=== PATIENT | male | born 1950 | race Caucasian/White ===

== ENCOUNTER → 2016-09-16 | Outpatient (CLI) | payer MEDICARE ==
--- NOTE | 2016-09-16 11:38 | XR ---
EXAMINATION TYPE: XR chest 2V DATE OF EXAM: 09/16/2016 HISTORY: J42 Chronic bronchitis M50.90 cervical disc disord. REFERENCE: Previous study dated 08/08/2014. FINDINGS: The lungs are clear. Pleural spaces are clear. Heart size is normal. IMPRESSION: NORMAL CHEST.
--- NOTE | 2016-09-16 11:40 | XR ---
EXAMINATION TYPE: XR cervical spine comp DATE OF EXAM ORDERED: 09/16/2016 HISTORY: J42 Chronic bronchitis M50.90 cervical disc disord. COMPARISON: None. FINDINGS: Height and alignment are maintained. Atlantoaxial relationships are normal. There is degenerative dis c disease and hypertrophic spondylosis at C5-6 and C6-7. There is uncovertebral joint disease at C6-7 and C5-6. There is left-sided intervertebral foraminal narrowing at C5-6 and C6-7 on the left and to a lesser extent at C5-6 and C6-7 on the right. Prevertebral soft tissues are unremarkable. IMPRESSION: 1. NO ACUTE OSSEOUS LESION. 2. DEGENERATIVE CHANGE.
== END | disposition home or self-care (01) ==
LOC: RADXRMAIN 11:09
PROVIDERS: ATTEND Family Medicine
DX: J42 Unspecified chronic bronchitis (principal); M50.90 Cervical disc disorder, unspecified, unspecified cervical region
CPT/HCPCS: 71020; 72050

== ENCOUNTER → 2016-11-05 | Outpatient (CLI) | payer MEDICARE ==
[2016-11-05 11:41] LABS: Blood Urea Nitrogen 19 mg/dL (9-20); Non-African American GFR(MDRD) >60 (>60 ml/min/1.73 sqM)
--- NOTE | 2016-11-05 12:34 | CT ---
EXAMINATION TYPE: CT abdomen pelvis w con DATE OF EXAM: 11/05/2016 COMPARISON: 10/23/2015 HISTORY: Hematospermia CT DLP: 1141.6 mGycm CONTRAST: CT scan of the abdomen and pelvis is performed with Oral Contrast and with IV Contrast, patient injec kitty with 100 mL of Omnipaque 300. FINDINGS: LUNG BASES-: No visible nodule. No infiltrate. LIVER/GB: No calcified gallstones. There is evidence of hepatic steatosis. No space occupying hepa tic lesion. Biliary tree is of normal caliber. PANCREAS: No inflammation. No distinct mass. SPLEEN: No splenic enlargement. No lesion seen. ADRENALS: No nodule. No thickening. KIDNEYS/BLADDER: No hydronephrosis. No nephrolithiasis. Tiny renal cortical cysts identified left kidney. Urinary bladder grossly unremarkable. BOWEL: Normal appendix. Normal bowel caliber. No inflammation. Uncomplicated diverticulosis. GENITAL ORGANS: The prostate gland is of normal size. There is stable central calcification of the p rostate gland. Seminal vesicles are unremarkable. LYMPH NODES: No greater than 1cm abdominal or pelvic lymph nodes are appreciated. AORTA: No significant abnormality. OSSEOUS STRUCTURES: No significant abnormality is seen. OTHER: No significant additional abnormality is seen. IMPRESSION: 1. No significant abnormality to account for the patient's symptoms.
== END | disposition home or self-care (01) ==
LOC: RADCTMAIN 10:53
PROVIDERS: ATTEND Family Medicine
DX: R36.1 Hematospermia (principal)
CPT/HCPCS: 82565; 84520; 74177; 36415; Q9967

== ENCOUNTER → 2017-01-24 | Outpatient (CLI) | payer MEDICARE ==
[2017-01-24 11:28] LABS: Blood Urea Nitrogen 20 mg/dL (9-20); Non-African American GFR(MDRD) >60 (>60 ml/min/1.73 sqM)
--- NOTE | 2017-01-24 14:18 | CT ---
EXAMINATION TYPE: CT abdomen pelvis w con DATE OF EXAM: 01/24/2017 COMPARISON: Prior exam 11/05/2016 HISTORY: Patient complains of microscopic hematuria, dysuria, and frequency of urination. CT DLP: 1494.2 mGycm Automated exposure control for dose reduction was used. TECHNIQUE: Helical acquisition of images from the lung bases through the pelvis have been completed. CONTRAST: Performed with Oral Contrast and with IV Contrast, patient injected with 100 mL of Omnipaque 300. FINDINGS: LUNG BASES: No significant abnormality is appreciated. AORTA: No significant abnormality is appreciated. LIVER/GB: No interval change is appreciated. PANCREAS: No significant abnormality is seen. SPLEEN: No significant abnormality is seen. ADRENALS: No significant abnormality is seen. KIDNEYS: No significant abnormality is seen. REPRODUCTIVE ORGANS: Prostate calcifications noted. BOWEL: Diverticular changes associated with sigmoid colon FREE AIR: No Free Air visible. ASCITES: None visible. PELVIC ADENOPATHY: None visualized. RETROPERITONEAL ADENOPATHY: No Retroperitoneal Adenopathy visible. URINARY BLADDER: Right lateral bladder wall shows a soft tissue density as on prior exam measuring a pproximately 1 cm in size. No evident calcification. OSSEOUS STRUCTURES: No significant abnormality is seen. IMPRESSION: CORRELATE WITH CYSTOSCOPY FOR POSSIBLE BLADDER WALL TUMOR. DIVERTICULOSIS.
== END | disposition home or self-care (01) ==
LOC: RADCTMAIN 10:48
PROVIDERS: ATTEND Urology
DX: K57.90 Diverticulosis of intestine, part unspecified, without perforation or abscess without bleeding (principal); R31.9 Hematuria, unspecified
CPT/HCPCS: 82565; 84520; 74177; 36415; Q9967

== ENCOUNTER → 2017-04-12 | Outpatient (CLI) | payer MEDICARE ==
[2017-04-12 15:50] LABS: Basophils % (A) 1 %; CH 29.8; Eosinophils # (A) 0.2 k/uL (0-0.7); Eosinophils % (A) 3 %; HDW 2.59; HGB 13.3 gm/dL (13.0-17.5); Luc # (Auto) 0.16; Luc % (Auto) 2; Lymphocytes # (A) 1.5 k/uL (1.0-4.8); Lymphocytes % (A) 19 %; MCV 93.7 fL (80.0-100.0); Mean Platelet Volume 7.9; Monocytes # (A) 0.5 k/uL (0-1.0); Monocytes % (A) 6 %; Neutrophils # (A) 5.5 k/uL (1.3-7.7); Neutrophils % (A) 70 %; RBC 4.59 m/uL (4.30-5.90); RDW 14.3 % (11.5-15.5); WBC 7.9 k/uL (3.8-10.6); WBC (Perox) 8.89
[2017-04-12 16:00] LABS: Anion Gap 9 mmol/L; Blood Urea Nitrogen 17 mg/dL (9-20); Calcium 9.8 mg/dL (8.4-10.2); Carbon Dioxide 30 mmol/L (22-30); Chloride 106 mmol/L (98-107); Glucose 86 mg/dL (74-99); Non-African American GFR(MDRD) >60 (>60 ml/min/1.73 sqM); Sodium 145 mmol/L (137-145)
[2017-04-12 16:03] LABS: Potassium 4.5 mmol/L (3.5-5.1)
--- NOTE | 2017-04-12 16:10 | XR ---
EXAMINATION TYPE: XR chest 2V DATE OF EXAM: 04/12/2017 COMPARISON: Prior chest x-ray 09/16/2016 HISTORY: COPD, preop, bladder cancer TECHNIQUE: Frontal and lateral views of the chest are obtained. FINDINGS: There is no focal air space opacity, pleural effusion, or pneumothorax seen. The cardiac silhouette size is within normal limits. Prominent lung volumes suggest COPD. Patient is rotated. Ap ical pleural thickening is likely stable accounting for differences in technique. The osseous structu res are stable, possible old trauma to the left shoulder. IMPRESSION: No acute cardiopulmonary process.
== END | disposition home or self-care (01) ==
LOC: LABWHC1 15:18
PROVIDERS: ATTEND Urology
DX: Z01.818 Encounter for other preprocedural examination (principal); Z01.812 Encounter for preprocedural laboratory examination; J44.9 Chronic obstructive pulmonary disease, unspecified; C67.2 Malignant neoplasm of lateral wall of bladder; E78.5 Hyperlipidemia, unspecified; R31.29 Other microscopic hematuria
CPT/HCPCS: 36415; 71020; 80048; 85025; 87086

== ENCOUNTER → 2017-04-14 | Outpatient (CLI) | payer MEDICARE ==
[~2017-04-14] MED LIST: SODIUM CHLORIDE 0.9% 500 ML in EMPTY BAG 1 BAG IV PRN
[2017-04-14 12:32] VITALS: BP 113/69; PULSE 62; RESP 16; TEMP 97
== END | disposition home or self-care (01) ==
LOC: PROCWHC3 12:21
PROVIDERS: ATTEND Urology
DX: C67.2 Malignant neoplasm of lateral wall of bladder (principal)
CPT/HCPCS: 99213

== ENCOUNTER 2017-04-15 09:53 | Inpatient (IN) | payer MEDICARE ==
[~2017-04-15 09:53] MED LIST changes: +HEPARIN SODIUM,PORCINE 5,000 UNIT/ML 1 ML VIAL SQ ONE; +ONDANSETRON 4 MG/2 ML VIAL IVP PRN; -SODIUM CHLORIDE 0.9% 500 ML in EMPTY BAG 1 BAG IV PRN; +ceFAZolin IN SWFI 2 GM/20 ML SYRINGE IVP ONE
[2017-04-15] MEDS: LACTATED RINGERS 1,000 ML IV SCH ×3 (10:27→19:49)
[2017-04-15] MEDS ORDERED: LIDOCAINE 1% 20 ML VIAL (10MG/ML) FOR IV START INTRADERMA ONE ×2 (10:28→10:29)
[2017-04-15] MEDS ORDERED: HYDROmorphone (PF) 1 MG/ML ONE (11:32)
[2017-04-15] MEDS ORDERED: ROCURONIUM BROMIDE 10 MG/ML 10 ML VIAL IV ONE (11:32)
[2017-04-15] MEDS ORDERED: SUCCINYLCHOLINE CHLORIDE 100 MG/5 ML SYR IV ONE (11:32)
[2017-04-15] MEDS ORDERED: PROPOFOL 10 MG/ML 20 ML VIAL IV ONE (11:32)
[2017-04-15] MEDS ORDERED: PHENYLEPHRINE-0.9% NACL SYG 1 MG/10 ML SYRINGE ONE (11:32)
[2017-04-15] MEDS ORDERED: fentaNYL (PF) 50 MCG/ML 2 ML AMP ONE (11:32)
[2017-04-15] MEDS ORDERED: MIDAZOLAM 2 MG/2 ML VIAL ONE (11:32)
[2017-04-15] MEDS ORDERED: LIDOCAINE 1% INJ 10MG/ML (20 ML MDV) ONE (11:32)
[2017-04-15] MEDS ORDERED: NEOSTIGMINE 1 MG/ML 10 ML VIAL ONE (11:32)
[2017-04-15] MEDS ORDERED: GLYCOPYRROLATE 0.2 MG/ML 2 ML VIAL ONE (11:32)
[2017-04-15] MEDS ORDERED: BUPIVACAINE (PF) 0.25% 30 ML VIAL SQ ONE (12:33)
[2017-04-15] MEDS ORDERED: LACTATED RINGERS 1,000 ML IV ONE ×3 (12:38→17:22)
[2017-04-15] MEDS ORDERED: metroNIDAZOLE-NS PMX 500 MG in SALINE 1 100ML.BAG IVPB STA (15:36)
[2017-04-15] MEDS ORDERED: cefOXitin IN SWFI 2 GM/10 ML SYRINGE IVP ONE (15:45)
[2017-04-15] MEDS ORDERED: KETOROLAC 30 MG/ML 1 ML VIAL IVP PRN (16:37)
[2017-04-15] MEDS: HYDROmorphone 0.5 MG/0.5 ML SYRINGE IVP PRN ×2 (17:15→17:36)
[2017-04-15] MEDS ORDERED: NITROGLYCERIN SL TABS 0.4 MG TAB SUBLINGUAL PRN (17:52)
[2017-04-15 19:37] LABS: Basophils % (A) 0 %; Eosinophils % (A) 0 %; HGB 13.1 gm/dL (13.0-17.5); Lymphocytes # (A) 0.4 k/uL (1.0-4.8); Lymphocytes % (A) 3 %; MCH 29.7 pg (25.0-35.0); MCHC 32.8 g/dL (31.0-37.0); MCV 90.6 fL (80.0-100.0); Mean Platelet Volume 7.8; Monocytes # (A) 0.6 k/uL (0-1.0); Monocytes % (A) 4 %; Neutrophils # (A) 12.8 k/uL (1.3-7.7); Neutrophils % (A) 92 %; Platelet Count 200 k/uL (150-450); RBC 4.42 m/uL (4.30-5.90); RDW 13.7 % (11.5-15.5); WBC 13.9 k/uL (3.8-10.6)
[2017-04-15] MEDS: HYDROmorphone 1 MG/ML 1 ML SYRINGE IVP PRN ×2 (19:41→21:51)
[2017-04-15] MEDS: DEXTROSE 5%-0.45% NACL 1,000 ML IV SCH (19:43)
[2017-04-15] MEDS: ATORVASTATIN 20 MG TAB PO SCH (20:36)
[2017-04-15] MEDS: LISINOPRIL 20 MG TAB PO SCH (20:36)
[2017-04-15] MEDS: HEPARIN SODIUM,PORCINE 5,000 UNIT/ML 1 ML VIAL SQ SCH (21:53)
[2017-04-15] MEDS ORDERED: ceFAZolin 1 GM in SODIUM CHLORIDE 0.9% 100 ML IVPB SCH (23:00)
[2017-04-15] MEDS: ceFAZolin 1,000 MG in DEXTROSE/WATER 1 50ML.BAG IVPB SCH (23:50)
[2017-04-16] MEDS: HYDROmorphone 1 MG/ML 1 ML SYRINGE IVP PRN ×8 (02:06→20:29)
[2017-04-16] MEDS: DEXTROSE 5%-0.45% NACL 1,000 ML IV SCH ×3 (04:17→20:31)
[2017-04-16] MEDS: PANTOPRAZOLE 40 MG TABLET PO SCH (09:12)
[2017-04-16] MEDS: ISOSORBIDE MONONITRATE ER 60 MG TAB.ER.24H PO SCH (09:21)
[2017-04-16] MEDS: METOPROLOL SUCCINATE (ER) 100 MG TAB.ER.24H PO SCH (09:21)
[2017-04-16] MEDS: HEPARIN SODIUM,PORCINE 5,000 UNIT/ML 1 ML VIAL SQ SCH ×2 (09:23→21:34)
[2017-04-16] MEDS: ceFAZolin 1,000 MG in DEXTROSE/WATER 1 50ML.BAG IVPB SCH (09:23)
--- NOTE | 2017-04-16 09:25 | P.PN ---
Subjective The patient is in his first postoperative day from a robotic-assisted cystoprostatectomy, lymphadenectomy, ileal conduit. His vital signs are stable. His urine output is good. His pain is controlled. His stoma is pink. Abdomen is relatively soft. His extremities are without edema. The drainage is not great. The ureteral catheters are intact. He will continue with IV fluids and ice chips. He will sit in a chair today. He'll continue with incentive spirometry. Objective - Vital Signs Vital signs: Vital Signs Temp 98.0 F 04/16/17 07:00 Pulse 104 H 04/16/17 07:00 Resp 18 04/16/17 07:00 BP 131/71 04/16/17 07:00 Pulse Ox 97 04/16/17 07:00 Intake & Output 04/15/17 04/16/17 04/16/17 18:59 06:59 18:59 Intake Total 2800 1550 Output Total 750 530 Balance 2050 1020 Intake: IV 2800 1550 Dextrose 5%-0.45% NaCl 1, 1500 000 ml @ 125 mls/hr IV . Q8H [facility] Rx#:[id number] ceFAZolin 1,000 mg In 50 Dextrose/Water 1 50ml.bag @ 100 mls/hr IVPB Q8HR [facility] Rx#:[id number] Output: Drainage 350 280 Hong 300 Left Abdomen 50 280 Urine 150 250 Estimated Blood Loss 250 Other: Voiding Method Ileal Conduit (Right) - Labs CBC & Chem 7: 04/15/17 18:50 Labs: Abnormal Lab Results - Last 24 Hours (Table) 04/15/17 Range/Units 18:50 WBC 13.9 H (3.8-10.6) k/uL Neutrophils # 12.8 H (1.3-7.7) k/uL Lymphocytes # 0.4 L (1.0-4.8) k/uL
[2017-04-16] MEDS: ONDANSETRON 4 MG/2 ML VIAL IVP PRN ×2 (13:00→20:04)
--- NOTE | 2017-04-16 16:26 | P.OP ---
Date of Procedure: 04/15/17 Preoperative Diagnosis: Urothelial Carcinoma of the Bladder, Clinical Stage T1G3 Postoperative Diagnosis: Same Procedure(s) Performed: Robotic-Assisted Laparoscopic Radical Cystoprostatectomy, Bilateral Pelvic Lymphadenectomy Anesthesia: CATHI Surgeon: Kizzy Liz Alemite Operator #1: Alvaro Andino Estimated Blood Loss (ml): 240 IV fluids (ml): 2,500 Pathology: other (Bladder/prostate, pelvic lymph nodes) Condition: stable Disposition: PACU Indications for Procedure: The patient is a 66-year-old male who presented with hematospermia. He reports voiding symptoms, including nocturia. KELLY reveals the prostate to be palpably normal. Bladder emptying is complete, and urinalysis is negative. He is bothered by frequency and urgency despite taking alfuzosin and oxybutynin chloride er 5 mg daily. UA showed microhematuria, so he underwent a CT scan followed by office cystoscopy which revealed several papillary bladder tumors. He underwent TUR-BT, revealing T1G3 TCC involving the left posterolateral bladder wall and prostatic urethra. Additionally, he has a left lateral bladder wall diverticulum containing tumor. He underwent re-resection and TURP, again revealing T1G3 TCC. He has elected to undergo a robotic-assisted laparoscopic cystoprostatectomy with ileal conduit urinary diversion. The pros and cons of this vs. a diverticulectomy have been discussed at length. Potential risks associated with cystectomy include anesthesia, bleeding, infection, bowel leak, urinary leakage, stomal stenosis, ureteroileal anastomatic stricture, erectile dysfunction, prolonged post-op ileus, and bowel obstruction. He understands the possible need for adjuvant therapy. Operative Findings: Dense intra-abdominal adhesions, particularly involving the sigmoid colon. No evidence of extravesical disease. Description of Procedure: The patient was taken to the operating room and placed in the dorsal lithotomy position. The patient was prepped and draped in the usual sterile fashion. General anesthesia was initiated. The patient was placed in maximum Trendelenburg with the bed all the way down. Robotic ports were placed after Veress needle and pneumoperitoneum was established up to 20 mm of pressure. A camera port was placed at the umbilicus and a series of two 8 mm robotic ports were placed 5 cm laterally and two boilermaker's assistant ports, one placed of the 5 cm trocar on the left and one placed on the right above the iliac crest with a 12 mm trocar on the right. A suction port was also placed in the midline as well. Upon placement of the dela cruz port, adhesions were noted to the anterior abdominal wall on the right side. The left-sided ports were placed, and these adhesions were taken down prior to placemnt of the right-sided ports. The robot was then docked and access into the peritoneum was established. Dense adhesions were noted to involve the sigmoid colon, requiring extensive and careful dissection to allow the sigmoid colon to be mobilized. Once this had been performed, we began with dissection of the left ureter, which was identified in its normal anatomical position. This was dissected from above the iliac vessels down distally to the bladder. Small perforating vessels to the ureter were cauterized as needed with the robotic instruments. The ureter was then clipped, ligated, and cut at the level of the UVJ. We then proceeded with the ureteral dissection on the right side. It was not hydronephrotic and was seen in the normal anatomic position. This was dissected out just like the left side, again with care taken to preserve blood supply. A suture was placed through the distal end of each ureter. The peritoneum was then incised transversly across the bladder just above the cul-de-sac safely away from the rectum. We then continued the posterior dissection under the prostate to the level of the urethra. We then opened the space lateral to median umbilical ligament into the area between the pelvic sidewall and the bladder and dissected this down past the iliac vessels beyond the prostate down to the bony landmarks. This was carefully dissected down so that the lateral pedicle of the bladder was identified. This was isolated, and the obliterated umbilical artery was clipped with Hemolock clips and cut. The remainder of the lateral pedicle was stapled bilaterally. We then accessed the posterior pedicle and prostate, and these vessels were clipped with Hemolock clips and cut all the way down to the apex of the prostate. We then next proceeded with en-bloc extended bilateral pelvic lymph node dissection. We started at the bifurcation of the iliac vessels, medial to the genito-femoral nerve. The lymph node packet was split and rolled over the external iliac artery and vein. The dissection was carried down to the obturator fossa and all the way to the level of the circumflex iliac artery. The triangle of Sandra lymphatic packet was then dissected and the dissection was continued to the internal iliac artery and vein include the hypogastric and subobturator to complete the dissection. As a part of the dissection, the arterial branches of the internal iliac artery were clipped and cut. Next, we began anteriorly and took down the median umbilical ligaments against the anterior abdominal wall all the way down beyond the bladder and prostate to the bony landmarks of the pelvis. We then completed the apical dissection, identifying and dissecting out the urethra and apex of the prostate. We incised and dissected through the dorsal vein and with sharp scissors, cut through the apex of urethra. This completed the dissection and excision of the specimen, which included prostate and bladder. We next ensured that there was adequate hemostasis in the abdomen and put a suture through the dorsal vein complex. We then tunneled underneath the sigmioid colon to pass the left ureter under the colon to prepare for the urinary diversion. A segment of ileum was selected for the ileal conduit, sparing the terminal ileum, and this was marked with a silk suture. We then undocked the robot and placed a RADHA drain through the 8 mm left- sided robotic port. Next, the ileal conduit was performed. Once this was completed,we proceeded to close the midline abdominal wound. This was done with interrupted Ethibond sutures. The skin was closed with Monocryl sutures placed in a subcuticular fashion. The robotic ports were likewise closed with Monocryl sutures. Marcaine was injected subcutaneously at each incision site. A Hong catheter was left through the penis as a pelvic drain. All counts were correct at the end of the procedure. The patient was extubated and taken to the PACU in stable condition.
--- NOTE | 2017-04-16 16:30 | P.OP ---
Date of Procedure: 04/15/17 Preoperative Diagnosis: Urothelial Carcinoma of the Bladder, Clinical Stage T1G3 Postoperative Diagnosis: Same Procedure(s) Performed: Ileal Conduit Urinary Diversion Anesthesia: LAYAA Surgeon: Alvaro Andino Key Account Representative #1: Kizzy Liz Estimated Blood Loss (ml): 10 Pathology: none sent Condition: stable Disposition: PACU Indications for Procedure: The patient is a 66-year-old male with recently diagnosed T1G3 TCC involving the left posterolateral bladder wall and prostatic urethra. Additionally, he has a left lateral bladder wall diverticulum containing tumor. He underwent re- resection and TURP, again revealing T1G3 TCC. He has elected to undergo a robotic-assisted laparoscopic cystoprostatectomy with ileal conduit urinary diversion. Operative Findings: Nicely budded stoma located RLQ. Description of Procedure: After removing the surgical specimen, the previously selected segment of ileum was identified, as were the ends of the two ureters which were pulled up and out of the body extracorporeally after being freed up with adequate length. The loop was then identified, delineated, and the mesentry was excised down with a NICANOR stapler, which was then placed on either end of our proximal and distal limits of our ileal loop. The remainder of the bowel was placed back together at the antimesenteric border. The NICANOR stapler was used to reanastomose the bowel and the TA stapler was used to complete the anastomosis. Using a 3-0 silk suture, the staple line of the bowel anastomosis was excluded and reinforced. We also excised the staple line at each end of the ileal conduit to exclude all cuco for any risk of later stone formation. The bowel was then placed superiorly. The ileal loop was ensured inferiorly and the mesenteric defects were closed with interrupted silk stitches. We then next proceeded with the ureteroileal anastomosis in a [place] fashion. The ureters were spatulated bilaterally, and the medial edges of the spatulated ureters were sutured together using 4-0 PDS in a running fashion. The ureters were then anastomosed to the afferent end of the ileal conduit using 4-0 PDS suture in a running fashion. The anastomoses were stented using 7 Nigerian ureteral catheters. The ileal conduit was placed intra-abdominally, and skin was excised in the previously selected RLQ stomal site. A cruciate incision was made in the anterior rectus fashion, and the muscle was longitudinally. The peritoneum was opened to allow two fingerbreadths, and a Diana clamp was used to grasp the distal (efferent) end of the ileal conduit and guide it through the abdominal wall. We then next fashioned the stoma, securing the wall of the ileum to the rectus fascia using Vicryl sutures placed several cm proximal to the distal end of the stoma. A series of interrrupted Vicryl sutures were then used to araceli the stoma in a tejon fashion. The bowel appeared pink and healthy. The stents were sutured to the skin adjacent to the stoma. A stomal appliaced was placed over the stoma after closing the incisions.
[2017-04-16] MEDS: LACTATED RINGERS 1,000 ML IV SCH (20:34)
[2017-04-16] MEDS: ATORVASTATIN 20 MG TAB PO SCH (20:35)
[2017-04-16] MEDS: LISINOPRIL 20 MG TAB PO SCH (20:35)
[2017-04-17] MEDS: HYDROmorphone 1 MG/ML 1 ML SYRINGE IVP PRN ×10 (00:04→22:52)
[2017-04-17] MEDS: DEXTROSE 5%-0.45% NACL 1,000 ML IV SCH ×3 (05:55→20:46)
[2017-04-17] MEDS: PANTOPRAZOLE 40 MG TABLET PO SCH (07:37)
[2017-04-17] MEDS: HEPARIN SODIUM,PORCINE 5,000 UNIT/ML 1 ML VIAL SQ SCH ×2 (08:08→22:54)
[2017-04-17] MEDS: METOPROLOL SUCCINATE (ER) 100 MG TAB.ER.24H PO SCH (08:08)
[2017-04-17] MEDS: ISOSORBIDE MONONITRATE ER 60 MG TAB.ER.24H PO SCH (08:08)
[2017-04-17] MEDS: ONDANSETRON 4 MG/2 ML VIAL IVP PRN ×3 (08:21→22:52)
--- NOTE | 2017-04-17 10:51 | P.PN ---
Subjective Progress Note Date: 04/17/17 The patient is in his second postoperative day from his robotic-assisted radical cystectomy with ileal loop. His vital signs are stable. His urine output is good. The drainage is not significant. The stoma remained pink. His abdomen is relatively soft. He has not passed any gas yet. His wound looks good. His pain is under control. He will have clear liquid diet. He'll ambulate. We'll continue with supportive care. Objective - Vital Signs Vital signs: Vital Signs Temp 97.6 F 04/17/17 07:00 Pulse 56 L 04/17/17 07:00 Resp 16 04/17/17 08:00 BP 134/70 04/17/17 07:00 Pulse Ox 94 L 04/17/17 07:00 Intake & Output 04/16/17 04/17/17 04/17/17 18:59 06:59 18:59 Intake Total 925 1550 Output Total 415 540 70 Balance 510 1010 -70 Intake: IV 925 1550 Dextrose 5%-0.45% NaCl 1, 875 1500 000 ml @ 125 mls/hr IV . Q8H [facility] Rx#:[id number] ceFAZolin 1,000 mg In 50 50 Dextrose/Water 1 50ml.bag @ 100 mls/hr IVPB Q8HR [facility] Rx#:[id number] Output: Drainage 140 240 70 Hong 40 10 Left Abdomen 100 240 60 Urine 275 300 Other: Voiding Method Ileal Conduit (Right) Ileal Conduit (Right) Ileal Conduit ( Right) - Labs CBC & Chem 7: 04/15/17 18:50
[2017-04-17 11:50] LABS: HCT 34.4 % (39.0-53.0); HGB 11.3 gm/dL (13.0-17.5); MCH 30.3 pg (25.0-35.0); MCHC 32.7 g/dL (31.0-37.0); MCV 92.6 fL (80.0-100.0); Mean Platelet Volume 7.6; Platelet Count 197 k/uL (150-450); RBC 3.72 m/uL (4.30-5.90); RDW 13.8 % (11.5-15.5); WBC 10.4 k/uL (3.8-10.6)
[2017-04-17 12:02] LABS: Anion Gap 3 mmol/L; Blood Urea Nitrogen 14 mg/dL (9-20); Calcium 8.4 mg/dL (8.4-10.2); Carbon Dioxide 28 mmol/L (22-30); Chloride 104 mmol/L (98-107); Glucose 117 mg/dL (74-99); Potassium 4.1 mmol/L (3.5-5.1); Sodium 135 mmol/L (137-145)
[2017-04-17] MEDS: LACTATED RINGERS 1,000 ML IV SCH (20:01)
[2017-04-17] MEDS: LISINOPRIL 20 MG TAB PO SCH (22:54)
[2017-04-17] MEDS: ATORVASTATIN 20 MG TAB PO SCH (22:54)
[2017-04-18] MEDS: HYDROmorphone 1 MG/ML 1 ML SYRINGE IVP PRN ×10 (01:58→23:16)
[2017-04-18] MEDS: DEXTROSE 5%-0.45% NACL 1,000 ML IV SCH ×3 (04:02→11:06)
[2017-04-18] MEDS: PANTOPRAZOLE 40 MG TABLET PO SCH (06:14)
[2017-04-18] MEDS: ISOSORBIDE MONONITRATE ER 60 MG TAB.ER.24H PO SCH (08:13)
[2017-04-18] MEDS: HEPARIN SODIUM,PORCINE 5,000 UNIT/ML 1 ML VIAL SQ SCH ×2 (08:13→20:50)
[2017-04-18] MEDS: METOPROLOL SUCCINATE (ER) 100 MG TAB.ER.24H PO SCH (08:13)
--- NOTE | 2017-04-18 10:39 | P.PN ---
Subjective Progress Note Date: 04/18/17 The patient's vital signs are stable. He's had an increased amount of drainage out of the Ehsan-Irvin drain. Whether this is due to his ambulation or not I am uncertain. The urine output is good. The drainage from the urethral catheter is minimal. I will obtain creatinines on each of the fluid levels to clarify whether this is peritoneal or urine leakage. He is stented and drained. A were good. He'll be made nothing by mouth as he does have an ileus this morning. Objective - Vital Signs Vital signs: Vital Signs Temp 98.6 F 04/18/17 07:00 Pulse 79 04/18/17 07:00 Resp 18 04/18/17 07:00 BP 152/83 04/18/17 07:00 Pulse Ox 95 04/18/17 07:00 Intake & Output 04/17/17 04/18/17 04/18/17 18:59 06:59 18:59 Intake Total 875 1000 Output Total 570 830 180 Balance 305 170 -180 Intake: IV 1000 Dextrose 5%-0.45% NaCl 1, 1000 000 ml @ 125 mls/hr IV . Q8H [facility] Rx#:[id number] Intake, IV Titration 875 Amount Dextrose 5%-0.45% NaCl 1, 875 000 ml @ 125 mls/hr IV . Q8H [facility] Rx#:[id number] Output: Drainage 120 830 180 Hong 10 Left Abdomen 110 830 180 Urine 450 Other: Voiding Method Ileal Conduit (Right) Ileal Conduit (Right) Ileal Conduit ( Right) - Labs CBC & Chem 7: 04/17/17 11:33 04/17/17 11:33 Labs: Abnormal Lab Results - Last 24 Hours (Table) 04/17/17 04/17/17 Range/Units 11:33 11:33 RBC 3.72 L (4.30-5.90) m/uL Hgb 11.3 L (13.0-17.5) gm/dL Hct 34.4 L (39.0-53.0) % Sodium 135 L (137-145) mmol/L Glucose 117 H (74-99) mg/dL
[2017-04-18 11:12] LABS: HCT 41.9 % (39.0-53.0); HGB 13.5 gm/dL (13.0-17.5); MCH 29.5 pg (25.0-35.0); MCHC 32.2 g/dL (31.0-37.0); MCV 91.7 fL (80.0-100.0); Mean Platelet Volume 7.8; Platelet Count 302 k/uL (150-450); RBC 4.57 m/uL (4.30-5.90); WBC 16.4 k/uL (3.8-10.6)
[2017-04-18 11:32] LABS: ALT 29 U/L (21-72); AST 17 U/L (17-59); Albumin 2.9 g/dL (3.5-5.0); Alkaline Phosphatase 48 U/L (38-126); Anion Gap 6 mmol/L; Blood Urea Nitrogen 16 mg/dL (9-20); Calcium 8.7 mg/dL (8.4-10.2); Carbon Dioxide 23 mmol/L (22-30); Chloride 103 mmol/L (98-107); Glucose 173 mg/dL (74-99); Potassium 4.6 mmol/L (3.5-5.1); Sodium 132 mmol/L (137-145); Total Bilirubin 0.7 mg/dL (0.2-1.3); Total Protein 5.4 g/dL (6.3-8.2)
[2017-04-18] MEDS: SODIUM CHLORIDE 0.9% 1,000 ML IV SCH ×2 (12:32→20:48)
[2017-04-18] MEDS: ONDANSETRON 4 MG/2 ML VIAL IVP PRN ×2 (17:03→23:16)
[2017-04-18] MEDS: BENZOCAINE/MENTHOL LOZENG 1 EACH LOZENGE MUCOUS MEM PRN (17:48)
[2017-04-18] MEDS: ATORVASTATIN 20 MG TAB PO SCH (20:19)
[2017-04-18] MEDS: LISINOPRIL 20 MG TAB PO SCH (20:19)
[2017-04-19] MEDS: HYDROmorphone 1 MG/ML 1 ML SYRINGE IVP PRN ×8 (01:49→22:52)
[2017-04-19] MEDS: ONDANSETRON 4 MG/2 ML VIAL IVP PRN ×2 (04:26→14:39)
[2017-04-19] MEDS: SODIUM CHLORIDE 0.9% 1,000 ML IV SCH ×2 (04:28→14:30)
[2017-04-19 07:37] LABS: Basophils % (A) 1 %; Eosinophils # (A) 0.1 k/uL (0-0.7); Eosinophils % (A) 1 %; HCT 39.4 % (39.0-53.0); HGB 12.5 gm/dL (13.0-17.5); Lymphocytes # (A) 0.7 k/uL (1.0-4.8); Lymphocytes % (A) 10 %; MCH 29.6 pg (25.0-35.0); MCHC 31.7 g/dL (31.0-37.0); MCV 93.6 fL (80.0-100.0); Monocytes # (A) 0.6 k/uL (0-1.0); Monocytes % (A) 9 %; Neutrophils # (A) 5.8 k/uL (1.3-7.7); Neutrophils % (A) 79 %; Platelet Count 247 k/uL (150-450); RBC 4.22 m/uL (4.30-5.90); RDW 14.3 % (11.5-15.5); WBC 7.3 k/uL (3.8-10.6)
[2017-04-19 07:48] LABS: ALT 33 U/L (21-72); AST 25 U/L (17-59); Albumin 2.5 g/dL (3.5-5.0); Alkaline Phosphatase 43 U/L (38-126); Anion Gap 5 mmol/L; Blood Urea Nitrogen 27 mg/dL (9-20); Calcium 8.2 mg/dL (8.4-10.2); Carbon Dioxide 25 mmol/L (22-30); Chloride 106 mmol/L (98-107); Glucose 127 mg/dL (74-99); Potassium 4.4 mmol/L (3.5-5.1); Sodium 136 mmol/L (137-145); Total Bilirubin 0.6 mg/dL (0.2-1.3); Total Protein 4.8 g/dL (6.3-8.2)
[2017-04-19] MEDS: ISOSORBIDE MONONITRATE ER 60 MG TAB.ER.24H PO SCH (09:21)
[2017-04-19] MEDS: PANTOPRAZOLE 40 MG TABLET PO SCH (09:22)
[2017-04-19] MEDS: METOPROLOL SUCCINATE (ER) 100 MG TAB.ER.24H PO SCH (09:22)
[2017-04-19] MEDS: HEPARIN SODIUM,PORCINE 5,000 UNIT/ML 1 ML VIAL SQ SCH ×2 (09:22→19:58)
--- NOTE | 2017-04-19 12:43 | CDI ---
Last Revision, March 2017 Documentation Clarification Form Date: 04/19/2017 12:34:00 PM From: Sadie TomlinsonNICKOLAS, CCDS Admit Date: 04/15/2017 9:53:00 AM Patient Name: Jf Roe Visit Number: [id number] Discharge Date: ATTENTION: The Clinical Documentation Specialists (CDI) and [facility] Coding Staff appreciate your assistance in clarifying documentation. Please respond to the clarification below the line at the bottom and electronically sign. The CDI & [facility] Coding staff will review the response and follow-up if needed. Please note: Queries are made part of the Legal Health Record. If you have any questions, please contact the author of this message via ITS. Dr. Jf Gerard or Dr. Alvaro Andino: Per the progress note on 04/18: "He'll be made nothing by mouth as he does have an ileus this morning." Patients Admitting Diagnosis: Urothelial Carcinoma of the Bladder Post-Operative Diagnosis: same Procedure performed: Robotic-Assisted Laparoscopic radical cystoprostatectomy, Ileal Conduit Urinary Diversion, Bilateral Pelvic Lymphadenectomy. History/Risk Factors: No other history documented. Clinical Indicators: Ileus documented as above. Treatment: NPO, IV Dilaudid, IV Zofran, IV Lactated ringers, Heparin sq, IV Kefzol, IV Flagyl. In order to accurately reflect this patients severity of illness, please clarify if the post-operative diagnosis: ileus, is: An expected post-procedural or post-surgical condition; Integral to the procedure; Inherent to the procedure; An unexpected post-procedural or post-surgical condition related to surgical care Other, please specify Unable to determine Please continue to document in your progress notes and discharge summary in order to capture severity of illness and risk of mortality. Include clinical findings that support your diagnosis. MTDD
--- NOTE | 2017-04-19 19:29 | P.PN ---
Subjective Progress Note Date: 04/19/17 Principal diagnosis: POD #4, s/p Radical Cystoprostatectomy with Ileal Conduit Urinary Diversion Patient is feeling better today. c/o belching. Denies N/V. Had a BM. Ambulating. Objective - Vital Signs Vital signs: Vital Signs Temp 98.2 F 04/18/17 20:22 Pulse 75 04/18/17 20:22 Resp 16 04/18/17 20:22 BP 141/81 04/18/17 20:22 Pulse Ox 93 L 04/18/17 20:22 Intake & Output 04/18/17 04/18/17 04/19/17 06:59 18:59 06:59 Intake Total 1000 1425 Output Total 830 1265 600 Balance 170 160 -600 Weight 90.718 kg Intake: IV 1000 1250 Dextrose 5%-0.45% NaCl 1, 1000 1250 000 ml @ 125 mls/hr IV . Q8H [facility] Rx#:[id number] Intake, IV Titration 125 Amount Sodium Chloride 0.9% 1, 125 000 ml @ 125 mls/hr IV . Q8H FAM Rx#:[id number] Oral 50 Output: Drainage 830 440 300 Hong 30 300 Left Abdomen 830 410 Urine 825 300 Uretheral (Hong) 275 Other: Voiding Method Ileal Conduit (Right) Ileal Conduit (Right) Ileal Conduit ( Right) # Voids 1 600 - Constitutional General appearance: Present: cooperative, no acute distress - Gastrointestinal Gastrointestinal Comment(s): Soft, mildly distended, incisions clean and dry, stoma pink and nicely budded - Psychiatric Psychiatric: Present: A&O x's 3, appropriate affect - Labs CBC & Chem 7: 04/19/17 07:09 04/19/17 07:09 Labs: Abnormal Lab Results - Last 24 Hours (Table) 04/18/17 04/18/17 Range/Units 11:04 11:04 WBC 16.4 H (3.8-10.6) k/uL Sodium 132 L (137-145) mmol/L Glucose 173 H (74-99) mg/dL Total Protein 5.4 L (6.3-8.2) g/dL Albumin 2.9 L (3.5-5.0) g/dL Assessment and Plan (1) Malignant neoplasm of bladder wall Current Visit: Yes Status: Acute Code(s): C67.9 - MALIGNANT NEOPLASM OF BLADDER, UNSPECIFIED SNOMED Code(s): 68221871 Plan: Patient is clinically improved. Peritoneal fluid not urine based on creatinine. Will slowly advance diet. Remove Hong drain.
[2017-04-19] MEDS: ATORVASTATIN 20 MG TAB PO SCH (19:58)
[2017-04-19] MEDS: LISINOPRIL 20 MG TAB PO SCH (19:59)
[2017-04-20] MEDS: SODIUM CHLORIDE 0.9% 1,000 ML IV SCH ×4 (00:20→22:50)
[2017-04-20] MEDS: HYDROmorphone 1 MG/ML 1 ML SYRINGE IVP PRN ×6 (03:28→16:16)
[2017-04-20] MEDS: ISOSORBIDE MONONITRATE ER 60 MG TAB.ER.24H PO SCH (08:06)
[2017-04-20] MEDS: METOPROLOL SUCCINATE (ER) 100 MG TAB.ER.24H PO SCH (08:06)
[2017-04-20] MEDS: HEPARIN SODIUM,PORCINE 5,000 UNIT/ML 1 ML VIAL SQ SCH ×2 (08:07→21:28)
[2017-04-20] MEDS: PANTOPRAZOLE 40 MG TABLET PO SCH (08:07)
--- NOTE | 2017-04-20 17:20 | P.PN ---
Subjective Progress Note Date: 04/20/17 Principal diagnosis: POD #5, s/p Radical Cystoprostatectomy with Ileal Conduit Urinary Diversion Patient is feeling better today. Denies N/V. Had a BM. passing flatus. He states that he is easily fatigued. He is ambulating. Objective - Vital Signs Vital signs: Vital Signs Temp 98.0 F 04/20/17 15:00 Pulse 59 L 04/20/17 15:00 Resp 16 04/20/17 15:00 BP 123/62 04/20/17 15:00 Pulse Ox 96 04/20/17 15:00 Intake & Output 04/19/17 04/20/17 04/20/17 18:59 06:59 18:59 Intake Total 1000 1300 1250 Output Total 750 1535 1090 Balance 250 -235 160 Weight 90.718 kg Intake: Intake, IV Titration 1000 1200 1200 Amount Sodium Chloride 0.9% 1, 1000 1200 1200 000 ml @ 125 mls/hr IV . Q8H [facility] Rx#:[id number] Oral 100 50 Output: Drainage 450 755 390 Hong 150 515 100 Left Abdomen 300 240 290 Urine 300 400 700 Other 380 Other: Voiding Method Ileal Conduit (Right) Ileal Conduit (Right) Ileal Conduit ( Right) - Constitutional General appearance: Present: cooperative, no acute distress - Gastrointestinal Gastrointestinal Comment(s): Soft, mildly distended. Incisions clean and dry. Stoma pink and nicely budded. - Labs CBC & Chem 7: 04/19/17 07:09 04/19/17 07:09 Assessment and Plan (1) Malignant neoplasm of bladder wall Current Visit: Yes Status: Acute Code(s): C67.9 - MALIGNANT NEOPLASM OF BLADDER, UNSPECIFIED SNOMED Code(s): 16039956 Plan: the patient's postoperative ileus is resolving. Toradol was re-ordered, and he was encouraged to use narcotics sparingly. He will be started on a full liquid diet, which will be advanced as tolerated.
[2017-04-20] MEDS: HYDROcodone/APAP 5-325MG 1 EACH TAB PO PRN ×2 (18:47→22:48)
[2017-04-20] MEDS: ATORVASTATIN 20 MG TAB PO SCH (21:28)
[2017-04-20] MEDS: LISINOPRIL 20 MG TAB PO SCH (21:28)
[2017-04-21] MEDS: HYDROmorphone 1 MG/ML 1 ML SYRINGE IVP PRN (01:59)
[2017-04-21] MEDS: HYDROcodone/APAP 5-325MG 1 EACH TAB PO PRN ×3 (04:57→17:48)
[2017-04-21] MEDS: SODIUM CHLORIDE 0.9% 1,000 ML IV SCH ×3 (04:57→23:37)
[2017-04-21] MEDS: PANTOPRAZOLE 40 MG TABLET PO SCH (09:00)
[2017-04-21] MEDS: ISOSORBIDE MONONITRATE ER 60 MG TAB.ER.24H PO SCH (09:00)
[2017-04-21] MEDS: METOPROLOL SUCCINATE (ER) 100 MG TAB.ER.24H PO SCH (09:00)
[2017-04-21] MEDS: HEPARIN SODIUM,PORCINE 5,000 UNIT/ML 1 ML VIAL SQ SCH ×2 (09:01→20:56)
[2017-04-21] MEDS: KETOROLAC 30 MG/ML 1 ML VIAL IVP PRN ×3 (09:08→20:55)
[2017-04-21 09:14] LABS: Basophils % (A) 1 %; Eosinophils # (A) 0.3 k/uL (0-0.7); Eosinophils % (A) 5 %; HCT 39.4 % (39.0-53.0); HGB 12.6 gm/dL (13.0-17.5); Lymphocytes # (A) 0.6 k/uL (1.0-4.8); Lymphocytes % (A) 10 %; MCH 29.3 pg (25.0-35.0); MCHC 31.9 g/dL (31.0-37.0); Mean Platelet Volume 8.1; Monocytes # (A) 0.5 k/uL (0-1.0); Monocytes % (A) 8 %; Neutrophils # (A) 4.8 k/uL (1.3-7.7); Neutrophils % (A) 75 %; Platelet Count 263 k/uL (150-450); RBC 4.29 m/uL (4.30-5.90); RDW 14.5 % (11.5-15.5); WBC 6.4 k/uL (3.8-10.6)
[2017-04-21 09:40] LABS: Anion Gap 9 mmol/L; Blood Urea Nitrogen 25 mg/dL (9-20); Calcium 8.1 mg/dL (8.4-10.2); Carbon Dioxide 20 mmol/L (22-30); Chloride 112 mmol/L (98-107); Glucose 113 mg/dL (74-99); Potassium 3.7 mmol/L (3.5-5.1); Sodium 141 mmol/L (137-145)
--- NOTE | 2017-04-21 09:45 | P.PN ---
Subjective Progress Note Date: 04/21/17 Principal diagnosis: POD #6, s/p Radical Cystoprostatectomy with Ileal Conduit Urinary Diversion Patient is feeling worse today. He experienced abdominal cramping and nausea when attempting to eat yesterday evening. He had no episodes of emesis. He is passing flatus. He states that he is easily fatigued. Objective - Vital Signs Vital signs: Vital Signs Temp 97.9 F 04/21/17 07:00 Pulse 71 04/21/17 07:00 Resp 16 04/21/17 08:00 BP 156/88 04/21/17 07:00 Pulse Ox 95 04/21/17 07:00 Intake & Output 04/20/17 04/21/17 04/21/17 18:59 06:59 18:59 Intake Total 1250 1550 Output Total 1300 1570 470 Balance -50 -20 -470 Intake: Intake, IV Titration 1200 1300 Amount Sodium Chloride 0.9% 1, 1200 1300 000 ml @ 125 mls/hr IV . Q8H [facility] Rx#:[id number] Oral 50 250 Output: Drainage 600 1270 270 Hong 100 280 Left Abdomen 500 990 270 Urine 700 200 Other 300 Other: Voiding Method Ileal Conduit (Right) Ileal Conduit (Right) Ileal Conduit ( Right) - Constitutional General appearance: Present: cooperative, mild distress - Gastrointestinal Gastrointestinal Comment(s): Soft, minimally distended. Incisions clean and dry. Stoma pink and nicely budded. - Psychiatric Psychiatric: Present: A&O x's 3, appropriate affect - Labs CBC & Chem 7: 04/21/17 09:01 04/19/17 07:09 Labs: Abnormal Lab Results - Last 24 Hours (Table) 04/21/17 Range/Units 09:01 RBC 4.29 L (4.30-5.90) m/uL Hgb 12.6 L (13.0-17.5) gm/dL Lymphocytes # 0.6 L (1.0-4.8) k/uL Assessment and Plan (1) Malignant neoplasm of bladder wall Current Visit: Yes Status: Acute Code(s): C67.9 - MALIGNANT NEOPLASM OF BLADDER, UNSPECIFIED SNOMED Code(s): 40979763 Plan: The patient is having a difficult time tolerating diet. He had been taking a significant amount of Dilaudid for pain control. I have strongly discouraged the use of narcotics, and stressed the need for him to ambulate. His RADHA output remains significant. It is clear yellow in color. The creatinine level within the RADHA fluid will be rechecked.
[2017-04-21] MEDS: ONDANSETRON 4 MG/2 ML VIAL IVP PRN ×2 (12:26→17:47)
[2017-04-21] MEDS: ATORVASTATIN 20 MG TAB PO SCH (20:56)
[2017-04-21] MEDS: LISINOPRIL 20 MG TAB PO SCH (20:56)
[2017-04-22] MEDS: KETOROLAC 30 MG/ML 1 ML VIAL IVP PRN ×4 (02:57→21:29)
--- NOTE | 2017-04-22 07:59 | P.PN ---
Subjective Progress Note Date: 04/22/17 Principal diagnosis: POD #7, s/p Radical Cystoprostatectomy with Ileal Conduit Urinary Diversion Patient understood nausea with vomiting yesterday evening. He is feeling better this morning. He has had 3 bowel movements this morning. He reports minimal nausea. He increased his ambulation yesterday. Objective - Vital Signs Vital signs: Vital Signs Temp 99.8 F H 04/21/17 23:00 Pulse 85 04/21/17 23:00 Resp 16 04/22/17 00:00 BP 151/79 04/21/17 23:00 Pulse Ox 97 04/21/17 23:00 Intake & Output 04/21/17 04/22/17 04/22/17 18:59 06:59 18:59 Intake Total 430 1770 Output Total 1720 1025 180 Balance -1290 745 -180 Intake: Intake, IV Titration 1000 Amount Sodium Chloride 0.9% 1, 1000 000 ml @ 125 mls/hr IV . Q8H [facility] Rx#:[id number] Oral 430 770 Output: Drainage 910 575 180 Left Abdomen 910 575 180 Urine 400 360 Emesis 410 Other 90 Other: Voiding Method Ileal Conduit (Right) Ileal Conduit (Right) # Bowel Movements 2 - Constitutional General appearance: Present: cooperative, no acute distress - Gastrointestinal Gastrointestinal Comment(s): Soft, mildly distended. Incisions clean and dry. Stoma pink and nicely budded. - Psychiatric Psychiatric: Present: A&O x's 3 - Labs CBC & Chem 7: 04/21/17 09:01 04/21/17 09:01 Labs: Abnormal Lab Results - Last 24 Hours (Table) 04/21/17 04/21/17 Range/Units 09:01 09:01 RBC 4.29 L (4.30-5.90) m/uL Hgb 12.6 L (13.0-17.5) gm/dL Lymphocytes # 0.6 L (1.0-4.8) k/uL Chloride 112 H (98-107) mmol/L Carbon Dioxide 20 L (22-30) mmol/L BUN 25 H (9-20) mg/dL Glucose 113 H (74-99) mg/dL Calcium 8.1 L (8.4-10.2) mg/dL Assessment and Plan (1) Malignant neoplasm of bladder wall Current Visit: Yes Status: Acute Code(s): C67.9 - MALIGNANT NEOPLASM OF BLADDER, UNSPECIFIED SNOMED Code(s): 01085053 Plan: The patient is having a difficult time tolerating diet. He will continue to minimize his narcotic usage, and ambulation was again stressed. The RADHA output remains significant, but has been verified not to be urine. IV fluids will be changed to lactated Ringer's.
[2017-04-22 09:13] LABS: Magnesium 2.2 mg/dL (1.6-2.3); Phosphorus 3.2 mg/dL (2.5-4.5)
[2017-04-22] MEDS: DEXTROSE 5%-LACTATED RINGERS 1,000 ML IV SCH ×2 (09:23→17:32)
[2017-04-22] MEDS: HEPARIN SODIUM,PORCINE 5,000 UNIT/ML 1 ML VIAL SQ SCH ×2 (09:24→21:29)
[2017-04-22] MEDS: SODIUM CHLORIDE 0.9% 1,000 ML IV SCH (09:24)
[2017-04-22] MEDS: ISOSORBIDE MONONITRATE ER 60 MG TAB.ER.24H PO SCH (09:24)
[2017-04-22] MEDS: METOPROLOL SUCCINATE (ER) 100 MG TAB.ER.24H PO SCH (09:24)
[2017-04-22] MEDS: PANTOPRAZOLE 40 MG TABLET PO SCH (09:24)
[2017-04-22] MEDS: ONDANSETRON 4 MG/2 ML VIAL IVP PRN ×3 (09:29→21:30)
[2017-04-22] MEDS: LISINOPRIL 20 MG TAB PO SCH (21:29)
[2017-04-22] MEDS: ATORVASTATIN 20 MG TAB PO SCH (21:29)
[2017-04-23] MEDS: HYDROcodone/APAP 5-325MG 1 EACH TAB PO PRN (02:27)
[2017-04-23] MEDS: DEXTROSE 5%-LACTATED RINGERS 1,000 ML IV SCH ×3 (02:29→19:14)
[2017-04-23] MEDS: KETOROLAC 30 MG/ML 1 ML VIAL IVP PRN ×4 (03:38→21:35)
[2017-04-23] MEDS: ONDANSETRON 4 MG/2 ML VIAL IVP PRN ×3 (03:39→16:55)
--- NOTE | 2017-04-23 08:44 | P.PN ---
Progress Note - Text Progress Note Date: 04/23/17 The patient is now 1 week post radical cystectomy and ileal conduit urinary diversion. He is afebrile and normotensive. Unfortunately he continues to have episodes of nausea and vomiting which persisted through yesterday although he says that he has felt better through the night and this morning. He had several loose bowel movements. He is tolerating sips of water but overall is not very hungry. He denies any shortness of breath or chest pain. He has been ambulatory but says that his pain at times is rated as a 9 out of 10. His pain is currently being controlled with ketorolac. Urine output is clear and adequate in volume. The patient continues to have relatively large amounts of serous fluid draining from his Ehsan-Irvin drain. Physical exam Chest: Clear bilaterally Cardiac: Regular rhythm-no murmur Abdomen: Somewhat distended. Bowel sounds are hypoactive. The urostomy stoma is pink. Genitalia: No edema Extremities: No pedal edema Impression: Prolonged ileus post radical cystectomy Plan: The patient will continue to restrict his diet until his abdominal distention subsides further.
[2017-04-23] MEDS: HEPARIN SODIUM,PORCINE 5,000 UNIT/ML 1 ML VIAL SQ SCH ×2 (08:59→21:36)
[2017-04-23] MEDS: ISOSORBIDE MONONITRATE ER 60 MG TAB.ER.24H PO SCH (08:59)
[2017-04-23] MEDS: PANTOPRAZOLE 40 MG TABLET PO SCH (08:59)
[2017-04-23] MEDS: METOPROLOL SUCCINATE (ER) 100 MG TAB.ER.24H PO SCH (08:59)
[2017-04-23 09:35] LABS: ALT 64 U/L (21-72); AST 27 U/L (17-59); Albumin 2.6 g/dL (3.5-5.0); Alkaline Phosphatase 66 U/L (38-126); Anion Gap 11 mmol/L; Blood Urea Nitrogen 37 mg/dL (9-20); Calcium 8.9 mg/dL (8.4-10.2); Carbon Dioxide 19 mmol/L (22-30); Chloride 116 mmol/L (98-107); Glucose 141 mg/dL (74-99); Potassium 3.5 mmol/L (3.5-5.1); Sodium 146 mmol/L (137-145); Total Bilirubin 0.6 mg/dL (0.2-1.3)
[2017-04-23] MEDS: ATORVASTATIN 20 MG TAB PO SCH (21:36)
[2017-04-23] MEDS: LISINOPRIL 20 MG TAB PO SCH (21:36)
[2017-04-24] MEDS: ONDANSETRON 4 MG/2 ML VIAL IVP PRN ×3 (02:52→19:27)
[2017-04-24] MEDS: DEXTROSE 5%-LACTATED RINGERS 1,000 ML IV SCH ×2 (03:19→10:38)
[2017-04-24] MEDS: KETOROLAC 30 MG/ML 1 ML VIAL IVP PRN ×3 (05:39→19:27)
[2017-04-24 07:44] LABS: Anion Gap 7 mmol/L; Blood Urea Nitrogen 31 mg/dL (9-20); Calcium 8.6 mg/dL (8.4-10.2); Carbon Dioxide 23 mmol/L (22-30); Chloride 115 mmol/L (98-107); Glucose 123 mg/dL (74-99); Potassium 3.4 mmol/L (3.5-5.1); Sodium 145 mmol/L (137-145)
[2017-04-24] MEDS: HEPARIN SODIUM,PORCINE 5,000 UNIT/ML 1 ML VIAL SQ SCH ×2 (08:19→21:39)
[2017-04-24] MEDS: ISOSORBIDE MONONITRATE ER 60 MG TAB.ER.24H PO SCH (08:19)
[2017-04-24] MEDS: METOPROLOL SUCCINATE (ER) 100 MG TAB.ER.24H PO SCH (08:19)
[2017-04-24] MEDS: PANTOPRAZOLE 40 MG TABLET PO SCH (08:19)
[2017-04-24] MEDS: HYDROcodone/APAP 5-325MG 1 EACH TAB PO PRN ×3 (08:20→19:06)
--- NOTE | 2017-04-24 10:17 | P.PN ---
Progress Note - Text Progress Note Date: 04/24/17 The patient is 9 days post radical cystectomy. His temp is ~99. BP is OK. He continues to have loose BM's but has had only one episode of vomiting in the last 24 hours. His pain is controlled with ketorlac. No SOB or cough. Urine output is adequate. Potassium is 3.4. Creatine is improved at 1.01. Will continue to try and slowly advance diet and will replace low potasium.
[2017-04-24] MEDS ORDERED: NACL IV SCH ×2 (10:30)
[2017-04-24] MEDS ORDERED: DEXTROSE IV SCH ×2 (10:30)
[2017-04-24] MEDS ORDERED: POTASSIUM CHLORIDE IV SCH ×2 (10:30)
[2017-04-24] MEDS: D5-0.45% NACL WITH KCL 30MEQ/L 1,000 ML IV SCH (19:10)
[2017-04-24] MEDS: ATORVASTATIN 20 MG TAB PO SCH (21:38)
[2017-04-24] MEDS: LISINOPRIL 20 MG TAB PO SCH (21:39)
[2017-04-24] MEDS: HYDROmorphone 2 MG/ML 1 ML SYRINGE IVP PRN (21:45)
[2017-04-25] MEDS: ONDANSETRON 4 MG/2 ML VIAL IVP PRN (01:53)
[2017-04-25] MEDS: D5-0.45% NACL WITH KCL 30MEQ/L 1,000 ML IV SCH ×3 (05:59→16:21)
[2017-04-25] MEDS: KETOROLAC 30 MG/ML 1 ML VIAL IVP PRN (06:11)
[2017-04-25] MEDS: ISOSORBIDE MONONITRATE ER 60 MG TAB.ER.24H PO SCH (08:06)
[2017-04-25] MEDS: HEPARIN SODIUM,PORCINE 5,000 UNIT/ML 1 ML VIAL SQ SCH ×2 (08:06→19:54)
[2017-04-25] MEDS: METOPROLOL SUCCINATE (ER) 100 MG TAB.ER.24H PO SCH (08:06)
[2017-04-25] MEDS: PANTOPRAZOLE 40 MG TABLET PO SCH (08:06)
[2017-04-25 08:08] LABS: Anion Gap 8 mmol/L; Blood Urea Nitrogen 31 mg/dL (9-20); Calcium 8.8 mg/dL (8.4-10.2); Carbon Dioxide 23 mmol/L (22-30); Chloride 110 mmol/L (98-107); Glucose 137 mg/dL (74-99); Potassium 3.9 mmol/L (3.5-5.1); Sodium 141 mmol/L (137-145)
[2017-04-25] MEDS: HYDROmorphone 2 MG/ML 1 ML SYRINGE IVP PRN (08:11)
[2017-04-25] MEDS: METOCLOPRAMIDE 5 MG/ML 2 ML VIAL IVP SCH ×3 (12:03→23:31)
[2017-04-25] MEDS: ATORVASTATIN 20 MG TAB PO SCH (19:54)
[2017-04-25] MEDS: LISINOPRIL 20 MG TAB PO SCH (19:54)
[2017-04-26] MEDS: D5-0.45% NACL WITH KCL 30MEQ/L 1,000 ML IV SCH ×3 (02:54→23:03)
[2017-04-26] MEDS: BENZOCAINE/MENTHOL LOZENG 1 EACH LOZENGE MUCOUS MEM PRN (04:07)
[2017-04-26] MEDS: METOCLOPRAMIDE 5 MG/ML 2 ML VIAL IVP SCH ×3 (05:43→17:16)
[2017-04-26] MEDS: HYDROmorphone 2 MG/ML 1 ML SYRINGE IVP PRN (05:47)
[2017-04-26] MEDS: METOPROLOL SUCCINATE (ER) 100 MG TAB.ER.24H PO SCH (08:25)
[2017-04-26] MEDS: ISOSORBIDE MONONITRATE ER 60 MG TAB.ER.24H PO SCH (08:25)
[2017-04-26] MEDS: HEPARIN SODIUM,PORCINE 5,000 UNIT/ML 1 ML VIAL SQ SCH ×2 (08:25→20:56)
[2017-04-26] MEDS: PANTOPRAZOLE 40 MG TABLET PO SCH (08:25)
--- NOTE | 2017-04-26 08:52 | P.PN ---
Subjective Progress Note Date: 04/25/17 Principal diagnosis: POD #10, s/p Radical Cystoprostatectomy with Ileal Conduit Urinary Diversion Patient experienced increased nausea and vomiting overnight. He continues to experience nausea and is feeling poorly this morning. He had one bowel movement yesterday. He is ambulating. Objective - Vital Signs Vital signs: Vital Signs Temp 97.9 F 04/25/17 15:00 Pulse 46 L 04/25/17 15:00 Resp 16 04/25/17 15:00 BP 111/65 04/25/17 15:00 Pulse Ox 94 L 04/25/17 15:00 Intake & Output 04/25/17 04/25/17 04/26/17 06:59 18:59 06:59 Intake Total 350 800 Output Total 1030 3980 Balance -680 -3180 Weight 95.5 kg 95.5 kg Intake: Intake, IV Titration 350 800 Amount D5-0.45% NaCl with KCl 350 800 30Meq/l 1,000 ml @ 100 mls/hr IV .Q10H [facility] Rx#: [id number] Output: Gastric Drainage 3150 Drainage 480 330 RADHA Drain 160 330 Medial Abdomen 320 Urine 550 500 Right Lower Abdomen 100 Other: Voiding Method Ileal Conduit (Right) Ileal Conduit (Right) - Constitutional General appearance: Present: cooperative, mild distress - Gastrointestinal Gastrointestinal Comment(s): Moderately distended. Incisions clean and dry. Stoma pink and nicely budded. - Labs CBC & Chem 7: 04/21/17 09:01 04/25/17 07:09 Labs: Abnormal Lab Results - Last 24 Hours (Table) 04/25/17 Range/Units 07:09 Chloride 110 H (98-107) mmol/L BUN 31 H (9-20) mg/dL Glucose 137 H (74-99) mg/dL Assessment and Plan (1) Malignant neoplasm of bladder wall Current Visit: Yes Status: Acute Code(s): C67.9 - MALIGNANT NEOPLASM OF BLADDER, UNSPECIFIED SNOMED Code(s): 52576794 Plan: The patient appears to have an ileus, which is inherent to this procedure. However, the prolonged nature of the ileus is in excess of what would be expected. A nasogastric tube will be placed. I have asked that I's and O's be more clearly documented by the nursing staff.
--- NOTE | 2017-04-26 08:56 | P.PN ---
Subjective Progress Note Date: 04/26/17 Principal diagnosis: POD #11, s/p Radical Cystoprostatectomy with Ileal Conduit Urinary Diversion Patient underwent placement of a nasogastric tube yesterday for his prolonged ileus. He felt better immediately, and continues to feel quite well. He is passing a small amount of flatus, and had 1 loose stool yesterday. He currently denies nausea. He is ambulating. His pain is improved. He denies chest pain and shortness of breath. Objective - Vital Signs Vital signs: Vital Signs Temp 98.1 F 04/26/17 07:00 Pulse 49 L 04/26/17 07:00 Resp 16 04/26/17 07:00 BP 142/67 04/26/17 07:00 Pulse Ox 96 04/26/17 07:00 Intake & Output 04/25/17 04/26/17 04/26/17 18:59 06:59 18:59 Intake Total 800 Output Total 3980 1380 328 Balance -3180 -1380 -328 Weight 95.5 kg 92.5 kg Intake: Intake, IV Titration 800 Amount D5-0.45% NaCl with KCl 800 30Meq/l 1,000 ml @ 100 mls/hr IV .Q10H [facility] Rx#: [id number] Output: Gastric Drainage 3150 Drainage 330 430 28 RADHA Drain 330 430 28 Urine 500 950 300 Other: Voiding Method Ileal Conduit (Right) Ileal Conduit (Right) Ileal Conduit ( Right) - Constitutional General appearance: Present: cooperative, no acute distress - Gastrointestinal Gastrointestinal Comment(s): Soft, minimally distended. Non-tender. Incisions clean and dry. Stoma pink and nicely budded. - Musculoskeletal Musculoskeletal Comment(s): No peripheral edema. - Psychiatric Psychiatric: Present: A&O x's 3, appropriate affect - Labs CBC & Chem 7: 04/21/17 09:01 04/25/17 07:09 Assessment and Plan (1) Malignant neoplasm of bladder wall Current Visit: Yes Status: Acute Code(s): C67.9 - MALIGNANT NEOPLASM OF BLADDER, UNSPECIFIED SNOMED Code(s): 03841716 Plan: The patient appears to have an ileus, which is inherent to this procedure. However, the prolonged nature of the ileus is in excess of what would be expected. A nasogastric tube was placed yesterday, and he is feeling much better. The tube will remain in place for an additional 24 hours, and his condition will be reassessed tomorrow. Ehsan-Irvin drainage is diminishing. His pulse suggests that he is in normal sinus rhythm with occasional PVCs. An EKG will be obtained.
[2017-04-26] MEDS ORDERED: MVI, ADULT NO.4 WITH VIT K 10 ML, TRACE (CONC-1ML/DOSE) 1 ML in AMINO ACID 4.25%-D10W+L... IV SCH ×3 (12:00)
[2017-04-26 12:11] LABS: Anion Gap 5 mmol/L; Blood Urea Nitrogen 21 mg/dL (9-20); Calcium 8.6 mg/dL (8.4-10.2); Carbon Dioxide 28 mmol/L (22-30); Chloride 114 mmol/L (98-107); Glucose 126 mg/dL (74-99); Magnesium 2.3 mg/dL (1.6-2.3); Phosphorus 3.6 mg/dL (2.5-4.5); Potassium 4.4 mmol/L (3.5-5.1); Sodium 147 mmol/L (137-145); Triglycerides 91 mg/dL (<150)
[2017-04-26] MEDS: FAT EMULSION 20% 250 ML in EMPTY BAG 1 BAG IV SCH (17:16)
[2017-04-26 17:33] LABS: Glucose,Whole Blood 111 mg/dL (75-99)
[2017-04-26] MEDS: INSULIN ASPART 100 UNIT/ML 1 ML 10 ML VIAL SQ SCH (17:45)
[2017-04-26] MEDS: ONDANSETRON 4 MG/2 ML VIAL IVP PRN (19:32)
[2017-04-26] MEDS: LISINOPRIL 20 MG TAB PO SCH (20:42)
[2017-04-26] MEDS: ATORVASTATIN 20 MG TAB PO SCH (20:42)
[2017-04-27 00:04] LABS: Glucose,Whole Blood 114 mg/dL (75-99)
[2017-04-27] MEDS: INSULIN ASPART 100 UNIT/ML 1 ML 10 ML VIAL SQ SCH ×3 (00:04→12:00)
[2017-04-27] MEDS: METOCLOPRAMIDE 5 MG/ML 2 ML VIAL IVP SCH ×6 (00:05→23:51)
[2017-04-27] MEDS: HYDROmorphone 2 MG/ML 1 ML SYRINGE IVP PRN ×2 (00:10→03:38)
[2017-04-27] MEDS: ONDANSETRON 4 MG/2 ML VIAL IVP PRN (01:51)
[2017-04-27 06:05] LABS: Glucose,Whole Blood 118 mg/dL (75-99)
[2017-04-27] MEDS: 1: MVI, ADULT NO.4 WITH VIT K 10 ML, TRACE (CONC-1ML/DOSE) 1 ML in AMINO ACID 4.25%-D10W IV SCH ×12 (06:53→23:54)
[2017-04-27 08:08] LABS: Ionized Calcium 5.2 mg/dL (4.5-5.3)
[2017-04-27 08:12] LABS: Anion Gap 11 mmol/L; Blood Urea Nitrogen 23 mg/dL (9-20); Calcium 8.8 mg/dL (8.4-10.2); Carbon Dioxide 22 mmol/L (22-30); Chloride 115 mmol/L (98-107); Glucose 133 mg/dL (74-99); Magnesium 2.5 mg/dL (1.6-2.3); Potassium 3.9 mmol/L (3.5-5.1); Sodium 148 mmol/L (137-145)
[2017-04-27] MEDS: ISOSORBIDE MONONITRATE ER 60 MG TAB.ER.24H PO SCH (08:14)
[2017-04-27] MEDS: PANTOPRAZOLE 40 MG TABLET PO SCH (08:14)
[2017-04-27] MEDS: METOPROLOL SUCCINATE (ER) 100 MG TAB.ER.24H PO SCH (08:14)
[2017-04-27] MEDS: HEPARIN SODIUM,PORCINE 5,000 UNIT/ML 1 ML VIAL SQ SCH ×2 (08:15→21:23)
[2017-04-27] MEDS ORDERED: LISINOPRIL 10 MG TAB PO SCH (09:00)
--- NOTE | 2017-04-27 11:11 | P.CRDCN ---
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 Patient had prolonged postop recovery and currently has a postop ileus. He has an NG tube in place. Cardiology has been consulted because of elevated heart rate and an irregular pulse. Patient does not have any cardiac symptoms. He denies chest pain difficulty in breathing or palpitations. An EKG shows sinus tachycardia with frequent PVCs. His baseline EKG shows sinus bradycardia with left bundle branch block is chronic and stable patient had preop cardiac evaluation and I reviewed his outpatient cardiac records. I reviewed his labs. Patient does not have intravascular volume depletion. I will obtain a CBC to rule out anemia. 2-D echo to evaluate his LV function. Patient is afebrile. He is currently on beta blockers which I am going to continue. Review of Systems Constitutional: Denies chills. Denies fever. Eyes: Denies blurred vision. Denies pain. Ears, nose, mouth and throat: Denies headache. Denies sore throat. Cardiovascular: Denies chest pain. Denies shortness of breath. Respiratory: Denies cough. Gastrointestinal: Ileus Musculoskeletal: Denies myalgias. Integumentary: Denies pruritus. Denies rash. Neurological: Denies numbness. Denies weakness. Psychiatric: Denies anxiety. Denies depression. Endocrine: Denies fatigue. Denies weight change. Genitourinary: Patient is status post cystoprostatectomy Hematological: No anemia or excess bleeding. Past Medical History Past Medical History: Coronary Artery Disease (CAD), Cancer, GERD/Reflux, Hyperlipidemia, Hypertension, Osteoarthritis (OA), Prostate Disorder Additional Past Medical History / Comment(s): bladder cancer, Last Myocardial Infarction Date:: 1999 History of Any Multi-Drug Resistant Organisms: None Reported Past Surgical History: Ear Surgery, Heart Catheterization With Stent, Orthopedic Surgery, Prostate Surgery Additional Past Surgical History / Comment(s): PLASTIC SURGERY OSCAR. EARS(STUCK OUT), LT SHOULDER SURGERY, left knee arthroscopy, left knee open surgery, two cardiac stents, TURP bladder and prostate, Cauterization in bladder 1 1/2 weeks ago in [place] Past Anesthesia/Blood Transfusion Reactions: Motion Sickness Date of Last Stent Placement:: 2011 Smoking Status: Former smoker - Past Family History Mother Family Medical History: Cancer, Deep Vein Thrombosis (DVT) Additional Family Medical History / Comment(s): SKIN CA Father Additional Family Medical History / Comment(s): HX MULTIPLE SCLEROSIS Medications and Allergies Home Medications Medication Instructions Recorded Confirmed Type Aspirin 81 mg PO DAILY 08/12/14 04/15/17 History Metoprolol Succinate (ER) [Toprol 100 mg PO DAILY 08/12/14 04/15/17 History Xl] Nitroglycerin Sl Tabs [Nitrostat] 0.4 mg SUBLINGUAL Q5M PRN 08/12/14 04/15/17 History Omeprazole [PriLOSEC] 20 mg PO AC-BRKFST 08/12/14 04/15/17 History Simvastatin [Zocor] 40 mg PO HS 08/12/14 04/15/17 History Alfuzosin HCl [Alfuzosin HCl ER] 10 mg PO DAILY 04/13/17 04/15/17 History Enalapril [Vasotec] 10 mg PO HS 04/13/17 04/15/17 History Isosorbide Mononitrate ER [Imdur] 60 mg PO DAILY 04/13/17 04/15/17 History Oxybutynin Chloride 5 mg PO HS 04/13/17 04/15/17 History Allergies Allergy/AdvReac Type Severity Reaction Status Date / Time No Known Allergies Allergy Verified 04/15/17 10:06 Physical Exam Vitals: Vital Signs Temp Pulse Resp BP Pulse Ox 04/27/17 07:00 98.5 F 120 H 16 139/83 94 L 04/27/17 00:00 18 04/26/17 21:58 98.1 F 83 18 157/75 95 04/26/17 15:00 98.7 F 55 L 16 144/71 94 L Intake and Output 04/26/17 04/27/17 04/27/17 22:59 06:59 14:59 Intake Total 599.167 Output Total 235 1040 520 Balance -235 -440.833 -520 Intake: Intake, IV Titration 599.167 Amount Mvi, Adult No.4 with Vit 599.167 K 10 ml Trace (Conc-1Ml/ Dose) 1 ml In Amino Acid 4.25%-D10w+Lytes*E* 1,000 ml @ 50 mls/hr IV . [id number] [facility] Rx#:[id number] Output: Drainage 235 240 120 RADHA Drain 235 240 120 Urine 800 Other 400 Other: Voiding Method Ileal Conduit (Right) Ileal Conduit (Right) Ileal Conduit ( Right) Weight 89 kg General: The patient is awake and alert, in no distress, and does not appear acutely ill. Skin: Skin is warm and dry and no rashes or lesions are noted. Eye: Pupils are equal, round and reactive to light, extra-ocular movements are intact; there is normal conjunctiva bilaterally. Ears, nose, mouth and throat: There are moist mucous membranes and no oral lesions. Neck: The neck is supple, there is no tenderness or JVD. Cardiovascular: Irregular No murmur, rub or gallop is appreciated. Respiratory: Lungs are clear to auscultation, respirations are non-labored, breath sounds are equal. Gastrointestinal: Soft and nontender patient has an NG tube in place Back: There is no tenderness to palpation in the midline. There is no obvious deformity. Musculoskeletal: Normal ROM, no tenderness, There is no pedal edema. There is no calf tenderness or swelling. Extremities: No edema. Vascular: Femoral pulse is normal. Posterior tibial pulses are normal .Dorsalis pedis is palpable. Neurological: CN II-XII intact. There are no obvious motor or sensory deficits. Speech is normal. Psychiatric: Cooperative, appropriate mood & affect, normal judgment. Results 04/21/17 09:01 04/27/17 07:28 Lipids 04/26/17 Range/Units 11:37 Triglycerides 91 (<150) mg/dL Comprehensive Metabolic Panel 04/26/17 04/27/17 Range/Units 11:37 07:28 Sodium 147 H 148 H (137-145) mmol/L Potassium 4.4 3.9 (3.5-5.1) mmol/L Chloride 114 H 115 H (98-107) mmol/L Carbon Dioxide 28 22 (22-30) mmol/L BUN 21 H 23 H (9-20) mg/dL Creatinine 1.10 1.05 (0.66-1.25) mg/dL Glucose 126 H 133 H (74-99) mg/dL Calcium 8.6 8.8 (8.4-10.2) mg/dL Current Medications Generic Name Dose Route Start Last Admin Trade Name Freq PRN Reason Stop Dose Admin Hydrocodone Bitart/Acetaminophen 2 each 04/20/17 17:16 04/24/17 19:06 [place] 5-325 PO 2 each Q4HR PRN Administration Moderate to Severe Pain Hydrocodone Bitart/Acetaminophen 1 each 04/20/17 17:16 [place] 5-325 PO Q4HR PRN Mild to Moderate Pain Atorvastatin Calcium 20 mg 04/15/17 21:00 04/26/17 20:42 Lipitor PO Not Given HS [facility] Benzocaine/Menthol 1 each 04/18/17 17:10 04/26/17 04:07 Cepacol Lozenge MUCOUS MEM 1 each Q4HR PRN Administration Sore Throat Heparin Sodium (Porcine) 5,000 unit 04/15/17 21:00 04/27/17 08:15 Heparin SQ 5,000 unit Q12HR [facility] Administration Hydromorphone HCl 1 mg 04/22/17 09:00 04/27/17 03:38 Dilaudid IVP 1 mg Q2HR PRN Administration Severe Pain Fat Emulsion Intravenous 250 250 mls @ 21 mls/hr 04/26/17 18:00 04/26/17 17: 16 ml/ IV Solution IV 21 mls/hr DAILY@1800 [facility] Administration Parenteral Vitamin Supplement 1,011 mls @ 83 mls/hr 04/27/17 00:01 10 ml/ Chromium/Copper/ IV Manganese/Seleni/Zn 1 ml/ .BY DURATION [facility] Amino Ac/Electrol/Dextrose/ Calcium Amino Ac/Electrol/Dextrose/Calcium 1,000 mls @ 83 mls/hr 04/27/17 00:01 04/27 06:53 Clinimix E 4.25%-D10% Solution IV 83 mls/hr .BY DURATION [facility] Administration Insulin Aspart 0 unit 04/26/17 18:00 04/27/17 06:05 Novolog SQ Not Given Q6HR [facility] Protocol Isosorbide Mononitrate 60 mg 04/16/17 09:00 04/27/17 08:14 Imdur PO 60 mg DAILY [facility] Administration Lisinopril 20 mg 04/15/17 21:00 04/26/17 20:42 Zestril PO Not Given HS [facility] Metoclopramide HCl 10 mg 04/25/17 12:00 04/27/17 06:07 Reglan IVP 10 mg Q6HR [facility] Administration Metoprolol Succinate 100 mg 04/16/17 09:00 04/27/17 08:14 Toprol Xl PO 100 mg DAILY [facility] Administration Nitroglycerin 0.4 mg 04/15/17 17:52 Nitrostat SUBLINGUAL Q5M PRN Chest Pain Ondansetron HCl 4 mg 04/17/17 21:41 04/27/17 01:51 Zofran IVP 4 mg Q6H PRN Administration Nausea Pantoprazole Sodium 40 mg 04/16/17 07:30 04/27/17 08:14 Protonix PO 40 mg AC-BRKFST [facility] Administration Intake and Output 04/26/17 04/27/17 04/27/17 22:59 06:59 14:59 Intake Total 599.167 Output Total 235 1040 520 Balance -235 -440.833 -520 Intake: Intake, IV Titration 599.167 Amount Mvi, Adult No.4 with Vit 599.167 K 10 ml Trace (Conc-1Ml/ Dose) 1 ml In Amino Acid 4.25%-D10w+Lytes*E* 1,000 ml @ 50 mls/hr IV . [id number] [facility] Rx#:[id number] Output: Drainage 235 240 120 RADHA Drain 235 240 120 Urine 800 Other 400 Other: Voiding Method Ileal Conduit (Right) Ileal Conduit (Right) Ileal Conduit ( Right) Weight 89 kg 04/21/17 09:01 04/27/17 07:28 EKG Interpretations (text) Sinus tachycardia with frequent PVCs Assessment and Plan Plan: Sinus tachycardia with PVCs Coronary artery disease status post angioplasty HTN CA bladder status post surgery Patient is free of symptoms. I will continue the beta blockers. I will obtain a 2-D echo to assess LV function. I will check a CBC to rule out anemia. If tachycardia persists we might consider checking a UA
[2017-04-27 11:57] LABS: Glucose,Whole Blood 113 mg/dL (75-99)
[2017-04-27] MEDS: HYDROcodone/APAP 5-325MG 1 EACH TAB PO PRN ×2 (11:59→21:24)
--- NOTE | 2017-04-27 12:18 | ECHOF ---
Referral Reason:tachycardia MEASUREMENTS -------- HEIGHT: 172.7 cm WEIGHT: 88.9 kg BP: RVIDd: 2.9 cm (< 3.3) IVSd: 1.4 cm (0.6 - 1.1) LVIDd: 4.2 cm (3.9 - 5.3) LVPWd: 1.4 cm (0.6 - 1.1) IVSs: 1.6 cm LVIDs: 2.1 cm LVPWs: 1.7 cm LAESV Index (A-L): 19.41 ml/m Ao Diam: 3.0 cm (2.0 - 3.7) AV Cusp: 1.9 cm (1.5 - 2.6) LA Diam: 2.0 cm (2.7 - 3.8) MV E Khang: 0.45 m/s MV DecT: 146 ms MV A Khang: 1.04 m/s MV E/A Ratio: 0.44 RAP: 5.00 mmHg RVSP: 34.99 mmHg FINDINGS -------- Undetermined rhythm. Resting tachycardia (HR>100bpm). This was a technically adequate study. The left ventricular size is normal. There is moderate concentric left ventricular hypertrophy. O verall left ventricular systolic function is normal with, an EF between 55 - 60 %. The right ventricle is normal in size. Normal LA size by volume 22+/-6 ml/m2. The right atrium is normal in size. Aortic valve is trileaflet and is mildly thickened. There is no evidence of aortic regurgitation. There is no evidence of aortic stenosis. The mitral valve leaflets are mildly thickened. There is trace to mild mitral regurgitation. Trace tricuspid regurgitation present. There is borderline pulmonary artery hypertension. The rig ht ventricular systolic pressure, as measured by Doppler, is 34.99mmHg. The pulmonic valve was not well visualized. The aortic root size is normal. Normal inferior vena cava with normal inspiratory collapse consistent with estimated right atrial pre ssure of 5 mmHg. The pericardium is normal. Echo free space represents a pericardial fat pad. There is no pericard ial effusion. CONCLUSIONS -------- 1. Undetermined rhythm. 2. Resting tachycardia (HR>100bpm). 3. This was a technically adequate study. 4. The left ventricular size is normal. 5. There is moderate concentric left ventricular hypertrophy. 6. Overall left ventricular systolic function is normal with, an EF between 55 - 60 %. 7. Normal LA size by volume 22+/-6 ml/m2. 8. Aortic valve is trileaflet and is mildly thickened. 9. The mitral valve leaflets are mildly thickened. 10. There is trace to mild mitral regurgitation. 11. Trace tricuspid regurgitation present. 12. There is borderline pulmonary artery hypertension. 13. The right ventricular systolic pressure, as measured by Doppler, is 34.99mmHg. 14. The pulmonic valve was not well visualized. 15. The aortic root size is normal. 16. There is no pericardial effusion. PROPERTY CONTROLLER: John Stover RDCS
[2017-04-27 12:38] LABS: Basophils % (A) 0 %; Eosinophils # (A) 0.1 k/uL (0-0.7); Eosinophils % (A) 1 %; HCT 43.1 % (39.0-53.0); HGB 13.2 gm/dL (13.0-17.5); Hypochromasia Moderate; Lymphocytes # (A) 0.7 k/uL (1.0-4.8); Lymphocytes % (A) 4 %; MCH 29.1 pg (25.0-35.0); MCHC 30.7 g/dL (31.0-37.0); Mean Platelet Volume 8.4; Monocytes # (A) 0.6 k/uL (0-1.0); Monocytes % (A) 4 %; Neutrophils # (A) 14.5 k/uL (1.3-7.7); Neutrophils % (A) 90 %; Platelet Count 270 k/uL (150-450); RBC 4.54 m/uL (4.30-5.90); RDW 14.8 % (11.5-15.5); WBC 16.1 k/uL (3.8-10.6)
[2017-04-27 14:49] LABS: Hemoglobin A1C 5.3 % (4.0-6.0)
[2017-04-27] MEDS: FAT EMULSION 20% 250 ML in EMPTY BAG 1 BAG IV SCH (17:34)
[2017-04-27] MEDS: ATORVASTATIN 20 MG TAB PO SCH (21:23)
[2017-04-27] MEDS: LISINOPRIL 20 MG TAB PO SCH (21:23)
[2017-04-28] MEDS: HYDROcodone/APAP 5-325MG 1 EACH TAB PO PRN ×3 (04:41→16:04)
[2017-04-28] MEDS: METOCLOPRAMIDE 5 MG/ML 2 ML VIAL IVP SCH ×3 (05:57→18:38)
[2017-04-28 08:52] LABS: Anion Gap 10 mmol/L; Blood Urea Nitrogen 25 mg/dL (9-20); Calcium 7.9 mg/dL (8.4-10.2); Carbon Dioxide 22 mmol/L (22-30); Chloride 108 mmol/L (98-107); Glucose 124 mg/dL (74-99); Magnesium 2.3 mg/dL (1.6-2.3); Phosphorus 4.1 mg/dL (2.5-4.5); Potassium 3.6 mmol/L (3.5-5.1); Sodium 140 mmol/L (137-145)
[2017-04-28] MEDS: PANTOPRAZOLE 40 MG TABLET PO SCH (09:19)
[2017-04-28] MEDS: ISOSORBIDE MONONITRATE ER 60 MG TAB.ER.24H PO SCH (09:20)
[2017-04-28] MEDS: HEPARIN SODIUM,PORCINE 5,000 UNIT/ML 1 ML VIAL SQ SCH ×2 (09:20→20:43)
[2017-04-28] MEDS: METOPROLOL SUCCINATE (ER) 100 MG TAB.ER.24H PO SCH (09:20)
[2017-04-28] MEDS: 1: MVI, ADULT NO.4 WITH VIT K 10 ML, TRACE (CONC-1ML/DOSE) 1 ML in AMINO ACID 5%-D25W+LY IV SCH (12:07)
[2017-04-28 13:44] LABS: Appearance,Urine Cloudy (Clear); Bacteria,Urine Many /hpf; Bilirubin,Urine Negative (Negative); Blood,Urine Moderate (Negative); Color,Urine Yellow; Glucose,Urine (UA) Negative (Negative); Ketones,Urine Negative (Negative); Leukocyte Esterase,Urine Large (Negative); Nitrite,Urine Positive (Negative); PH, Urine 6.5 (5.0-8.0); Protein,Urine 1+ (Negative); RBC,Urine 8 /hpf (0-5); Specific Gravity,Urine 1.008 (1.001-1.035); Urobilinogen,Urine <2.0 mg/dL (<2.0); WBC,Urine >182 /hpf (0-5)
--- NOTE | 2017-04-28 13:58 | P.PN ---
Subjective Progress Note Date: 04/28/17 Mr. 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 We are seeing him today in follow-up for tachycardia. He is also battling a possible post-operative ileus. EKG performed yesterday revealed this was a sinus tachycardia with frequent PVC's. This appears to have resolved and his heart rate is much better controlled. He denies chest pain, shortness of breath, dizziness or palpitations. He does however c/o abdominal pain, distension and constipation. He apparently had an NG tube in place yesterday which was removed. He states he was feeling somewhat better once it was placed and now feels as though he is "full" again. CBC ordered yesterday reveals stable hemoglobin with white count increase from 6.4 to 16.1. Echocardiogram was performed yesterday reveals preserved LV systolic function with EF 55-60%, aortic valve is trileaflet and mildly thickened, mitral valve is mildly thickened, trace to mild MR, trace TR, borderline pulmonary hypertension with RVSP 34.99 mmHg. Objective - Vital Signs Vital signs: Vital Signs Temp 98.3 F 04/28/17 07:00 Pulse 94 04/28/17 07:00 Resp 18 04/28/17 07:00 BP 143/71 04/28/17 07:00 Pulse Ox 96 04/28/17 07:00 Intake & Output 04/27/17 04/28/17 04/28/17 18:59 06:59 18:59 Intake Total 664 830 Output Total 885 1980 640 Balance -962 -1667 -640 Weight 85.7 kg Intake: Intake, IV Titration 664 830 Amount Amino Acid 4.25%-D10w+ 664 Lytes*E* 1,000 ml @ 83 mls/hr IV .BY DURATION [facility] Rx#:[id number] Mvi, Adult No.4 with Vit 830 K 10 ml Trace (Conc-1Ml/ Dose) 1 ml In Amino Acid 5%-D25w+Lytes*E* 740 ml In Water For Injection, Sterile 450 ml @ 83 mls/ hr IV .BY DURATION [facility] Rx #:[id number] Output: Drainage 210 405 90 RADHA Drain 210 405 90 Urine 275 1575 550 Right Lower Abdomen 150 150 Other 400 Other: Voiding Method Ileal Conduit (Right) Ileal Conduit (Right) Ileal Conduit ( Right) - Exam Blood pressure 143/71 heart rate of 94 afebrile GENERAL: Well-appearing, well-nourished and in no acute distress. NECK: Supple without JVD or thyromegaly. LUNGS: Breath sounds clear to auscultation bilaterally. Respiration equal and unlabored. No wheezes, rales or rhonchi. HEART: Irregular rate and rhythm without murmurs, rubs or gallops. S1 and S2 heard. EXTREMITIES: Normal range of motion, no edema. No clubbing or cyanosis. Peripheral pulses intact and strong. - Labs CBC & Chem 7: 04/27/17 12:20 04/28/17 07:13 Labs: Abnormal Lab Results - Last 24 Hours (Table) 04/28/17 Range/Units 07:13 Chloride 108 H (98-107) mmol/L BUN 25 H (9-20) mg/dL Glucose 124 H (74-99) mg/dL Calcium 7.9 L (8.4-10.2) mg/dL Assessment and Plan Assessment: ASSESSMENT 1. Sinus tachycardia with PVCs 2. Coronary artery disease status post angioplasty 3. Hypertension 4. Dyslipidemia 5. Bladder cancer status post surgery. 6. Leukocytosis 7. Abdominal distention PLAN Secondary to leukocytosis I would recommend checking a urinalysis and urine culture. Continue with Imdur, lisinopril, Toprol and atorvastatin as previously ordered. Recommend medical consultation to manage multiple comorbid conditions related to this postoperative patient. We will continue to see the patient patient on an as-needed basis. Thank you kindly for this consultation, feel free to call with any further questions or concerns. Follow-up with primary gas distribution plant operator upon discharge. The above impression and plan of care have been discussed and directed by the signing physician. Lizz Garcia, nurse practitioner, acting as scribe for signing physician.
--- NOTE | 2017-04-28 15:18 | XR ---
EXAMINATION TYPE: XR abdomen 2V DATE OF EXAM: 04/28/2017 COMPARISON: 01/24/2017 HISTORY: Abdominal distention TECHNIQUE: One view abdominal series FINDINGS: The osseous structures are intact. There are numerous dilated bowel loops with air-fluid levels. Bila teral ureteral stents are noted. Arthropathy of the hips and hypertrophic change of the spine. No ashley picious calcifications. IMPRESSION: 1. Nonspecific abdomen correlate for small bowel obstruction. Severe ileus or enteritis also in the d ifferential diagnosis. Report called to patient's nurse.
--- NOTE | 2017-04-28 16:26 | P.PN ---
Subjective Progress Note Date: 04/27/17 Principal diagnosis: POD #12, s/p Radical Cystoprostatectomy with Ileal Conduit Urinary Diversion Nasogastric tube remains in place. He continues to feel better, and is hungry (for liquids). He felt better immediately, and continues to feel quite well. He is passing a small amount of flatus, but has not had a bowel movement. He currently denies nausea. He is ambulating. His pain is improved. He denies chest pain and shortness of breath. Objective - Vital Signs Vital signs: Vital Signs Temp 98.5 F 04/27/17 07:00 Pulse 120 H 04/27/17 07:00 Resp 16 04/27/17 07:00 BP 139/83 04/27/17 07:00 Pulse Ox 94 L 04/27/17 07:00 Intake & Output 04/26/17 04/27/17 04/27/17 18:59 06:59 18:59 Intake Total 599.167 Output Total 1588 1155 Balance -1588 -555.833 Weight 92.5 kg 89 kg Intake: Intake, IV Titration 599.167 Amount Mvi, Adult No.4 with Vit 599.167 K 10 ml Trace (Conc-1Ml/ Dose) 1 ml In Amino Acid 4.25%-D10w+Lytes*E* 1,000 ml @ 50 mls/hr IV . [id number] [facility] Rx#:[id number] Output: Gastric Drainage 900 Drainage 263 355 RADHA Drain 263 355 Urine 425 800 Other: Voiding Method Ileal Conduit (Right) Ileal Conduit (Right) - Constitutional General appearance: Present: cooperative, no acute distress - Gastrointestinal Gastrointestinal Comment(s): Soft, non-distended. Incisions clean and dry. Stoma pink and nicely budded. - Psychiatric Psychiatric: Present: A&O x's 3, appropriate affect - Labs CBC & Chem 7: 04/27/17 12:20 04/28/17 07:13 Labs: Abnormal Lab Results - Last 24 Hours (Table) 04/26/17 04/26/17 04/27/17 Range/Units 11:37 17:30 00:02 Sodium 147 H (137-145) mmol/L Chloride 114 H (98-107) mmol/L BUN 21 H (9-20) mg/dL Glucose 126 H (74-99) mg/dL POC Glucose (mg/dL) 111 H 114 H (75-99) mg/dL 04/27/17 Range/Units 06:04 Sodium (137-145) mmol/L Chloride (98-107) mmol/L BUN (9-20) mg/dL Glucose (74-99) mg/dL POC Glucose (mg/dL) 118 H (75-99) mg/dL Assessment and Plan (1) Malignant neoplasm of bladder wall Current Visit: Yes Status: Acute Code(s): C67.9 - MALIGNANT NEOPLASM OF BLADDER, UNSPECIFIED SNOMED Code(s): 65262849 Plan: The patient appears to have an ileus, which is inherent to this procedure. However, the prolonged nature of the ileus is in excess of what would be expected. The nasogastric tube will be clamped, and removed later today if he tolerates liquids. He is noted to be tachycardic, and cardiology will be consulted.
--- NOTE | 2017-04-28 17:02 | P.PN ---
Subjective Progress Note Date: 04/28/17 Principal diagnosis: POD #13, s/p Radical Cystoprostatectomy with Ileal Conduit Urinary Diversion The nasogastric tube was removed yesterday, and he was tolerating clear liquids. Because he has not had a bowel movement for approximately 3 days, an abdominal x-ray was ordered today. This suggested a possible small bowel obstruction. He subsequently had a large bowel movement. He denies nausea, and has no specific complaints though he doesn't feel great overall. He is ambulating. His pain is improved. He denies chest pain and shortness of breath. Objective - Vital Signs Vital signs: Vital Signs Temp 98.2 F 04/28/17 15:00 Pulse 53 L 04/28/17 15:00 Resp 18 04/28/17 15:00 BP 121/75 04/28/17 15:00 Pulse Ox 95 04/28/17 15:00 Intake & Output 04/27/17 04/28/17 04/28/17 18:59 06:59 18:59 Intake Total 664 830 664 Output Total 885 1980 900 Balance -221 -1150 -236 Weight 85.7 kg Intake: Intake, IV Titration 664 830 664 Amount Amino Acid 4.25%-D10w+ 664 664 Lytes*E* 1,000 ml @ 83 mls/hr IV .BY DURATION [facility] Rx#:[id number] Mvi, Adult No.4 with Vit 830 K 10 ml Trace (Conc-1Ml/ Dose) 1 ml In Amino Acid 5%-D25w+Lytes*E* 740 ml In Water For Injection, Sterile 450 ml @ 83 mls/ hr IV .BY DURATION [facility] Rx #:[id number] Output: Drainage 210 405 150 RADHA Drain 210 405 150 Urine 275 1575 750 Right Lower Abdomen 150 150 Other 400 Other: Voiding Method Ileal Conduit (Right) Ileal Conduit (Right) Ileal Conduit ( Right) - Constitutional General appearance: Present: cooperative, no acute distress - Gastrointestinal Gastrointestinal Comment(s): Soft, mildly distended, non-tender, tympanic to percussion. Incisions clean and dry. Stoma pink and nicely budded. - Psychiatric Psychiatric: Present: A&O x's 3, appropriate affect - Labs CBC & Chem 7: 04/27/17 12:20 04/28/17 07:13 Labs: Abnormal Lab Results - Last 24 Hours (Table) 04/28/17 04/28/17 Range/Units 07:13 12:50 Chloride 108 H (98-107) mmol/L BUN 25 H (9-20) mg/dL Glucose 124 H (74-99) mg/dL Calcium 7.9 L (8.4-10.2) mg/dL Urine Protein 1+ H (Negative) Urine Blood Moderate H (Negative) Ur Leukocyte Esterase Large H (Negative) Urine RBC 8 H (0-5) /hpf Urine WBC >182 H (0-5) /hpf Urine WBC Clumps Many H (None) /hpf Urine Bacteria Many H (None) /hpf Assessment and Plan (1) Malignant neoplasm of bladder wall Current Visit: Yes Status: Acute Code(s): C67.9 - MALIGNANT NEOPLASM OF BLADDER, UNSPECIFIED SNOMED Code(s): 84581801 Plan: The patient appears to have an ileus, possible small bowel obstruction. A computed tomography scan with oral contrast will be obtained for further evaluation. Dr. Morocho has been consulted. In the meantime, his diet will be restricted to ice chips.
[2017-04-28 17:22] LABS: Basophils # (A) 0.1 k/uL (0-0.2); Basophils % (A) 0 %; Eosinophils # (A) 0.2 k/uL (0-0.7); Eosinophils % (A) 1 %; HGB 12.5 gm/dL (13.0-17.5); Lymphocytes # (A) 0.8 k/uL (1.0-4.8); Lymphocytes % (A) 4 %; MCH 29.5 pg (25.0-35.0); MCHC 32.8 g/dL (31.0-37.0); MCV 90.1 fL (80.0-100.0); Mean Platelet Volume 8.4; Monocytes # (A) 0.8 k/uL (0-1.0); Monocytes % (A) 4 %; Neutrophils # (A) 16.9 k/uL (1.3-7.7); Neutrophils % (A) 89 %; Platelet Count 224 k/uL (150-450); RBC 4.22 m/uL (4.30-5.90); RDW 13.5 % (11.5-15.5)
[2017-04-28] MEDS: IOHEXOL 350 MG/ML 25 ML BOTTLE (ORAL USE) PO PRN ×2 (17:33→18:31)
[2017-04-28] MEDS: FAT EMULSION 20% 250 ML in EMPTY BAG 1 BAG IV SCH (18:32)
--- NOTE | 2017-04-28 19:20 | CT ---
EXAMINATION TYPE: CT abdomen pelvis wo con DATE OF EXAM: 04/28/2017 COMPARISON: Previous study dated 01/24/2017. HISTORY: Abdominal distention. CT DLP: 966 mGycm Automated exposure control for dose reduction was used. FINDINGS: There is minimal atelectasis at the lung bases. Lungs are otherwise clear. There is no pleu ral or pericardial fluid. The heart is not enlarged. There is coronary artery calcification as well a s other vascular calcifications. There is a small hiatal hernia. There is a scant amount of free air adjacent to the dome of the liver. This is most likely due to the patient's previous surgery. The liver, spleen and gallbladder are otherwise unremarkable. Both adrenal glands are normal. There are double-J stents in place bilaterally. These extend from the renal pelvis into an ileal cond uit in the right lower quadrant. There is mild, bilateral hydronephrosis. Limited views of the pancreas appear unremarkable. There is no significant retroperitoneal, iliac or inguinal adenopathy. The bladder has been removed. There are several surgical drains in the cystectomy space. There is mild, uncomplicated diverticulosis of the sigmoid colon. There is no radiographic evidence o f diverticulitis. The appendix is not visualized. There is minimal prominence of the small bowel. There is no definite transition point. No definite free fluid is seen. There is mild hypertrophic spondylosis within the spine. There is no evidence of blastic metastases. IMPRESSION: 1. STATUS POST CYSTECTOMY. 2. SMALL AMOUNT OF RESIDUAL AIR ADJACENT TO THE DOME OF THE LIVER. 3. BILATERAL DOUBLE-J STENTS AND MILD HYDRONEPHROSIS OF BOTH KIDNEYS. 4. UNCOMPLICATED DIVERTICULOSIS OF THE SIGMOID COLON. 5. SMALL HIATAL HERNIA. 6. MILD PROMINENCE OF THE SMALL BOWEL WITHOUT A DEFINITE TRANSITION POINT.
[2017-04-28] MEDS ORDERED: cefTRIAXone IN SWFI 1,000 MG/10 ML SYRINGE IVP STA (20:04)
[2017-04-28] MEDS: ATORVASTATIN 20 MG TAB PO SCH (20:43)
[2017-04-28] MEDS: ACETAMINOPHEN TAB 325 MG TAB PO PRN (20:44)
--- NOTE | 2017-04-28 21:03 | P.CONS ---
History of Present Illness - Reason for Consult Consult date: 04/28/17 Medical management Requesting physician: Alvaro Andino - Chief Complaint Fever status post bladder cancer surgery with ileal diversion - History of Present Illness This is a 66-year-old gentleman known to my practice, with underlying history of CAD, hypertension, COPD, impaired fasting hyperglycemia admitted under service of Dr. 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 Andino and Dr. Liz on 04/15/2017. He was seen in our clinic for Medicare physical in October 2016 and complained of hematospermia, referral was made to Dr. Andino, for repeat cystoscopy and initial CAT scan of the abdomen and pelvis failed to reveal any significant abnormal pathology in the bladder except for calcification in the prostate, PSA in the past was 0.5, in January 2016. He has this problem since 2014 bladder ultrasound shows nonobstructing renal calculi for which she originally saw Dr. Gerard, and was followed by urology since then, cystoscopy was done with the biopsy in February 2017,.The initial biopsy showed the urothelial bladder carcinoma,his involves the left posterior lateral bladder wall and post direct urethra, he also has a left bladder diverticulum containing tumor, date for initial biopsy is February 2017 however they have requested a [place] surgeon to due the primary procedure this was scheduled to be done in April 2017, the surgery was delayed to accommodate this schedule of 4 urological specialist to perform the surgery, hence, patient had left to [place] in January 2017 travel back and forth to [place] for the biopsy thereafter he went back to [place] however with his another attack of hematuria, and hematospermia, they have requested that he come in emergently to have the bladder surgery done, procedure was done on 04/15/2018 for the ileal diversion and robotic-assisted radical cystoprostatectomy and bilateral pelvic lymphadenectomy During the perioperative recovery course, patient had intractable nausea and vomiting for which an NG tube was placed, CAT scan of the abdomen and pelvis was performed showing double-J stents bilaterally, mild bilateral hydronephrosis , spleen liver and gallbladder is unremarkable, scant amount of free air adjacent to the dome of the liver most likely secondary to previous surgery, uncomplicated mild diverticulosis of the sigmoid colon without any evidence off diverticulitis, appendix is not visualized no evidence of blastic metastasis stasis mild prominence of small bowel without a definite transition point, consult was made to Dr. Morocho general surgery Patient was noted to be febrile on April 24 however it is not sustained T-max at that time was 99.8, however fever is now 102.2, patient has diarrhea, abdominal pain, no sinus congestion no cough. Patient was given Rocephin, and would start patient on Zosyn with consults Dr. Gomez, blood cultures, influenza testing, urine cultures have been sent, and stools for C. diff toxin Review of Systems Constitutional: Reports as per HPI, Reports fatigue, Reports fever, Reports lethargy Cardiovascular: Reports as per HPI, Denies chest pain, Denies claudication, Denies decreased exercise tolerance, Denies dyspnea on exertion, Denies edema, Denies high blood pressure, Denies irregular heart beat, Denies leg edema, Denies lightheadedness, Denies orthopnea, Denies palpitations, Denies paroxysmal nocturnal dyspnea, Denies phlebitis, Denies rapid heart beat, Denies shortness of breath, Denies syncope Respiratory: Reports as per HPI, Denies congestion, Denies cough, Denies cough with sputum, Denies dyspnea, Denies excessive sputum, Denies hemoptysis, Denies home oxygen, Denies pain, Denies pain on inspiration, Denies pleurisy, Denies respiratory infections, Denies sleep apnea, Denies snoring, Denies wheezing Gastrointestinal: Reports as per HPI, Reports abdominal pain, Reports diarrhea, Denies belching, Denies bloating, Denies BRBPR, Denies change in bowel habits, Denies coffee ground emesis, Denies constipation, Denies dyspepsia, Denies early satiety, Denies excessive gas, Denies heartburn, Denies hematemesis, Denies hematochezia, Denies indigestion, Denies jaundice, Denies lactose intolerance, Denies loss of appetite, Denies melena, Denies nausea, Denies vomiting Genitourinary: Reports as per HPI, Denies decreased libido, Denies difficulties fathering child, Denies discharge, Denies dysuria, Denies erectile dysfunction, Denies flank pain, Denies genital pain, Denies genital sores, Denies hematuria, Denies impotence, Denies incontinence, Denies kidney stones, Denies nocturia, Denies polyuria, Denies testicular lump, Denies testicular pain, Denies urinary frequency, Denies urinary hesitancy, Denies urinary retention Musculoskeletal: Reports as per HPI, Denies arm numbness/tingling, Denies atrophy, Denies fractures, Denies frequent falls, Denies gait dysfunction, Denies hot joints, Denies leg numbness/tingling, Denies limitation of motion, Denies loss of height, Denies low back pain, Denies morning stiffness, Denies muscle cramps, Denies muscle weakness, Denies myalgias, Denies neck pain, Denies neck stiffness, Denies prior amputations, Denies redness of joints, Denies shooting arm pain, Denies shooting leg pain Integumentary: Reports as per HPI, Denies acne, Denies boils, Denies brittle nails, Denies change in hair/nails, Denies color changes, Denies darkening of skin, Denies depigmentation, Denies dryness, Denies foot/leg ulcers, Denies growths, Denies hirsutism, Denies lesions, Denies onychomycosis, Denies pruritus , Denies rash, Denies sores, Denies striae, Denies unusual bruising, Denies wounds Neurological: Reports as per HPI, Denies aphasia, Denies ataxia, Denies balance difficulties, Denies burning pain, Denies change in mentation, Denies change in smell/taste, Denies change in speech, Denies confusion, Denies convulsions, Denies double vision, Denies gait dysfunction, Denies head injury, Denies headaches, Denies hearing difficulties, Denies lack of coordination, Denies loss of vision, Denies memory loss, Denies migraines, Denies motor disturbance, Denies numbness, Denies paralysis, Denies paresthesias, Denies seizures, Denies sensory deficit, Denies spasticity, Denies syncope, Denies tic, Denies tingling , Denies transient paralysis, Denies tremors, Denies vertigo, Denies weakness, Denies visual changes Psychiatric: Reports as per HPI, Denies anhedonia, Denies anxiety, Denies anxiety attacks, Denies change in appetite, Denies change in libido, Denies change in sleep habits, Denies confusion, Denies depression, Denies difficulty concentrating, Denies disorientation, Denies hallucinations, Denies hopelessness , Denies hypersomnia, Denies insomnia, Denies irritability, Denies memory loss, Denies mood swings, Denies paranoia, Denies sadness/tearfulness, Denies sleep disturbances, Denies suicidal ideation Endocrine: Reports as per HPI, Denies cold intolerance, Denies deepening of the voice, Denies excessive sweating, Denies excessive thirst, Denies fatigue, Denies flushing, Denies heat intolerance, Denies high blood sugars, Denies increase in ring/shoe/hat size, Denies low blood sugars, Denies nocturia, Denies palpitations, Denies polydipsia, Denies polyphagia, Denies polyuria, Denies proptosis, Denies recent glucocorticoid use, Denies thyroid mass, Denies weight change Hematologic/Lymphatic: Reports as per HPI Allergic/Immunologic: Reports as per HPI Past Medical History Past Medical History: Coronary Artery Disease (CAD), Cancer, GERD/Reflux, Hyperlipidemia, Hypertension, Osteoarthritis (OA), Prostate Disorder Additional Past Medical History / Comment(s): bladder cancer, Last Myocardial Infarction Date:: 1999 History of Any Multi-Drug Resistant Organisms: None Reported Past Surgical History: Ear Surgery, Heart Catheterization With Stent, Orthopedic Surgery, Prostate Surgery Additional Past Surgical History / Comment(s): PLASTIC SURGERY OSCAR. EARS(STUCK OUT), LT SHOULDER SURGERY, left knee arthroscopy, left knee open surgery, two cardiac stents, TURP bladder and prostate, Cauterization in bladder 1 1/2 weeks ago in [place] Past Anesthesia/Blood Transfusion Reactions: Motion Sickness Date of Last Stent Placement:: 2011 Smoking Status: Former smoker - Past Family History Mother Family Medical History: Cancer, Deep Vein Thrombosis (DVT) Additional Family Medical History / Comment(s): SKIN CAdied at age 87 from old age Father Additional Family Medical History / Comment(s): HX MULTIPLE SCLEROSISdied at age 57 Brother(s) Family Medical History: No Reported History, Unable to Obtain (no brothers) Sister(s) History Unknown: Yes Family Medical History: Unable to Obtain (no sisters) Daughter(s) Family Medical History: No Reported History (2 daughters healthy) Son(s) Family Medical History: No Reported History (one son healthy) Medications and Allergies Home Medications Medication Instructions Recorded Confirmed Type Aspirin 81 mg PO DAILY 08/12/14 04/15/17 History Metoprolol Succinate (ER) [Toprol 100 mg PO DAILY 08/12/14 04/15/17 History Xl] Nitroglycerin Sl Tabs [Nitrostat] 0.4 mg SUBLINGUAL Q5M PRN 08/12/14 04/15/17 History Omeprazole [PriLOSEC] 20 mg PO AC-BRKFST 08/12/14 04/15/17 History Simvastatin [Zocor] 40 mg PO HS 08/12/14 04/15/17 History Alfuzosin HCl [Alfuzosin HCl ER] 10 mg PO DAILY 04/13/17 04/15/17 History Enalapril [Vasotec] 10 mg PO HS 04/13/17 04/15/17 History Isosorbide Mononitrate ER [Imdur] 60 mg PO DAILY 04/13/17 04/15/17 History Oxybutynin Chloride 5 mg PO HS 04/13/17 04/15/17 History Allergies Allergy/AdvReac Type Severity Reaction Status Date / Time No Known Allergies Allergy Verified 04/15/17 10:06 Physical Exam Vitals: Vital Signs Temp Pulse Resp BP Pulse Ox 04/28/17 15:00 98.2 F 53 L 18 121/75 95 04/28/17 07:00 98.3 F 94 18 143/71 96 04/28/17 00:33 98.0 F 116 H 22 163/88 94 L 04/27/17 23:00 98.3 F 117 H 16 139/82 94 L Intake and Output 04/28/17 04/28/17 04/28/17 06:59 14:59 22:59 Intake Total 830 664 Output Total 1190 900 440 Balance -360 -210 -801 Intake: Intake, IV Titration 830 664 Amount Amino Acid 4.25%-D10w+ 664 Lytes*E* 1,000 ml @ 83 mls/hr IV .BY DURATION FAM Rx#:[id number] Mvi, Adult No.4 with Vit 830 K 10 ml Trace (Conc-1Ml/ Dose) 1 ml In Amino Acid 5%-D25w+Lytes*E* 740 ml In Water For Injection, Sterile 450 ml @ 83 mls/ hr IV .BY DURATION FAM Rx #:[id number] Output: Drainage 240 150 140 RADHA Drain 240 150 140 Urine 950 750 300 Other: Voiding Method Ileal Conduit (Right) Ileal Conduit (Right) # Bowel Movements 1 Weight 85.7 kg - Constitutional General appearance: cooperative, no acute distress - EENT Eyes: anicteric sclerae, PERRLA, normal appearance ENT: NA/AT, normal oropharynx - Respiratory Respiratory: bilateral: CTA, negative: diminished, dullness, rales - Cardiovascular Rhythm: regular Heart sounds: normal: S1, S2 Abnormal Heart Sounds: no systolic murmur, no diastolic murmur, no rub, no S3 Gallop, no S4 Gallop, no click, no other - Gastrointestinal General gastrointestinal: hyperactive bowel sounds, soft - Integumentary Integumentary: decreased turgor, normal - Neurologic Neurologic: CNII-XII intact - Musculoskeletal Musculoskeletal: gait normal, strength equal bilaterally - Psychiatric Psychiatric: A&O x's 3, appropriate affect, intact judgment & insight Results CBC & Chem 7: 04/28/17 17:05 04/29/17 07:08 Labs: Abnormal Lab Results - Last 24 Hours (Table) 04/28/17 04/28/17 04/28/17 Range/Units 07:13 12:50 17:05 WBC 19.0 H (3.8-10.6) k/uL RBC 4.22 L (4.30-5.90) m/uL Hgb 12.5 L (13.0-17.5) gm/dL Hct 38.0 L (39.0-53.0) % Neutrophils # 16.9 H (1.3-7.7) k/uL Lymphocytes # 0.8 L (1.0-4.8) k/uL Chloride 108 H (98-107) mmol/L BUN 25 H (9-20) mg/dL Glucose 124 H (74-99) mg/dL Calcium 7.9 L (8.4-10.2) mg/dL Urine Protein 1+ H (Negative) Urine Blood Moderate H (Negative) Ur Leukocyte Esterase Large H (Negative) Urine RBC 8 H (0-5) /hpf Urine WBC >182 H (0-5) /hpf Urine WBC Clumps Many H (None) /hpf Urine Bacteria Many H (None) /hpf Laboratory Results WBC 19.0 k/uL (3.8-10.6) H 04/28/17 17:05 RBC 4.22 m/uL (4.30-5.90) L 04/28/17 17:05 Hgb 12.5 gm/dL (13.0-17.5) L 04/28/17 17:05 Hct 38.0 % (39.0-53.0) L 04/28/17 17:05 MCV 90.1 fL (80.0-100.0) 04/28/17 17:05 MCH 29.5 pg (25.0-35.0) 04/28/17 17:05 MCHC 32.8 g/dL (31.0-37.0) 04/28/17 17:05 RDW 13.5 % (11.5-15.5) 04/28/17 17:05 Plt Count 224 k/uL (150-450) 04/28/17 17:05 Neutrophils % 89 % 04/28/17 17:05 Lymphocytes % 4 % 04/28/17 17:05 Monocytes % 4 % 04/28/17 17:05 Eosinophils % 1 % 04/28/17 17:05 Basophils % 0 % 04/28/17 17:05 Neutrophils # 16.9 k/uL (1.3-7.7) H 04/28/17 17:05 Lymphocytes # 0.8 k/uL (1.0-4.8) L 04/28/17 17:05 Monocytes # 0.8 k/uL (0-1.0) 04/28/17 17:05 Eosinophils # 0.2 k/uL (0-0.7) 04/28/17 17:05 Basophils # 0.1 k/uL (0-0.2) 04/28/17 17:05 Hypochromasia Moderate 04/27/17 12:20 Sodium 140 mmol/L (137-145) 04/28/17 07:13 Potassium 3.6 mmol/L (3.5-5.1) 04/28/17 07:13 Chloride 108 mmol/L (98-107) H 04/28/17 07:13 Carbon Dioxide 22 mmol/L (22-30) 04/28/17 07:13 Anion Gap 10 mmol/L 04/28/17 07:13 BUN 25 mg/dL (9-20) H 04/28/17 07:13 Creatinine 1.07 mg/dL (0.66-1.25) 04/28/17 07:13 Est GFR (MDRD) Af Amer >60 (>60 ml/min/1.73 sqM) 04/28/17 07:13 Est GFR (MDRD) Non-Af >60 (>60 ml/min/1.73 sqM) 04/28/17 07:13 Glucose 124 mg/dL (74-99) H 04/28/17 07:13 POC Glucose (mg/dL) 113 mg/dL (75-99) H 04/27/17 11:48 POC Glu Global Clinical Leader ID Oscar Mccauley 04/27/17 11:[address] Glu mg/dL 105 04/27/17 07:28 Hemoglobin A1c 5.3 % (4.0-6.0) 04/27/17 07:28 Calcium 7.9 mg/dL (8.4-10.2) L 04/28/17 07:13 Ionized Calcium [place] 5.2 mg/dL (4.5-5.3) 04/27/17 07:28 Phosphorus 4.1 mg/dL (2.5-4.5) 04/28/17 07:13 Magnesium 2.3 mg/dL (1.6-2.3) 04/28/17 07:13 Total Bilirubin 0.6 mg/dL (0.2-1.3) 04/23/17 08:43 AST 27 U/L (17-59) 04/23/17 08:43 ALT 64 U/L (21-72) 04/23/17 08:43 Alkaline Phosphatase 66 U/L (38-126) 04/23/17 08:43 Total Protein 5.0 g/dL (6.3-8.2) L 04/23/17 08:43 Albumin 2.6 g/dL (3.5-5.0) L 04/23/17 08:43 Triglycerides 91 mg/dL (<150) 04/26/17 11:37 TSH 1.950 mIU/L (0.465-4.680) 04/27/17 07:28 Urine Color Yellow 04/28/17 12:50 Urine Appearance Cloudy (Clear) 04/28/17 12:50 Urine pH 6.5 (5.0-8.0) 04/28/17 12:50 Ur Specific [place] 1.008 (1.001-1.035) 04/28/17 12:50 Urine Protein 1+ (Negative) H 04/28/17 12:50 Urine Glucose (UA) Negative (Negative) 04/28/17 12:50 Urine Ketones Negative (Negative) 04/28/17 12:50 Urine Blood Moderate (Negative) H 04/28/17 12:50 Urine Nitrite Positive (Negative) 04/28/17 12:50 Urine Bilirubin Negative (Negative) 04/28/17 12:50 Urine Urobilinogen <2.0 mg/dL (<2.0) 04/28/17 12:50 Ur Leukocyte Esterase Large (Negative) H 04/28/17 12:50 Urine RBC 8 /hpf (0-5) H 04/28/17 12:50 Urine WBC >182 /hpf (0-5) H 04/28/17 12:50 Urine WBC Clumps Many /hpf (None) H 04/28/17 12:50 Urine Bacteria Many /hpf (None) H 04/28/17 12:50 Ur Random Creatinine 1.9 mg/dL 04/21/17 08:29 Miscellaneous Test Creatinine, Body Fld 04/21/17 08:29 Misc Test Result See Comment 04/21/17 08:29 Blood Type A Positive 04/14/17 09:45 Blood Type Confirm A Positive 04/15/17 10:24 Blood Type Recheck CABO Indicated 04/14/17 09:45 Antibody Screen NEGATIVE 04/14/17 09:45 Spec Expiration Date 04/17/2017 - 2021 04/14/17 09:45 Assessment and Plan Plan: 1. sepsis/SIRS presenting withFebrile illness after bladder resection surgery with ileal conduit surgery postop day #12, patient would be worked up for sepsis which can be from urinary tract infection with the new ileal conduit against peritonitis, any other sources, influenza test will be done although less likely, blood cultures would be done, urine cultures, and stools for C. diff toxin, patient will be started on Zosyn 3.375 mg every 6 hours with consult to Dr. Gomez infectious disease pulmonary complaints at this time however monitor to observe for any signs of developing any pulmonary emboli 2. 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 Munoz, consults were made to our local cardiologists secondary to irregular pulse and elevated heart rate, EKG shows sinus tachycardia with frequent PVCs, in the left bundle branch block which is chronic. Patient is on beta blockers metoprolol aspirin currently is on hold, when necessary nitro, and maintenance Imdur 60 mg daily no changes were made 4. Hyperlipidemia on Lipitor 20 daily 5Hypertension patient was maintained on enalapril 10 mg daily at bedtime, switch over to Zestril 20 mg daily while in the hospital 6 CK D stage II avoid hypotension monitor labs 7 GERD on maintenance PPI 8 prophylaxis on Protonix 9. DVT prophylaxis on subcutaneous heparin 5000 units every 24 hours
[2017-04-29] MEDS: METOCLOPRAMIDE 5 MG/ML 2 ML VIAL IVP SCH ×6 (00:28→23:27)
[2017-04-29] MEDS: LISINOPRIL 20 MG TAB PO SCH ×2 (00:29→20:49)
[2017-04-29] MEDS: 1: MVI, ADULT NO.4 WITH VIT K 10 ML, TRACE (CONC-1ML/DOSE) 1 ML in AMINO ACID 5%-D25W+LY IV SCH ×2 (01:18→15:54)
[2017-04-29] MEDS: HYDROcodone/APAP 5-325MG 1 EACH TAB PO PRN ×2 (04:52→14:30)
[2017-04-29] MEDS: PIPERACILLIN-TAZOBACTAM 3.375 GM in DEXTROSE/WATER 1 50ML.BAG IVPB SCH ×3 (07:57→23:22)
[2017-04-29] MEDS: ISOSORBIDE MONONITRATE ER 60 MG TAB.ER.24H PO SCH (08:03)
[2017-04-29] MEDS: METOPROLOL SUCCINATE (ER) 100 MG TAB.ER.24H PO SCH (08:03)
[2017-04-29] MEDS: PANTOPRAZOLE 40 MG TABLET PO SCH (08:03)
[2017-04-29] MEDS: HEPARIN SODIUM,PORCINE 5,000 UNIT/ML 1 ML VIAL SQ SCH ×2 (08:03→20:50)
[2017-04-29 08:08] LABS: Anion Gap 9 mmol/L; Blood Urea Nitrogen 25 mg/dL (9-20); Calcium 7.5 mg/dL (8.4-10.2); Carbon Dioxide 22 mmol/L (22-30); Chloride 106 mmol/L (98-107); Glucose 124 mg/dL (74-99); Magnesium 2.3 mg/dL (1.6-2.3); Phosphorus 3.5 mg/dL (2.5-4.5); Potassium 3.4 mmol/L (3.5-5.1); Sodium 137 mmol/L (137-145)
[2017-04-29] MEDS ORDERED: Potassium Replacement Protocol 1 EACH MISC MISCELLANE PRN (09:32)
--- NOTE | 2017-04-29 11:24 | P.CONS ---
History of Present Illness - Reason for Consult Consult date: 04/29/17 Sepsis - History of Present Illness Patient gives history that he knows with bladder cancer under the care of urology and was to scheduled for surgery at the end of April. Patient normally spends forbes in [place] and returned there after procedures January were done. Unfortunately he started having urinary and rectal bleeding that was profuse and went into the emergency center. A Hong catheter was placed and patient followed up with a urologist. Patient did have the Hong catheter changed but due to significant bleeding patient return to the emergency center. Bladder was flushed 24 hours and then he had cauterization done to stop the bleeding but surgeon in [place] instructed him to have bladder removed as soon as possible. Patient return to [place] and underwent surgery on April 15 of robotic-assisted laparoscopic radical cystoprostatectomy, bilateral pelvic lymphadenectomy with ileal conduit urinary diversion and RADHA drain placement with Dr. Liz and Dr. Andino. 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 Patient 's recovery has been complicated by postop ileus and he had an NG tube in place for 3 days which was subsequently removed, cardiology was consulted on April 27 for tachycardia. He has been started on TPN for severe protein calorie malnutrition. He has developed loose bowel movements for which C. difficile toxin was negative. April 28 abdominal film showed nonspecific abdomen correlate for small bowel obstruction. Severe ileus or enteritis also in the differential. CAT scan of the abdomen and pelvis without contrast was also done yesterday that revealed status post cystectomy, small amount of residual air adjacent to the dome of the liver, bilateral double-J stents and mild hydronephrosis of both kidneys, uncomplicated diverticulosis of the sigmoid colon, small hiatal hernia, mild prominence of small bowel without definite transition point consult was added for medicine at that time and due to fever 102.2 and continued tachycardia, ID consult was requested. A shunt is currently on a clear liquid diet and tolerating but refusing protein supplements. He is having frequent loose bowel movements. Ileal conduit is draining as well as RADHA drain. Review of Systems All systems: negative Constitutional: Reports chills, Reports fatigue, Reports fever, Reports weakness Eyes: denies blurred vision, denies pain Ears, nose, mouth and throat: Denies headache, Denies sore throat Cardiovascular: Denies chest pain, Denies edema, Denies leg edema, Denies lightheadedness, Denies shortness of breath, Denies syncope Respiratory: Denies cough, Denies cough with sputum, Denies dyspnea, Denies excessive sputum, Denies hemoptysis, Denies home oxygen Gastrointestinal: Reports abdominal pain, Reports diarrhea, Reports loss of appetite, Denies nausea, Denies vomiting Musculoskeletal: Denies myalgias Integumentary: Denies pruritus, Denies rash Neurological: Denies numbness, Denies weakness Psychiatric: Denies anxiety, Denies depression Endocrine: Denies fatigue, Denies weight change Past Medical History Past Medical History: Coronary Artery Disease (CAD), Cancer, GERD/Reflux, Hyperlipidemia, Hypertension, Osteoarthritis (OA), Prostate Disorder Additional Past Medical History / Comment(s): bladder cancer, Last Myocardial Infarction Date:: 1999 History of Any Multi-Drug Resistant Organisms: None Reported Past Surgical History: Ear Surgery, Heart Catheterization With Stent, Orthopedic Surgery, Prostate Surgery Additional Past Surgical History / Comment(s): PLASTIC SURGERY OSCAR. EARS(STUCK OUT), LT SHOULDER SURGERY, left knee arthroscopy, left knee open surgery, two cardiac stents, TURP bladder and prostate, Cauterization in bladder 1 1/2 weeks ago in [place], robotic-assisted laparoscopic radical cystoprostatectomy, bilateral pelvic lymphadenectomy with ileal conduit urinary diversion and RADHA drain placement Past Anesthesia/Blood Transfusion Reactions: Motion Sickness Date of Last Stent Placement:: 2011 Smoking Status: Former smoker Additional Past Alcohol Use History / Comment(s): He denies any illicit drug use. He does drink alcohol socially. He lives at home with his . He spends half the year in [place]. 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 - Past Family History Mother Family Medical History: Cancer, Deep Vein Thrombosis (DVT) Additional Family Medical History / Comment(s): SKIN CA Father Additional Family Medical History / Comment(s): HX MULTIPLE SCLEROSIS Brother(s) Family Medical History: No Reported History, Unable to Obtain (no brothers) Sister(s) History Unknown: Yes Family Medical History: Unable to Obtain (no sisters) Daughter(s) Family Medical History: No Reported History (2 daughters healthy) Son(s) Family Medical History: No Reported History (one son healthy) Medications and Allergies Home Medications Medication Instructions Recorded Confirmed Type Aspirin 81 mg PO DAILY 04/27/15 12/29/17 History Metoprolol Succinate (ER) [Toprol 100 mg PO DAILY 08/12/14 04/15/17 History Xl] Nitroglycerin Sl Tabs [Nitrostat] 0.4 mg SUBLINGUAL Q5M PRN 08/12/14 04/15/17 History Omeprazole [PriLOSEC] 20 mg PO AC-BRKFST 08/12/14 04/15/17 History Simvastatin [Zocor] 40 mg PO HS 08/12/14 04/15/17 History Alfuzosin HCl [Alfuzosin HCl ER] 10 mg PO DAILY 04/13/17 04/15/17 History Enalapril [Vasotec] 10 mg PO HS 04/13/17 04/15/17 History Isosorbide Mononitrate ER [Imdur] 60 mg PO DAILY 04/13/17 04/15/17 History Oxybutynin Chloride 5 mg PO HS 04/13/17 04/15/17 History Allergies Allergy/AdvReac Type Severity Reaction Status Date / Time No Known Allergies Allergy Verified 04/15/17 10:06 Physical Exam Vitals: Vital Signs Temp Pulse Resp BP Pulse Ox 04/29/17 07:00 99.7 F H 93 16 130/67 95 04/28/17 23:00 99.1 F 115 H 16 109/69 95 04/28/17 19:41 102.2 F H 125 H 18 121/67 94 L 04/28/17 15:00 98.2 F 53 L 18 121/75 95 Intake and Output 04/28/17 04/29/17 04/29/17 22:59 06:59 14:59 Intake Total 590 Output Total 1010 920 410 Balance -420 -920 -410 Intake: Oral 590 Output: Drainage 310 220 10 RADHA Drain 310 220 10 Urine 700 700 400 Other: Voiding Method Ileal Conduit (Right) Ileal Conduit (Right) # Bowel Movements 2 Weight 96.5 kg Gen: This is a 66-year-old male. He is getting up in bed and appears to be somewhat uncomfortable. HEENT: Head is atraumatic, normocephalic. Pupils equal, round. Sclerae is anicteric. NECK: Supple. No JVD. No lymphadenopathy. No thyromegaly. LUNGS: Clear to auscultation. No wheezes or rhonchi. No intercostal retractions. HEART: Regular rate and rhythm. No murmur. ABDOMEN: Soft. Bowel sounds are present. No masses. No tenderness. Ileal conduit to the right lower carotid and current with yellow fluid drainage. Stoma red and moist. RADHA drain to the left abdominal wall with serous drainage. EXTREMITIES: No pedal edema. No calf tenderness. NEUROLOGICAL: Patient is awake, alert and oriented x3. Cranial nerves 2 through 12 are grossly intact. Results Results: Laboratory Results WBC 19.0 k/uL (3.8-10.6) H 04/28/17 17:05 RBC 4.22 m/uL (4.30-5.90) L 04/28/17 17:05 Hgb 12.5 gm/dL (13.0-17.5) L 04/28/17 17:05 Hct 38.0 % (39.0-53.0) L 04/28/17 17:05 MCV 90.1 fL (80.0-100.0) 04/28/17 17:05 MCH 29.5 pg (25.0-35.0) 04/28/17 17:05 MCHC 32.8 g/dL (31.0-37.0) 04/28/17 17:05 RDW 13.5 % (11.5-15.5) 04/28/17 17:05 Plt Count 224 k/uL (150-450) 04/28/17 17:05 Neutrophils % 89 % 04/28/17 17:05 Lymphocytes % 4 % 04/28/17 17:05 Monocytes % 4 % 04/28/17 17:05 Eosinophils % 1 % 04/28/17 17:05 Basophils % 0 % 04/28/17 17:05 Neutrophils # 16.9 k/uL (1.3-7.7) H 04/28/17 17:05 Lymphocytes # 0.8 k/uL (1.0-4.8) L 04/28/17 17:05 Monocytes # 0.8 k/uL (0-1.0) 04/28/17 17:05 Eosinophils # 0.2 k/uL (0-0.7) 04/28/17 17:05 Basophils # 0.1 k/uL (0-0.2) 04/28/17 17:05 Hypochromasia Moderate 04/27/17 12:20 Sodium 137 mmol/L (137-145) 04/29/17 07:08 Potassium 3.4 mmol/L (3.5-5.1) L 04/29/17 07:08 Chloride 106 mmol/L (98-107) 04/29/17 07:08 Carbon Dioxide 22 mmol/L (22-30) 04/29/17 07:08 Anion Gap 9 mmol/L 04/29/17 07:08 BUN 25 mg/dL (9-20) H 04/29/17 07:08 Creatinine 1.15 mg/dL (0.66-1.25) 04/29/17 07:08 Est GFR (MDRD) Af Amer >60 (>60 ml/min/1.73 sqM) 04/29/17 07:08 Est GFR (MDRD) Non-Af >60 (>60 ml/min/1.73 sqM) 04/29/17 07:08 Glucose 124 mg/dL (74-99) H 04/29/17 07:08 POC Glucose (mg/dL) 113 mg/dL (75-99) H 04/27/17 11:48 POC Glu Emergency Department Aide ID Oscar Mccauley 04/27/17 11:[address] Glu mg/dL 105 04/27/17 07:28 Hemoglobin A1c 5.3 % (4.0-6.0) 04/27/17 07:28 Plasma Lactic Acid Sadiq 1.2 mmol/L (0.7-2.0) 04/28/17 20:37 Calcium 7.5 mg/dL (8.4-10.2) L 04/29/17 07:08 Ionized Calcium Gary 5.2 mg/dL (4.5-5.3) 04/27/17 07:28 Phosphorus 3.5 mg/dL (2.5-4.5) 04/29/17 07:08 Magnesium 2.3 mg/dL (1.6-2.3) 04/29/17 07:08 Total Bilirubin 0.6 mg/dL (0.2-1.3) 04/23/17 08:43 AST 27 U/L (17-59) 04/23/17 08:43 ALT 64 U/L (21-72) 04/23/17 08:43 Alkaline Phosphatase 66 U/L (38-126) 04/23/17 08:43 Total Protein 5.0 g/dL (6.3-8.2) L 04/23/17 08:43 Albumin 2.6 g/dL (3.5-5.0) L 04/23/17 08:43 Triglycerides 91 mg/dL (<150) 04/26/17 11:37 TSH 1.950 mIU/L (0.465-4.680) 04/27/17 07:28 Urine Color Yellow 04/28/17 12:50 Urine Appearance Cloudy (Clear) 04/28/17 12:50 Urine pH 6.5 (5.0-8.0) 04/28/17 12:50 Ur Specific [place] 1.008 (1.001-1.035) 04/28/17 12:50 Urine Protein 1+ (Negative) H 04/28/17 12:50 Urine Glucose (UA) Negative (Negative) 04/28/17 12:50 Urine Ketones Negative (Negative) 04/28/17 12:50 Urine Blood Moderate (Negative) H 04/28/17 12:50 Urine Nitrite Positive (Negative) 04/28/17 12:50 Urine Bilirubin Negative (Negative) 04/28/17 12:50 Urine Urobilinogen <2.0 mg/dL (<2.0) 04/28/17 12:50 Ur Leukocyte Esterase Large (Negative) H 04/28/17 12:50 Urine RBC 8 /hpf (0-5) H 04/28/17 12:50 Urine WBC >182 /hpf (0-5) H 04/28/17 12:50 Urine WBC Clumps Many /hpf (None) H 04/28/17 12:50 Urine Bacteria Many /hpf (None) H 04/28/17 12:50 Ur Random Creatinine 1.9 mg/dL 04/21/17 08:29 C. difficile (EIA) Intrp Negative (Negative) 04/28/17 20:50 Miscellaneous Test Creatinine, Body Fld 04/21/17 08:29 Misc Test Result See Comment 04/21/17 08:29 Blood Type A Positive 04/14/17 09:45 Blood Type Confirm A Positive 04/15/17 10:24 Blood Type Recheck CABO Indicated 04/14/17 09:45 Antibody Screen NEGATIVE 04/14/17 09:45 Spec Expiration Date 04/17/2017 - 2525 04/14/17 09:45 CBC & Chem 7: 04/28/17 17:05 04/29/17 07:08 Labs: Abnormal Lab Results - Last 24 Hours (Table) 04/28/17 04/28/17 04/29/17 Range/Units 12:50 17:05 07:08 WBC 19.0 H (3.8-10.6) k/uL RBC 4.22 L (4.30-5.90) m/uL Hgb 12.5 L (13.0-17.5) gm/dL Hct 38.0 L (39.0-53.0) % Neutrophils # 16.9 H (1.3-7.7) k/uL Lymphocytes # 0.8 L (1.0-4.8) k/uL Potassium 3.4 L (3.5-5.1) mmol/L BUN 25 H (9-20) mg/dL Glucose 124 H (74-99) mg/dL Calcium 7.5 L (8.4-10.2) mg/dL Urine Protein 1+ H (Negative) Urine Blood Moderate H (Negative) Ur Leukocyte Esterase Large H (Negative) Urine RBC 8 H (0-5) /hpf Urine WBC >182 H (0-5) /hpf Urine WBC Clumps Many H (None) /hpf Urine Bacteria Many H (None) /hpf Microbiology - Last 24 Hours (Table) 04/28/17 12:50 Urine Culture - Preliminary Urine,Suprapubic Assessment and Plan Plan: This is a 66-year-old male patient who presented to the hospital on April 15 and underwentrobotic-assisted laparoscopic radical cystoprostatectomy, bilateral pelvic lymphadenectomy with ileal conduit urinary diversion and RADHA drain placement for bladder cancer. Patient has had difficult course with symptoms of nausea vomiting, ileus, severe protein calorie malnutrition and yesterday developed fever. C. difficile toxin has been negative. Urine and blood cultures were obtained. He received a dose of ceftriaxone and then changed to Zosyn. Cultures will be monitored. Continue supportive care. Further recommendations as patient progresses. The above dictated assessment and findings were discussed with Dr. Gomez. The impression and plan of care have been directed as dictated. Gracy Vuong nurse practitioner acting as scribe for Dr. Gomez.
--- NOTE | 2017-04-29 11:33 | P.PN ---
Subjective Progress Note Date: 04/29/17 Principal diagnosis: This is a 66-year-old gentleman known to my practice, with underlying history of CAD, hypertension, COPD, impaired fasting hyperglycemia admitted under service of Dr. 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 Andino and Dr. Liz on 04/15/2017. He was seen in our clinic for Medicare physical in October 2016 and complained of hematospermia, referral was made to Dr. Andino, for repeat cystoscopy and initial CAT scan of the abdomen and pelvis failed to reveal any significant abnormal pathology in the bladder except for calcification in the prostate, PSA in the past was 0.5, in January 2016. He has this problem since 2014 bladder ultrasound shows nonobstructing renal calculi for which she originally saw Dr. Gerard, and was followed by urology since then, cystoscopy was done with the biopsy in February 2017,.The initial biopsy showed the urothelial bladder carcinoma,his involves the left posterior lateral bladder wall and post direct urethra, he also has a left bladder diverticulum containing tumor, date for initial biopsy is February 2017 however they have requested a [place] surgeon to due the primary procedure this was scheduled to be done in April 2017, the surgery was delayed to accommodate this schedule of 4 urological specialist to perform the surgery, hence, patient had left to [place] in January 2017 travel back and forth to [place] for the biopsy thereafter he went back to [place] however with his another attack of hematuria, and hematospermia, they have requested that he come in emergently to have the bladder surgery done, procedure was done on 04/15/2018 for the ileal diversion and robotic-assisted radical cystoprostatectomy and bilateral pelvic lymphadenectomy During the perioperative recovery course, patient had intractable nausea and vomiting for which an NG tube was placed, CAT scan of the abdomen and pelvis was performed showing double-J stents bilaterally, mild bilateral hydronephrosis , spleen liver and gallbladder is unremarkable, scant amount of free air adjacent to the dome of the liver most likely secondary to previous surgery, uncomplicated mild diverticulosis of the sigmoid colon without any evidence off diverticulitis, appendix is not visualized no evidence of blastic metastasis stasis mild prominence of small bowel without a definite transition point, consult was made to Dr. Morocho general surgery Patient was noted to be febrile on April 24 however it is not sustained T-max at that time was 99.8, however fever is now 102.2, patient has diarrhea, abdominal pain, no sinus congestion no cough. Patient was given Rocephin, and would start patient on Zosyn with consults Dr. Gomez, blood cultures, influenza testing, urine cultures have been sent, and stools for C. diff toxin 04/29: Patient is being followed by Dr. Gomez as well. Influenza A testing has not been done. Urine and blood cultures are in progress. C. difficile toxin has been negative. Patient has been afebrile since yesterday evening. He is using his incentive spirometry. Objective - Vital Signs Vital signs: Vital Signs Temp 99.7 F H 04/29/17 07:00 Pulse 93 04/29/17 07:00 Resp 16 04/29/17 07:00 BP 130/67 04/29/17 07:00 Pulse Ox 95 04/29/17 07:00 Intake & Output 04/28/17 04/29/17 04/29/17 18:59 06:59 18:59 Intake Total 664 590 Output Total 1340 1490 410 Balance -676 -900 -410 Weight 96.5 kg Intake: Intake, IV Titration 664 Amount Amino Acid 4.25%-D10w+ 664 Lytes*E* 1,000 ml @ 83 mls/hr IV .BY DURATION FAM Rx#:[id number] Oral 590 Output: Drainage 290 390 10 RADHA Drain 290 390 10 Urine 1050 1100 400 Other: Voiding Method Ileal Conduit (Right) Ileal Conduit (Right) Ileal Conduit ( Right) # Bowel Movements 1 2 - Exam - Constitutional General appearance: cooperative, no acute distress - EENT Eyes: anicteric sclerae, PERRLA, normal appearance ENT: NA/AT, normal oropharynx - Respiratory Respiratory: bilateral: CTA, negative: diminished, dullness, rales - Cardiovascular Rhythm: regular Heart sounds: normal: S1, S2 Abnormal Heart Sounds: no systolic murmur, no diastolic murmur, no rub, no S3 Gallop, no S4 Gallop, no click, no other - Gastrointestinal General gastrointestinal: hyperactive bowel sounds, soft - Integumentary Integumentary: decreased turgor, normal - Neurologic Neurologic: CNII-XII intact - Musculoskeletal Musculoskeletal: gait normal, strength equal bilaterally - Psychiatric Psychiatric: A&O x's 3, appropriate affect, intact judgment & insight - Labs CBC & Chem 7: 04/28/17 17:05 04/29/17 07:08 Labs: Abnormal Lab Results - Last 24 Hours (Table) 04/28/17 04/28/17 04/29/17 Range/Units 12:50 17:05 07:08 WBC 19.0 H (3.8-10.6) k/uL RBC 4.22 L (4.30-5.90) m/uL Hgb 12.5 L (13.0-17.5) gm/dL Hct 38.0 L (39.0-53.0) % Neutrophils # 16.9 H (1.3-7.7) k/uL Lymphocytes # 0.8 L (1.0-4.8) k/uL Potassium 3.4 L (3.5-5.1) mmol/L BUN 25 H (9-20) mg/dL Glucose 124 H (74-99) mg/dL Calcium 7.5 L (8.4-10.2) mg/dL Urine Protein 1+ H (Negative) Urine Blood Moderate H (Negative) Ur Leukocyte Esterase Large H (Negative) Urine RBC 8 H (0-5) /hpf Urine WBC >182 H (0-5) /hpf Urine WBC Clumps Many H (None) /hpf Urine Bacteria Many H (None) /hpf Microbiology - Last 24 Hours (Table) 04/28/17 12:50 Urine Culture - Preliminary Urine,Suprapubic Assessment and Plan Plan: 1. Sepsis/SIRS with febrile illness after bladder resection surgery with ileal conduit surgery, patient would be worked up for sepsis which can be from urinary tract infection with the new ileal conduit against peritonitis, any other sources, influenza test will be done although less likely, blood cultures would be done, urine cultures, C. diff toxin negative. Patient will be started on Zosyn 3.375 mg every 6 hours with consult to Dr. Gomez infectious disease pulmonary complaints at this time however monitor to observe for any signs of developing any pulmonary emboli 2. Urothelial cell carcinoma of the bladder with extension to the prostate, post radical cystoprostatectomy robotic-assisted with bilateral pelvic lymphadenectomy on 04/15/2017 stage TI G3, Qu[place] ilial conduit urinary diverision 3 CAD follows with [place] beader Dr. Munoz, consults were made to our local cardiologists secondary to irregular pulse and elevated heart rate, EKG shows sinus tachycardia with frequent PVCs, in the left bundle branch block which is chronic. Patient is on beta blockers metoprolol aspirin currently is on hold, when necessary nitro, and maintenance Imdur 60 mg daily no changes were made 4. Hyperlipidemia on Lipitor 20 daily 5. Hypertension patient was maintained on enalapril 10 mg daily at bedtime, switch over to Zestril 20 mg daily while in the hospital 6. CK D stage II avoid hypotension monitor labs 7. GERD on maintenance PPI 8. GI prophylaxis on Protonix 9. DVT prophylaxis on subcutaneous heparin 5000 units every 24 hours Impression and plan of care have been directed as dictated by the signing physician. Gracy Vuong nurse practitioner acting as scribe for signing physician.
[2017-04-29] MEDS: POTASSIUM CHLORIDE 10 MEQ in WATER FOR INJECTION 1 100ML.BAG IVPB SCH ×2 (13:20→14:32)
--- NOTE | 2017-04-29 13:31 | P.PN ---
Subjective Progress Note Date: 04/29/17 Principal diagnosis: POD #14, s/p Radical Cystoprostatectomy with Ileal Conduit Urinary Diversion The patient had 2 large bowel movements yesterday prior to his computed tomography scan, and an additional bowel movements following the computed tomography scan. He states that he is feeling much better. He denies nausea and vomiting. He is tolerating clear liquid diet. He reports mild abdominal discomfort, which continues to improve. He is ambulating. Objective - Vital Signs Vital signs: Vital Signs Temp 99.7 F H 04/29/17 07:00 Pulse 93 04/29/17 07:00 Resp 16 04/29/17 07:00 BP 130/67 04/29/17 07:00 Pulse Ox 95 04/29/17 07:00 Intake & Output 04/28/17 04/29/17 04/29/17 18:59 06:59 18:59 Intake Total 664 590 Output Total 1340 1490 410 Balance -676 -900 -410 Weight 96.5 kg 96.5 kg Intake: Intake, IV Titration 664 Amount Amino Acid 4.25%-D10w+ 664 Lytes*E* 1,000 ml @ 83 mls/hr IV .BY DURATION FAM Rx#:[id number] Oral 590 Output: Drainage 290 390 10 RADHA Drain 290 390 10 Urine 1050 1100 400 Other: Voiding Method Ileal Conduit (Right) Ileal Conduit (Right) Ileal Conduit ( Right) # Bowel Movements 1 2 - Constitutional General appearance: Present: cooperative, no acute distress - Gastrointestinal Gastrointestinal Comment(s): Soft, minimally distended, non-tender. Incisions clean and dry. Stoma pink and nicely budded. - Psychiatric Psychiatric: Present: A&O x's 3, appropriate affect, intact judgment & insight - Labs CBC & Chem 7: 04/28/17 17:05 04/29/17 07:08 Labs: Abnormal Lab Results - Last 24 Hours (Table) 04/28/17 04/28/17 04/29/17 Range/Units 12:50 17:05 07:08 WBC 19.0 H (3.8-10.6) k/uL RBC 4.22 L (4.30-5.90) m/uL Hgb 12.5 L (13.0-17.5) gm/dL Hct 38.0 L (39.0-53.0) % Neutrophils # 16.9 H (1.3-7.7) k/uL Lymphocytes # 0.8 L (1.0-4.8) k/uL Potassium 3.4 L (3.5-5.1) mmol/L BUN 25 H (9-20) mg/dL Glucose 124 H (74-99) mg/dL Calcium 7.5 L (8.4-10.2) mg/dL Urine Protein 1+ H (Negative) Urine Blood Moderate H (Negative) Ur Leukocyte Esterase Large H (Negative) Urine RBC 8 H (0-5) /hpf Urine WBC >182 H (0-5) /hpf Urine WBC Clumps Many H (None) /hpf Urine Bacteria Many H (None) /hpf Microbiology - Last 24 Hours (Table) 04/28/17 12:50 Urine Culture - Preliminary Urine,Suprapubic Assessment and Plan (1) Malignant neoplasm of bladder wall Current Visit: Yes Status: Acute Code(s): C67.9 - MALIGNANT NEOPLASM OF BLADDER, UNSPECIFIED SNOMED Code(s): 19485143 Plan: The computed tomography scan showed no evidence of a bowel obstruction, and as stated he has had several bowel movements. He is tolerating clear liquid diet. He had a fever overnight, the source of which is unclear. A urine culture is pending. The computed tomography scan showed no evidence of a pelvic abscess. Chest x-ray has been ordered, though pneumonia is not suspected as he denies any pulmonary symptoms. He is currently receiving Zosyn. Diet will be advanced to full liquid diet.
--- NOTE | 2017-04-29 13:52 | XR ---
EXAMINATION TYPE: XR chest 2V DATE OF EXAM: 04/29/2017 COMPARISON: 04/12/2017 TECHNIQUE: PA and lateral views submitted. HISTORY: Fever FINDINGS: The lungs are clear and there is no pneumothorax, pleural effusion, or focal pneumonia. Arthropathy of the shoulders. IMPRESSION: 1. No acute process.
[2017-04-29] MEDS: FAT EMULSION 20% 250 ML in EMPTY BAG 1 BAG IV SCH (17:39)
--- NOTE | 2017-04-29 18:06 | P.GSCN ---
History of Present Illness Consult date: 04/29/17 Reason for Consult: Bowel obstruction History of present illness: Patient seen in consultation for possible bowel obstruction. Patient underwent robotic-assisted cystectomy and prostatectomy with ileal loop conduit. This was performed close to 2 weeks ago. Yesterday the patient was feeling nauseated and bloated. He had increased abdominal pain. X-ray showed possible ileus pattern. We were consulted at that time. Shortly thereafter the patient started to have several bowel movements. He felt much better after that. A CAT scan was performed which showed some slight bowel dilation without definite obstruction. He had a high fever yesterday. Today he says is feeling much better. Denies nausea or vomiting. Would like to try more to eat. Etiology of the patient's elevated temperature yesterday still being worked up. Chest x- ray today negative. White blood cell count yesterday 19. Review of Systems The patient denies any acute changes in vision or hearing, no dysphagia or odynophagia, no chest pain or shortness of breath, no headache, no runny nose, no rectal bleeding or melena, no unexplained weight loss Past Medical History Past Medical History: Coronary Artery Disease (CAD), Cancer, GERD/Reflux, Hyperlipidemia, Hypertension, Osteoarthritis (OA), Prostate Disorder Additional Past Medical History / Comment(s): bladder cancer, Last Myocardial Infarction Date:: 1999 History of Any Multi-Drug Resistant Organisms: None Reported Past Surgical History: Ear Surgery, Heart Catheterization With Stent, Orthopedic Surgery, Prostate Surgery Additional Past Surgical History / Comment(s): PLASTIC SURGERY OSCAR. EARS(STUCK OUT), LT SHOULDER SURGERY, left knee arthroscopy, left knee open surgery, two cardiac stents, TURP bladder and prostate, Cauterization in bladder 1 1/2 weeks ago in [place], robotic-assisted laparoscopic radical cystoprostatectomy, bilateral pelvic lymphadenectomy with ileal conduit urinary diversion and RADHA drain placement Past Anesthesia/Blood Transfusion Reactions: Motion Sickness Date of Last Stent Placement:: 2011 Smoking Status: Former smoker Additional Past Alcohol Use History / Comment(s): He denies any illicit drug use. He does drink alcohol socially. He lives at home with his . He spends half the year in [place]. 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 - Past Family History Brother(s) Family Medical History: No Reported History, Unable to Obtain (no brothers) Sister(s) History Unknown: Yes Family Medical History: Unable to Obtain (no sisters) Daughter(s) Family Medical History: No Reported History (2 daughters healthy) Son(s) Family Medical History: No Reported History (one son healthy) Mother Family Medical History: Cancer, Deep Vein Thrombosis (DVT) Additional Family Medical History / Comment(s): SKIN CA Father Additional Family Medical History / Comment(s): HX MULTIPLE SCLEROSIS Medications and Allergies Home Medications Medication Instructions Recorded Confirmed Type Aspirin 81 mg PO DAILY 08/12/14 04/15/17 History Metoprolol Succinate (ER) [Toprol 100 mg PO DAILY 08/12/14 04/15/17 History Xl] Nitroglycerin Sl Tabs [Nitrostat] 0.4 mg SUBLINGUAL Q5M PRN 08/12/14 04/15/17 History Omeprazole [PriLOSEC] 20 mg PO AC-BRKFST 08/12/14 04/15/17 History Simvastatin [Zocor] 40 mg PO HS 08/12/14 04/15/17 History Alfuzosin HCl [Alfuzosin HCl ER] 10 mg PO DAILY 04/13/17 04/15/17 History Enalapril [Vasotec] 10 mg PO HS 04/13/17 04/15/17 History Isosorbide Mononitrate ER [Imdur] 60 mg PO DAILY 04/13/17 04/15/17 History Oxybutynin Chloride 5 mg PO HS 04/13/17 04/15/17 History Allergies Allergy/AdvReac Type Severity Reaction Status Date / Time No Known Allergies Allergy Verified 04/15/17 10:06 Surgical - Exam Vital Signs Temp Pulse Resp BP Pulse Ox 97.8 F 76 18 140/78 98 04/15/17 10:21 04/15/17 10:21 04/15/17 10:21 04/15/17 10:21 04/15/17 10:21 Physical exam: General: Well-developed, well-nourished HEENT: Normocephalic, sclerae nonicteric Abdomen: Nontender, nondistended, incisions clean and dry, ostomy functioning Extremities: No edema Neuro: Alert and oriented Results - Labs 04/28/17 17:05 04/29/17 07:08 Abnormal Lab Results - Last 24 Hours (Table) 04/29/17 Range/Units 07:08 Potassium 3.4 L (3.5-5.1) mmol/L BUN 25 H (9-20) mg/dL Glucose 124 H (74-99) mg/dL Calcium 7.5 L (8.4-10.2) mg/dL Microbiology - Last 24 Hours (Table) 04/28/17 12:50 Urine Culture - Preliminary Urine,Suprapubic Diabetes panel 04/29/17 Range/Units 07:08 Sodium 137 (137-145) mmol/L Potassium 3.4 L (3.5-5.1) mmol/L Chloride 106 (98-107) mmol/L Carbon Dioxide 22 (22-30) mmol/L BUN 25 H (9-20) mg/dL Creatinine 1.15 (0.66-1.25) mg/dL Glucose 124 H (74-99) mg/dL Calcium 7.5 L (8.4-10.2) mg/dL Calcium panel 04/29/17 Range/Units 07:08 Calcium 7.5 L (8.4-10.2) mg/dL Phosphorus 3.5 (2.5-4.5) mg/dL Pituitary panel 04/29/17 Range/Units 07:08 Sodium 137 (137-145) mmol/L Potassium 3.4 L (3.5-5.1) mmol/L Chloride 106 (98-107) mmol/L Carbon Dioxide 22 (22-30) mmol/L BUN 25 H (9-20) mg/dL Creatinine 1.15 (0.66-1.25) mg/dL Glucose 124 H (74-99) mg/dL Calcium 7.5 L (8.4-10.2) mg/dL Adrenal panel 04/29/17 Range/Units 07:08 Sodium 137 (137-145) mmol/L Potassium 3.4 L (3.5-5.1) mmol/L Chloride 106 (98-107) mmol/L Carbon Dioxide 22 (22-30) mmol/L BUN 25 H (9-20) mg/dL Creatinine 1.15 (0.66-1.25) mg/dL Glucose 124 H (74-99) mg/dL Calcium 7.5 L (8.4-10.2) mg/dL Assessment and Plan (1) Ileus following gastrointestinal surgery Narrative/Plan: Agree with plans to advance diet to full liquids. Continue workup of the patient's fever. Repeat labs tomorrow including CBC. Will follow with you. Current Visit: Yes Status: Acute Code(s): K91.30 - POSTPROC INTESTINAL OBST , UNSP TO PARTIAL VERSUS COMPLETE SNOMED Code(s): 880146010
[2017-04-29] MEDS: ONDANSETRON 4 MG/2 ML VIAL IVP PRN (20:49)
[2017-04-29] MEDS: ATORVASTATIN 20 MG TAB PO SCH (20:49)
--- NOTE | 2017-04-29 21:19 | P.CON ---
Consult Note - . Consult date: 04/29/17 Assessment/Plan:: Patient gives history that he knows with bladder cancer under the care of urology and was to scheduled for surgery at the end of April. Patient normally spends forbes in [place] and returned there after procedures January were done. Unfortunately he started having urinary and rectal bleeding that was profuse and went into the emergency center. A Hong catheter was placed and patient followed up with a urologist. Patient did have the Hong catheter changed but due to significant bleeding patient return to the emergency center. Bladder was flushed 24 hours and then he had cauterization done to stop the bleeding but surgeon in [place] instructed him to have bladder removed as soon as possible. Patient return to [place] and underwent surgery on April 15 of robotic-assisted laparoscopic radical cystoprostatectomy, bilateral pelvic lymphadenectomy with ileal conduit urinary diversion and RADHA drain placement with Dr. Liz and Dr. Andino. 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 Patient 's recovery has been complicated by postop ileus and he had an NG tube in place for 3 days which was subsequently removed, cardiology was consulted on April 27 for tachycardia. He has been started on TPN for severe protein calorie malnutrition. He has developed loose bowel movements for which C. difficile toxin was negative. April 28 abdominal film showed nonspecific abdomen correlate for small bowel obstruction. Severe ileus or enteritis also in the differential. CAT scan of the abdomen and pelvis without contrast was also done yesterday that revealed status post cystectomy, small amount of residual air adjacent to the dome of the liver, bilateral double-J stents and mild hydronephrosis of both kidneys, uncomplicated diverticulosis of the sigmoid colon, small hiatal hernia, mild prominence of small bowel without definite transition point consult was added for medicine at that time and due to fever 102.2 and continued tachycardia, ID consult was requested. A shunt is currently on a clear liquid diet and tolerating but refusing protein supplements. He is having frequent loose bowel movements. Ileal conduit is draining as well as RADHA drain. Please see the consult note is dictated by nurse practitioner Gracy Rudolphciaran. Site patient is feeling slowly better. He however yesterday did have fever and with a recent surgical interventions antimicrobial therapy with piperacillin tazobactam is being utilized to cover for gram-negative bacilli as well as intra-abdominal anaerobic pathogens staph and strep are also covered. No history of MRSA. Continue ongoing supportive care at this point in time. Pain control is adequate. At this time cultures are in process and will further help direct antibiotic therapy. Patient is more comfortable this evening. He is voicing no new complaints. He has excellent urinary output through the ileal conduit. I agree with evaluation, assessment and plan is dictated by nurse practitioner Mrs. Gracy Vuong.
[2017-04-30 02:05] LABS: Glucose,Whole Blood 104 mg/dL (75-99)
[2017-04-30] MEDS: HYDROmorphone 2 MG/ML 1 ML SYRINGE IVP PRN (02:07)
[2017-04-30] MEDS ORDERED: ALPRAZolam 0.25 MG TAB PO PRN (02:20)
[2017-04-30] MEDS: ACETAMINOPHEN TAB 325 MG TAB PO PRN (02:39)
[2017-04-30] MEDS ORDERED: RX INFO: IV CONTRAST WAS GIVEN 1 EACH MISC MISCELLANE PRN (03:01)
[2017-04-30] MEDS: SODIUM CHLORIDE 0.9% 1,000 ML IV SCH ×4 (03:10→14:57)
[2017-04-30 03:41] LABS: HCT 41.3 % (39.0-53.0); HGB 12.8 gm/dL (13.0-17.5); MCH 28.5 pg (25.0-35.0); MCV 92.1 fL (80.0-100.0); Mean Platelet Volume 8.4; Platelet Count 180 k/uL (150-450); RBC 4.48 m/uL (4.30-5.90); RDW 13.7 % (11.5-15.5); WBC 3.5 k/uL (3.8-10.6)
[2017-04-30 03:42] LABS: Glucose,Whole Blood 96 mg/dL (75-99)
[2017-04-30 03:51] LABS: Anion Gap 11 mmol/L; Blood Urea Nitrogen 25 mg/dL (9-20); Calcium 7.8 mg/dL (8.4-10.2); Carbon Dioxide 18 mmol/L (22-30); Chloride 108 mmol/L (98-107); Glucose 90 mg/dL (74-99); Magnesium 2.2 mg/dL (1.6-2.3); Phosphorus 2.7 mg/dL (2.5-4.5); Potassium 3.6 mmol/L (3.5-5.1); Sodium 137 mmol/L (137-145)
[2017-04-30 04:22] LABS: Band Neutrophils % 27 %; Eosinophils # (M) 0.07 k/uL (0-0.7); Lymphocytes # (M) 0.35 k/uL (1.0-4.8); Metamyelocytes # (M) 0.14 k/uL (0); Metamyelocytes % 4 %; Neutrophils % (M) 57 %; Nucleated Red Blood Cells 0 /100 WBC (0-0); Total Cells Counted 200
[2017-04-30 04:24] LABS: Toxic Granulation Present
--- NOTE | 2017-04-30 04:50 | P.PN ---
Subjective Progress Note Date: 04/30/17 The patient was moved to the icu for a temp of 104, low bp and tachycardia Some abdominal distention Iv sites clean Uo good wbc at 3.5 No repsiratory difficulties recently had a negative ct scan, cxray Being seen by Dr Gomez. To get an ngt, kub, cxray, blood cultures, A second iv placed, fluid given. Objective - Vital Signs Vital signs: Vital Signs Temp 103.8 F H 04/30/17 03:14 Pulse 143 H 04/30/17 03:14 Resp 22 04/30/17 03:14 BP 87/45 04/30/17 03:14 Pulse Ox 96 04/30/17 03:14 Intake & Output 04/29/17 04/29/17 04/30/17 06:59 18:59 06:59 Intake Total 1780 814 400 Output Total 1490 990 795 Balance 290 -176 -395 Weight 96.5 kg 96.5 kg Intake: Intake, IV Titration 1190 814 Amount Amino Acid 5%-D25w+Lytes* 1190 664 E* 740 ml Water For Injection, Sterile 450 ml @ 83 mls/hr IV .BY DURATION FAM Rx#: [id number] Piperacillin-Tazobactam 3 50 .375 gm In Dextrose/Water 1 50ml.bag @ 12.5 mls/hr IVPB Q8H FAM Rx#: [id number] Potassium Chloride 10 meq 100 In Water For Injection 1 100ml.bag @ 100 mls/hr IVPB Q1H FAM Rx#: [id number] Oral 590 400 Output: Drainage 390 290 220 RADHA Drain 390 290 220 Urine 1100 700 575 Other: Voiding Method Ileal Conduit (Right) Ileal Conduit (Right) Ileal Conduit ( Right) # Voids 1 # Bowel Movements 2 - Labs CBC & Chem 7: 04/30/17 03:17 04/30/17 03:17 Labs: Abnormal Lab Results - Last 24 Hours (Table) 04/29/17 04/30/17 04/30/17 Range/Units 07:08 02:04 03:17 WBC 3.5 L (3.8-10.6) k/uL Hgb 12.8 L (13.0-17.5) gm/dL Lymphocytes # (Manual) 0.35 L (1.0-4.8) k/uL Metamyelocytes # (Man) 0.14 H (0) k/uL Potassium 3.4 L (3.5-5.1) mmol/L Chloride (98-107) mmol/L Carbon Dioxide (22-30) mmol/L BUN 25 H (9-20) mg/dL Creatinine (0.66-1.25) mg/dL Glucose 124 H (74-99) mg/dL POC Glucose (mg/dL) 104 H (75-99) mg/dL Plasma Lactic Acid Sadiq (0.7-2.0) mmol/L Calcium 7.5 L (8.4-10.2) mg/dL 04/30/17 04/30/17 Range/Units 03:17 03:17 WBC (3.8-10.6) k/uL Hgb (13.0-17.5) gm/dL Lymphocytes # (Manual) (1.0-4.8) k/uL Metamyelocytes # (Man) (0) k/uL Potassium (3.5-5.1) mmol/L Chloride 108 H (98-107) mmol/L Carbon Dioxide 18 L (22-30) mmol/L BUN 25 H (9-20) mg/dL Creatinine 1.40 H (0.66-1.25) mg/dL Glucose (74-99) mg/dL POC Glucose (mg/dL) (75-99) mg/dL Plasma Lactic Acid Sadiq 2.4 H* (0.7-2.0) mmol/L Calcium 7.8 L (8.4-10.2) mg/dL Microbiology - Last 24 Hours (Table) 04/28/17 21:14 Blood Culture - Preliminary Blood No Growth after 24 hours 04/28/17 20:37 Blood Culture - Preliminary Blood No Growth after 24 hours 04/28/17 12:50 Urine Culture - Preliminary Urine,Suprapubic Gram Neg Bacilli
[2017-04-30] MEDS ORDERED: NALOXONE 0.4 MG/ML 1 ML VIAL IV PRN (05:41)
[2017-04-30] MEDS ORDERED: NOREPINEPHRIN 4 MG-0.9% NS PMX 4 MG/250 ML ML IV SCH (05:45)
[2017-04-30] MEDS ORDERED: SODIUM CHLORIDE 0.9% 1,000 ML IV ONE (05:52)
[2017-04-30] MEDS: PIPERACILLIN-TAZOBACTAM 3.375 GM in DEXTROSE/WATER 1 50ML.BAG IVPB SCH (06:31)
--- NOTE | 2017-04-30 06:31 | XR ---
EXAMINATION TYPE: XR abdomen 1V , 3 VIEWS DATE OF EXAM ORDERED: 04/30/2017 HISTORY: abdominal pain severe, mild nausea, fever. COMPARISON: Previous study dated 04/28/2017. FINDINGS: There is barium within the colon from a recent CT scan. There is an NG tube in place. Its tip is in the stomach. There are bilateral double-J stents in place. There are 2 catheters within the pelvis. Dilatation of the small bowel has improved. There is no evidence of free air. No unusual calcificati ons are seen. IMPRESSION: IMPROVING SMALL BOWEL OBSTRUCTION.
--- NOTE | 2017-04-30 06:33 | XR ---
EXAMINATION TYPE: XR chest 1V DATE OF EXAM: 04/30/2017 HISTORY: SOB. REFERENCE: Previous study dated 04/29/2017. FINDINGS: An NG tube has been placed. Its tip is in the stomach. The lungs remain clear. Pleural spaces are clear. The heart is not enlarged. IMPRESSION: NO ACTIVE INTRATHORACIC DISEASE.
[2017-04-30] MEDS: METOCLOPRAMIDE 5 MG/ML 2 ML VIAL IVP SCH ×3 (06:36→19:30)
[2017-04-30] MEDS ORDERED: NOREPINEPHRIN 16 MG-0.9%NS PMX 16 MG/250 ML ML IV SCH (09:30)
--- NOTE | 2017-04-30 09:58 | P.PN ---
Subjective Progress Note Date: 04/30/17 The patient is status post cystectomy 2 weeks ago. He has had a slow recuperation with regard to postoperative ileus. He recently was evaluated by both Dr. Gomez and Dr. Morocho for both the ileus and infection. I asked night he became septic. He was placed in the intensive care unit. He is being resuscitated with IV fluids and some pressors as well as antibiotics which just have started. He is growing a gram-negative norma both ID and sensitivities are pending. Urine output is good. His abdomen is relatively soft. Wound looks good. His stoma looks good. Extremities are without phlebitis. His chest x- ray and flat plate were unremarkable. Dr. Maxwell is managing his ICU care. We will see how response to the resuscitation, IV fluids and antibiotics. This has been discussed with the family. Objective - Vital Signs Vital signs: Vital Signs Temp 99.3 F 04/30/17 07:00 Pulse 119 H 04/30/17 07:00 Resp 18 04/30/17 07:00 BP 93/60 04/30/17 07:00 Pulse Ox 96 04/30/17 07:00 Intake & Output 04/29/17 04/30/17 04/30/17 18:59 06:59 18:59 Intake Total 814 3782 540.312 Output Total 990 1630 60 Balance -176 2152 480.312 Weight 96.5 kg 86.3 kg Intake: IV 3382 512.5 Amino Acid 5%-D25w+Lytes* 664 E* 740 ml Water For Injection, Sterile 450 ml @ 83 mls/hr IV .BY DURATION FAM Rx#: [id number] Fat Emulsion 20% 250 ml 168 In Empty Bag 1 bag @ 21 mls/hr IV DAILY@1800 FAM Rx#:[id number] Piperacillin-Tazobactam 3 50 12.5 .375 gm In Dextrose/Water 1 50ml.bag @ 12.5 mls/hr IVPB Q8H FAM Rx#: [id number] Sodium Chloride 0.9% 1, 2500 500 000 ml @ 999 mls/hr IV . Q1H1M FAM Rx#:[id number] Intake, IV Titration 814 27.812 Amount Amino Acid 5%-D25w+Lytes* 664 E* 740 ml Water For Injection, Sterile 450 ml @ 83 mls/hr IV .BY DURATION FAM Rx#: [id number] Norepinephrin 4 mg-0.9% 27.812 Ns Pmx 4 mg In 250 ml @ Titrate IV .Q0M FAM Rx#: [id number] Piperacillin-Tazobactam 3 50 .375 gm In Dextrose/Water 1 50ml.bag @ 12.5 mls/hr IVPB Q8H FAM Rx#: [id number] Potassium Chloride 10 meq 100 In Water For Injection 1 100ml.bag @ 100 mls/hr IVPB Q1H FAM Rx#: [id number] Oral 400 Output: Gastric Drainage 400 Drainage 290 355 60 RADHA Drain 290 355 60 Urine 700 875 Other: Voiding Method Ileal Conduit (Right) Ileal Conduit (Right) # Voids 1 - Labs CBC & Chem 7: 04/30/17 03:17 04/30/17 03:17 Labs: Abnormal Lab Results - Last 24 Hours (Table) 04/30/17 04/30/17 04/30/17 Range/Units 02:04 03:17 03:17 WBC 3.5 L (3.8-10.6) k/uL Hgb 12.8 L (13.0-17.5) gm/dL Lymphocytes # (Manual) 0.35 L (1.0-4.8) k/uL Metamyelocytes # (Man) 0.14 H (0) k/uL Chloride 108 H (98-107) mmol/L Carbon Dioxide 18 L (22-30) mmol/L BUN 25 H (9-20) mg/dL Creatinine 1.40 H (0.66-1.25) mg/dL POC Glucose (mg/dL) 104 H (75-99) mg/dL Plasma Lactic Acid Sadiq (0.7-2.0) mmol/L Calcium 7.8 L (8.4-10.2) mg/dL 04/30/17 04/30/17 Range/Units 03:17 07:23 WBC (3.8-10.6) k/uL Hgb (13.0-17.5) gm/dL Lymphocytes # (Manual) (1.0-4.8) k/uL Metamyelocytes # (Man) (0) k/uL Chloride (98-107) mmol/L Carbon Dioxide (22-30) mmol/L BUN (9-20) mg/dL Creatinine (0.66-1.25) mg/dL POC Glucose (mg/dL) (75-99) mg/dL Plasma Lactic Acid Sadiq 2.4 H* 2.1 H* (0.7-2.0) mmol/L Calcium (8.4-10.2) mg/dL Microbiology - Last 24 Hours (Table) 04/28/17 21:14 Blood Culture - Preliminary Blood No Growth after 24 hours 04/28/17 20:37 Blood Culture - Preliminary Blood No Growth after 24 hours 04/28/17 12:50 Urine Culture - Preliminary Urine,Suprapubic Gram Neg Bacilli
[2017-04-30] MEDS: POTASSIUM CHLORIDE ER 20 MEQ TAB.ER PO ONE ×2 (10:23→10:24)
[2017-04-30] MEDS: HEPARIN SODIUM,PORCINE 5,000 UNIT/ML 1 ML VIAL SQ SCH (10:24)
[2017-04-30] MEDS: METOPROLOL SUCCINATE (ER) 100 MG TAB.ER.24H PO SCH (10:25)
[2017-04-30] MEDS: ISOSORBIDE MONONITRATE ER 60 MG TAB.ER.24H PO SCH (10:25)
[2017-04-30] MEDS: MEROPENEM 1 GM in SODIUM CHLORIDE 0.9% 100 ML IVPB SCH ×2 (10:25→16:49)
[2017-04-30] MEDS: PANTOPRAZOLE 40 MG/10 ML VIAL IV SCH (10:25)
--- NOTE | 2017-04-30 10:28 | P.PN ---
Subjective Progress Note Date: 04/30/17 Principal diagnosis: Ileus Patient developed high fevers last night to 104. He was transferred to the ICU with a diagnosis of sepsis. He had episodes of hypotension. Denies abdominal pain. The nursing staff notified urology on-call that the patient had more distention although the patient denies that. Patient says his pain has been minimal since 2 days ago. Abdominal x-ray showed decreased small bowel dilation. Nasogastric tube aspirate is bilious. Still denies abdominal pain at this time. White blood cell count 3.5 with bandemia of 27% lactic acidosis improved at 2.1 today. He is on low-dose Levophed. Objective - Vital Signs Vital signs: Vital Signs Temp 99.3 F 04/30/17 07:00 Pulse 119 H 04/30/17 07:00 Resp 18 04/30/17 07:00 BP 93/60 04/30/17 07:00 Pulse Ox 96 04/30/17 07:00 Intake & Output 04/29/17 04/30/17 04/30/17 18:59 06:59 18:59 Intake Total 814 3782 540.312 Output Total 990 1630 60 Balance -176 2152 480.312 Weight 96.5 kg 86.3 kg Intake: IV 3382 512.5 Amino Acid 5%-D25w+Lytes* 664 E* 740 ml Water For Injection, Sterile 450 ml @ 83 mls/hr IV .BY DURATION FAM Rx#: [id number] Fat Emulsion 20% 250 ml 168 In Empty Bag 1 bag @ 21 mls/hr IV DAILY@1800 FAM Rx#:[id number] Piperacillin-Tazobactam 3 50 12.5 .375 gm In Dextrose/Water 1 50ml.bag @ 12.5 mls/hr IVPB Q8H FAM Rx#: [id number] Sodium Chloride 0.9% 1, 2500 500 000 ml @ 999 mls/hr IV . Q1H1M FAM Rx#:[id number] Intake, IV Titration 814 27.812 Amount Amino Acid 5%-D25w+Lytes* 664 E* 740 ml Water For Injection, Sterile 450 ml @ 83 mls/hr IV .BY DURATION FAM Rx#: [id number] Norepinephrin 4 mg-0.9% 27.812 Ns Pmx 4 mg In 250 ml @ Titrate IV .Q0M FAM Rx#: [id number] Piperacillin-Tazobactam 3 50 .375 gm In Dextrose/Water 1 50ml.bag @ 12.5 mls/hr IVPB Q8H FAM Rx#: [id number] Potassium Chloride 10 meq 100 In Water For Injection 1 100ml.bag @ 100 mls/hr IVPB Q1H FAM Rx#: [id number] Oral 400 Output: Gastric Drainage 400 Drainage 290 355 60 RADHA Drain 290 355 60 Urine 700 875 Other: Voiding Method Ileal Conduit (Right) Ileal Conduit (Right) # Voids 1 - Exam Abdomen: Soft, nondistended, incisions clean and dry, no appreciable tenderness , ostomy functioning and pink - Labs CBC & Chem 7: 04/30/17 03:17 04/30/17 03:17 Labs: Abnormal Lab Results - Last 24 Hours (Table) 04/30/17 04/30/17 04/30/17 Range/Units 02:04 03:17 03:17 WBC 3.5 L (3.8-10.6) k/uL Hgb 12.8 L (13.0-17.5) gm/dL Lymphocytes # (Manual) 0.35 L (1.0-4.8) k/uL Metamyelocytes # (Man) 0.14 H (0) k/uL Chloride 108 H (98-107) mmol/L Carbon Dioxide 18 L (22-30) mmol/L BUN 25 H (9-20) mg/dL Creatinine 1.40 H (0.66-1.25) mg/dL POC Glucose (mg/dL) 104 H (75-99) mg/dL Plasma Lactic Acid Sadiq (0.7-2.0) mmol/L Calcium 7.8 L (8.4-10.2) mg/dL 04/30/17 04/30/17 Range/Units 03:17 07:23 WBC (3.8-10.6) k/uL Hgb (13.0-17.5) gm/dL Lymphocytes # (Manual) (1.0-4.8) k/uL Metamyelocytes # (Man) (0) k/uL Chloride (98-107) mmol/L Carbon Dioxide (22-30) mmol/L BUN (9-20) mg/dL Creatinine (0.66-1.25) mg/dL POC Glucose (mg/dL) (75-99) mg/dL Plasma Lactic Acid Sadiq 2.4 H* 2.1 H* (0.7-2.0) mmol/L Calcium (8.4-10.2) mg/dL Microbiology - Last 24 Hours (Table) 04/28/17 21:14 Blood Culture - Preliminary Blood No Growth after 24 hours 04/28/17 20:37 Blood Culture - Preliminary Blood No Growth after 24 hours 04/28/17 12:50 Urine Culture - Preliminary Urine,Suprapubic Gram Neg Bacilli Assessment and Plan (1) Ileus following gastrointestinal surgery Narrative/Plan: Continue IV antibiotics. Suspect urinary source. We'll follow with you. Continue nasogastric tube to low intermittent suction at this time Current Visit: Yes Status: Acute Code(s): K91.30 - POSTPROC INTESTINAL OBST , UNSP TO PARTIAL VERSUS COMPLETE SNOMED Code(s): 077213720
--- NOTE | 2017-04-30 10:34 | P.CNPUL ---
History of Present Illness Consult date: 04/30/17 Requesting physician: Jf Gerard Reason for consult: other (Acute septic shock) Chief complaint: Bladder and prostate cancer, hypotension. History of present illness: This is a 66-year-old white male with history of bladder cancer, scheduled supposedly to have surgery on his bladder by the end of April. He was supposed to spend some time in [place] before he comes back in late April. Unfortunately, and while in [place], the patient started noticing some urinary and rectal bleeding which was profuse, and he was seen in the ER. A Hong catheter was placed, and he was supposed to follow up with a urologist. However the patient continued to have significant bleeding from his bladder, the bladder was flushed, and the surgeons in [place] instructed him to have the bladder surgery as soon as possible. Patient to return to [place], and he underwent surgery on April 15 which included robotic-assisted laparoscopic radical cystoprostatectomy, bilateral pelvic lymphadenectomy and ileal conduit, urinary diversion and RADHA drain placement by Dr. Gerard and . 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 Postoperatively, patient developed some ileus, had a nasogastric tube in place for 3 days which was subsequently removed. Developed tachycardia and this was addressed by cardiology. Patient was also started on TPN for severe protein calorie malnutrition. CT of the abdomen on April 28 showed nonspecific abdomen however severe ileus or enteritis was also in the differential. Small amount of residual area noted at the dome of the liver and there was uncomplicated diverticulosis of the sigmoid colon. Patient was seen by infectious disease on 04/29/20174 fevers as high as 102.2, and tachycardia. Patient was placed on Zosyn, however last night the patient developed hypotension, tachycardia, no shortness of breath, he had some abdominal distention requiring placement of a nasogastric tube and decompression patient was transferred to the ICU and I was asked to see him on consultation. Lactic acid was elevated. He received 2 L of fluids initially, blood pressure did not improve much, hence levo fed was initiated. Presently on 10 g of norepinephrine. Patient received a total of 3 L of fluids/ crystalloids so far. Main IV fluid was increased to 1 25 mL per hour. I saw him this morning, and I recommended a right femoral triple-lumen catheter which was placed because of his pressors and I recommended a right brachial arterial line which was done uneventfully. Cultures are pending, initial urine culture from 04/28 is showing gram-negative bacilli. Blood cultures are negative so far. Review of Systems 14 point review of systems were obtained. Refer to pertinent positives in HPI otherwise remaining systems are negative. Past Medical History Past Medical History: Coronary Artery Disease (CAD), Cancer, GERD/Reflux, Hyperlipidemia, Hypertension, Osteoarthritis (OA), Prostate Disorder Additional Past Medical History / Comment(s): bladder cancer, Last Myocardial Infarction Date:: 1999 History of Any Multi-Drug Resistant Organisms: None Reported Past Surgical History: Ear Surgery, Heart Catheterization With Stent, Orthopedic Surgery, Prostate Surgery Additional Past Surgical History / Comment(s): PLASTIC SURGERY OSCAR. EARS(STUCK OUT), LT SHOULDER SURGERY, left knee arthroscopy, left knee open surgery, two cardiac stents, TURP bladder and prostate, Cauterization in bladder 1 1/2 weeks ago in [place], robotic-assisted laparoscopic radical cystoprostatectomy, bilateral pelvic lymphadenectomy with ileal conduit urinary diversion and RADHA drain placement Past Anesthesia/Blood Transfusion Reactions: Motion Sickness Date of Last Stent Placement:: 2011 Smoking Status: Former smoker Additional Past Alcohol Use History / Comment(s): He denies any illicit drug use. He does drink alcohol socially. He lives at home with his . He spends half the year in [place]. 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 - Past Family History Brother(s) Family Medical History: No Reported History, Unable to Obtain (no brothers) Sister(s) History Unknown: Yes Family Medical History: Unable to Obtain (no sisters) Daughter(s) Family Medical History: No Reported History (2 daughters healthy) Son(s) Family Medical History: No Reported History (one son healthy) Mother Family Medical History: Cancer, Deep Vein Thrombosis (DVT) Additional Family Medical History / Comment(s): SKIN [place] Father Additional Family Medical History / Comment(s): HX MULTIPLE SCLEROSIS Medications and Allergies Home Medications Medication Instructions Recorded Confirmed Type Aspirin 81 mg PO DAILY 08/12/14 04/15/17 History Metoprolol Succinate (ER) [Toprol 100 mg PO DAILY 08/12/14 04/15/17 History Xl] Nitroglycerin Sl Tabs [Nitrostat] 0.4 mg SUBLINGUAL Q5M PRN 08/12/14 04/15/17 History Omeprazole [PriLOSEC] 20 mg PO AC-BRKFST 08/12/14 04/15/17 History Simvastatin [Zocor] 40 mg PO HS 08/12/14 04/15/17 History Alfuzosin HCl [Alfuzosin HCl ER] 10 mg PO DAILY 04/13/17 04/15/17 History Enalapril [Vasotec] 10 mg PO HS 04/13/17 04/15/17 History Isosorbide Mononitrate ER [Imdur] 60 mg PO DAILY 04/13/17 04/15/17 History Oxybutynin Chloride 5 mg PO HS 04/13/17 04/15/17 History Allergies Allergy/AdvReac Type Severity Reaction Status Date / Time No Known Allergies Allergy Verified 04/15/17 10:06 Physical Exam Vitals: Vital Signs Temp Pulse Pulse Resp BP BP BP 04/30/17 07:00 99.3 F 119 H 18 93/60 04/30/17 06:45 119 H 20 96/58 04/30/17 06:30 114 H 20 74/47 04/30/17 06:15 121 H 18 77/51 04/30/17 06:00 123 H 21 72/48 04/30/17 05:45 130 H 19 68/45 04/30/17 05:30 131 H 20 84/53 04/30/17 05:15 129 H 20 84/56 04/30/17 05:00 131 H 23 80/56 04/30/17 04:45 102.4 F H 140 H 23 86/54 04/30/17 04:30 138 H 102/54 04/30/17 04:15 140 H 25 H 91/49 04/30/17 04:00 145 H 22 83/44 04/30/17 03:50 103.5 F H 135 H 21 81/41 04/30/17 03:14 103.8 F H 143 H 22 87/45 04/30/17 03:05 103.3 F H 144 H 22 71/47 04/30/17 02:55 104.1 F H 150 H 24 125/55 04/30/17 02:25 98.2 F 132 H 28 H 132/61 04/30/17 02:15 99.9 F H 122 H 22 138/71 04/30/17 02:13 04/30/17 02:05 98.2 F 132 H 30 H 142/61 04/29/17 22:23 79 18 121/70 04/29/17 21:51 98 F 04/29/17 15:00 97.1 F L 85 16 128/70 Pulse Ox 04/30/17 07:00 96 04/30/17 06:45 94 L 04/30/17 06:30 94 L 04/30/17 06:15 95 04/30/17 06:00 95 04/30/17 05:45 95 04/30/17 05:30 94 L 04/30/17 05:15 95 04/30/17 05:00 95 04/30/17 04:45 92 L 04/30/17 04:30 94 L 04/30/17 04:15 93 L 04/30/17 04:00 96 04/30/17 03:50 95 04/30/17 03:14 96 04/30/17 03:05 95 04/30/17 02:55 94 L 04/30/17 02:25 93 L 04/30/17 02:15 96 04/30/17 02:13 95 04/30/17 02:05 95 04/29/17 22:23 97 04/29/17 21:51 04/29/17 15:00 96 Intake and Output 04/29/17 04/30/17 04/30/17 22:59 06:59 14:59 Intake Total 200 3582 540.312 Output Total 1020 1190 60 Balance -820 2392 480.312 Intake: IV 3382 512.5 Amino Acid 5%-D25w+Lytes* 664 E* 740 ml Water For Injection, Sterile 450 ml @ 83 mls/hr IV .BY DURATION FAM Rx#: [id number] Fat Emulsion 20% 250 ml 168 In Empty Bag 1 bag @ 21 mls/hr IV DAILY@1800 FAM Rx#:[id number] Piperacillin-Tazobactam 3 50 12.5 .375 gm In Dextrose/Water 1 50ml.bag @ 12.5 mls/hr IVPB Q8H FAM Rx#: [id number] Sodium Chloride 0.9% 1, 2500 500 000 ml @ 999 mls/hr IV . Q1H1M FAM Rx#:[id number] Intake, IV Titration 27.812 Amount Norepinephrin 4 mg-0.9% 27.812 Ns Pmx 4 mg In 250 ml @ Titrate IV .Q0M FAM Rx#: [id number] Oral 200 200 Output: Gastric Drainage 400 Drainage 420 215 60 RADHA Drain 420 215 60 Urine 600 575 Other: Voiding Method Ileal Conduit (Right) Ileal Conduit (Right) # Voids 1 Weight 86.3 kg Physical Exam: Revealed a 66-year-old white male, slightly pale, tachycardic, in no form of respiratory distress. HEENT:[Neck is supple.] [No neck masses.] [No thyromegaly.] [No JVD.] Atraumatic, normocephalic, PERRLA, EOMI. Nasogastric tube in place noted Chest: [Clear throughout, no crackles, no rhonchi, no wheezes.] Cardiac Exam: [Normal S1 and S2, no S3 gallop, no murmur.] Abdomen: [Soft, slightly distended, nontender,, no megaly, no rebound, no guarding, diminished bowel sounds..] Urinary bag is noted in the right lower quadrant/ileal conduit. Extremities: [No clubbing, no edema, no cyanosis.] Neurological Exam: [No focal neurologic deficit.] Lymphatics: Lymphadenopathy negative Psychiatric: Normal mood affect and mental status examination. Results - Laboratory Findings CBC and BMP: 04/30/17 03:17 04/30/17 03:17 Abnormal lab findings: Abnormal Labs 04/15/17 04/17/17 04/17/17 18:50 11:33 11:33 WBC 13.9 H RBC 3.72 L Hgb 11.3 L Hct 34.4 L MCHC Neutrophils # 12.8 H Lymphocytes # 0.4 L Lymphocytes # (Manual) Metamyelocytes # (Man) Sodium 135 L Potassium Chloride Carbon Dioxide BUN Creatinine Glucose 117 H POC Glucose (mg/dL) Plasma Lactic Acid Sadiq Calcium Magnesium Total Protein Albumin Urine Protein Urine Blood Ur Leukocyte Esterase Urine RBC Urine WBC Urine WBC Clumps Urine Bacteria 04/18/17 04/18/17 04/19/17 11:04 11:04 07:09 WBC 16.4 H RBC 4.22 L Hgb 12.5 L Hct MCHC Neutrophils # Lymphocytes # 0.7 L Lymphocytes # (Manual) Metamyelocytes # (Man) Sodium 132 L Potassium Chloride Carbon Dioxide BUN Creatinine Glucose 173 H POC Glucose (mg/dL) Plasma Lactic Acid Sadiq Calcium Magnesium Total Protein 5.4 L Albumin 2.9 L Urine Protein Urine Blood Ur Leukocyte Esterase Urine RBC Urine WBC Urine WBC Clumps Urine Bacteria 04/19/17 04/21/17 04/21/17 07:09 09:01 09:01 WBC RBC 4.29 L Hgb 12.6 L Hct MCHC Neutrophils # Lymphocytes # 0.6 L Lymphocytes # (Manual) Metamyelocytes # (Man) Sodium 136 L Potassium Chloride 112 H Carbon Dioxide 20 L BUN 27 H 25 H Creatinine Glucose 127 H 113 H POC Glucose (mg/dL) Plasma Lactic Acid Sadiq Calcium 8.2 L 8.1 L Magnesium Total Protein 4.8 L Albumin 2.5 L Urine Protein Urine Blood Ur Leukocyte Esterase Urine RBC Urine WBC Urine WBC Clumps Urine Bacteria 04/23/17 04/24/17 04/25/17 08:43 07:19 07:09 WBC RBC Hgb Hct MCHC Neutrophils # Lymphocytes # Lymphocytes # (Manual) Metamyelocytes # (Man) Sodium 146 H Potassium 3.4 L Chloride 116 H 115 H 110 H Carbon Dioxide 19 L BUN 37 H 31 H 31 H Creatinine Glucose 141 H 123 H 137 H POC Glucose (mg/dL) Plasma Lactic Acid Sadiq Calcium Magnesium Total Protein 5.0 L Albumin 2.6 L Urine Protein Urine Blood Ur Leukocyte Esterase Urine RBC Urine WBC Urine WBC Clumps Urine Bacteria 04/26/17 04/26/17 04/27/17 11:37 17:30 00:02 WBC RBC Hgb Hct MCHC Neutrophils # Lymphocytes # Lymphocytes # (Manual) Metamyelocytes # (Man) Sodium 147 H Potassium Chloride 114 H Carbon Dioxide BUN 21 H Creatinine Glucose 126 H POC Glucose (mg/dL) 111 H 114 H Plasma Lactic Acid Sadiq Calcium Magnesium Total Protein Albumin Urine Protein Urine Blood Ur Leukocyte Esterase Urine RBC Urine WBC Urine WBC Clumps Urine Bacteria 04/27/17 04/27/17 04/27/17 06:04 07:28 11:48 WBC RBC Hgb Hct MCHC Neutrophils # Lymphocytes # Lymphocytes # (Manual) Metamyelocytes # (Man) Sodium 148 H Potassium Chloride 115 H Carbon Dioxide BUN 23 H Creatinine Glucose 133 H POC Glucose (mg/dL) 118 H 113 H Plasma Lactic Acid Sadiq Calcium Magnesium 2.5 H Total Protein Albumin Urine Protein Urine Blood Ur Leukocyte Esterase Urine RBC Urine WBC Urine WBC Clumps Urine Bacteria 04/27/17 04/28/17 04/28/17 12:20 07:13 12:50 WBC 16.1 H RBC Hgb Hct MCHC 30.7 L Neutrophils # 14.5 H Lymphocytes # 0.7 L Lymphocytes # (Manual) Metamyelocytes # (Man) Sodium Potassium Chloride 108 H Carbon Dioxide BUN 25 H Creatinine Glucose 124 H POC Glucose (mg/dL) Plasma Lactic Acid Sadiq Calcium 7.9 L Magnesium Total Protein Albumin Urine Protein 1+ H Urine Blood Moderate H Ur Leukocyte Esterase Large H Urine RBC 8 H Urine WBC >182 H Urine WBC Clumps Many H Urine Bacteria Many H 04/28/17 04/29/17 04/30/17 17:05 07:08 02:04 WBC 19.0 H RBC 4.22 L Hgb 12.5 L Hct 38.0 L MCHC Neutrophils # 16.9 H Lymphocytes # 0.8 L Lymphocytes # (Manual) Metamyelocytes # (Man) Sodium Potassium 3.4 L Chloride Carbon Dioxide BUN 25 H Creatinine Glucose 124 H POC Glucose (mg/dL) 104 H Plasma Lactic Acid Sadiq Calcium 7.5 L Magnesium Total Protein Albumin Urine Protein Urine Blood Ur Leukocyte Esterase Urine RBC Urine WBC Urine WBC Clumps Urine Bacteria 04/30/17 04/30/17 04/30/17 03:17 03:17 03:17 WBC 3.5 L RBC Hgb 12.8 L Hct MCHC Neutrophils # Lymphocytes # Lymphocytes # (Manual) 0.35 L Metamyelocytes # (Man) 0.14 H Sodium Potassium Chloride 108 H Carbon Dioxide 18 L BUN 25 H Creatinine 1.40 H Glucose POC Glucose (mg/dL) Plasma Lactic Acid Sadiq 2.4 H* Calcium 7.8 L Magnesium Total Protein Albumin Urine Protein Urine Blood Ur Leukocyte Esterase Urine RBC Urine WBC Urine WBC Clumps Urine Bacteria 04/30/17 07:23 WBC RBC Hgb Hct MCHC Neutrophils # Lymphocytes # Lymphocytes # (Manual) Metamyelocytes # (Man) Sodium Potassium Chloride Carbon Dioxide BUN Creatinine Glucose POC Glucose (mg/dL) Plasma Lactic Acid Sadiq 2.1 H* Calcium Magnesium Total Protein Albumin Urine Protein Urine Blood Ur Leukocyte Esterase Urine RBC Urine WBC Urine WBC Clumps Urine Bacteria - Diagnostic Findings Chest x-ray: image reviewed (No evidence of active disease) Additional studies: Abdominal film showed improving small bowel obstruction. Assessment and Plan Assessment: Impression: 1 acute septic shock, most likely source is urinary tract infection, however the possibility of abdominal sepsis is not entirely ruled out. 2 status post robotic laparoscopic radical cystoscopy prostatectomy, bilateral pelvic lymphadenectomy with ilial conduit and urinary diversion, with RADHA drain placement for bladder cancer and prostate cancer. 3 acute ileus or possible small bowel obstruction requiring nasogastric tube placement. 4 protein calorie malnutrition patient will likely benefit from starting TPN. 5 urothelial carcinoma and prostate carcinoma, status post surgery as noted above. Initial surgery was done on 04/15/2017 6 history of underlying coronary artery disease and previous stent placement, presently being followed by cardiology. 7 history of hypertension, 8 history of hyperlipidemia 9 history of chronic kidney disease, stage II. Recommendation: Continue present treatment plan including fluids, antibiotics, pressors, nutritional support, nasogastric tube and GI decompression for what seems to be postoperative ileus. Discussed his condition with his family at bedside, and went ahead and placed a right femoral triple-lumen catheter and a right brachial arterial line. We'll continue to follow. Critical care time is 45 minutes, excluding time spent on procedures. Time with Patient: Greater than 30
--- NOTE | 2017-04-30 10:54 | PCN ---
PROCEDURE NOTE OPERATIVE REPORT: Placement of right femoral triple-lumen catheter. PREOPERATIVE DIAGNOSIS: Acute sepsis and septic shock. POSTOPERATIVE DIAGNOSIS: Acute sepsis and septic shock. ANESTHESIA USED: 2 mL of 1% lidocaine. PROCEDURE: The patient was placed in a supine position. The right groin was prepared in a sterile fashion and drapes were applied. The right femoral vein was easily cannulated and a guidewire was placed. The area was dilated with a dilator over the guidewire and then as the dilator was removed, I attempted to place the triple-lumen catheter over the guidewire and would not thread easily. Multiple attempts to thread the catheter failed, then I removed the line completely including the guidewire. I then went back again with a and I was able to cannulate the right femoral vein again easily, a guidewire was placed, and the area was dilated, triple-lumen catheter was assisted, this time easily over the guidewire, the guidewire was removed. Good blood flow was noted in the 3 different ports of the triple-lumen catheter and there was no evidence of any immediate complications. The line was secured using 3.0 silk sutures. MMODL / IJN: [id number] /
--- NOTE | 2017-04-30 10:54 | OP ---
OPERATIVE REPORT PROCEDURE: Placement of right brachial arterial line. PREOPERATIVE DIAGNOSIS: Acute septic shock and hypotension. POSTOPERATIVE DIAGNOSIS: Acute septic shock and hypotension. ANESTHESIA: None deployed. DESCRIPTION OF PROCEDURE: The patient was placed in the supine position, the right brachial area was prepared in a sterile fashion and drapes were applied. The right brachial artery was palpated, cannulated, and a guidewire was placed. A Cook catheter was inserted over the guidewire, the guidewire was removed. Good blood flow and good waveform were noted, no evidence of any immediate complications. The line was secured using 3.0 silk sutures. MMODL / IJN: [id number] /
--- NOTE | 2017-04-30 12:11 | P.PN ---
Subjective Progress Note Date: 04/30/17 Principal diagnosis: This is a 66-year-old gentleman known to my practice, with underlying history of CAD, hypertension, COPD, impaired fasting hyperglycemia admitted under service of Dr. 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 Andino and Dr. Liz on 04/15/2017. He was seen in our clinic for Medicare physical in October 2016 and complained of hematospermia, referral was made to Dr. Andino, for repeat cystoscopy and initial CAT scan of the abdomen and pelvis failed to reveal any significant abnormal pathology in the bladder except for calcification in the prostate, PSA in the past was 0.5, in January 2016. He has this problem since 2014 bladder ultrasound shows nonobstructing renal calculi for which she originally saw Dr. Gerard, and was followed by urology since then, cystoscopy was done with the biopsy in February 2017,.The initial biopsy showed the urothelial bladder carcinoma,his involves the left posterior lateral bladder wall and post direct urethra, he also has a left bladder diverticulum containing tumor, date for initial biopsy is February 2017 however they have requested a [place] surgeon to due the primary procedure this was scheduled to be done in April 2017, the surgery was delayed to accommodate this schedule of 4 urological specialist to perform the surgery, hence, patient had left to [place] in January 2017 travel back and forth to [place] for the biopsy thereafter he went back to [place] however with his another attack of hematuria, and hematospermia, they have requested that he come in emergently to have the bladder surgery done, procedure was done on 04/15/2018 for the ileal diversion and robotic-assisted radical cystoprostatectomy and bilateral pelvic lymphadenectomy During the perioperative recovery course, patient had intractable nausea and vomiting for which an NG tube was placed, CAT scan of the abdomen and pelvis was performed showing double-J stents bilaterally, mild bilateral hydronephrosis , spleen liver and gallbladder is unremarkable, scant amount of free air adjacent to the dome of the liver most likely secondary to previous surgery, uncomplicated mild diverticulosis of the sigmoid colon without any evidence off diverticulitis, appendix is not visualized no evidence of blastic metastasis stasis mild prominence of small bowel without a definite transition point, consult was made to Dr. Morocho general surgery Patient was noted to be febrile on April 24 however it is not sustained T-max at that time was 99.8, however fever is now 102.2, patient has diarrhea, abdominal pain, no sinus congestion no cough. Patient was given Rocephin, and would start patient on Zosyn with consults Dr. Gomez, blood cultures, influenza testing, urine cultures have been sent, and stools for C. diff toxin 04/29: Patient is being followed by Dr. Gomez as well. Influenza A testing has not been done. Urine and blood cultures are in progress. C. difficile toxin has been negative. Patient has been afebrile since yesterday evening. He is using his incentive spirometry. 04/30: Patient's condition continued to decline overnight and he developed septic shock and lactic acidosis requiring transfer to the intensive care unit and started on Levophed currently at [address] Maxwell for intensive care management status post right femoral triple-lumen and right brachial arterial line. Patient is also tachycardic and on a cooling blanket. Temperature max was 104.1. Dr. Gomez has changed his antibiotics to meropenem and he has had an NG tube tube placed since yesterday to low intermittent suction. Chest x-ray shows no active intrathoracic disease. Abdominal x-ray shows improving small bowel obstruction. Patient denies abdominal pain. Objective - Vital Signs Vital signs: Vital Signs Temp 99.3 F 04/30/17 07:00 Pulse 119 H 04/30/17 07:00 Resp 18 04/30/17 07:00 BP 93/60 04/30/17 07:00 Pulse Ox 96 04/30/17 07:00 Intake & Output 04/29/17 04/30/17 04/30/17 18:59 06:59 18:59 Intake Total 814 3782 540.312 Output Total 990 1630 60 Balance -176 2152 480.312 Weight 96.5 kg 86.3 kg Intake: IV 3382 512.5 Amino Acid 5%-D25w+Lytes* 664 E* 740 ml Water For Injection, Sterile 450 ml @ 83 mls/hr IV .BY DURATION [facility] Rx#: [id number] Fat Emulsion 20% 250 ml 168 In Empty Bag 1 bag @ 21 mls/hr IV DAILY@1800 [facility] Rx#:[id number] Piperacillin-Tazobactam 3 50 12.5 .375 gm In Dextrose/Water 1 50ml.bag @ 12.5 mls/hr IVPB Q8H [facility] Rx#: [id number] Sodium Chloride 0.9% 1, 2500 500 000 ml @ 999 mls/hr IV . Q1H1M [facility] Rx#:[id number] Intake, IV Titration 814 27.812 Amount Amino Acid 5%-D25w+Lytes* 664 E* 740 ml Water For Injection, Sterile 450 ml @ 83 mls/hr IV .BY DURATION [facility] Rx#: [id number] Norepinephrin 4 mg-0.9% 27.812 Ns Pmx 4 mg In 250 ml @ Titrate IV .Q0M [facility] Rx#: [id number] Piperacillin-Tazobactam 3 50 .375 gm In Dextrose/Water 1 50ml.bag @ 12.5 mls/hr IVPB Q8H [facility] Rx#: [id number] Potassium Chloride 10 meq 100 In Water For Injection 1 100ml.bag @ 100 mls/hr IVPB Q1H [facility] Rx#: [id number] Oral 400 Output: Gastric Drainage 400 Drainage 290 355 60 RADHA Drain 290 355 60 Urine 700 875 Other: Voiding Method Ileal Conduit (Right) Ileal Conduit (Right) # Voids 1 - Exam - Constitutional General appearance: cooperative, no acute distress - EENT Eyes: anicteric sclerae, PERRLA, normal appearance ENT: NA/AT, normal oropharynx - Respiratory Respiratory: bilateral: CTA, negative: diminished, dullness, rales - Cardiovascular Rhythm: regular Heart sounds: normal: S1, S2 Abnormal Heart Sounds: no systolic murmur, no diastolic murmur, no rub, no S3 Gallop, no S4 Gallop, no click, no other - Gastrointestinal General gastrointestinal: hyperactive bowel sounds, soft - Integumentary Integumentary: decreased turgor, normal - Neurologic Neurologic: CNII-XII intact - Musculoskeletal Musculoskeletal: gait normal, strength equal bilaterally - Psychiatric Psychiatric: A&O x's 3, appropriate affect, intact judgment & insight - Labs CBC & Chem 7: 04/30/17 03:17 04/30/17 03:17 Labs: Abnormal Lab Results - Last 24 Hours (Table) 04/30/17 04/30/17 04/30/17 Range/Units 02:04 03:17 03:17 WBC 3.5 L (3.8-10.6) k/uL Hgb 12.8 L (13.0-17.5) gm/dL Lymphocytes # (Manual) 0.35 L (1.0-4.8) k/uL Metamyelocytes # (Man) 0.14 H (0) k/uL Chloride 108 H (98-107) mmol/L Carbon Dioxide 18 L (22-30) mmol/L BUN 25 H (9-20) mg/dL Creatinine 1.40 H (0.66-1.25) mg/dL POC Glucose (mg/dL) 104 H (75-99) mg/dL Plasma Lactic Acid Sadiq (0.7-2.0) mmol/L Calcium 7.8 L (8.4-10.2) mg/dL 04/30/17 04/30/17 Range/Units 03:17 07:23 WBC (3.8-10.6) k/uL Hgb (13.0-17.5) gm/dL Lymphocytes # (Manual) (1.0-4.8) k/uL Metamyelocytes # (Man) (0) k/uL Chloride (98-107) mmol/L Carbon Dioxide (22-30) mmol/L BUN (9-20) mg/dL Creatinine (0.66-1.25) mg/dL POC Glucose (mg/dL) (75-99) mg/dL Plasma Lactic Acid Sadiq 2.4 H* 2.1 H* (0.7-2.0) mmol/L Calcium (8.4-10.2) mg/dL Microbiology - Last 24 Hours (Table) 04/28/17 21:14 Blood Culture - Preliminary Blood No Growth after 24 hours 04/28/17 20:37 Blood Culture - Preliminary Blood No Growth after 24 hours 04/28/17 12:50 Urine Culture - Preliminary Urine,Suprapubic Gram Neg Bacilli Assessment and Plan Plan: 1. Sepsis with septic shock and lactic acidosis after bladder resection surgery with ileal conduit surgery, urinary tract infection is most likely source blood cultures, urine cultures. Zosyn to meropenem by Dr. Jason Maxwell consult added for intensive care management. 2. Urothelial cell carcinoma of the bladder with extension to the prostate, post radical cystoprostatectomy robotic-assisted with bilateral pelvic lymphadenectomy on 04/15/2017 stage TI G3, requiring ilial conduit urinary diverision 3 CAD follows with [place] psychosocial rehabilitation counselor Dr. Munoz, consults were made to our local cardiologists secondary to irregular pulse and elevated heart rate, EKG shows sinus tachycardia with frequent PVCs, in the left bundle branch block which is chronic. Patient is on beta blockers metoprolol aspirin currently is on hold, when necessary nitro, and maintenance Imdur 60 mg daily no changes were made 4. Hyperlipidemia on Lipitor 20 daily 5. Hypertension patient was maintained on enalapril 10 mg daily at bedtime, switch over to Zestril 20 mg daily while in the hospital. Patient is currently hypotensive. 6. CKD stage II avoid hypotension monitor labs 7. GERD on maintenance PPI 8. Tachycardia from sepsis. Cardiology has been following. 9. Ileus versus small bowel obstruction. Patient has NG tube in place and Dr. Morocho is following. 10. Severe protein calorie malnutrition secondary to nothing by mouth status, NG tube, poor oral intake. TPN 11. GI prophylaxis on Protonix 12. DVT prophylaxis on subcutaneous heparin 5000 units every 24 hours Impression and plan of care have been directed as dictated by the signing physician. Gracy Vuong nurse practitioner acting as scribe for signing physician.
[2017-04-30] MEDS ORDERED: Potassium Replacement Protocol 1 EACH MISC MISCELLANE PRN (13:56)
[2017-04-30] MEDS: 1: MVI, ADULT NO.4 WITH VIT K 10 ML, TRACE (CONC-1ML/DOSE) 1 ML in AMINO ACID 5%-D25W+LY IV SCH (14:55)
[2017-04-30] MEDS: POTASSIUM CHLORIDE 10 MEQ in WATER FOR INJECTION 1 100ML.BAG IVPB SCH ×4 (14:57→21:37)
--- NOTE | 2017-04-30 15:15 | PN ---
PROGRESS NOTE Mr. Roe was moved to the intensive care unit last night because of sepsis. As the day has gone on, his sepsis seems to be more under control. His vital signs are stable on the pressor agents where this morning they were more labile. He feels well. He is hungry. His abdomen is soft. He will continue with the IV antibiotics, IV fluid resuscitation. Cultures are still pending. The family has been made aware of this update. MMODL / IJN: [id number] /
[2017-04-30 17:13] LABS: Glucose,Whole Blood 125 mg/dL (75-99)
[2017-04-30 18:01] LABS: HGB 10.4 gm/dL (13.0-17.5); Hypochromasia Slight; MCH 28.6 pg (25.0-35.0); MCHC 30.7 g/dL (31.0-37.0); MCV 93.1 fL (80.0-100.0); Platelet Count 171 k/uL (150-450); RBC 3.66 m/uL (4.30-5.90); RDW 14.9 % (11.5-15.5)
[2017-04-30 18:06] LABS: WBC 31.9 k/uL (3.8-10.6)
[2017-04-30 18:14] LABS: Potassium 3.8 mmol/L (3.5-5.1)
[2017-04-30 18:33] LABS: Band Neutrophils % 14 %; Lymphocytes # (M) 0.64 k/uL (1.0-4.8); Monocytes # (M) 0.96 k/uL (0-1.0); Neutrophils % (M) 82 %; Nucleated Red Blood Cells 0 /100 WBC (0-0); Total Cells Counted 200; Toxic Granulation Present
[2017-04-30] MEDS ORDERED: LORazepam 2 MG/ML INJ ONE (19:33)
[2017-04-30] MEDS ORDERED: FUROSEMIDE 10 MG/ML 4 ML VIAL IV STA (19:37)
[2017-04-30] MEDS ORDERED: LORazepam 2 MG/ML INJ IV STA (19:37)
--- NOTE | 2017-04-30 20:06 | XR ---
EXAMINATION TYPE: XR chest 1V DATE OF EXAM: 04/30/2017 COMPARISON: January 28, 2018 HISTORY: Shortness of breath TECHNIQUE: Single frontal view of the chest is obtained. FINDINGS: There is no focal air space opacity, pleural effusion, or pneumothorax seen. The cardiac silhouette size is within normal limits. The osseous structures are intact. Nasogastric tube is not ed going into the suspected stomach below the film. IMPRESSION: No acute process.
--- NOTE | 2017-04-30 20:48 | P.PN ---
Subjective Progress Note Date: 04/30/17 Principal diagnosis: sepsis Patient gives history that he knows with bladder cancer under the care of urology and was to scheduled for surgery at the end of April. Patient normally spends forbes in [place] and returned there after procedures January were done. Unfortunately he started having urinary and rectal bleeding that was profuse and went into the emergency center. A Hong catheter was placed and patient followed up with a urologist. Patient did have the Hong catheter changed but due to significant bleeding patient return to the emergency center. Bladder was flushed 24 hours and then he had cauterization done to stop the bleeding but surgeon in [place] instructed him to have bladder removed as soon as possible. Patient return to [place] and underwent surgery on April 15 of robotic-assisted laparoscopic radical cystoprostatectomy, bilateral pelvic lymphadenectomy with ileal conduit urinary diversion and RADHA drain placement with Dr. Lzi and Dr. Andino. 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 Patient 's recovery has been complicated by postop ileus and he had an NG tube in place for 3 days which was subsequently removed, cardiology was consulted on April 27 for tachycardia. He has been started on TPN for severe protein calorie malnutrition. He has developed loose bowel movements for which C. difficile toxin was negative. April 28 abdominal film showed nonspecific abdomen correlate for small bowel obstruction. Severe ileus or enteritis also in the differential. CAT scan of the abdomen and pelvis without contrast was also done yesterday that revealed status post cystectomy, small amount of residual air adjacent to the dome of the liver, bilateral double-J stents and mild hydronephrosis of both kidneys, uncomplicated diverticulosis of the sigmoid colon, small hiatal hernia, mild prominence of small bowel without definite transition point consult was added for medicine at that time and due to fever 102.2 and continued tachycardia, ID consult was requested. A shunt is currently on a clear liquid diet and tolerating but refusing protein supplements. He was having frequent loose bowel movements. Ileal conduit is draining as well as RADHA drain. About 2 AM the patient has severe worsening of his status. His fever went to 104. He became hypotensive, tachypneic and tachycardic. When I was contacted I advised transfer to the intensive care unit. Fluid resuscitation was begun. Antibiotic therapy was reevaluated and is now changed to meropenem with concerns to resistant gram-negative pathogens. The patient forcefully is improving after resuscitation and is having a marked reduction in need of vasopressor. This tachycardia has resolved. Blood pressure is improving and he feels better. His generalized having abdominal pain has improved. NG tube was placed which may have helped some of his abdominal pain. Objective - Vital Signs Vital signs: Vital Signs Temp 101.9 F H 04/30/17 20:00 Pulse 144 H 04/30/17 20:00 Resp 22 04/30/17 20:00 BP 71/38 04/30/17 09:30 Pulse Ox 96 04/30/17 20:00 Intake & Output 04/30/17 04/30/17 05/01/17 06:59 18:59 06:59 Intake Total 3782 3187.939 266 Output Total 1630 3175 660 Balance 2152 12.939 -394 Weight 86.3 kg 86.3 kg Intake: IV 3382 3082.0 266 Amino Acid 5%-D25w+Lytes* 664 332 166 E* 740 ml Water For Injection, Sterile 450 ml @ 83 mls/hr IV .BY DURATION [facility] Rx#: [id number] Fat Emulsion 20% 250 ml 168 In Empty Bag 1 bag @ 21 mls/hr IV DAILY@1800 [facility] Rx#:[id number] Meropenem 1 gm In Sodium 200 Chloride 0.9% 100 ml @ 100 mls/hr IVPB Q8HR [facility] Rx#:[id number] Piperacillin-Tazobactam 3 50 50.0 .375 gm In Dextrose/Water 1 50ml.bag @ 12.5 mls/hr IVPB Q8H [facility] Rx#: [id number] Sodium Chloride 0.9% 1, 1000 100 000 ml @ 125 mls/hr IV . Q8H [facility] Rx#:[id number] Sodium Chloride 0.9% 1, 2500 1500 000 ml @ 999 mls/hr IV . Q1H1M [facility] Rx#:[id number] Intake, IV Titration 105.939 0 Amount Norepinephrin 16 mg-0.9% 78.127 0 Ns Pmx 16 mg In 250 ml @ Titrate IV .Q0M [facility] Rx#: [id number] Norepinephrin 4 mg-0.9% 27.812 Ns Pmx 4 mg In 250 ml @ Titrate IV .Q0M [facility] Rx#: [id number] Oral 400 Output: Gastric Drainage 400 Drainage 355 300 235 RADHA Drain 355 300 235 Urine 875 1175 425 Emesis 1700 Other: Voiding Method Ileal Conduit (Right) Ileal Conduit (Right) ABP, PAP, CO, CI - Last Documented Arterial Blood Pressure 111/52 - Exam Gen: This is a 66-year-old male. He is getting up in bed and appears to be somewhat uncomfortable. HEENT: Head is atraumatic, normocephalic. Pupils equal, round. Sclerae is anicteric. NECK: Supple. No JVD. No lymphadenopathy. No thyromegaly. LUNGS: Clear to auscultation. No wheezes or rhonchi. No intercostal retractions. HEART: Regular rate and rhythm. No murmur. ABDOMEN: Soft. Bowel sounds are present. No masses. The abdominal tenderness of last night is now improved. Ileal conduit to the right lower abdomen has urine drainage that remains cloudy. Stoma red and moist. RADHA drain to the left abdominal wall with serous drainage. EXTREMITIES: No pedal edema. No calf tenderness. NEUROLOGICAL: Patient is awake, alert and oriented x3. - Labs CBC & Chem 7: 04/30/17 17:45 04/30/17 17:45 Labs: Abnormal Lab Results - Last 24 Hours (Table) 04/30/17 04/30/17 04/30/17 Range/Units 02:04 03:17 03:17 WBC 3.5 L (3.8-10.6) k/uL RBC (4.30-5.90) m/uL Hgb 12.8 L (13.0-17.5) gm/dL Hct (39.0-53.0) % MCHC (31.0-37.0) g/dL Neutrophils # (Manual) (1.3-7.7) k/uL Lymphocytes # (Manual) 0.35 L (1.0-4.8) k/uL Metamyelocytes # (Man) 0.14 H (0) k/uL Chloride 108 H (98-107) mmol/L Carbon Dioxide 18 L (22-30) mmol/L BUN 25 H (9-20) mg/dL Creatinine 1.40 H (0.66-1.25) mg/dL Glucose (74-99) mg/dL POC Glucose (mg/dL) 104 H (75-99) mg/dL Plasma Lactic Acid Sadiq (0.7-2.0) mmol/L Calcium 7.8 L (8.4-10.2) mg/dL 04/30/17 04/30/17 04/30/17 Range/Units 03:17 07:23 17:12 WBC (3.8-10.6) k/uL RBC (4.30-5.90) m/uL Hgb (13.0-17.5) gm/dL Hct (39.0-53.0) % MCHC (31.0-37.0) g/dL Neutrophils # (Manual) (1.3-7.7) k/uL Lymphocytes # (Manual) (1.0-4.8) k/uL Metamyelocytes # (Man) (0) k/uL Chloride (98-107) mmol/L Carbon Dioxide (22-30) mmol/L BUN (9-20) mg/dL Creatinine (0.66-1.25) mg/dL Glucose (74-99) mg/dL POC Glucose (mg/dL) 125 H (75-99) mg/dL Plasma Lactic Acid Sadiq 2.4 H* 2.1 H* (0.7-2.0) mmol/L Calcium (8.4-10.2) mg/dL 04/30/17 04/30/17 Range/Units 17:45 17:45 WBC 31.9 H* (3.8-10.6) k/uL RBC 3.66 L (4.30-5.90) m/uL Hgb 10.4 L (13.0-17.5) gm/dL Hct 34.0 L (39.0-53.0) % MCHC 30.7 L (31.0-37.0) g/dL Neutrophils # (Manual) 30.60 H (1.3-7.7) k/uL Lymphocytes # (Manual) 0.64 L (1.0-4.8) k/uL Metamyelocytes # (Man) (0) k/uL Chloride 118 H (98-107) mmol/L Carbon Dioxide 17 L (22-30) mmol/L BUN 23 H (9-20) mg/dL Creatinine 1.60 H (0.66-1.25) mg/dL Glucose 122 H (74-99) mg/dL POC Glucose (mg/dL) (75-99) mg/dL Plasma Lactic Acid Sadiq (0.7-2.0) mmol/L Calcium 7.0 L (8.4-10.2) mg/dL Microbiology - Last 24 Hours (Table) 04/28/17 12:50 Urine Culture - Final Urine,Suprapubic Escherichia coli 04/28/17 21:14 Blood Culture - Preliminary Blood No Growth after 24 hours 04/28/17 20:37 Blood Culture - Preliminary Blood No Growth after 24 hours Laboratory Results WBC 31.9 k/uL (3.8-10.6) H* 04/30/17 17:45 RBC 3.66 m/uL (4.30-5.90) L 04/30/17 17:45 Hgb 10.4 gm/dL (13.0-17.5) L 04/30/17 17:45 Hct 34.0 % (39.0-53.0) L 04/30/17 17:45 MCV 93.1 fL (80.0-100.0) 04/30/17 17:45 MCH 28.6 pg (25.0-35.0) 04/30/17 17:45 MCHC 30.7 g/dL (31.0-37.0) L 04/30/17 17:45 RDW 14.9 % (11.5-15.5) 04/30/17 17:45 Plt Count 171 k/uL (150-450) 04/30/17 17:45 Neutrophils % 89 % 04/28/17 17:05 Neutrophils % (Manual) 82 % 04/30/17 17:45 Band Neutrophils % 14 % 04/30/17 17:45 Lymphocytes % 4 % 04/28/17 17:05 Lymphocytes % (Manual) 2 % 04/30/17 17:45 Monocytes % 4 % 04/28/17 17:05 Monocytes % (Manual) 3 % 04/30/17 17:45 Eosinophils % 1 % 04/28/17 17:05 Eosinophils % (Manual) 2 % 04/30/17 03:17 Basophils % 0 % 04/28/17 17:05 Metamyelocytes % 4 % 04/30/17 03:17 Neutrophils # 16.9 k/uL (1.3-7.7) H 04/28/17 17:05 Neutrophils # (Manual) 30.60 k/uL (1.3-7.7) H 04/30/17 17:45 Lymphocytes # 0.8 k/uL (1.0-4.8) L 04/28/17 17:05 Lymphocytes # (Manual) 0.64 k/uL (1.0-4.8) L 04/30/17 17:45 Monocytes # 0.8 k/uL (0-1.0) 04/28/17 17:05 Monocytes # (Manual) 0.96 k/uL (0-1.0) 04/30/17 17:45 Eosinophils # 0.2 k/uL (0-0.7) 04/28/17 17:05 Eosinophils # (Manual) 0.07 k/uL (0-0.7) 04/30/17 03:17 Basophils # 0.1 k/uL (0-0.2) 04/28/17 17:05 Metamyelocytes # (Man) 0.14 k/uL (0) H 04/30/17 03:17 Nucleated RBCs 0 /100 WBC (0-0) 04/30/17 17:45 Manual Slide Review Performed 04/30/17 17:45 Toxic Granulation Present 04/30/17 17:45 Hypochromasia Slight 04/30/17 17:45 Sodium 142 mmol/L (137-145) 04/30/17 17:45 Potassium 3.8 mmol/L (3.5-5.1) 04/30/17 17:45 Chloride 118 mmol/L (98-107) H 04/30/17 17:45 Carbon Dioxide 17 mmol/L (22-30) L 04/30/17 17:45 Anion Gap 7 mmol/L 04/30/17 17:45 BUN 23 mg/dL (9-20) H 04/30/17 17:45 Creatinine 1.60 mg/dL (0.66-1.25) H 04/30/17 17:45 Est GFR (MDRD) Af Amer 53 (>60 ml/min/1.73 sqM) 04/30/17 17:45 Est GFR (MDRD) Non-Af 43 (>60 ml/min/1.73 sqM) 04/30/17 17:45 Glucose 122 mg/dL (74-99) H 04/30/17 17:45 POC Glucose (mg/dL) 125 mg/dL (75-99) H 04/30/17 17:12 POC Glu [employer] ID Lynne Smith 04/30/17 17:[address] Glu mg/dL 105 04/27/17 07:28 Hemoglobin A1c 5.3 % (4.0-6.0) 04/27/17 07:28 Lactic Ac Sepsis Rflx Y 04/30/17 03:50 Plasma Lactic Acid Sadiq 2.1 mmol/L (0.7-2.0) H* 04/30/17 07:23 Calcium 7.0 mg/dL (8.4-10.2) L 04/30/17 17:45 Ionized Calcium [place] 5.2 mg/dL (4.5-5.3) 04/27/17 07:28 Phosphorus 2.7 mg/dL (2.5-4.5) 04/30/17 03:17 Magnesium 2.2 mg/dL (1.6-2.3) 04/30/17 03:17 Total Bilirubin 0.6 mg/dL (0.2-1.3) 04/23/17 08:43 AST 27 U/L (17-59) 04/23/17 08:43 ALT 64 U/L (21-72) 04/23/17 08:43 Alkaline Phosphatase 66 U/L (38-126) 04/23/17 08:43 NT-Pro-B Natriuret Pep 86 pg/mL 04/30/17 03:17 Total Protein 5.0 g/dL (6.3-8.2) L 04/23/17 08:43 Albumin 2.6 g/dL (3.5-5.0) L 04/23/17 08:43 Triglycerides 91 mg/dL (<150) 04/26/17 11:37 TSH 1.950 mIU/L (0.465-4.680) 04/27/17 07:28 Urine Color Yellow 04/28/17 12:50 Urine Appearance Cloudy (Clear) 04/28/17 12:50 Urine pH 6.5 (5.0-8.0) 04/28/17 12:50 Ur Specific [place] 1.008 (1.001-1.035) 04/28/17 12:50 Urine Protein 1+ (Negative) H 04/28/17 12:50 Urine Glucose (UA) Negative (Negative) 04/28/17 12:50 Urine Ketones Negative (Negative) 04/28/17 12:50 Urine Blood Moderate (Negative) H 04/28/17 12:50 Urine Nitrite Positive (Negative) 04/28/17 12:50 Urine Bilirubin Negative (Negative) 04/28/17 12:50 Urine Urobilinogen <2.0 mg/dL (<2.0) 04/28/17 12:50 Ur Leukocyte Esterase Large (Negative) H 04/28/17 12:50 Urine RBC 8 /hpf (0-5) H 04/28/17 12:50 Urine WBC >182 /hpf (0-5) H 04/28/17 12:50 Urine WBC Clumps Many /hpf (None) H 04/28/17 12:50 Urine Bacteria Many /hpf (None) H 04/28/17 12:50 Ur Random Creatinine 1.9 mg/dL 04/21/17 08:29 C. difficile (EIA) Intrp Negative (Negative) 04/28/17 20:50 Miscellaneous Test Creatinine, Body Fld 04/21/17 08:29 Misc Test Result See Comment 04/21/17 08:29 Blood Type A Positive 04/14/17 09:45 Blood Type Confirm A Positive 04/15/17 10:24 Blood Type Recheck CABO Indicated 04/14/17 09:45 Antibody Screen NEGATIVE 04/14/17 09:45 Spec Expiration Date 04/17/2017 - 8082 04/14/17 09:45 Microbiology 04/28/17 12:50 Urine,Suprapubic Urine Culture - Final Escherichia coli 04/28/17 21:14 Blood Blood Culture - Preliminary No Growth after 24 hours 04/28/17 20:37 Blood Blood Culture - Preliminary No Growth after 24 hours Assessment and Plan (1) Malignant neoplasm of bladder wall Current Visit: Yes Status: Acute Code(s): C67.9 - MALIGNANT NEOPLASM OF BLADDER, UNSPECIFIED SNOMED Code(s): 05648188 (2) Gram-negative sepsis with organ dysfunction Narrative/Plan: 66 year old male with bladd er cancer status post resection yesterday did have fever and with a recent surgical interventions antimicrobial therapy with piperacillin tazobactam is being utilized to cover for gram-negative bacilli as well as intra-abdominal anaerobic pathogens staph and strep are also covered. No history of MRSA. Last night the patient had a major change of his status with tachycardia, tachypnea, hypotension and fever to 104. He was moved to the intensive care unit and received fluid resuscitation, and vasopressor support. He was noticed to have a significant change of leukopenia consistent with his overwhelming gram -negative infection. Antimicrobial therapy was changed to meropenem. The significant patient's feeling better. His hypotension is resolving with reducing doses of vasopressor. Tachycardia has resolved. He is no longer tachypnea. Urinary output has improved. Follow-up evaluations by his laboratory is performed to ensure that his white count doesn't follow any further from the sepsis. However he is now improving and does not seem to be likely at this time. We'll also recheck his creatinine to make sure that he is not having any worsening of his renal failure. This information is related to the surgeon as well as to the family members that are present including his . Current Visit: Yes Status: Acute Code(s): A41.50 - GRAM-NEGATIVE SEPSIS, UNSPECIFIED; R65.20 - SEVERE SEPSIS WITHOUT SEPTIC SHOCK SNOMED Code(s): 170807989 (3) Acute renal failure Current Visit: Yes Status: Acute Code(s): N17.9 - ACUTE KIDNEY FAILURE, UNSPECIFIED SNOMED Code(s): 68985061 (4) Leukopenia Current Visit: Yes Status: Acute Code(s): D72.819 - DECREASED WHITE BLOOD CELL COUNT, UNSPECIFIED SNOMED Code(s): 02299778
[2017-04-30] MEDS: FAT EMULSION 20% 250 ML in EMPTY BAG 1 BAG IV SCH (21:44)
[2017-05-01] MEDS: ATORVASTATIN 20 MG TAB PO SCH ×2 (00:15→20:07)
[2017-05-01] MEDS: LISINOPRIL 20 MG TAB PO SCH (00:15)
[2017-05-01] MEDS: HEPARIN SODIUM,PORCINE 5,000 UNIT/ML 1 ML VIAL SQ SCH ×2 (00:16→08:00)
[2017-05-01] MEDS: METOCLOPRAMIDE 5 MG/ML 2 ML VIAL IVP SCH ×4 (00:26→18:17)
[2017-05-01] MEDS: MEROPENEM 1 GM in SODIUM CHLORIDE 0.9% 100 ML IVPB SCH ×3 (00:29→16:50)
[2017-05-01 04:47] LABS: HGB 10.5 gm/dL (13.0-17.5); Hypochromasia Moderate; MCH 29.1 pg (25.0-35.0); MCHC 30.7 g/dL (31.0-37.0); MCV 94.7 fL (80.0-100.0); Mean Platelet Volume 10.1; Platelet Count 158 k/uL (150-450)
[2017-05-01 04:50] LABS: Ionized Calcium 4.8 mg/dL (4.5-5.3)
[2017-05-01 04:58] LABS: Albumin 1.8 g/dL (3.5-5.0); Calcium 7.1 mg/dL (8.4-10.2); Phosphorus 3.7 mg/dL (2.5-4.5); Potassium 3.5 mmol/L (3.5-5.1)
[2017-05-01 05:01] LABS: WBC 32.6 k/uL (3.8-10.6)
[2017-05-01] MEDS: 1: MVI, ADULT NO.4 WITH VIT K 10 ML, TRACE (CONC-1ML/DOSE) 1 ML in AMINO ACID 5%-D25W+LY IV SCH (05:20)
[2017-05-01 06:25] LABS: Band Neutrophils % 34 %; Eosinophils # (M) 0.33 k/uL (0-0.7); Monocytes # (M) 0.65 k/uL (0-1.0); Neutrophils % (M) 60 %; Nucleated Red Blood Cells 0 /100 WBC (0-0); Total Cells Counted 200
[2017-05-01 06:27] LABS: Toxic Granulation Present; Toxic Vacuolation Present
[2017-05-01 06:30] LABS: Large Platelets Present; Polychromasia Present
--- NOTE | 2017-05-01 06:54 | XR ---
EXAMINATION TYPE: XR chest 1V DATE OF EXAM: 05/01/2017 HISTORY: SOB. REFERENCE: Previous study dated 04/30/2017. FINDINGS: An NG tube is been passed. Its tip is within the stomach. The lungs are clear. Pleural space are clear. The heart is not enlarged. IMPRESSION: NO ACTIVE INTRATHORACIC DISEASE.
[2017-05-01] MEDS ORDERED: POTASSIUM CHLORIDE 10 MEQ in WATER FOR INJECTION 1 100ML.BAG IVPB ONE (07:22)
[2017-05-01] MEDS: PANTOPRAZOLE 40 MG/10 ML VIAL IV SCH (07:59)
[2017-05-01] MEDS: METOPROLOL SUCCINATE (ER) 100 MG TAB.ER.24H PO SCH ×2 (07:59→20:10)
[2017-05-01] MEDS: MAGNESIUM SULFATE-D5W PMX 1 GM in DEXTROSE/WATER 1 100ML.BAG IVPB SCH ×2 (08:16→09:35)
[2017-05-01] MEDS: SODIUM CHLORIDE 0.9% 1,000 ML IV SCH ×4 (08:17→21:28)
[2017-05-01] MEDS ORDERED: ALPRAZolam 0.5 MG TAB PO SCH (09:00)
[2017-05-01] MEDS: DILTIAZEM 125 MG in SODIUM CHLORIDE 0.9% 100 ML IV SCH ×2 (10:01→21:05)
--- NOTE | 2017-05-01 10:55 | P.PN ---
Subjective Progress Note Date: 05/01/17 The patient is in the hospital status post cystectomy. He is in the intensive care unit because of urinary tract infection with sepsis. He is growing E. coli. He had a temperature yesterday as expected. His vital signs are stable. He's off the Levophed. He went into atrial fibrillation last night but is controlled with Cardizem. He is awake and alert. His respirations are normal. His abdomen was soft. The wounds look good. Stoma is pink. The extremities are unremarkable. I will discontinue his NG tube. He'll continue with supportive care. We will continue to monitor his labs. His white count remains elevated his creatinine is up a little yet. Objective - Vital Signs Vital signs: Vital Signs Temp 99 F 05/01/17 08:00 Pulse 145 H 05/01/17 10:00 Resp 15 05/01/17 10:00 BP 71/38 04/30/17 09:30 Pulse Ox 98 05/01/17 10:00 Intake & Output 04/30/17 05/01/17 05/01/17 18:59 06:59 18:59 Intake Total 3187.939 4053.460 924 Output Total 3175 3215 540 Balance 12.939 838.460 384 Weight 86.3 kg 90.9 kg Intake: IV 3082.0 2835 924 Amino Acid 5%-D25w+Lytes* 332 996 332 E* 740 ml Water For Injection, Sterile 450 ml @ 83 mls/hr IV .BY DURATION [facility] Rx#: [id number] Fat Emulsion 20% 250 ml 189 42 In Empty Bag 1 bag @ 21 mls/hr IV DAILY@1800 [facility] Rx#:[id number] Magnesium Sulfate-D5w Pmx 100 1 gm In Dextrose/Water 1 100ml.bag @ 100 mls/hr IVPB Q1H [facility] Rx#: [id number] Meropenem 1 gm In Sodium 200 100 100 Chloride 0.9% 100 ml @ 100 mls/hr IVPB Q8HR [facility] Rx#:[id number] Piperacillin-Tazobactam 3 50.0 .375 gm In Dextrose/Water 1 50ml.bag @ 12.5 mls/hr IVPB Q8H [facility] Rx#: [id number] Potassium Chloride 10 meq 200 100 In Water For Injection 1 100ml.bag @ 100 mls/hr IVPB Q1H [facility] Rx#: [id number] Sodium Chloride 0.9% 1, 1000 1350 250 000 ml @ 125 mls/hr IV . Q8H [facility] Rx#:[id number] Sodium Chloride 0.9% 1, 1500 000 ml @ 999 mls/hr IV . Q1H1M [facility] Rx#:[id number] Intake, IV Titration 598.356 5499.460 Amount Mvi, Adult No.4 with Vit 1196.583 K 10 ml Trace (Conc-1Ml/ Dose) 1 ml In Amino Acid 5%-D25w+Lytes*E* 740 ml In Water For Injection, Sterile 450 ml @ 83 mls/ hr IV .BY DURATION [facility] Rx #:[id number] Norepinephrin 16 mg-0.9% 78.127 21.877 Ns Pmx 16 mg In 250 ml @ Titrate IV .Q0M [facility] Rx#: [id number] Norepinephrin 4 mg-0.9% 27.812 Ns Pmx 4 mg In 250 ml @ Titrate IV .Q0M [facility] Rx#: [id number] Output: Drainage 300 395 60 RADHA Drain 300 395 60 Urine 1175 2820 480 Emesis 1700 Other: Voiding Method Ileal Conduit (Right) Ileal Conduit (Right) Ileal Conduit ( Right) ABP, PAP, CO, CI - Last Documented Arterial Blood Pressure 120/63 - Labs CBC & Chem 7: 05/01/17 04:20 05/01/17 04:20 Labs: Abnormal Lab Results - Last 24 Hours (Table) 04/30/17 04/30/17 04/30/17 Range/Units 17:12 17:45 17:45 WBC 31.9 H* (3.8-10.6) k/uL RBC 3.66 L (4.30-5.90) m/uL Hgb 10.4 L (13.0-17.5) gm/dL Hct 34.0 L (39.0-53.0) % MCHC 30.7 L (31.0-37.0) g/dL Neutrophils # (Manual) 30.60 H (1.3-7.7) k/uL Lymphocytes # (Manual) 0.64 L (1.0-4.8) k/uL Chloride 118 H (98-107) mmol/L Carbon Dioxide 17 L (22-30) mmol/L BUN 23 H (9-20) mg/dL Creatinine 1.60 H (0.66-1.25) mg/dL Glucose 122 H (74-99) mg/dL POC Glucose (mg/dL) 125 H (75-99) mg/dL Calcium 7.0 L (8.4-10.2) mg/dL Albumin (3.5-5.0) g/dL 05/01/17 05/01/17 Range/Units 04:20 04:20 WBC 32.6 H* (3.8-10.6) k/uL RBC 3.60 L (4.30-5.90) m/uL Hgb 10.5 L (13.0-17.5) gm/dL Hct 34.0 L (39.0-53.0) % MCHC 30.7 L (31.0-37.0) g/dL Neutrophils # (Manual) 30.60 H (1.3-7.7) k/uL Lymphocytes # (Manual) (1.0-4.8) k/uL Chloride 118 H (98-107) mmol/L Carbon Dioxide 17 L (22-30) mmol/L BUN 27 H (9-20) mg/dL Creatinine 1.90 H (0.66-1.25) mg/dL Glucose 152 H (74-99) mg/dL POC Glucose (mg/dL) (75-99) mg/dL Calcium 7.1 L (8.4-10.2) mg/dL Albumin 1.8 L (3.5-5.0) g/dL Microbiology - Last 24 Hours (Table) 04/30/17 04:04 Blood Culture - Preliminary Blood No Growth after 24 hours 04/30/17 03:17 Blood Culture - Preliminary Blood No Growth after 24 hours 04/28/17 15:45 Stool for WBCs - Final Stool 04/28/17 15:45 Stool Culture - Preliminary Stool 04/28/17 21:14 Blood Culture - Preliminary Blood No Growth after 48 hours 04/28/17 20:37 Blood Culture - Preliminary Blood No Growth after 48 hours 04/28/17 12:50 Urine Culture - Final Urine,Suprapubic Escherichia coli
--- NOTE | 2017-05-01 11:13 | P.PN ---
Subjective Progress Note Date: 05/01/17 Principal diagnosis: acute septic shock secondary to urinary tract infection This is a 66-year-old white male with history of bladder cancer, scheduled supposedly to have surgery on his bladder by the end of April. He was supposed to spend some time in [place] before he comes back in late April. Unfortunately, and while in [place], the patient started noticing some urinary and rectal bleeding which was profuse, and he was seen in the ER. A Hong catheter was placed, and he was supposed to follow up with a urologist. However the patient continued to have significant bleeding from his bladder, the bladder was flushed, and the surgeons in [place] instructed him to have the bladder surgery as soon as possible. Patient to return to [place], and he underwent surgery on April 15 which included robotic-assisted laparoscopic radical cystoprostatectomy, bilateral pelvic lymphadenectomy and ileal conduit, urinary diversion and RADHA drain placement by Dr. Gerard and . 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 Postoperatively, patient developed some ileus, had a nasogastric tube in place for 3 days which was subsequently removed. Developed tachycardia and this was addressed by cardiology. Patient was also started on TPN for severe protein calorie malnutrition. CT of the abdomen on April 28 showed nonspecific abdomen however severe ileus or enteritis was also in the differential. Small amount of residual area noted at the dome of the liver and there was uncomplicated diverticulosis of the sigmoid colon. Patient was seen by infectious disease on 04/29/20174 fevers as high as 102.2, and tachycardia. Patient was placed on Zosyn, however last night the patient developed hypotension, tachycardia, no shortness of breath, he had some abdominal distention requiring placement of a nasogastric tube and decompression patient was transferred to the ICU and I was asked to see him on consultation. Lactic acid was elevated. He received 2 L of fluids initially, blood pressure did not improve much, hence levo fed was initiated. Presently on 10 g of norepinephrine. Patient received a total of 3 L of fluids/ crystalloids so far. Main IV fluid was increased to 1 25 mL per hour. I saw him this morning, and I recommended a right femoral triple-lumen catheter which was placed because of his pressors and I recommended a right brachial arterial line which was done uneventfully. Cultures are pending, initial urine culture from 04/28 is showing gram-negative bacilli. Blood cultures are negative so far. Reevaluated today on 05/01/2017, patient is doing much better today, off norepinephrine, remains on IV fluids, making good urine output,positive fluid balance over the last 24 hours, did receive 1 dose of Lasix last night for slight increase in shortness of breath, but his chest x-ray showed no evidence of cardiogenic or noncardiogenic pulmonary edema.antibiotics were changed to Merrem, WBC count is up to 32.6 thousand, platelets are holding at 158, basic metabolic profile is relatively normal except for non-anion gap metabolic acidosis noted. Creatinine is slightly up to 1.90 from 1.60 yesterday.last lactic acid yesterday was 2.1, no repeat lactic acid was done today. Albumin is 1.8, however the patient is presently on TPN.patient feels better, denies any shortness of breath, no chest pain no cough no wheezing. No abdominal pain. Did have bowel movements last night, and I believe the plans are to discontinue his nasogastric tube today. Patient is showing sinus tachycardia, hence I increased his dose of Lopressor, and I increased the Xanax to 0.5 mg every 6 hours when necessary. Did well with one dose of Ativan given last night IV push. Chest x-ray showed no evidence of interstitial edema. Objective - Vital Signs Vital signs: Vital Signs Temp 99 F 05/01/17 08:00 Pulse 145 H 05/01/17 10:00 Resp 15 05/01/17 10:00 BP 71/38 04/30/17 09:30 Pulse Ox 98 05/01/17 10:00 Intake & Output 04/30/17 05/01/17 05/01/17 18:59 06:59 18:59 Intake Total 3187.939 4053.460 924 Output Total 3175 3215 540 Balance 12.939 838.460 384 Weight 86.3 kg 90.9 kg Intake: IV 3082.0 2835 924 Amino Acid 5%-D25w+Lytes* 332 996 332 E* 740 ml Water For Injection, Sterile 450 ml @ 83 mls/hr IV .BY DURATION FAM Rx#: [id number] Fat Emulsion 20% 250 ml 189 42 In Empty Bag 1 bag @ 21 mls/hr IV DAILY@1800 [facility] Rx#:[id number] Magnesium Sulfate-D5w Pmx 100 1 gm In Dextrose/Water 1 100ml.bag @ 100 mls/hr IVPB Q1H [facility] Rx#: [id number] Meropenem 1 gm In Sodium 200 100 100 Chloride 0.9% 100 ml @ 100 mls/hr IVPB Q8HR [facility] Rx#:[id number] Piperacillin-Tazobactam 3 50.0 .375 gm In Dextrose/Water 1 50ml.bag @ 12.5 mls/hr IVPB Q8H [facility] Rx#: [id number] Potassium Chloride 10 meq 200 100 In Water For Injection 1 100ml.bag @ 100 mls/hr IVPB Q1H [facility] Rx#: [id number] Sodium Chloride 0.9% 1, 1000 1350 250 000 ml @ 125 mls/hr IV . Q8H [facility] Rx#:[id number] Sodium Chloride 0.9% 1, 1500 000 ml @ 999 mls/hr IV . Q1H1M [facility] Rx#:[id number] Intake, IV Titration 506.271 1812.460 Amount Mvi, Adult No.4 with Vit 1196.583 K 10 ml Trace (Conc-1Ml/ Dose) 1 ml In Amino Acid 5%-D25w+Lytes*E* 740 ml In Water For Injection, Sterile 450 ml @ 83 mls/ hr IV .BY DURATION [facility] Rx #:[id number] Norepinephrin 16 mg-0.9% 78.127 21.877 Ns Pmx 16 mg In 250 ml @ Titrate IV .Q0M [facility] Rx#: [id number] Norepinephrin 4 mg-0.9% 27.812 Ns Pmx 4 mg In 250 ml @ Titrate IV .Q0M [facility] Rx#: [id number] Output: Drainage 300 395 60 RADHA Drain 300 395 60 Urine 1175 2820 480 Emesis 1700 Other: Voiding Method Ileal Conduit (Right) Ileal Conduit (Right) Ileal Conduit ( Right) ABP, PAP, CO, CI - Last Documented Arterial Blood Pressure 120/63 - Exam Physical Exam: Revealed a 66-year-old white male, slightly pale, tachycardic, in no form of respiratory distress. HEENT:[Neck is supple.] [No neck masses.] [No thyromegaly.] [No JVD.] Atraumatic, normocephalic, PERRLA, EOMI. Nasogastric tube in place noted Chest: [Clear throughout, no crackles, no rhonchi, no wheezes.] Cardiac Exam: [Normal S1 and S2, no S3 gallop, no murmur.] Abdomen: [Soft, slightly distended, nontender,, no megaly, no rebound, no guarding, diminished bowel sounds..] Urinary bag is noted in the right lower quadrant/ileal conduit. Extremities: [No clubbing, no edema, no cyanosis.] Neurological Exam: [No focal neurologic deficit.] Lymphatics: Lymphadenopathy negative Psychiatric: Normal mood affect and mental status examination. - Labs CBC & Chem 7: 05/01/17 04:20 05/01/17 04:20 Labs: Abnormal Lab Results - Last 24 Hours (Table) 04/30/17 04/30/17 04/30/17 Range/Units 17:12 17:45 17:45 WBC 31.9 H* (3.8-10.6) k/uL RBC 3.66 L (4.30-5.90) m/uL Hgb 10.4 L (13.0-17.5) gm/dL Hct 34.0 L (39.0-53.0) % MCHC 30.7 L (31.0-37.0) g/dL Neutrophils # (Manual) 30.60 H (1.3-7.7) k/uL Lymphocytes # (Manual) 0.64 L (1.0-4.8) k/uL Chloride 118 H (98-107) mmol/L Carbon Dioxide 17 L (22-30) mmol/L BUN 23 H (9-20) mg/dL Creatinine 1.60 H (0.66-1.25) mg/dL Glucose 122 H (74-99) mg/dL POC Glucose (mg/dL) 125 H (75-99) mg/dL Calcium 7.0 L (8.4-10.2) mg/dL Albumin (3.5-5.0) g/dL 05/01/17 05/01/17 Range/Units 04:20 04:20 WBC 32.6 H* (3.8-10.6) k/uL RBC 3.60 L (4.30-5.90) m/uL Hgb 10.5 L (13.0-17.5) gm/dL Hct 34.0 L (39.0-53.0) % MCHC 30.7 L (31.0-37.0) g/dL Neutrophils # (Manual) 30.60 H (1.3-7.7) k/uL Lymphocytes # (Manual) (1.0-4.8) k/uL Chloride 118 H (98-107) mmol/L Carbon Dioxide 17 L (22-30) mmol/L BUN 27 H (9-20) mg/dL Creatinine 1.90 H (0.66-1.25) mg/dL Glucose 152 H (74-99) mg/dL POC Glucose (mg/dL) (75-99) mg/dL Calcium 7.1 L (8.4-10.2) mg/dL Albumin 1.8 L (3.5-5.0) g/dL Microbiology - Last 24 Hours (Table) 04/30/17 04:04 Blood Culture - Preliminary Blood No Growth after 24 hours 04/30/17 03:17 Blood Culture - Preliminary Blood No Growth after 24 hours 04/28/17 15:45 Stool for WBCs - Final Stool 04/28/17 15:45 Stool Culture - Preliminary Stool 04/28/17 21:14 Blood Culture - Preliminary Blood No Growth after 48 hours 04/28/17 20:37 Blood Culture - Preliminary Blood No Growth after 48 hours 04/28/17 12:50 Urine Culture - Final Urine,Suprapubic Escherichia coli Assessment and Plan Assessment: Impression: 1 acute septic shock, most likely source is urinary tract infection, however the possibility of abdominal sepsis is not entirely ruled out. 2 status post robotic laparoscopic radical cystoscopy prostatectomy, bilateral pelvic lymphadenectomy with ilial conduit and urinary diversion, with RADHA drain placement for bladder cancer and prostate cancer. 3 acute ileus or possible small bowel obstruction requiring nasogastric tube placement.clinically improving today 4 protein calorie malnutrition patient was started on TPN 5 urothelial carcinoma and prostate carcinoma, status post surgery as noted above. Initial surgery was done on 04/15/2017 6 history of underlying coronary artery disease and previous stent placement, presently being followed by cardiology. 7 history of hypertension, 8 history of hyperlipidemia 9 history of chronic kidney disease, stage II.however the patient seems to have an acute kidney injury from his septic shock presentation and sepsis, most likely secondary to acute tubular necrosis. Recommendation: Continue present treatment plan including fluids, antibiotics, nutritional support, nasogastric tube Will likely be removed today Discussed his condition with his family at bedside, Discussed his condition with the different consultants including Dr. arias, patient will remain in the ICU, remains critically ill but definitely more stable today compared to yesterday. Lopressor dose was increased, Xanax dose was increased, his antibiotics were changed to Merrem as per infectious disease on the case, we'll continue to follow. Critical care time is 32 minutes. Time with Patient: Greater than 30
--- NOTE | 2017-05-01 11:29 | P.PN ---
Subjective Progress Note Date: 05/01/17 Principal diagnosis: Ileus Patient seems to be doing better today. Denies abdominal pain. Pressor requirements are gone. Nasogastric tube was removed. Tachycardia does persist. Fevers are better with a T-max of 101.4. Leukocytosis and bandemia persists. Objective - Vital Signs Vital signs: Vital Signs Temp 99 F 05/01/17 08:00 Pulse 145 H 05/01/17 10:00 Resp 15 05/01/17 10:00 BP 71/38 04/30/17 09:30 Pulse Ox 98 05/01/17 10:00 Intake & Output 04/30/17 05/01/17 05/01/17 18:59 06:59 18:59 Intake Total 3187.939 4053.460 924 Output Total 3175 3215 540 Balance 12.939 838.460 384 Weight 86.3 kg 90.9 kg Intake: IV 3082.0 2835 924 Amino Acid 5%-D25w+Lytes* 332 996 332 E* 740 ml Water For Injection, Sterile 450 ml @ 83 mls/hr IV .BY DURATION [facility] Rx#: [id number] Fat Emulsion 20% 250 ml 189 42 In Empty Bag 1 bag @ 21 mls/hr IV DAILY@1800 [facility] Rx#:[id number] Magnesium Sulfate-D5w Pmx 100 1 gm In Dextrose/Water 1 100ml.bag @ 100 mls/hr IVPB Q1H [facility] Rx#: [id number] Meropenem 1 gm In Sodium 200 100 100 Chloride 0.9% 100 ml @ 100 mls/hr IVPB Q8HR [facility] Rx#:[id number] Piperacillin-Tazobactam 3 50.0 .375 gm In Dextrose/Water 1 50ml.bag @ 12.5 mls/hr IVPB Q8H [facility] Rx#: [id number] Potassium Chloride 10 meq 200 100 In Water For Injection 1 100ml.bag @ 100 mls/hr IVPB Q1H [facility] Rx#: [id number] Sodium Chloride 0.9% 1, 1000 1350 250 000 ml @ 125 mls/hr IV . Q8H [facility] Rx#:[id number] Sodium Chloride 0.9% 1, 1500 000 ml @ 999 mls/hr IV . Q1H1M [facility] Rx#:[id number] Intake, IV Titration 434.470 2948.460 Amount Mvi, Adult No.4 with Vit 1196.583 K 10 ml Trace (Conc-1Ml/ Dose) 1 ml In Amino Acid 5%-D25w+Lytes*E* 740 ml In Water For Injection, Sterile 450 ml @ 83 mls/ hr IV .BY DURATION [facility] Rx #:[id number] Norepinephrin 16 mg-0.9% 78.127 21.877 Ns Pmx 16 mg In 250 ml @ Titrate IV .Q0M [facility] Rx#: [id number] Norepinephrin 4 mg-0.9% 27.812 Ns Pmx 4 mg In 250 ml @ Titrate IV .Q0M [facility] Rx#: [id number] Output: Drainage 300 395 60 RADHA Drain 300 395 60 Urine 1175 2820 480 Emesis 1700 Other: Voiding Method Ileal Conduit (Right) Ileal Conduit (Right) Ileal Conduit ( Right) ABP, PAP, CO, CI - Last Documented Arterial Blood Pressure 120/63 - Exam Abdomen: Soft, nondistended, no appreciable tenderness, ostomy functioning and pink - Labs CBC & Chem 7: 05/01/17 04:20 05/01/17 04:20 Labs: Abnormal Lab Results - Last 24 Hours (Table) 04/30/17 04/30/17 04/30/17 Range/Units 17:12 17:45 17:45 WBC 31.9 H* (3.8-10.6) k/uL RBC 3.66 L (4.30-5.90) m/uL Hgb 10.4 L (13.0-17.5) gm/dL Hct 34.0 L (39.0-53.0) % MCHC 30.7 L (31.0-37.0) g/dL Neutrophils # (Manual) 30.60 H (1.3-7.7) k/uL Lymphocytes # (Manual) 0.64 L (1.0-4.8) k/uL Chloride 118 H (98-107) mmol/L Carbon Dioxide 17 L (22-30) mmol/L BUN 23 H (9-20) mg/dL Creatinine 1.60 H (0.66-1.25) mg/dL Glucose 122 H (74-99) mg/dL POC Glucose (mg/dL) 125 H (75-99) mg/dL Calcium 7.0 L (8.4-10.2) mg/dL Albumin (3.5-5.0) g/dL 05/01/17 05/01/17 Range/Units 04:20 04:20 WBC 32.6 H* (3.8-10.6) k/uL RBC 3.60 L (4.30-5.90) m/uL Hgb 10.5 L (13.0-17.5) gm/dL Hct 34.0 L (39.0-53.0) % MCHC 30.7 L (31.0-37.0) g/dL Neutrophils # (Manual) 30.60 H (1.3-7.7) k/uL Lymphocytes # (Manual) (1.0-4.8) k/uL Chloride 118 H (98-107) mmol/L Carbon Dioxide 17 L (22-30) mmol/L BUN 27 H (9-20) mg/dL Creatinine 1.90 H (0.66-1.25) mg/dL Glucose 152 H (74-99) mg/dL POC Glucose (mg/dL) (75-99) mg/dL Calcium 7.1 L (8.4-10.2) mg/dL Albumin 1.8 L (3.5-5.0) g/dL Microbiology - Last 24 Hours (Table) 04/30/17 04:04 Blood Culture - Preliminary Blood No Growth after 24 hours 04/30/17 03:17 Blood Culture - Preliminary Blood No Growth after 24 hours 04/28/17 15:45 Stool for WBCs - Final Stool 04/28/17 15:45 Stool Culture - Preliminary Stool 04/28/17 21:14 Blood Culture - Preliminary Blood No Growth after 48 hours 04/28/17 20:37 Blood Culture - Preliminary Blood No Growth after 48 hours 04/28/17 12:50 Urine Culture - Final Urine,Suprapubic Escherichia coli Assessment and Plan (1) Ileus following gastrointestinal surgery Narrative/Plan: Continue IV antibiotics. Agree with removing nasogastric tube. May start clear liquids. Monitor labs closely. Current Visit: Yes Status: Acute Code(s): K91.30 - POSTPROC INTESTINAL OBST , UNSP TO PARTIAL VERSUS COMPLETE SNOMED Code(s): 590822767
--- NOTE | 2017-05-01 11:36 | P.PN ---
Subjective Progress Note Date: 05/01/17 Principal diagnosis: This is a 66-year-old gentleman known to my practice, with underlying history of CAD, hypertension, COPD, impaired fasting hyperglycemia admitted under service of Dr. 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 Andino and Dr. Liz on 04/15/2017. He was seen in our clinic for Medicare physical in October 2016 and complained of hematospermia, referral was made to Dr. Andino, for repeat cystoscopy and initial CAT scan of the abdomen and pelvis failed to reveal any significant abnormal pathology in the bladder except for calcification in the prostate, PSA in the past was 0.5, in January 2016. He has this problem since 2014 bladder ultrasound shows nonobstructing renal calculi for which she originally saw Dr. Gerard, and was followed by urology since then, cystoscopy was done with the biopsy in February 2017,.The initial biopsy showed the urothelial bladder carcinoma,his involves the left posterior lateral bladder wall and post direct urethra, he also has a left bladder diverticulum containing tumor, date for initial biopsy is February 2017 however they have requested a [place] surgeon to due the primary procedure this was scheduled to be done in April 2017, the surgery was delayed to accommodate this schedule of 4 urological specialist to perform the surgery, hence, patient had left to [place] in January 2017 travel back and forth to [place] for the biopsy thereafter he went back to [place] however with his another attack of hematuria, and hematospermia, they have requested that he come in emergently to have the bladder surgery done, procedure was done on 04/15/2018 for the ileal diversion and robotic-assisted radical cystoprostatectomy and bilateral pelvic lymphadenectomy During the perioperative recovery course, patient had intractable nausea and vomiting for which an NG tube was placed, CAT scan of the abdomen and pelvis was performed showing double-J stents bilaterally, mild bilateral hydronephrosis , spleen liver and gallbladder is unremarkable, scant amount of free air adjacent to the dome of the liver most likely secondary to previous surgery, uncomplicated mild diverticulosis of the sigmoid colon without any evidence off diverticulitis, appendix is not visualized no evidence of blastic metastasis stasis mild prominence of small bowel without a definite transition point, consult was made to Dr. Morocho general surgery Patient was noted to be febrile on April 24 however it is not sustained T-max at that time was 99.8, however fever is now 102.2, patient has diarrhea, abdominal pain, no sinus congestion no cough. Patient was given Rocephin, and would start patient on Zosyn with consults Dr. Gomez, blood cultures, influenza testing, urine cultures have been sent, and stools for C. diff toxin 04/29: Patient is being followed by Dr. Gomez as well. Influenza A testing has not been done. Urine and blood cultures are in progress. C. difficile toxin has been negative. Patient has been afebrile since yesterday evening. He is using his incentive spirometry. 04/30: Patient's condition continued to decline overnight and he developed septic shock and lactic acidosis requiring transfer to the intensive care unit and started on Levophed currently at [address] Maxwell for intensive care management status post right femoral triple-lumen and right brachial arterial line. Patient is also tachycardic and on a cooling blanket. Temperature max was 104.1. Dr. Gomez has changed his antibiotics to meropenem and he has had an NG tube tube placed since yesterday to low intermittent suction. Chest x-ray shows no active intrathoracic disease. Abdominal x-ray shows improving small bowel obstruction. Patient denies abdominal pain. 05/01: Patient is off the Levophed. Patient has been tachycardic and converted to atrial fibrillation. Dr. Maxwell did increase his metoprolol this morning. Cardiology to follow. Patient states he is feeling better today. Patient was sleeping and arousable easily. He has not been sleeping during most of his hospitalization but did have a good night sleep. NG tube is in place which is to be discontinued today. Patient did have bowel movement last evening. Repeat chest x-ray shows no active intrathoracic disease. Urine culture showing E. coli pansensitive. He has had good urine output and urine is clearing. All blood cultures are showing no growth. Temperature max was 101.9 at 8 PM yesterday which seems to be improving. White count is now at 32.6. Creatinine 1.9. Objective - Vital Signs Vital signs: Vital Signs Temp 98.5 F 05/01/17 06:00 Pulse 135 H 05/01/17 07:00 Resp 22 05/01/17 07:00 BP 71/38 04/30/17 09:30 Pulse Ox 98 01/14/18 07:00 Intake & Output 04/30/17 05/01/17 05/01/17 18:59 06:59 18:59 Intake Total 3187.939 4053.460 458 Output Total 3175 3215 240 Balance 12.939 838.460 218 Weight 86.3 kg 90.9 kg Intake: IV 3082.0 2835 458 Amino Acid 5%-D25w+Lytes* 332 996 166 E* 740 ml Water For Injection, Sterile 450 ml @ 83 mls/hr IV .BY DURATION FAM Rx#: [id number] Fat Emulsion 20% 250 ml 189 42 In Empty Bag 1 bag @ 21 mls/hr IV DAILY@1800 FAM Rx#:[id number] Meropenem 1 gm In Sodium 200 100 Chloride 0.9% 100 ml @ 100 mls/hr IVPB Q8HR FAM Rx#:[id number] Piperacillin-Tazobactam 3 50.0 .375 gm In Dextrose/Water 1 50ml.bag @ 12.5 mls/hr IVPB Q8H FAM Rx#: [id number] Potassium Chloride 10 meq 200 In Water For Injection 1 100ml.bag @ 100 mls/hr IVPB Q1H FAM Rx#: [id number] Sodium Chloride 0.9% 1, 1000 1350 250 000 ml @ 125 mls/hr IV . Q8H FAM Rx#:[id number] Sodium Chloride 0.9% 1, 1500 000 ml @ 999 mls/hr IV . Q1H1M FAM Rx#:[id number] Intake, IV Titration 886.241 9597.460 Amount Mvi, Adult No.4 with Vit 1196.583 K 10 ml Trace (Conc-1Ml/ Dose) 1 ml In Amino Acid 5%-D25w+Lytes*E* 740 ml In Water For Injection, Sterile 450 ml @ 83 mls/ hr IV .BY DURATION FAM Rx #:[id number] Norepinephrin 16 mg-0.9% 78.127 21.877 Ns Pmx 16 mg In 250 ml @ Titrate IV .Q0M FAM Rx#: [id number] Norepinephrin 4 mg-0.9% 27.812 Ns Pmx 4 mg In 250 ml @ Titrate IV .Q0M FAM Rx#: [id number] Output: Drainage 300 395 60 RADHA Drain 300 395 60 Urine 1175 2820 180 Emesis 1700 Other: Voiding Method Ileal Conduit (Right) Ileal Conduit (Right) ABP, PAP, CO, CI - Last Documented Arterial Blood Pressure 135/77 - Exam - Constitutional General appearance: cooperative, no acute distress - EENT Eyes: anicteric sclerae, PERRLA, normal appearance ENT: NA/AT, normal oropharynx - Respiratory Respiratory: bilateral: CTA, negative: diminished, dullness, rales - Cardiovascular Rhythm: regular Heart sounds: normal: S1, S2 Abnormal Heart Sounds: no systolic murmur, no diastolic murmur, no rub, no S3 Gallop, no S4 Gallop, no click, no other - Gastrointestinal General gastrointestinal: hyperactive bowel sounds, soft - Integumentary Integumentary: decreased turgor, normal - Neurologic Neurologic: CNII-XII intact - Musculoskeletal Musculoskeletal: gait normal, strength equal bilaterally - Psychiatric Psychiatric: A&O x's 3, appropriate affect, intact judgment & insight - Labs CBC & Chem 7: 05/01/17 04:20 05/01/17 04:20 Labs: Abnormal Lab Results - Last 24 Hours (Table) 04/30/17 04/30/17 04/30/17 Range/Units 17:12 17:45 17:45 WBC 31.9 H* (3.8-10.6) k/uL RBC 3.66 L (4.30-5.90) m/uL Hgb 10.4 L (13.0-17.5) gm/dL Hct 34.0 L (39.0-53.0) % MCHC 30.7 L (31.0-37.0) g/dL Neutrophils # (Manual) 30.60 H (1.3-7.7) k/uL Lymphocytes # (Manual) 0.64 L (1.0-4.8) k/uL Chloride 118 H (98-107) mmol/L Carbon Dioxide 17 L (22-30) mmol/L BUN 23 H (9-20) mg/dL Creatinine 1.60 H (0.66-1.25) mg/dL Glucose 122 H (74-99) mg/dL POC Glucose (mg/dL) 125 H (75-99) mg/dL Calcium 7.0 L (8.4-10.2) mg/dL Albumin (3.5-5.0) g/dL 05/01/17 05/01/17 Range/Units 04:20 04:20 WBC 32.6 H* (3.8-10.6) k/uL RBC 3.60 L (4.30-5.90) m/uL Hgb 10.5 L (13.0-17.5) gm/dL Hct 34.0 L (39.0-53.0) % MCHC 30.7 L (31.0-37.0) g/dL Neutrophils # (Manual) 30.60 H (1.3-7.7) k/uL Lymphocytes # (Manual) (1.0-4.8) k/uL Chloride 118 H (98-107) mmol/L Carbon Dioxide 17 L (22-30) mmol/L BUN 27 H (9-20) mg/dL Creatinine 1.90 H (0.66-1.25) mg/dL Glucose 152 H (74-99) mg/dL POC Glucose (mg/dL) (75-99) mg/dL Calcium 7.1 L (8.4-10.2) mg/dL Albumin 1.8 L (3.5-5.0) g/dL Microbiology - Last 24 Hours (Table) 04/30/17 04:04 Blood Culture - Preliminary Blood No Growth after 24 hours 04/30/17 03:17 Blood Culture - Preliminary Blood No Growth after 24 hours 04/28/17 15:45 Stool for WBCs - Final Stool 04/28/17 15:45 Stool Culture - Preliminary Stool 04/28/17 21:14 Blood Culture - Preliminary Blood No Growth after 48 hours 04/28/17 20:37 Blood Culture - Preliminary Blood No Growth after 48 hours 04/28/17 12:50 Urine Culture - Final Urine,Suprapubic Escherichia coli Assessment and Plan Plan: 1. Sepsis with septic shock and lactic acidosis after bladder resection surgery with ileal conduit surgery, E. coli urinary tract infection is most likely source blood cultures, urine cultures. Zosyn to meropenem by Dr. Jason Maxwell consult added for intensive care management. 2. Urothelial cell carcinoma of the bladder with extension to the prostate, post radical cystoprostatectomy robotic-assisted with bilateral pelvic lymphadenectomy on 04/15/2017 stage TI G3, requiring ilial conduit urinary diverision 3 CAD follows with [place] machine heel sprayer Dr. Munoz, consults were made to our local cardiologists secondary to irregular pulse and elevated heart rate, EKG shows sinus tachycardia with frequent PVCs, in the left bundle branch block which is chronic. Patient is on beta blockers metoprolol aspirin currently is on hold, when necessary nitro, and maintenance Imdur 60 mg daily no changes were made 4. Hyperlipidemia on Lipitor 20 daily 5. Hypertension patient was maintained on enalapril 10 mg daily at bedtime, switch over to Zestril 20 mg daily while in the hospital. Patient is currently hypotensive. 6. CKD stage II avoid hypotension monitor labs 7. GERD on maintenance PPI 8. Tachycardia from sepsis. Cardiology has been following. 9. Ileus versus small bowel obstruction. Patient has NG tube in place and Dr. Morocho is following. 10. Severe protein calorie malnutrition secondary to nothing by mouth status, NG tube, poor oral intake. TPN 11. Acute kidney injury secondary to sepsis and hypotension. 12. GI prophylaxis on Protonix 13. DVT prophylaxis on subcutaneous heparin 5000 units every 24 hours Impression and plan of care have been directed as dictated by the signing physician. Gracy Vuong nurse practitioner acting as scribe for signing physician.
[2017-05-01] MEDS ORDERED: HEPARIN SODIUM,PORCINE 5,000 UNIT/ML 1 ML VIAL IV ONE (12:17)
--- NOTE | 2017-05-01 12:28 | PN ---
PROGRESS NOTE Mr. Roe is a 66-year-old male who is in the ICU and cardiology re-consultation was requested for arrhythmia. The patient has a known history of coronary disease, prior percutaneous revascularization who underwent a laparoscopic radical cystoscopy, prostatectomy. He was transferred to the ICU yesterday for septic shock. He had sinus tachycardia earlier but this morning he is in atrial fibrillation with rapid ventricular response. He is feeling better this morning. He has a NG tube in. He denies any dizziness or palpitation. He is off the norepinephrine. His ventricular response was rapid earlier, but after initiating IV Cardizem, it is better at this point. He is on metoprolol tartrate 100 mg twice a day, Imdur 30 mg daily, Zestril 20 mg daily, Lipitor 20 mg daily in addition to his antibiotics. PHYSICAL EXAMINATION: Blood pressure 116/60 with a heart rate in the one teens. LUNGS: Clear to auscultation anteriorly. HEART: Irregular regular S1, S2. No S3, no rub with a systolic murmur. ABDOMEN: Soft. Mild tenderness. Positive bowel sounds. EXTREMITIES: No edema. LAB DATA: Revealed white blood cells 32.6, hemoglobin 10.5, BUN and creatinine 27 and 1.9. Yesterday, his plasma lactic acid was 2.1. EKG reveals atrial fibrillation, interventricular conduction delay that was noted in the past. IMPRESSION: 1. Sepsis with septic shock, improving. 2. Status post prostatectomy, cystostomy for malignancy. 3. History of coronary artery disease. 4. Atrial fibrillation. 5. Worsening renal failure. RECOMMENDATION: I will cut down the dose of his oral Zestril. I will continue the IV Cardizem and the oral beta loan. The patient will need to be anticoagulated because of his atrial fibrillation and the decision to proceed with that will be left to the surgeon. His left ventricular systolic function was preserved in the past. MMODL / IJN: [id number] /
[2017-05-01] MEDS ORDERED: HEPARIN SOD,PORK IN 0.45% NACL 25,000 UNIT in 0.45% NACL 1 500ML.BAG IV SCH (12:30)
[2017-05-01 12:34] LABS: Glucose,Whole Blood 115 mg/dL (75-99)
[2017-05-01] MEDS: ISOSORBIDE MONONITRATE ER 60 MG TAB.ER.24H PO SCH (12:35)
[2017-05-01] MEDS: INSULIN ASPART 100 UNIT/ML 1 ML 10 ML VIAL SQ SCH ×2 (12:36→18:20)
[2017-05-01] MEDS ORDERED: ALPRAZolam 0.5 MG TAB PO PRN (12:41)
--- NOTE | 2017-05-01 15:00 | P.PN ---
Subjective Progress Note Date: 05/01/17 Principal diagnosis: sepsis Patient gives history that he knows with bladder cancer under the care of urology and was to scheduled for surgery at the end of April. Patient normally spends forbes in [place] and returned there after procedures January were done. Unfortunately he started having urinary and rectal bleeding that was profuse and went into the emergency center. A Hong catheter was placed and patient followed up with a urologist. Patient did have the Hong catheter changed but due to significant bleeding patient return to the emergency center. Bladder was flushed 24 hours and then he had cauterization done to stop the bleeding but surgeon in [place] instructed him to have bladder removed as soon as possible. Patient return to [place] and underwent surgery on April 15 of robotic-assisted laparoscopic radical cystoprostatectomy, bilateral pelvic lymphadenectomy with ileal conduit urinary diversion and RADHA drain placement with Dr. Liz and Dr. Andino. 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 Patient 's recovery has been complicated by postop ileus and he had an NG tube in place for 3 days which was subsequently removed, cardiology was consulted on April 27 for tachycardia. He has been started on TPN for severe protein calorie malnutrition. He has developed loose bowel movements for which C. difficile toxin was negative. April 28 abdominal film showed nonspecific abdomen correlate for small bowel obstruction. Severe ileus or enteritis also in the differential. CAT scan of the abdomen and pelvis without contrast was also done yesterday that revealed status post cystectomy, small amount of residual air adjacent to the dome of the liver, bilateral double-J stents and mild hydronephrosis of both kidneys, uncomplicated diverticulosis of the sigmoid colon, small hiatal hernia, mild prominence of small bowel without definite transition point consult was added for medicine at that time and due to fever 102.2 and continued tachycardia, ID consult was requested. A shunt is currently on a clear liquid diet and tolerating but refusing protein supplements. He was having frequent loose bowel movements. Ileal conduit is draining as well as RADHA drain. Yesterday the patient has severe worsening of his status. His fever went to 104. He became hypotensive, tachypneic and tachycardic. When I was contacted I advised transfer to the intensive care unit. Fluid resuscitation was begun. Antibiotic therapy was reevaluated and is now changed to meropenem with concerns to resistant gram-negative pathogens. Patient improved to the day yesterday The patient improved after resuscitation and was weaned off the vasopressor. This tachycardia has resolved. Blood pressure is improving and he feels better. His generalized having abdominal pain has improved. NG tube is been removed and he is a bit hungry and thirsty. Patient however now is developed atrial fibrillation with a rapid ventricular response and is responding to a Cardizem drip. Objective - Vital Signs Vital signs: Vital Signs Temp 98.6 F 05/01/17 12:00 Pulse 107 H 05/01/17 13:30 Resp 24 05/01/17 13:30 BP 71/38 04/30/17 09:30 Pulse Ox 96 05/01/17 13:30 Intake & Output 04/30/17 05/01/17 05/01/17 18:59 06:59 18:59 Intake Total 3187.939 4053.460 1756 Output Total 3175 3215 1110 Balance 12.939 838.460 646 Weight 86.3 kg 90.9 kg Intake: IV 3082.0 2835 1756 Amino Acid 5%-D25w+Lytes* 332 996 664 E* 740 ml Water For Injection, Sterile 450 ml @ 83 mls/hr IV .BY DURATION FAM Rx#: [id number] Fat Emulsion 20% 250 ml 189 42 In Empty Bag 1 bag @ 21 mls/hr IV DAILY@1800 FAM Rx#:[id number] Magnesium Sulfate-D5w Pmx 100 1 gm In Dextrose/Water 1 100ml.bag @ 100 mls/hr IVPB Q1H FAM Rx#: [id number] Meropenem 1 gm In Sodium 200 100 100 Chloride 0.9% 100 ml @ 100 mls/hr IVPB Q8HR FAM Rx#:[id number] Piperacillin-Tazobactam 3 50.0 .375 gm In Dextrose/Water 1 50ml.bag @ 12.5 mls/hr IVPB Q8H FAM Rx#: [id number] Potassium Chloride 10 meq 200 100 In Water For Injection 1 100ml.bag @ 100 mls/hr IVPB Q1H FAM Rx#: [id number] Sodium Chloride 0.9% 1, 1000 1350 750 000 ml @ 125 mls/hr IV . Q8H FAM Rx#:[id number] Sodium Chloride 0.9% 1, 1500 000 ml @ 999 mls/hr IV . Q1H1M FAM Rx#:[id number] Intake, IV Titration 001.130 9407.460 Amount Mvi, Adult No.4 with Vit 1196.583 K 10 ml Trace (Conc-1Ml/ Dose) 1 ml In Amino Acid 5%-D25w+Lytes*E* 740 ml In Water For Injection, Sterile 450 ml @ 83 mls/ hr IV .BY DURATION FAM Rx #:[id number] Norepinephrin 16 mg-0.9% 78.127 21.877 Ns Pmx 16 mg In 250 ml @ Titrate IV .Q0M FAM Rx#: [id number] Norepinephrin 4 mg-0.9% 27.812 Ns Pmx 4 mg In 250 ml @ Titrate IV .Q0M FAM Rx#: [id number] Output: Drainage 300 395 60 RAHDA Drain 300 395 60 Urine 1175 2820 1050 Emesis 1700 Other: Voiding Method Ileal Conduit (Right) Ileal Conduit (Right) Ileal Conduit ( Right) ABP, PAP, CO, CI - Last Documented Arterial Blood Pressure 138/61 - Exam Gen: This is a 66-year-old male. He is getting up in bed and appears to be somewhat uncomfortable. HEENT: Head is atraumatic, normocephalic. Pupils equal, round. Sclerae is anicteric. NECK: Supple. No JVD. No lymphadenopathy. No thyromegaly. LUNGS: Clear to auscultation. No wheezes or rhonchi. No intercostal retractions. HEART: Regular rate and rhythm. No murmur. ABDOMEN: Soft. Bowel sounds are present. No masses. The abdominal tenderness remains improved. Ileal conduit to the right lower abdomen has urine drainage that remains cloudy. Stoma red and moist. RADHA drain to the left abdominal wall with serous drainage. EXTREMITIES: No pedal edema. No calf tenderness. NEUROLOGICAL: Patient is awake, alert and oriented x3. - Labs CBC & Chem 7: 05/01/17 04:20 05/01/17 04:20 Labs: Abnormal Lab Results - Last 24 Hours (Table) 04/30/17 04/30/17 04/30/17 Range/Units 17:12 17:45 17:45 WBC 31.9 H* (3.8-10.6) k/uL RBC 3.66 L (4.30-5.90) m/uL Hgb 10.4 L (13.0-17.5) gm/dL Hct 34.0 L (39.0-53.0) % MCHC 30.7 L (31.0-37.0) g/dL Neutrophils # (Manual) 30.60 H (1.3-7.7) k/uL Lymphocytes # (Manual) 0.64 L (1.0-4.8) k/uL Chloride 118 H (98-107) mmol/L Carbon Dioxide 17 L (22-30) mmol/L BUN 23 H (9-20) mg/dL Creatinine 1.60 H (0.66-1.25) mg/dL Glucose 122 H (74-99) mg/dL POC Glucose (mg/dL) 125 H (75-99) mg/dL Calcium 7.0 L (8.4-10.2) mg/dL Albumin (3.5-5.0) g/dL 05/01/17 05/01/17 05/01/17 Range/Units 04:20 04:20 12:33 WBC 32.6 H* (3.8-10.6) k/uL RBC 3.60 L (4.30-5.90) m/uL Hgb 10.5 L (13.0-17.5) gm/dL Hct 34.0 L (39.0-53.0) % MCHC 30.7 L (31.0-37.0) g/dL Neutrophils # (Manual) 30.60 H (1.3-7.7) k/uL Lymphocytes # (Manual) (1.0-4.8) k/uL Chloride 118 H (98-107) mmol/L Carbon Dioxide 17 L (22-30) mmol/L BUN 27 H (9-20) mg/dL Creatinine 1.90 H (0.66-1.25) mg/dL Glucose 152 H (74-99) mg/dL POC Glucose (mg/dL) 115 H (75-99) mg/dL Calcium 7.1 L (8.4-10.2) mg/dL Albumin 1.8 L (3.5-5.0) g/dL Microbiology - Last 24 Hours (Table) 04/30/17 04:04 Blood Culture - Preliminary Blood No Growth after 24 hours 04/30/17 03:17 Blood Culture - Preliminary Blood No Growth after 24 hours 04/28/17 15:45 Stool for WBCs - Final Stool 04/28/17 15:45 Stool Culture - Preliminary Stool 04/28/17 21:14 Blood Culture - Preliminary Blood No Growth after 48 hours 04/28/17 20:37 Blood Culture - Preliminary Blood No Growth after 48 hours 04/28/17 12:50 Urine Culture - Final Urine,Suprapubic Escherichia coli Laboratory Results WBC 32.6 k/uL (3.8-10.6) H* 05/01/17 04:20 RBC 3.60 m/uL (4.30-5.90) L 05/01/17 04:20 Hgb 10.5 gm/dL (13.0-17.5) L 05/01/17 04:20 Hct 34.0 % (39.0-53.0) L 05/01/17 04:20 MCV 94.7 fL (80.0-100.0) 05/01/17 04:20 MCH 29.1 pg (25.0-35.0) 05/01/17 04:20 MCHC 30.7 g/dL (31.0-37.0) L 05/01/17 04:20 RDW 15.0 % (11.5-15.5) 05/01/17 04:20 Plt Count 158 k/uL (150-450) 05/01/17 04:20 Neutrophils % 89 % 04/28/17 17:05 Neutrophils % (Manual) 60 % 05/01/17 04:20 Band Neutrophils % 34 % 05/01/17 04:20 Lymphocytes % 4 % 04/28/17 17:05 Lymphocytes % (Manual) 4 % 05/01/17 04:20 Monocytes % 4 % 04/28/17 17:05 Monocytes % (Manual) 2 % 05/01/17 04:20 Eosinophils % 1 % 04/28/17 17:05 Eosinophils % (Manual) 1 % 05/01/17 04:20 Basophils % 0 % 04/28/17 17:05 Metamyelocytes % 4 % 04/30/17 03:17 Neutrophils # 16.9 k/uL (1.3-7.7) H 04/28/17 17:05 Neutrophils # (Manual) 30.60 k/uL (1.3-7.7) H 05/01/17 04:20 Lymphocytes # 0.8 k/uL (1.0-4.8) L 04/28/17 17:05 Lymphocytes # (Manual) 1.30 k/uL (1.0-4.8) 05/01/17 04:20 Monocytes # 0.8 k/uL (0-1.0) 04/28/17 17:05 Monocytes # (Manual) 0.65 k/uL (0-1.0) 05/01/17 04:20 Eosinophils # 0.2 k/uL (0-0.7) 04/28/17 17:05 Eosinophils # (Manual) 0.33 k/uL (0-0.7) 05/01/17 04:20 Basophils # 0.1 k/uL (0-0.2) 04/28/17 17:05 Metamyelocytes # (Man) 0.14 k/uL (0) H 04/30/17 03:17 Nucleated RBCs 0 /100 WBC (0-0) 05/01/17 04:20 Manual Slide Review Performed 04/30/17 17:45 Toxic Granulation Present 05/01/17 04:20 Toxic Vacuolation Present 05/01/17 04:20 Large Platelets Present 05/01/17 04:20 Polychromasia Present 05/01/17 04:20 Hypochromasia Moderate 05/01/17 04:20 PT 10.0 sec (9.0-12.0) 05/01/17 12:18 INR 1.0 (<1.2) 05/01/17 12:18 APTT 28.0 sec (22.0-30.0) 05/01/17 12:18 Sodium 144 mmol/L (137-145) 05/01/17 04:20 Potassium 3.5 mmol/L (3.5-5.1) 05/01/17 04:20 Chloride 118 mmol/L (98-107) H 05/01/17 04:20 Carbon Dioxide 17 mmol/L (22-30) L 05/01/17 04:20 Anion Gap 9 mmol/L 05/01/17 04:20 BUN 27 mg/dL (9-20) H 05/01/17 04:20 Creatinine 1.90 mg/dL (0.66-1.25) H 05/01/17 04:20 Est GFR (MDRD) Af Amer 43 (>60 ml/min/1.73 sqM) 05/01/17 04:20 Est GFR (MDRD) Non-Af 36 (>60 ml/min/1.73 sqM) 05/01/17 04:20 Glucose 152 mg/dL (74-99) H 05/01/17 04:20 POC Glucose (mg/dL) 115 mg/dL (75-99) H 05/01/17 12:33 POC Glu [employer] ID Reynaldo Flanagan 05/01/17 12:[address] Glu mg/dL 105 04/27/17 07:28 Hemoglobin A1c 5.3 % (4.0-6.0) 04/27/17 07:28 Lactic Ac Sepsis Rflx Y 04/30/17 03:50 Plasma Lactic Acid Sadiq 2.1 mmol/L (0.7-2.0) H* 04/30/17 07:23 Calcium 7.1 mg/dL (8.4-10.2) L 05/01/17 04:20 Ionized Calcium [place] 4.8 mg/dL (4.5-5.3) 05/01/17 04:20 Phosphorus 3.7 mg/dL (2.5-4.5) 05/01/17 04:20 Magnesium 2.0 mg/dL (1.6-2.3) 05/01/17 04:20 Total Bilirubin 0.6 mg/dL (0.2-1.3) 04/23/17 08:43 AST 27 U/L (17-59) 04/23/17 08:43 ALT 64 U/L (21-72) 04/23/17 08:43 Alkaline Phosphatase 66 U/L (38-126) 04/23/17 08:43 NT-Pro-B Natriuret Pep 86 pg/mL 04/30/17 03:17 Total Protein 5.0 g/dL (6.3-8.2) L 04/23/17 08:43 Albumin 1.8 g/dL (3.5-5.0) L 05/01/17 04:20 Triglycerides 91 mg/dL (<150) 04/26/17 11:37 TSH 1.950 mIU/L (0.465-4.680) 04/27/17 07:28 Urine Color Yellow 04/28/17 12:50 Urine Appearance Cloudy (Clear) 04/28/17 12:50 Urine pH 6.5 (5.0-8.0) 04/28/17 12:50 Ur Specific [place] 1.008 (1.001-1.035) 04/28/17 12:50 Urine Protein 1+ (Negative) H 04/28/17 12:50 Urine Glucose (UA) Negative (Negative) 04/28/17 12:50 Urine Ketones Negative (Negative) 04/28/17 12:50 Urine Blood Moderate (Negative) H 04/28/17 12:50 Urine Nitrite Positive (Negative) 04/28/17 12:50 Urine Bilirubin Negative (Negative) 04/28/17 12:50 Urine Urobilinogen <2.0 mg/dL (<2.0) 04/28/17 12:50 Ur Leukocyte Esterase Large (Negative) H 04/28/17 12:50 Urine RBC 8 /hpf (0-5) H 04/28/17 12:50 Urine WBC >182 /hpf (0-5) H 04/28/17 12:50 Urine WBC Clumps Many /hpf (None) H 04/28/17 12:50 Urine Bacteria Many /hpf (None) H 04/28/17 12:50 Ur Random Creatinine 1.9 mg/dL 04/21/17 08:29 C. difficile (EIA) Intrp Negative (Negative) 04/28/17 20:50 Miscellaneous Test Creatinine, Body Fld 04/21/17 08:29 Misc Test Result See Comment 04/21/17 08:29 Blood Type A Positive 04/14/17 09:45 Blood Type Confirm A Positive 04/15/17 10:24 Blood Type Recheck CABO Indicated 04/14/17 09:45 Antibody Screen NEGATIVE 04/14/17 09:45 Spec Expiration Date 04/17/2017 - 2576 04/14/17 09:45 Microbiology 04/30/17 04:04 Blood Blood Culture - Preliminary No Growth after 24 hours 04/30/17 03:17 Blood Blood Culture - Preliminary No Growth after 24 hours 04/28/17 15:45 Stool Stool for WBCs - Final 04/28/17 15:45 Stool Stool Culture - Preliminary 04/28/17 21:14 Blood Blood Culture - Preliminary No Growth after 48 hours 04/28/17 20:37 Blood Blood Culture - Preliminary No Growth after 48 hours 04/28/17 12:50 Urine,Suprapubic Urine Culture - Final Escherichia coli Assessment and Plan (1) Malignant neoplasm of bladder wall Current Visit: Yes Status: Acute Code(s): C67.9 - MALIGNANT NEOPLASM OF BLADDER, UNSPECIFIED SNOMED Code(s): 18806330 (2) Gram-negative sepsis with organ dysfunction Narrative/Plan: 66 year old male with bladd er cancer status post resection yesterday did have fever and with a recent surgical interventions antimicrobial therapy with piperacillin tazobactam is being utilized to cover for gram-negative bacilli as well as intra-abdominal anaerobic pathogens staph and strep are also covered. No history of MRSA. Last night the patient had a major change of his status with tachycardia, tachypnea, hypotension and fever to 104. He was moved to the intensive care unit and received fluid resuscitation, and vasopressor support. He was noticed to have a significant change of leukopenia consistent with his overwhelming gram -negative infection. Antimicrobial therapy was changed to meropenem. The significant patient's feeling better. His hypotension is resolving with reducing doses of vasopressor. Tachycardia has resolved. He is no longer tachypnea. Urinary output has improved. White blood cell count remains elevated in response to his significant sepsis and bacteremia. However clinically had a good response to the current antimicrobial therapy of meropenem. This will continue for the moment. In about a fever last evening again and went into atrial fibrillation. This is being well controlled at this time. NG tube was removed and he looks forward to improving his oral intake. Follow blood cultures in process negative so far. Continue supportive care. Current Visit: Yes Status: Acute Code(s): A41.50 - GRAM-NEGATIVE SEPSIS, UNSPECIFIED; R65.20 - SEVERE SEPSIS WITHOUT SEPTIC SHOCK SNOMED Code(s): 676464389 (3) Acute renal failure Current Visit: Yes Status: Acute Code(s): N17.9 - ACUTE KIDNEY FAILURE, UNSPECIFIED SNOMED Code(s): 98754394 (4) Leukopenia Current Visit: Yes Status: Acute Code(s): D72.819 - DECREASED WHITE BLOOD CELL COUNT, UNSPECIFIED SNOMED Code(s): 33456961
[2017-05-01] MEDS: FAT EMULSION 20% 250 ML in EMPTY BAG 1 BAG IV SCH (18:14)
[2017-05-01 18:20] LABS: Glucose,Whole Blood 105 mg/dL (75-99)
[2017-05-01] MEDS: 1: MVI, ADULT NO.4 WITH VIT K 10 ML, TRACE (CONC-1ML/DOSE) 1 ML, POTASSIUM ACETATE 20 ME IV SCH ×5 (21:05)
[2017-05-01] MEDS: HEPARIN SODIUM,PORCINE 5,000 UNIT/ML 1 ML VIAL IV PRN (21:31)
[2017-05-01] MEDS: LISINOPRIL 10 MG TAB PO SCH (21:34)
[2017-05-01] MEDS: HYDROcodone/APAP 5-325MG 1 EACH TAB PO PRN (22:45)
[2017-05-02 00:19] LABS: Glucose,Whole Blood 112 mg/dL (75-99)
[2017-05-02] MEDS: INSULIN ASPART 100 UNIT/ML 1 ML 10 ML VIAL SQ SCH ×4 (00:40→17:52)
[2017-05-02] MEDS: MEROPENEM 1 GM in SODIUM CHLORIDE 0.9% 100 ML IVPB SCH ×3 (00:45→16:01)
[2017-05-02] MEDS: METOCLOPRAMIDE 5 MG/ML 2 ML VIAL IVP SCH ×4 (00:45→17:49)
[2017-05-02] MEDS: HEPARIN SODIUM,PORCINE 5,000 UNIT/ML 1 ML VIAL IV PRN (04:19)
[2017-05-02 04:48] LABS: Basophils # (A) 0.1 k/uL (0-0.2); Basophils % (A) 0 %; Eosinophils # (A) 0.3 k/uL (0-0.7); Eosinophils % (A) 1 %; HCT 35.6 % (39.0-53.0); HGB 10.9 gm/dL (13.0-17.5); Hypochromasia Slight; Lymphocytes # (A) 1.1 k/uL (1.0-4.8); Lymphocytes % (A) 4 %; MCH 28.9 pg (25.0-35.0); MCHC 30.5 g/dL (31.0-37.0); MCV 94.6 fL (80.0-100.0); Mean Platelet Volume 10.7; Monocytes # (A) 0.7 k/uL (0-1.0); Monocytes % (A) 3 %; Neutrophils # (A) 22.8 k/uL (1.3-7.7); Neutrophils % (A) 90 %; Platelet Count 125 k/uL (150-450); RBC 3.76 m/uL (4.30-5.90); RDW 15.2 % (11.5-15.5)
[2017-05-02 04:51] LABS: WBC 25.5 k/uL (3.8-10.6)
[2017-05-02 04:59] LABS: Anion Gap 6 mmol/L; Blood Urea Nitrogen 23 mg/dL (9-20); Calcium 7.1 mg/dL (8.4-10.2); Carbon Dioxide 17 mmol/L (22-30); Chloride 118 mmol/L (98-107); Glucose 115 mg/dL (74-99); Magnesium 2.5 mg/dL (1.6-2.3); Phosphorus 2.5 mg/dL (2.5-4.5); Potassium 3.2 mmol/L (3.5-5.1); Sodium 141 mmol/L (137-145)
[2017-05-02] MEDS ORDERED: Potassium Replacement Protocol 1 EACH MISC MISCELLANE PRN ×2 (05:36→18:44)
[2017-05-02] MEDS: SODIUM CHLORIDE 0.9% 1,000 ML IV SCH ×3 (05:52→21:02)
[2017-05-02] MEDS: POTASSIUM CHLORIDE ER 20 MEQ TAB.ER PO SCH ×2 (06:08→08:43)
[2017-05-02 06:12] LABS: Glucose,Whole Blood 109 mg/dL (75-99)
--- NOTE | 2017-05-02 08:32 | XR ---
EXAMINATION TYPE: XR chest 1V DATE OF EXAM: 05/02/2017 COMPARISON: 05/01/2017 HISTORY: Shortness of breath TECHNIQUE: Single frontal view of the chest is obtained. FINDINGS: Left lower lobe subsegmental consolidation. Heart size is stable. No pleural effusion or p neumothorax. No overt failure. Arthropathy of the shoulders. IMPRESSION: Left lower lobe atelectasis or early infiltrate correlate clinically.
[2017-05-02] MEDS: DILTIAZEM 125 MG in SODIUM CHLORIDE 0.9% 100 ML IV SCH (08:39)
[2017-05-02] MEDS: PANTOPRAZOLE 40 MG/10 ML VIAL IV SCH (08:43)
[2017-05-02] MEDS: METOPROLOL SUCCINATE (ER) 100 MG TAB.ER.24H PO SCH ×2 (08:43→21:02)
[2017-05-02] MEDS: ISOSORBIDE MONONITRATE ER 60 MG TAB.ER.24H PO SCH (08:43)
--- NOTE | 2017-05-02 09:57 | P.PN ---
Subjective Progress Note Date: 05/02/17 Principal diagnosis: POD #17, s/p Radical Cystoprostatectomy with Ileal Conduit Urinary Diversion The patient had 3 loose bowel movements yesterday. He continues to feel well. He denies nausea and vomiting. He is tolerating clear liquid diet. He experienced a supraumbilical abdominal pain yesterday, but this has resolved. Objective - Vital Signs Vital signs: Vital Signs Temp 98.2 F 05/02/17 08:00 Pulse 96 05/02/17 08:00 Resp 22 05/02/17 08:00 BP 140/81 05/02/17 08:00 Pulse Ox 96 05/02/17 07:41 Intake & Output 05/01/17 05/02/17 05/02/17 18:59 06:59 18:59 Intake Total 2588 3415.152 323.667 Output Total 1635 2575 360 Balance 953 840.152 -36.333 Weight 91.6 kg Intake: IV 2588 2952 208 Amino Acid 5%-D25w+Lytes* 996 996 E* 740 ml Water For Injection, Sterile 450 ml @ 83 mls/hr IV .BY DURATION FAM Rx#: [id number] Fat Emulsion 20% 250 ml 42 231 In Empty Bag 1 bag @ 21 mls/hr IV DAILY@1800 FAM Rx#:[id number] Magnesium Sulfate-D5w Pmx 100 1 gm In Dextrose/Water 1 100ml.bag @ 100 mls/hr IVPB Q1H FAM Rx#: [id number] Meropenem 1 gm In Sodium 100 100 Chloride 0.9% 100 ml @ 100 mls/hr IVPB Q8HR FAM Rx#:[id number] Mvi, Adult No.4 with Vit 83 K 10 ml Trace (Conc-1Ml/ Dose) 1 ml Potassium Acetate 20 meq In Amino Acid 5%-D25w+Lytes*E* 740 ml In Water For Injection, Sterile 450 ml @ 83 mls/hr IV .BY DURATION FAM Rx#: [id number] Potassium Chloride 10 meq 100 In Water For Injection 1 100ml.bag @ 100 mls/hr IVPB Q1H FAM Rx#: [id number] Sodium Chloride 0.9% 1, 1250 1625 125 000 ml @ 125 mls/hr IV . Q8H FAM Rx#:[id number] Intake, IV Titration 463.152 115.667 Amount Diltiazem 125 mg In 110.667 115.667 Sodium Chloride 0.9% 100 ml @ 10 MG/HR 10 mls/hr IV .[id number] FAM Rx#: [id number] Heparin Sod,Pork in 0.45% 352.485 NaCl 25,000 unit In 0.45 % NaCl 1 500ml.bag @ 11 UNITS/KG/HR 19.99 mls/hr IV .Q24H FAM Rx#: [id number] Output: Drainage 770 110 RADHA Drain 770 110 Urine 1635 1805 250 Other: Voiding Method Ileal Conduit (Right) Ileal Conduit (Right) ABP, PAP, CO, CI - Last Documented Arterial Blood Pressure 165/80 - Constitutional General appearance: Present: cooperative, no acute distress - Gastrointestinal Gastrointestinal Comment(s): Soft, mildly distended. Incisions clean and dry. Stoma pink and nicely budded. - Psychiatric Psychiatric: Present: A&O x's 3, appropriate affect - Labs CBC & Chem 7: 05/02/17 04:22 05/02/17 04:22 Labs: Abnormal Lab Results - Last 24 Hours (Table) 05/01/17 05/01/17 05/01/17 Range/Units 12:33 18:17 19:42 WBC (3.8-10.6) k/uL RBC (4.30-5.90) m/uL Hgb (13.0-17.5) gm/dL Hct (39.0-53.0) % MCHC (31.0-37.0) g/dL Plt Count (150-450) k/uL Neutrophils # (1.3-7.7) k/uL APTT 34.9 H (22.0-30.0) sec Potassium (3.5-5.1) mmol/L Chloride (98-107) mmol/L Carbon Dioxide (22-30) mmol/L BUN (9-20) mg/dL Glucose (74-99) mg/dL POC Glucose (mg/dL) 115 H 105 H (75-99) mg/dL Calcium (8.4-10.2) mg/dL Magnesium (1.6-2.3) mg/dL 05/02/17 05/02/17 05/02/17 Range/Units 00:17 03:22 04:22 WBC (3.8-10.6) k/uL RBC (4.30-5.90) m/uL Hgb (13.0-17.5) gm/dL Hct (39.0-53.0) % MCHC (31.0-37.0) g/dL Plt Count (150-450) k/uL Neutrophils # (1.3-7.7) k/uL APTT 43.4 H (22.0-30.0) sec Potassium 3.2 L (3.5-5.1) mmol/L Chloride 118 H (98-107) mmol/L Carbon Dioxide 17 L (22-30) mmol/L BUN 23 H (9-20) mg/dL Glucose 115 H (74-99) mg/dL POC Glucose (mg/dL) 112 H (75-99) mg/dL Calcium 7.1 L (8.4-10.2) mg/dL Magnesium 2.5 H (1.6-2.3) mg/dL 05/02/17 05/02/17 Range/Units 04:22 06:10 WBC 25.5 H* (3.8-10.6) k/uL RBC 3.76 L (4.30-5.90) m/uL Hgb 10.9 L (13.0-17.5) gm/dL Hct 35.6 L (39.0-53.0) % MCHC 30.5 L (31.0-37.0) g/dL Plt Count 125 L (150-450) k/uL Neutrophils # 22.8 H (1.3-7.7) k/uL APTT (22.0-30.0) sec Potassium (3.5-5.1) mmol/L Chloride (98-107) mmol/L Carbon Dioxide (22-30) mmol/L BUN (9-20) mg/dL Glucose (74-99) mg/dL POC Glucose (mg/dL) 109 H (75-99) mg/dL Calcium (8.4-10.2) mg/dL Magnesium (1.6-2.3) mg/dL Microbiology - Last 24 Hours (Table) 04/30/17 04:04 Blood Culture - Preliminary Blood No Growth after 48 hours 04/30/17 03:17 Blood Culture - Preliminary Blood No Growth after 48 hours 04/28/17 21:14 Blood Culture - Preliminary Blood No Growth after 72 hours 04/28/17 20:37 Blood Culture - Preliminary Blood No Growth after 72 hours Assessment and Plan (1) Malignant neoplasm of bladder wall Current Visit: Yes Status: Acute Code(s): C67.9 - MALIGNANT NEOPLASM OF BLADDER, UNSPECIFIED SNOMED Code(s): 50617624 Plan: The patient is currently afebrile, and his WBC count today has decreased. The only source of infection less identified is an E. coli UTI. He has been off vasopressors for 36 hours, and his condition is stable. He will be advanced to a soft diet. From my standpoint, he could be transferred out of the ICU. He will continue to receive Meropenem. In view of the fact that his urine today shows evidence of hematuria, and the RADHA output remains somewhat higher than anticipated, the RADHA fluid will again be checked for creatinine. However, this was previously consistent with serum.
--- NOTE | 2017-05-02 10:14 | PN ---
PROGRESS NOTE Mr. Roe is 66-year-old male who underwent surgery for bladder malignancy was transferred to the ICU because of sepsis. He is feeling better. He was seen because of episode of atrial fibrillation. He is back in sinus mechanism with frequent PACs. He denies any chest pain. According to him, he was told that he has atrial fibrillation before and he was on anticoagulation, although the details of that are not available to me. He denies any dizziness or palpitation. He denies any nausea. He is feeling stronger. He continued be on IV heparin, IV Cardizem, metoprolol tartrate 100 mg twice a day, isosorbide mononitrate 60 mg daily, lisinopril 10 mg daily and Lipitor 20 mg daily. PHYSICAL EXAMINATION: Blood pressure 140/80 with the heart rate in the 90s. LUNGS: A few crackles at the bases. HEART: Regular rate and rhythm. S1, S2 with occasional extrasystole and systolic murmur. ABDOMEN: Soft, nontender. Positive bowel sounds. EXTREMITIES: No edema. LAB DATA: Lab data revealed a white blood cell of 25.5, hemoglobin of 10.9. BUN and creatinine 23 and 1.2. Potassium is 3.2. IMPRESSION: 1. Paroxysmal atrial fibrillation. 2. Septic shock, improving. 3. Status post prostatectomy and cystostomy for malignancy. 4. History of coronary artery disease. RECOMMENDATION: From the cardiac standpoint, I will stop his IV heparin as well as his IV Cardizem. I will switch him to oral treatment. I will try to obtain the prior workup. I will review the results of his echocardiogram. His potassium will be replaced. From the cardiac standpoint, he is stable to be transferred outside the ICU. 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 MMODL / IJN: [id number] /
[2017-05-02] MEDS: DILTIAZEM ORAL 30 MG TAB PO SCH ×3 (10:18→22:06)
[2017-05-02] MEDS ORDERED: HEPARIN SODIUM,PORCINE 5,000 UNIT/ML 1 ML VIAL IV PRN (11:18)
[2017-05-02] MEDS ORDERED: HEPARIN SOD,PORK IN 0.45% NACL 25,000 UNIT in 0.45% NACL 1 500ML.BAG IV SCH (11:30)
[2017-05-02 11:33] LABS: Basophils % (A) 0 %; Eosinophils # (A) 0.2 k/uL (0-0.7); Eosinophils % (A) 1 %; HCT 24.6 % (39.0-53.0); Hypochromasia Slight; Lymphocytes # (A) 0.5 k/uL (1.0-4.8); Lymphocytes % (A) 3 %; MCHC 31.2 g/dL (31.0-37.0); MCV 92.9 fL (80.0-100.0); Mean Platelet Volume 9.9; Monocytes # (A) 0.5 k/uL (0-1.0); Monocytes % (A) 3 %; Neutrophils # (A) 14.2 k/uL (1.3-7.7); Neutrophils % (A) 91 %; Platelet Count 103 k/uL (150-450); RBC 2.64 m/uL (4.30-5.90); RDW 13.9 % (11.5-15.5); WBC 15.7 k/uL (3.8-10.6)
[2017-05-02 11:34] LABS: HGB 7.7 gm/dL (13.0-17.5)
--- NOTE | 2017-05-02 12:07 | P.PN ---
Subjective Progress Note Date: 05/02/17 Principal diagnosis: Acute septic shock/urinary tract infection Progress note dated 05/02/2017 This is a 66-year-old male with a history of acute septic shock secondary to urinary tract infection. The patient status post robotic laparoscopic radical cystoprostatectomy bilateral pelvic lymphadenectomy and ileal conduit with urinary diversion, status post RADHA drain placement. The patient does have a history of prostate cancer. The patient had abdominal pain which could be consistent with an acute ileus or bowel obstruction significant protein calorie malnutrition CAD with previous stent placement hypertension hyperlipidemia and chronic kidney disease, stage II. The patient seemed be doing relatively well. The patient's chest x-ray does show some atelectasis at the left lung base. I don't believe there is pneumonia there. The patient is currently receiving no supplemental oxygen. The patient is on a saline IV at 1 25 mL an hour. The patient's getting Cardizem drip at 10 mg an hour heparin via weightbase protocol. The patient also getting TPN at 83 mL an hour. Again chest x-ray looks pretty good and shows minimal infiltrate versus atelectasis at the left lung base. The patient was admitted on April 15. He came to the ICU on April 30 Objective - Vital Signs Vital signs: Vital Signs Temp 98.2 F 05/02/17 08:00 Pulse 97 05/02/17 11:00 Resp 17 05/02/17 11:00 BP 142/80 05/02/17 09:00 Pulse Ox 95 05/02/17 11:00 Intake & Output 05/01/17 05/02/17 05/02/17 18:59 06:59 18:59 Intake Total 2588 3415.152 947.667 Output Total 1635 2575 580 Balance 953 840.152 367.667 Weight 91.6 kg Intake: IV 2588 2952 832 Amino Acid 5%-D25w+Lytes* 996 996 E* 740 ml Water For Injection, Sterile 450 ml @ 83 mls/hr IV .BY DURATION FAM Rx#: [id number] Fat Emulsion 20% 250 ml 42 231 In Empty Bag 1 bag @ 21 mls/hr IV DAILY@1800 FAM Rx#:[id number] Magnesium Sulfate-D5w Pmx 100 1 gm In Dextrose/Water 1 100ml.bag @ 100 mls/hr IVPB Q1H FAM Rx#: [id number] Meropenem 1 gm In Sodium 100 100 Chloride 0.9% 100 ml @ 100 mls/hr IVPB Q8HR FAM Rx#:[id number] Mvi, Adult No.4 with Vit 332 K 10 ml Trace (Conc-1Ml/ Dose) 1 ml Potassium Acetate 20 meq In Amino Acid 5%-D25w+Lytes*E* 740 ml In Water For Injection, Sterile 450 ml @ 83 mls/hr IV .BY DURATION FAM Rx#: [id number] Potassium Chloride 10 meq 100 In Water For Injection 1 100ml.bag @ 100 mls/hr IVPB Q1H FAM Rx#: [id number] Sodium Chloride 0.9% 1, 1250 1625 500 000 ml @ 125 mls/hr IV . Q8H FAM Rx#:[id number] Intake, IV Titration 463.152 115.667 Amount Diltiazem 125 mg In 110.667 115.667 Sodium Chloride 0.9% 100 ml @ 10 MG/HR 10 mls/hr IV .[id number] FAM Rx#: [id number] Heparin Sod,Pork in 0.45% 352.485 NaCl 25,000 unit In 0.45 % NaCl 1 500ml.bag @ 11 UNITS/KG/HR 19.99 mls/hr IV .Q24H FAM Rx#: [id number] Output: Drainage 770 240 RADHA Drain 770 240 Urine 1635 1805 340 Other: Voiding Method Ileal Conduit (Right) Ileal Conduit (Right) Ileal Conduit ( Right) ABP, PAP, CO, CI - Last Documented Arterial Blood Pressure 142/69 - Exam No acute distress, oriented 3. No supplemental oxygen. HEENT examination is grossly unremarkable. Mucous membranes are moist. No oral lesions. Neck supple. Full range of motion. No adenopathy thyromegaly or neck vein distention. Cardiovascular examination reveals regular rhythm rate. S1-S2 normal. No S3 or S4. No discernible murmur noted. Lungs reveal clear breath sounds. Her sounds are equal bilaterally. No adventitious lung sounds including wheezes rhonchi or crackles. Abdomen soft bowel sounds are heard. No masses or tenderness. Extremities are intact. No cyanosis clubbing or edema. Skin is without rash or lesion. Neurologic examination is brief but nonfocal. - Labs CBC & Chem 7: 05/02/17 10:40 05/02/17 04:22 Labs: Abnormal Lab Results - Last 24 Hours (Table) 05/01/17 05/01/17 05/01/17 Range/Units 12:33 18:17 19:42 WBC (3.8-10.6) k/uL RBC (4.30-5.90) m/uL Hgb (13.0-17.5) gm/dL Hct (39.0-53.0) % MCHC (31.0-37.0) g/dL Plt Count (150-450) k/uL Neutrophils # (1.3-7.7) k/uL Lymphocytes # (1.0-4.8) k/uL APTT 34.9 H (22.0-30.0) sec Potassium (3.5-5.1) mmol/L Chloride (98-107) mmol/L Carbon Dioxide (22-30) mmol/L BUN (9-20) mg/dL Glucose (74-99) mg/dL POC Glucose (mg/dL) 115 H 105 H (75-99) mg/dL Calcium (8.4-10.2) mg/dL Magnesium (1.6-2.3) mg/dL 05/02/17 05/02/17 05/02/17 Range/Units 00:17 03:22 04:22 WBC (3.8-10.6) k/uL RBC (4.30-5.90) m/uL Hgb (13.0-17.5) gm/dL Hct (39.0-53.0) % MCHC (31.0-37.0) g/dL Plt Count (150-450) k/uL Neutrophils # (1.3-7.7) k/uL Lymphocytes # (1.0-4.8) k/uL APTT 43.4 H (22.0-30.0) sec Potassium 3.2 L (3.5-5.1) mmol/L Chloride 118 H (98-107) mmol/L Carbon Dioxide 17 L (22-30) mmol/L BUN 23 H (9-20) mg/dL Glucose 115 H (74-99) mg/dL POC Glucose (mg/dL) 112 H (75-99) mg/dL Calcium 7.1 L (8.4-10.2) mg/dL Magnesium 2.5 H (1.6-2.3) mg/dL 05/02/17 05/02/17 05/02/17 Range/Units 04:22 06:10 10:40 WBC 25.5 H* 15.7 H (3.8-10.6) k/uL RBC 3.76 L 2.64 L (4.30-5.90) m/uL Hgb 10.9 L 7.7 L D (13.0-17.5) gm/dL Hct 35.6 L 24.6 L (39.0-53.0) % MCHC 30.5 L (31.0-37.0) g/dL Plt Count 125 L 103 L (150-450) k/uL Neutrophils # 22.8 H 14.2 H (1.3-7.7) k/uL Lymphocytes # 0.5 L (1.0-4.8) k/uL APTT (22.0-30.0) sec Potassium (3.5-5.1) mmol/L Chloride (98-107) mmol/L Carbon Dioxide (22-30) mmol/L BUN (9-20) mg/dL Glucose (74-99) mg/dL POC Glucose (mg/dL) 109 H (75-99) mg/dL Calcium (8.4-10.2) mg/dL Magnesium (1.6-2.3) mg/dL 05/02/17 Range/Units 11:00 WBC (3.8-10.6) k/uL RBC (4.30-5.90) m/uL Hgb (13.0-17.5) gm/dL Hct (39.0-53.0) % MCHC (31.0-37.0) g/dL Plt Count (150-450) k/uL Neutrophils # (1.3-7.7) k/uL Lymphocytes # (1.0-4.8) k/uL APTT 41.9 H (22.0-30.0) sec Potassium (3.5-5.1) mmol/L Chloride (98-107) mmol/L Carbon Dioxide (22-30) mmol/L BUN (9-20) mg/dL Glucose (74-99) mg/dL POC Glucose (mg/dL) (75-99) mg/dL Calcium (8.4-10.2) mg/dL Magnesium (1.6-2.3) mg/dL Microbiology - Last 24 Hours (Table) 04/30/17 04:04 Blood Culture - Preliminary Blood No Growth after 48 hours 04/30/17 03:17 Blood Culture - Preliminary Blood No Growth after 48 hours 04/28/17 21:14 Blood Culture - Preliminary Blood No Growth after 72 hours 04/28/17 20:37 Blood Culture - Preliminary Blood No Growth after 72 hours Assessment and Plan (1) Prostate cancer Current Visit: Yes Status: Acute Code(s): C61 - MALIGNANT NEOPLASM OF PROSTATE SNOMED Code(s): 856481863 (2) Septic shock Current Visit: Yes Status: Acute Code(s): A41.9 - SEPSIS, UNSPECIFIED ORGANISM; R65.21 - SEVERE SEPSIS WITH SEPTIC SHOCK SNOMED Code(s): 04167062 (3) Hypertension Current Visit: Yes Status: Acute Code(s): I10 - ESSENTIAL (PRIMARY) HYPERTENSION SNOMED Code(s): 56908673 (4) Hyperlipidemia Current Visit: Yes Status: Acute Code(s): E78.5 - HYPERLIPIDEMIA, UNSPECIFIED SNOMED Code(s): 02562596 (5) Chronic kidney disease Current Visit: Yes Status: Acute Code(s): N18.9 - CHRONIC KIDNEY DISEASE, UNSPECIFIED SNOMED Code(s): 854251563 (6) CAD (coronary artery disease) Current Visit: Yes Status: Acute Code(s): I25.10 - ATHSCL HEART DISEASE OF [place] CORONARY ARTERY W/O ANG PCTRS SNOMED Code(s): 86642445 (7) Malnutrition Current Visit: Yes Status: Acute Code(s): E46 - UNSPECIFIED PROTEIN-CALORIE MALNUTRITION SNOMED Code(s): 57929484 (8) Status post prostatectomy Current Visit: Yes Status: Acute Code(s): Z90.79 - ACQUIRED ABSENCE OF OTHER GENITAL ORGAN(S) SNOMED Code(s): 662834135 (9) Gram-negative sepsis with organ dysfunction Current Visit: Yes Status: Acute Code(s): A41.50 - GRAM-NEGATIVE SEPSIS, UNSPECIFIED; R65.20 - SEVERE SEPSIS WITHOUT SEPTIC SHOCK SNOMED Code(s): 857379664 (10) Ileus following gastrointestinal surgery Current Visit: Yes Status: Acute Code(s): K91.30 - POSTPROC INTESTINAL OBST , UNSP TO PARTIAL VERSUS COMPLETE SNOMED Code(s): 051814528 (11) Malignant neoplasm Current Visit: Yes Status: Acute Code(s): C80.1 - MALIGNANT (PRIMARY) NEOPLASM, UNSPECIFIED SNOMED Code(s): 410708780 (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 From the pulmonary standpoint, the patient could be discharged out of the unit. The back end architect was apparently going to switch him to oral Cardizem and an oral blood thinner. If the patient is stable, later today, he can move out. Labs x-rays a medications are all reviewed. Prognosis is guarded. Time with Patient: Greater than 30
--- NOTE | 2017-05-02 12:52 | P.PN ---
Subjective Progress Note Date: 05/02/17 Principal diagnosis: Ileus She feels well at this time. He is tolerating his diet. He had a large bowel movement. Denies nausea or vomiting. Fevers have resolved. White blood cell count improved. Objective - Vital Signs Vital signs: Vital Signs Temp 98.2 F 05/02/17 08:00 Pulse 97 05/02/17 11:00 Resp 17 05/02/17 11:00 BP 142/80 05/02/17 09:00 Pulse Ox 95 05/02/17 11:00 Intake & Output 05/01/17 05/02/17 05/02/17 18:59 06:59 18:59 Intake Total 2588 3415.152 947.667 Output Total 1635 2575 580 Balance 953 840.152 367.667 Weight 91.6 kg Intake: IV 2588 2952 832 Amino Acid 5%-D25w+Lytes* 996 996 E* 740 ml Water For Injection, Sterile 450 ml @ 83 mls/hr IV .BY DURATION FAM Rx#: [id number] Fat Emulsion 20% 250 ml 42 231 In Empty Bag 1 bag @ 21 mls/hr IV DAILY@1800 FAM Rx#:[id number] Magnesium Sulfate-D5w Pmx 100 1 gm In Dextrose/Water 1 100ml.bag @ 100 mls/hr IVPB Q1H FAM Rx#: [id number] Meropenem 1 gm In Sodium 100 100 Chloride 0.9% 100 ml @ 100 mls/hr IVPB Q8HR FAM Rx#:[id number] Mvi, Adult No.4 with Vit 332 K 10 ml Trace (Conc-1Ml/ Dose) 1 ml Potassium Acetate 20 meq In Amino Acid 5%-D25w+Lytes*E* 740 ml In Water For Injection, Sterile 450 ml @ 83 mls/hr IV .BY DURATION FAM Rx#: [id number] Potassium Chloride 10 meq 100 In Water For Injection 1 100ml.bag @ 100 mls/hr IVPB Q1H FAM Rx#: [id number] Sodium Chloride 0.9% 1, 1250 1625 500 000 ml @ 125 mls/hr IV . Q8H FAM Rx#:[id number] Intake, IV Titration 463.152 115.667 Amount Diltiazem 125 mg In 110.667 115.667 Sodium Chloride 0.9% 100 ml @ 10 MG/HR 10 mls/hr IV .[id number] FAM Rx#: [id number] Heparin Sod,Pork in 0.45% 352.485 NaCl 25,000 unit In 0.45 % NaCl 1 500ml.bag @ 11 UNITS/KG/HR 19.99 mls/hr IV .Q24H FAM Rx#: [id number] Output: Drainage 770 240 RADHA Drain 770 240 Urine 1635 1805 340 Other: Voiding Method Ileal Conduit (Right) Ileal Conduit (Right) Ileal Conduit ( Right) ABP, PAP, CO, CI - Last Documented Arterial Blood Pressure 142/69 - Exam Abdomen: Soft, nontender, nondistended - Labs CBC & Chem 7: 05/02/17 10:40 05/02/17 04:22 Labs: Abnormal Lab Results - Last 24 Hours (Table) 05/01/17 05/01/17 05/02/17 Range/Units 18:17 19:42 00:17 WBC (3.8-10.6) k/uL RBC (4.30-5.90) m/uL Hgb (13.0-17.5) gm/dL Hct (39.0-53.0) % MCHC (31.0-37.0) g/dL Plt Count (150-450) k/uL Neutrophils # (1.3-7.7) k/uL Lymphocytes # (1.0-4.8) k/uL APTT 34.9 H (22.0-30.0) sec Potassium (3.5-5.1) mmol/L Chloride (98-107) mmol/L Carbon Dioxide (22-30) mmol/L BUN (9-20) mg/dL Glucose (74-99) mg/dL POC Glucose (mg/dL) 105 H 112 H (75-99) mg/dL Calcium (8.4-10.2) mg/dL Magnesium (1.6-2.3) mg/dL 05/02/17 05/02/17 05/02/17 Range/Units 03:22 04:22 04:22 WBC 25.5 H* (3.8-10.6) k/uL RBC 3.76 L (4.30-5.90) m/uL Hgb 10.9 L (13.0-17.5) gm/dL Hct 35.6 L (39.0-53.0) % MCHC 30.5 L (31.0-37.0) g/dL Plt Count 125 L (150-450) k/uL Neutrophils # 22.8 H (1.3-7.7) k/uL Lymphocytes # (1.0-4.8) k/uL APTT 43.4 H (22.0-30.0) sec Potassium 3.2 L (3.5-5.1) mmol/L Chloride 118 H (98-107) mmol/L Carbon Dioxide 17 L (22-30) mmol/L BUN 23 H (9-20) mg/dL Glucose 115 H (74-99) mg/dL POC Glucose (mg/dL) (75-99) mg/dL Calcium 7.1 L (8.4-10.2) mg/dL Magnesium 2.5 H (1.6-2.3) mg/dL 05/02/17 05/02/17 05/02/17 Range/Units 06:10 10:40 11:00 WBC 15.7 H (3.8-10.6) k/uL RBC 2.64 L (4.30-5.90) m/uL Hgb 7.7 L D (13.0-17.5) gm/dL Hct 24.6 L (39.0-53.0) % MCHC (31.0-37.0) g/dL Plt Count 103 L (150-450) k/uL Neutrophils # 14.2 H (1.3-7.7) k/uL Lymphocytes # 0.5 L (1.0-4.8) k/uL APTT 41.9 H (22.0-30.0) sec Potassium (3.5-5.1) mmol/L Chloride (98-107) mmol/L Carbon Dioxide (22-30) mmol/L BUN (9-20) mg/dL Glucose (74-99) mg/dL POC Glucose (mg/dL) 109 H (75-99) mg/dL Calcium (8.4-10.2) mg/dL Magnesium (1.6-2.3) mg/dL Microbiology - Last 24 Hours (Table) 04/30/17 04:04 Blood Culture - Preliminary Blood No Growth after 48 hours 04/30/17 03:17 Blood Culture - Preliminary Blood No Growth after 48 hours 04/28/17 21:14 Blood Culture - Preliminary Blood No Growth after 72 hours 04/28/17 20:37 Blood Culture - Preliminary Blood No Growth after 72 hours Assessment and Plan (1) Ileus following gastrointestinal surgery Narrative/Plan: Patient doing much better at this time. Continue regular diet. No evidence of bowel obstruction. We'll sign off at this point. Current Visit: Yes Status: Acute Code(s): K91.30 - POSTPROC INTESTINAL OBST , UNSP TO PARTIAL VERSUS COMPLETE SNOMED Code(s): 896193545
[2017-05-02 12:55] LABS: Glucose,Whole Blood 97 mg/dL (75-99)
[2017-05-02] MEDS: 1: MVI, ADULT NO.4 WITH VIT K 10 ML, TRACE (CONC-1ML/DOSE) 1 ML, POTASSIUM ACETATE 20 ME IV SCH ×10 (12:55→12:56)
--- NOTE | 2017-05-02 14:27 | P.PN ---
Subjective Progress Note Date: 05/02/17 Principal diagnosis: This is a 66-year-old gentleman known to my practice, with underlying history of CAD, hypertension, COPD, impaired fasting hyperglycemia admitted under service of Dr. 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 Andino and Dr. Liz on 04/15/2017. He was seen in our clinic for Medicare physical in October 2016 and complained of hematospermia, referral was made to Dr. Andino, for repeat cystoscopy and initial CAT scan of the abdomen and pelvis failed to reveal any significant abnormal pathology in the bladder except for calcification in the prostate, PSA in the past was 0.5, in January 2016. He has this problem since 2014 bladder ultrasound shows nonobstructing renal calculi for which she originally saw Dr. Gerard, and was followed by urology since then, cystoscopy was done with the biopsy in February 2017,.The initial biopsy showed the urothelial bladder carcinoma,his involves the left posterior lateral bladder wall and post direct urethra, he also has a left bladder diverticulum containing tumor, date for initial biopsy is February 2017 however they have requested a [place] surgeon to due the primary procedure this was scheduled to be done in April 2017, the surgery was delayed to accommodate this schedule of 4 urological specialist to perform the surgery, hence, patient had left to [place] in January 2017 travel back and forth to [place] for the biopsy thereafter he went back to [place] however with his another attack of hematuria, and hematospermia, they have requested that he come in emergently to have the bladder surgery done, procedure was done on 04/15/2018 for the ileal diversion and robotic-assisted radical cystoprostatectomy and bilateral pelvic lymphadenectomy During the perioperative recovery course, patient had intractable nausea and vomiting for which an NG tube was placed, CAT scan of the abdomen and pelvis was performed showing double-J stents bilaterally, mild bilateral hydronephrosis , spleen liver and gallbladder is unremarkable, scant amount of free air adjacent to the dome of the liver most likely secondary to previous surgery, uncomplicated mild diverticulosis of the sigmoid colon without any evidence off diverticulitis, appendix is not visualized no evidence of blastic metastasis stasis mild prominence of small bowel without a definite transition point, consult was made to Dr. Morocho general surgery Patient was noted to be febrile on April 24 however it is not sustained T-max at that time was 99.8, however fever is now 102.2, patient has diarrhea, abdominal pain, no sinus congestion no cough. Patient was given Rocephin, and would start patient on Zosyn with consults Dr. Gomez, blood cultures, influenza testing, urine cultures have been sent, and stools for C. diff toxin 04/29: Patient is being followed by Dr. Gomez as well. Influenza A testing has not been done. Urine and blood cultures are in progress. C. difficile toxin has been negative. Patient has been afebrile since yesterday evening. He is using his incentive spirometry. 04/30: Patient's condition continued to decline overnight and he developed septic shock and lactic acidosis requiring transfer to the intensive care unit and started on Levophed currently at [address] Maxwell for intensive care management status post right femoral triple-lumen and right brachial arterial line. Patient is also tachycardic and on a cooling blanket. Temperature max was 104.1. Dr. Gomez has changed his antibiotics to meropenem and he has had an NG tube tube placed since yesterday to low intermittent suction. Chest x-ray shows no active intrathoracic disease. Abdominal x-ray shows improving small bowel obstruction. Patient denies abdominal pain. 05/01: Patient is off the Levophed. Patient has been tachycardic and converted to atrial fibrillation. Dr. Maxwell did increase his metoprolol this morning. Cardiology to follow. Patient states he is feeling better today. Patient was sleeping and arousable easily. He has not been sleeping during most of his hospitalization but did have a good night sleep. NG tube is in place which is to be discontinued today. Patient did have bowel movement last evening. Repeat chest x-ray shows no active intrathoracic disease. Urine culture showing E. coli pansensitive. He has had good urine output and urine is clearing. All blood cultures are showing no growth. Temperature max was 101.9 at 8 PM yesterday which seems to be improving. White count is now at 32.6. Creatinine 1.9. 05/02: Patient has been hemodynamically stable and is currently on Cardizem drip and heparin drip. Noted urine is now bloody and Hong. RADHA drain had 500 mL out and creatinine to be checked. Patient has been cleared by Dr. Rodrigez for transfer out of ICU. Objective - Vital Signs Vital signs: Vital Signs Temp 98.2 F 05/02/17 08:00 Pulse 97 05/02/17 11:00 Resp 17 05/02/17 11:00 BP 142/80 05/02/17 09:00 Pulse Ox 95 05/02/17 11:00 Intake & Output 05/01/17 05/02/17 05/02/17 18:59 06:59 18:59 Intake Total 2588 3415.152 947.667 Output Total 1635 2575 580 Balance 953 840.152 367.667 Weight 91.6 kg Intake: IV 2588 2952 832 Amino Acid 5%-D25w+Lytes* 996 996 E* 740 ml Water For Injection, Sterile 450 ml @ 83 mls/hr IV .BY DURATION FAM Rx#: [id number] Fat Emulsion 20% 250 ml 42 231 In Empty Bag 1 bag @ 21 mls/hr IV DAILY@1800 FAM Rx#:[id number] Magnesium Sulfate-D5w Pmx 100 1 gm In Dextrose/Water 1 100ml.bag @ 100 mls/hr IVPB Q1H [facility] Rx#: [id number] Meropenem 1 gm In Sodium 100 100 Chloride 0.9% 100 ml @ 100 mls/hr IVPB Q8HR [facility] Rx#:[id number] Mvi, Adult No.4 with Vit 332 K 10 ml Trace (Conc-1Ml/ Dose) 1 ml Potassium Acetate 20 meq In Amino Acid 5%-D25w+Lytes*E* 740 ml In Water For Injection, Sterile 450 ml @ 83 mls/hr IV .BY DURATION FAM Rx#: [id number] Potassium Chloride 10 meq 100 In Water For Injection 1 100ml.bag @ 100 mls/hr IVPB Q1H [facility] Rx#: [id number] Sodium Chloride 0.9% 1, 1250 1625 500 000 ml @ 125 mls/hr IV . Q8H [facility] Rx#:[id number] Intake, IV Titration 463.152 115.667 Amount Diltiazem 125 mg In 110.667 115.667 Sodium Chloride 0.9% 100 ml @ 10 MG/HR 10 mls/hr IV .[id number] [facility] Rx#: [id number] Heparin Sod,Pork in 0.45% 352.485 NaCl 25,000 unit In 0.45 % NaCl 1 500ml.bag @ 11 UNITS/KG/HR 19.99 mls/hr IV .Q24H [facility] Rx#: [id number] Output: Drainage 770 240 RADHA Drain 770 240 Urine 1635 1805 340 Other: Voiding Method Ileal Conduit (Right) Ileal Conduit (Right) Ileal Conduit ( Right) ABP, PAP, CO, CI - Last Documented Arterial Blood Pressure 142/69 - Exam - Constitutional General appearance: cooperative, no acute distress - EENT Eyes: anicteric sclerae, PERRLA, normal appearance ENT: NA/AT, normal oropharynx - Respiratory Respiratory: bilateral: CTA, negative: diminished, dullness, rales - Cardiovascular Rhythm: regular Heart sounds: normal: S1, S2 Abnormal Heart Sounds: no systolic murmur, no diastolic murmur, no rub, no S3 Gallop, no S4 Gallop, no click, no other - Gastrointestinal General gastrointestinal: hyperactive bowel sounds, soft - Integumentary Integumentary: decreased turgor, normal - Neurologic Neurologic: CNII-XII intact - Musculoskeletal Musculoskeletal: gait normal, strength equal bilaterally - Psychiatric Psychiatric: A&O x's 3, appropriate affect, intact judgment & insight - Labs CBC & Chem 7: 05/02/17 10:40 05/02/17 04:22 Labs: Abnormal Lab Results - Last 24 Hours (Table) 05/01/17 05/01/17 05/01/17 Range/Units 12:33 18:17 19:42 WBC (3.8-10.6) k/uL RBC (4.30-5.90) m/uL Hgb (13.0-17.5) gm/dL Hct (39.0-53.0) % MCHC (31.0-37.0) g/dL Plt Count (150-450) k/uL Neutrophils # (1.3-7.7) k/uL APTT 34.9 H (22.0-30.0) sec Potassium (3.5-5.1) mmol/L Chloride (98-107) mmol/L Carbon Dioxide (22-30) mmol/L BUN (9-20) mg/dL Glucose (74-99) mg/dL POC Glucose (mg/dL) 115 H 105 H (75-99) mg/dL Calcium (8.4-10.2) mg/dL Magnesium (1.6-2.3) mg/dL 05/02/17 05/02/17 05/02/17 Range/Units 00:17 03:22 04:22 WBC (3.8-10.6) k/uL RBC (4.30-5.90) m/uL Hgb (13.0-17.5) gm/dL Hct (39.0-53.0) % MCHC (31.0-37.0) g/dL Plt Count (150-450) k/uL Neutrophils # (1.3-7.7) k/uL APTT 43.4 H (22.0-30.0) sec Potassium 3.2 L (3.5-5.1) mmol/L Chloride 118 H (98-107) mmol/L Carbon Dioxide 17 L (22-30) mmol/L BUN 23 H (9-20) mg/dL Glucose 115 H (74-99) mg/dL POC Glucose (mg/dL) 112 H (75-99) mg/dL Calcium 7.1 L (8.4-10.2) mg/dL Magnesium 2.5 H (1.6-2.3) mg/dL 05/02/17 05/02/17 05/02/17 Range/Units 04:22 06:10 11:00 WBC 25.5 H* (3.8-10.6) k/uL RBC 3.76 L (4.30-5.90) m/uL Hgb 10.9 L (13.0-17.5) gm/dL Hct 35.6 L (39.0-53.0) % MCHC 30.5 L (31.0-37.0) g/dL Plt Count 125 L (150-450) k/uL Neutrophils # 22.8 H (1.3-7.7) k/uL APTT 41.9 H (22.0-30.0) sec Potassium (3.5-5.1) mmol/L Chloride (98-107) mmol/L Carbon Dioxide (22-30) mmol/L BUN (9-20) mg/dL Glucose (74-99) mg/dL POC Glucose (mg/dL) 109 H (75-99) mg/dL Calcium (8.4-10.2) mg/dL Magnesium (1.6-2.3) mg/dL Microbiology - Last 24 Hours (Table) 04/30/17 04:04 Blood Culture - Preliminary Blood No Growth after 48 hours 04/30/17 03:17 Blood Culture - Preliminary Blood No Growth after 48 hours 04/28/17 21:14 Blood Culture - Preliminary Blood No Growth after 72 hours 04/28/17 20:37 Blood Culture - Preliminary Blood No Growth after 72 hours Assessment and Plan Plan: 1. Sepsis with septic shock and lactic acidosis after bladder resection surgery with ileal conduit surgery, E. coli urinary tract infection is most likely source blood cultures, urine cultures. Zosyn to meropenem by Dr. Jason Maxwell consult added for intensive care management. 2. Urothelial cell carcinoma of the bladder with extension to the prostate, post radical cystoprostatectomy robotic-assisted with bilateral pelvic lymphadenectomy on 04/15/2017 stage TI G3, requiring ilial conduit urinary diverision 3 CAD follows with [facility] out Dr. Munoz, consults were made to our local cardiologists secondary to irregular pulse and elevated heart rate, EKG shows sinus tachycardia with frequent PVCs, in the left bundle branch block which is chronic. Patient is on beta blockers metoprolol aspirin currently is on hold, when necessary nitro, and maintenance Imdur 60 mg daily no changes were made 4. Hyperlipidemia on Lipitor 20 daily 5. Hypertension patient was maintained on enalapril 10 mg daily at bedtime, switch over to Zestril 20 mg daily while in the hospital. Patient is currently hypotensive. 6. CKD stage II avoid hypotension monitor labs 7. GERD on maintenance PPI 8. Tachycardia from sepsis. Cardiology has been following. 9. Ileus versus small bowel obstruction. Patient has NG tube in place and Dr. Morocho is following. 10. Severe protein calorie malnutrition secondary to nothing by mouth status, NG tube, poor oral intake. TPN 11. Acute kidney injury secondary to sepsis and hypotension. 12. New onset of atrial fibrillation with rapid ventricular response. Cardizem drip and heparin drip started by cardiology. Patient to be transitioned to Xarelto. 13. GI prophylaxis on Protonix 14. DVT prophylaxis on subcutaneous heparin 5000 units every 24 hours Impression and plan of care have been directed as dictated by the signing physician. Gracy Vuong nurse practitioner acting as scribe for signing physician.
[2017-05-02] MEDS ORDERED: RIVAROXABAN 10 MG TAB PO SCH (17:30)
[2017-05-02 17:43] LABS: HCT 30.7 % (39.0-53.0); HGB 9.6 gm/dL (13.0-17.5); Hypochromasia Slight; MCH 29.3 pg (25.0-35.0); MCHC 31.4 g/dL (31.0-37.0); MCV 93.1 fL (80.0-100.0); Mean Platelet Volume 9.8; Platelet Count 142 k/uL (150-450); RBC 3.29 m/uL (4.30-5.90); RDW 13.8 % (11.5-15.5); WBC 17.6 k/uL (3.8-10.6)
[2017-05-02] MEDS: FAT EMULSION 20% 250 ML in EMPTY BAG 1 BAG IV SCH (17:49)
[2017-05-02 17:53] LABS: Glucose,Whole Blood 105 mg/dL (75-99)
[2017-05-02] MEDS: HYDROcodone/APAP 5-325MG 1 EACH TAB PO PRN (17:59)
[2017-05-02] MEDS ORDERED: POTASSIUM CHLORIDE ER 20 MEQ TAB.ER PO SCH (19:00)
--- NOTE | 2017-05-02 20:00 | P.PN ---
Subjective Progress Note Date: 05/02/17 Principal diagnosis: sepsis Patient gives history that he knows with bladder cancer under the care of urology and was to scheduled for surgery at the end of April. Patient normally spends forbes in [place] and returned there after procedures January were done. Unfortunately he started having urinary and rectal bleeding that was profuse and went into the emergency center. A Hong catheter was placed and patient followed up with a urologist. Patient did have the Hong catheter changed but due to significant bleeding patient return to the emergency center. Bladder was flushed 24 hours and then he had cauterization done to stop the bleeding but surgeon in [place] instructed him to have bladder removed as soon as possible. Patient return to [place] and underwent surgery on April 15 of robotic-assisted laparoscopic radical cystoprostatectomy, bilateral pelvic lymphadenectomy with ileal conduit urinary diversion and RADHA drain placement with Dr. Liz and Dr. Andino. 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 Patient 's recovery has been complicated by postop ileus and he had an NG tube in place for 3 days which was subsequently removed, cardiology was consulted on April 27 for tachycardia. He has been started on TPN for severe protein calorie malnutrition. He has developed loose bowel movements for which C. difficile toxin was negative. April 28 abdominal film showed nonspecific abdomen correlate for small bowel obstruction. Severe ileus or enteritis also in the differential. CAT scan of the abdomen and pelvis without contrast was also done yesterday that revealed status post cystectomy, small amount of residual air adjacent to the dome of the liver, bilateral double-J stents and mild hydronephrosis of both kidneys, uncomplicated diverticulosis of the sigmoid colon, small hiatal hernia, mild prominence of small bowel without definite transition point consult was added for medicine at that time and due to fever 102.2 and continued tachycardia, ID consult was requested. A shunt is currently on a clear liquid diet and tolerating but refusing protein supplements. He was having frequent loose bowel movements. Ileal conduit is draining as well as RADHA drain. Yesterday the patient has severe worsening of his status. His fever went to 104. He became hypotensive, tachypneic and tachycardic. When I was contacted I advised transfer to the intensive care unit. Fluid resuscitation was begun. Antibiotic therapy was reevaluated and is now changed to meropenem with concerns to resistant gram-negative pathogens. Patient improved to the day yesterday The patient improved after resuscitation and was weaned off the vasopressor. This tachycardia has resolved. Blood pressure is improving and he feels better. His generalized having abdominal pain has improved. NG tube is been removed he is eating well without acute difficulties. No abdominal pains. Patient however now is developed atrial fibrillation with a rapid ventricular response and is responding to a Cardizem drip. Fevers are resolved feeling much better today. Objective - Vital Signs Vital signs: Vital Signs Temp 97.1 F L 05/02/17 16:00 Pulse 95 05/02/17 19:00 Resp 18 05/02/17 19:00 BP 124/71 05/02/17 19:00 Pulse Ox 96 05/02/17 19:00 Intake & Output 05/02/17 05/02/17 05/03/17 06:59 18:59 06:59 Intake Total 3415.152 3510.667 208 Output Total 2575 1875 155 Balance 350.782 3441.667 53 Weight 91.6 kg 91.6 kg Intake: IV 2952 2184 208 Amino Acid 5%-D25w+Lytes* 996 E* 740 ml Water For Injection, Sterile 450 ml @ 83 mls/hr IV .BY DURATION FAM Rx#: [id number] Fat Emulsion 20% 250 ml 231 21 In Empty Bag 1 bag @ 21 mls/hr IV DAILY@1800 FAM Rx#:[id number] Meropenem 1 gm In Sodium 100 Chloride 0.9% 100 ml @ 100 mls/hr IVPB Q8HR FAM Rx#:[id number] Mvi, Adult No.4 with Vit 913 83 K 10 ml Trace (Conc-1Ml/ Dose) 1 ml Potassium Acetate 20 meq In Amino Acid 5%-D25w+Lytes*E* 740 ml In Water For Injection, Sterile 450 ml @ 83 mls/hr IV .BY DURATION FAM Rx#: [id number] Sodium Chloride 0.9% 1, 1625 1250 125 000 ml @ 125 mls/hr IV . Q8H FAM Rx#:[id number] Intake, IV Titration 128.518 1122.667 Amount Diltiazem 125 mg In 110.667 115.667 Sodium Chloride 0.9% 100 ml @ 10 MG/HR 10 mls/hr IV .[id number] FAM Rx#: [id number] Heparin Sod,Pork in 0.45% 352.485 NaCl 25,000 unit In 0.45 % NaCl 1 500ml.bag @ 11 UNITS/KG/HR 19.99 mls/hr IV .Q24H FAM Rx#: [id number] Mvi, Adult No.4 with Vit 1211 K 10 ml Trace (Conc-1Ml/ Dose) 1 ml Potassium Acetate 20 meq In Amino Acid 5%-D25w+Lytes*E* 740 ml In Water For Injection, Sterile 450 ml @ 83 mls/hr IV .BY DURATION FAM Rx#: [id number] Output: Drainage 770 680 RADHA Drain 770 680 Urine 1805 1195 155 Right Lower Abdomen 30 Other: Voiding Method Ileal Conduit (Right) Ileal Conduit (Right) ABP, PAP, CO, CI - Last Documented Arterial Blood Pressure 157/72 - Exam Gen: This is a 66-year-old male. He is getting up in bed and appears to be somewhat uncomfortable. HEENT: Head is atraumatic, normocephalic. Pupils equal, round. Sclerae is anicteric. NECK: Supple. No JVD. No lymphadenopathy. No thyromegaly. LUNGS: Clear to auscultation. No wheezes or rhonchi. No intercostal retractions. HEART: Regular rate and rhythm. No murmur. ABDOMEN: Soft. Bowel sounds are present. No masses. The abdominal tenderness remains improved. Ileal conduit to the right lower abdomen has urine drainage that was frankly bloody but improving Stoma red and moist. RADHA drain to the left abdominal wall with serous drainage. EXTREMITIES: No pedal edema. No calf tenderness. NEUROLOGICAL: Patient is awake, alert and oriented x3. - Labs CBC & Chem 7: 05/02/17 17:15 05/02/17 17:15 Labs: Abnormal Lab Results - Last 24 Hours (Table) 05/01/17 05/02/17 05/02/17 Range/Units 19:42 00:17 03:22 WBC (3.8-10.6) k/uL RBC (4.30-5.90) m/uL Hgb (13.0-17.5) gm/dL Hct (39.0-53.0) % MCHC (31.0-37.0) g/dL Plt Count (150-450) k/uL Neutrophils # (1.3-7.7) k/uL Lymphocytes # (1.0-4.8) k/uL APTT 34.9 H 43.4 H (22.0-30.0) sec Potassium (3.5-5.1) mmol/L Chloride (98-107) mmol/L Carbon Dioxide (22-30) mmol/L BUN (9-20) mg/dL Glucose (74-99) mg/dL POC Glucose (mg/dL) 112 H (75-99) mg/dL Calcium (8.4-10.2) mg/dL Magnesium (1.6-2.3) mg/dL 05/02/17 05/02/17 05/02/17 Range/Units 04:22 04:22 06:10 WBC 25.5 H* (3.8-10.6) k/uL RBC 3.76 L (4.30-5.90) m/uL Hgb 10.9 L (13.0-17.5) gm/dL Hct 35.6 L (39.0-53.0) % MCHC 30.5 L (31.0-37.0) g/dL Plt Count 125 L (150-450) k/uL Neutrophils # 22.8 H (1.3-7.7) k/uL Lymphocytes # (1.0-4.8) k/uL APTT (22.0-30.0) sec Potassium 3.2 L (3.5-5.1) mmol/L Chloride 118 H (98-107) mmol/L Carbon Dioxide 17 L (22-30) mmol/L BUN 23 H (9-20) mg/dL Glucose 115 H (74-99) mg/dL POC Glucose (mg/dL) 109 H (75-99) mg/dL Calcium 7.1 L (8.4-10.2) mg/dL Magnesium 2.5 H (1.6-2.3) mg/dL 05/02/17 05/02/17 05/02/17 Range/Units 10:40 11:00 17:15 WBC 15.7 H 17.6 H (3.8-10.6) k/uL RBC 2.64 L 3.29 L (4.30-5.90) m/uL Hgb 7.7 L D 9.6 L D (13.0-17.5) gm/dL Hct 24.6 L 30.7 L (39.0-53.0) % MCHC (31.0-37.0) g/dL Plt Count 103 L 142 L (150-450) k/uL Neutrophils # 14.2 H (1.3-7.7) k/uL Lymphocytes # 0.5 L (1.0-4.8) k/uL APTT 41.9 H (22.0-30.0) sec Potassium (3.5-5.1) mmol/L Chloride (98-107) mmol/L Carbon Dioxide (22-30) mmol/L BUN (9-20) mg/dL Glucose (74-99) mg/dL POC Glucose (mg/dL) (75-99) mg/dL Calcium (8.4-10.2) mg/dL Magnesium (1.6-2.3) mg/dL 05/02/17 Range/Units 17:51 WBC (3.8-10.6) k/uL RBC (4.30-5.90) m/uL Hgb (13.0-17.5) gm/dL Hct (39.0-53.0) % MCHC (31.0-37.0) g/dL Plt Count (150-450) k/uL Neutrophils # (1.3-7.7) k/uL Lymphocytes # (1.0-4.8) k/uL APTT (22.0-30.0) sec Potassium (3.5-5.1) mmol/L Chloride (98-107) mmol/L Carbon Dioxide (22-30) mmol/L BUN (9-20) mg/dL Glucose (74-99) mg/dL POC Glucose (mg/dL) 105 H (75-99) mg/dL Calcium (8.4-10.2) mg/dL Magnesium (1.6-2.3) mg/dL Microbiology - Last 24 Hours (Table) 04/28/17 15:45 Stool Culture - Preliminary Stool 04/30/17 04:04 Blood Culture - Preliminary Blood No Growth after 48 hours 04/30/17 03:17 Blood Culture - Preliminary Blood No Growth after 48 hours 04/28/17 21:14 Blood Culture - Preliminary Blood No Growth after 72 hours 04/28/17 20:37 Blood Culture - Preliminary Blood No Growth after 72 hours Laboratory Results WBC 17.6 k/uL (3.8-10.6) H 05/02/17 17:15 RBC 3.29 m/uL (4.30-5.90) L 05/02/17 17:15 Hgb 9.6 gm/dL (13.0-17.5) L D 05/02/17 17:15 Hct 30.7 % (39.0-53.0) L 05/02/17 17:15 MCV 93.1 fL (80.0-100.0) 05/02/17 17:15 MCH 29.3 pg (25.0-35.0) 05/02/17 17:15 MCHC 31.4 g/dL (31.0-37.0) 05/02/17 17:15 RDW 13.8 % (11.5-15.5) 05/02/17 17:15 Plt Count 142 k/uL (150-450) L 05/02/17 17:15 Neutrophils % 91 % 05/02/17 10:40 Neutrophils % (Manual) 60 % 05/01/17 04:20 Band Neutrophils % 34 % 05/01/17 04:20 Lymphocytes % 3 % 05/02/17 10:40 Lymphocytes % (Manual) 4 % 05/01/17 04:20 Monocytes % 3 % 05/02/17 10:40 Monocytes % (Manual) 2 % 05/01/17 04:20 Eosinophils % 1 % 05/02/17 10:40 Eosinophils % (Manual) 1 % 05/01/17 04:20 Basophils % 0 % 05/02/17 10:40 Metamyelocytes % 4 % 04/30/17 03:17 Neutrophils # 14.2 k/uL (1.3-7.7) H 05/02/17 10:40 Neutrophils # (Manual) 30.60 k/uL (1.3-7.7) H 05/01/17 04:20 Lymphocytes # 0.5 k/uL (1.0-4.8) L 05/02/17 10:40 Lymphocytes # (Manual) 1.30 k/uL (1.0-4.8) 05/01/17 04:20 Monocytes # 0.5 k/uL (0-1.0) 05/02/17 10:40 Monocytes # (Manual) 0.65 k/uL (0-1.0) 05/01/17 04:20 Eosinophils # 0.2 k/uL (0-0.7) 05/02/17 10:40 Eosinophils # (Manual) 0.33 k/uL (0-0.7) 05/01/17 04:20 Basophils # 0.0 k/uL (0-0.2) 05/02/17 10:40 Metamyelocytes # (Man) 0.14 k/uL (0) H 04/30/17 03:17 Nucleated RBCs 0 /100 WBC (0-0) 05/01/17 04:20 Manual Slide Review Performed 05/02/17 10:40 Toxic Granulation Present 05/01/17 04:20 Toxic Vacuolation Present 05/01/17 04:20 Large Platelets Present 05/01/17 04:20 Polychromasia Present 05/01/17 04:20 Hypochromasia Slight 05/02/17 17:15 PT 10.0 sec (9.0-12.0) 05/01/17 12:18 INR 1.0 (<1.2) 05/01/17 12:18 APTT 41.9 sec (22.0-30.0) H 05/02/17 11:00 Sodium 141 mmol/L (137-145) 05/02/17 04:22 Potassium 3.8 mmol/L (3.5-5.1) 05/02/17 17:15 Chloride 118 mmol/L (98-107) H 05/02/17 04:22 Carbon Dioxide 17 mmol/L (22-30) L 05/02/17 04:22 Anion Gap 6 mmol/L 05/02/17 04:22 BUN 23 mg/dL (9-20) H 05/02/17 04:22 Creatinine 1.20 mg/dL (0.66-1.25) 05/02/17 04:22 Est GFR (MDRD) Af Amer >60 (>60 ml/min/1.73 sqM) 05/02/17 04:22 Est GFR (MDRD) Non-Af >60 (>60 ml/min/1.73 sqM) 05/02/17 04:22 Glucose 115 mg/dL (74-99) H 05/02/17 04:22 POC Glucose (mg/dL) 105 mg/dL (75-99) H 05/02/17 17:51 POC Glu Supervisor Roving ID Mauro Castro 05/02/17 17:[address] Glu mg/dL 105 04/27/17 07:28 Hemoglobin A1c 5.3 % (4.0-6.0) 04/27/17 07:28 Lactic Ac Sepsis Rflx Y 04/30/17 03:50 Plasma Lactic Acid Sadiq 2.1 mmol/L (0.7-2.0) H* 04/30/17 07:23 Calcium 7.1 mg/dL (8.4-10.2) L 05/02/17 04:22 Ionized Calcium Gary 4.8 mg/dL (4.5-5.3) 05/01/17 04:20 Phosphorus 2.5 mg/dL (2.5-4.5) 05/02/17 04:22 Magnesium 2.5 mg/dL (1.6-2.3) H 05/02/17 04:22 Total Bilirubin 0.6 mg/dL (0.2-1.3) 04/23/17 08:43 AST 27 U/L (17-59) 04/23/17 08:43 ALT 64 U/L (21-72) 04/23/17 08:43 Alkaline Phosphatase 66 U/L (38-126) 04/23/17 08:43 NT-Pro-B Natriuret Pep 86 pg/mL 04/30/17 03:17 Total Protein 5.0 g/dL (6.3-8.2) L 04/23/17 08:43 Albumin 1.8 g/dL (3.5-5.0) L 05/01/17 04:20 Triglycerides 91 mg/dL (<150) 04/26/17 11:37 TSH 1.950 mIU/L (0.465-4.680) 04/27/17 07:28 Urine Color Yellow 04/28/17 12:50 Urine Appearance Cloudy (Clear) 04/28/17 12:50 Urine pH 6.5 (5.0-8.0) 04/28/17 12:50 Ur Specific Boley 1.008 (1.001-1.035) 04/28/17 12:50 Urine Protein 1+ (Negative) H 04/28/17 12:50 Urine Glucose (UA) Negative (Negative) 04/28/17 12:50 Urine Ketones Negative (Negative) 04/28/17 12:50 Urine Blood Moderate (Negative) H 04/28/17 12:50 Urine Nitrite Positive (Negative) 04/28/17 12:50 Urine Bilirubin Negative (Negative) 04/28/17 12:50 Urine Urobilinogen <2.0 mg/dL (<2.0) 04/28/17 12:50 Ur Leukocyte Esterase Large (Negative) H 04/28/17 12:50 Urine RBC 8 /hpf (0-5) H 04/28/17 12:50 Urine WBC >182 /hpf (0-5) H 04/28/17 12:50 Urine WBC Clumps Many /hpf (None) H 04/28/17 12:50 Urine Bacteria Many /hpf (None) H 04/28/17 12:50 Ur Random Creatinine 2.5 mg/dL 05/02/17 10:15 C. difficile (EIA) Intrp Negative (Negative) 04/28/17 20:50 Miscellaneous Test Creatinine, Body Fld 04/21/17 08:29 Misc Test Result See Comment 04/21/17 08:29 Blood Type A Positive 04/14/17 09:45 Blood Type Confirm A Positive 04/15/17 10:24 Blood Type Recheck CABO Indicated 04/14/17 09:45 Antibody Screen NEGATIVE 04/14/17 09:45 Spec Expiration Date 04/17/2017 - 7469 04/14/17 09:45 Microbiology 04/28/17 15:45 Stool Stool Culture - Preliminary 04/30/17 04:04 Blood Blood Culture - Preliminary No Growth after 48 hours 04/30/17 03:17 Blood Blood Culture - Preliminary No Growth after 48 hours 04/28/17 21:14 Blood Blood Culture - Preliminary No Growth after 72 hours 04/28/17 20:37 Blood Blood Culture - Preliminary No Growth after 72 hours 04/28/17 15:45 Stool Stool for WBCs - Final 04/28/17 12:50 Urine,Suprapubic Urine Culture - Final Escherichia coli Assessment and Plan (1) Malignant neoplasm of bladder wall Current Visit: Yes Status: Acute Code(s): C67.9 - MALIGNANT NEOPLASM OF BLADDER, UNSPECIFIED SNOMED Code(s): 05094160 (2) Gram-negative sepsis with organ dysfunction Narrative/Plan: 66 year old male with bladd er cancer status post resection yesterday did have fever and with a recent surgical interventions antimicrobial therapy with piperacillin tazobactam is being utilized to cover for gram-negative bacilli as well as intra-abdominal anaerobic pathogens staph and strep are also covered. No history of MRSA. Last night the patient had a major change of his status with tachycardia, tachypnea, hypotension and fever to 104. He was moved to the intensive care unit and received fluid resuscitation, and vasopressor support. He was noticed to have a significant change of leukopenia consistent with his overwhelming gram -negative infection. Antimicrobial therapy was changed to meropenem. The significant patient's feeling better. His hypotension is resolving with reducing doses of vasopressor. Tachycardia has resolved. He is no longer tachypnea. Urinary output has improved. White blood cell count remains elevated in response to his significant sepsis and bacteremia. However clinically had a good response to the current antimicrobial therapy of meropenem. This will continue for the moment. We'll be able to have oral antibiotic therapy at discharge High-grade fever has resolved. Atrial fibrillation is coming under better control. This is being well controlled at this time. NG tube was removed and he looks forward to improving his oral intake. Follow blood cultures in process negative so far. Continue supportive care. Current Visit: Yes Status: Acute Code(s): A41.50 - GRAM-NEGATIVE SEPSIS, UNSPECIFIED; R65.20 - SEVERE SEPSIS WITHOUT SEPTIC SHOCK SNOMED Code(s): 293165953 (3) Acute renal failure Current Visit: Yes Status: Acute Code(s): N17.9 - ACUTE KIDNEY FAILURE, UNSPECIFIED SNOMED Code(s): 50729334 (4) Leukopenia Current Visit: Yes Status: Acute Code(s): D72.819 - DECREASED WHITE BLOOD CELL COUNT, UNSPECIFIED SNOMED Code(s): 74360242
[2017-05-02] MEDS: ATORVASTATIN 20 MG TAB PO SCH (21:01)
[2017-05-02] MEDS: LISINOPRIL 10 MG TAB PO SCH (21:02)
[2017-05-03 00:34] LABS: Glucose,Whole Blood 130 mg/dL (75-99)
[2017-05-03] MEDS: INSULIN ASPART 100 UNIT/ML 1 ML 10 ML VIAL SQ SCH ×5 (00:44→20:06)
[2017-05-03] MEDS: MEROPENEM 1 GM in SODIUM CHLORIDE 0.9% 100 ML IVPB SCH ×4 (00:45→23:40)
[2017-05-03] MEDS: METOCLOPRAMIDE 5 MG/ML 2 ML VIAL IVP SCH ×3 (00:45→13:28)
[2017-05-03] MEDS: 1: MVI, ADULT NO.4 WITH VIT K 10 ML, TRACE (CONC-1ML/DOSE) 1 ML, POTASSIUM ACETATE 20 ME IV SCH ×10 (03:22→14:00)
[2017-05-03 04:25] LABS: Basophils # (A) 0.1 k/uL (0-0.2); Basophils % (A) 1 %; Eosinophils # (A) 0.3 k/uL (0-0.7); Eosinophils % (A) 2 %; HCT 33.6 % (39.0-53.0); HGB 10.8 gm/dL (13.0-17.5); Hypochromasia Moderate; Lymphocytes # (A) 0.7 k/uL (1.0-4.8); Lymphocytes % (A) 4 %; MCH 29.4 pg (25.0-35.0); MCHC 32.2 g/dL (31.0-37.0); MCV 91.4 fL (80.0-100.0); Mean Platelet Volume 10.4; Monocytes # (A) 0.6 k/uL (0-1.0); Monocytes % (A) 4 %; Neutrophils # (A) 13.8 k/uL (1.3-7.7); Neutrophils % (A) 87 %; Platelet Count 128 k/uL (150-450); RBC 3.68 m/uL (4.30-5.90); RDW 14.6 % (11.5-15.5); WBC 15.8 k/uL (3.8-10.6)
[2017-05-03 04:36] LABS: Anion Gap 6 mmol/L; Blood Urea Nitrogen 21 mg/dL (9-20); Calcium 7.4 mg/dL (8.4-10.2); Carbon Dioxide 19 mmol/L (22-30); Chloride 116 mmol/L (98-107); Glucose 109 mg/dL (74-99); Magnesium 2.3 mg/dL (1.6-2.3); Phosphorus 2.6 mg/dL (2.5-4.5); Potassium 4.2 mmol/L (3.5-5.1); Sodium 141 mmol/L (137-145)
[2017-05-03 05:47] LABS: Glucose,Whole Blood 125 mg/dL (75-99)
[2017-05-03] MEDS: SODIUM CHLORIDE 0.9% 1,000 ML IV SCH ×3 (05:51→20:16)
--- NOTE | 2017-05-03 07:41 | XR ---
EXAMINATION TYPE: XR chest 1V DATE OF EXAM: 05/03/2017 COMPARISON: Prior chest x-ray 05/02/2017 HISTORY: Shortness of breath TECHNIQUE: Single frontal view of the chest is obtained. FINDINGS: There are overlying cardiac leads. Patient is rotated. No evident airspace disease, pneumo thorax, or pleural effusion. Cardiac mediastinal silhouette, pulmonary vascularity and trever are stabl e. IMPRESSION: There may be some improvement in aeration.
--- NOTE | 2017-05-03 08:04 | P.PN ---
Subjective Progress Note Date: 05/03/17 Principal diagnosis: Acute septic shock/urinary tract infection Progress note dated 05/02/2017 This is a 66-year-old male with a history of acute septic shock secondary to urinary tract infection. The patient status post robotic laparoscopic radical cystoprostatectomy bilateral pelvic lymphadenectomy and ileal conduit with urinary diversion, status post RADHA drain placement. The patient does have a history of prostate cancer. The patient had abdominal pain which could be consistent with an acute ileus or bowel obstruction significant protein calorie malnutrition CAD with previous stent placement hypertension hyperlipidemia and chronic kidney disease, stage II. The patient seemed be doing relatively well. The patient's chest x-ray does show some atelectasis at the left lung base. I don't believe there is pneumonia there. The patient is currently receiving no supplemental oxygen. The patient is on a saline IV at 1 25 mL an hour. The patient's getting Cardizem drip at 10 mg an hour heparin via weightbase protocol. The patient also getting TPN at 83 mL an hour. Again chest x-ray looks pretty good and shows minimal infiltrate versus atelectasis at the left lung base. The patient was admitted on April 15. He came to the ICU on April 30. Progress note dated 05/03/2017 This is a 66-year-old male with a history of acute septic shock secondary to urinary tract infection/urosepsis. The patient is a status post robotic laparoscopic radical cystoprostatectomy patient he also had bilateral pelvic lymphadenectomy with ileal conduit and urinary diversion. He also had a RADHA drain placed. The patient seemed be resting relatively comfortably. No major complaints. No respiratory issues. No belly pain. The patient does have a history of hypertension hyperlipidemia stage II chronic kidney disease and CAD with previous stent. Other than that the patient seemed be doing relatively well. Yesterday he was on IV Cardizem and IV heparin. Also been discontinued. He is getting no supplemental oxygen. The patient's on an IV of normal saline at 125 an hour and TPN at 83 mL an hour. He can be transferred to the general medical floor later today. Objective - Vital Signs Vital signs: Vital Signs Temp 98.7 F 05/03/17 04:00 Pulse 92 05/03/17 07:00 Resp 16 05/03/17 07:00 BP 149/85 05/03/17 07:00 Pulse Ox 97 05/03/17 07:00 Intake & Output 05/02/17 05/03/17 05/03/17 18:59 06:59 18:59 Intake Total 3510.667 4213.35 Output Total 1875 2215 Balance 5387.448 0074.35 Weight 91.6 kg 91.49 kg Intake: IV 2184 3014 Fat Emulsion 20% 250 ml 21 210 In Empty Bag 1 bag @ 21 mls/hr IV DAILY@1800 FAM Rx#:[id number] Meropenem 1 gm In Sodium 100 Chloride 0.9% 100 ml @ 100 mls/hr IVPB Q8HR FAM Rx#:[id number] Mvi, Adult No.4 with Vit 913 1079 K 10 ml Trace (Conc-1Ml/ Dose) 1 ml Potassium Acetate 20 meq In Amino Acid 5%-D25w+Lytes*E* 740 ml In Water For Injection, Sterile 450 ml @ 83 mls/hr IV .BY DURATION FAM Rx#: [id number] Sodium Chloride 0.9% 1, 1250 1625 000 ml @ 125 mls/hr IV . Q8H FAM Rx#:[id number] Intake, IV Titration 9079.679 1325.35 Amount Diltiazem 125 mg In 115.667 Sodium Chloride 0.9% 100 ml @ 10 MG/HR 10 mls/hr IV .[id number] FAM Rx#: [id number] Mvi, Adult No.4 with Vit 1211 1199.35 K 10 ml Trace (Conc-1Ml/ Dose) 1 ml Potassium Acetate 20 meq In Amino Acid 5%-D25w+Lytes*E* 740 ml In Water For Injection, Sterile 450 ml @ 83 mls/hr IV .BY DURATION [facility] Rx#: [id number] Output: Drainage 680 420 RADHA Drain 680 420 Urine 1195 1795 Right Lower Abdomen 30 Other: Voiding Method Ileal Conduit (Right) Ileal Conduit (Right) ABP, PAP, CO, CI - Last Documented Arterial Blood Pressure 157/72 - Exam No acute distress, oriented 3. No supplemental oxygen. HEENT examination is grossly unremarkable. Mucous membranes are moist. No oral lesions. Neck supple. Full range of motion. No adenopathy thyromegaly or neck vein distention. Cardiovascular examination reveals regular rhythm rate. S1-S2 normal. No S3 or S4. No discernible murmur noted. Lungs reveal clear breath sounds. Her sounds are equal bilaterally. No adventitious lung sounds including wheezes rhonchi or crackles. Abdomen soft bowel sounds are heard. No masses or tenderness. Extremities are intact. No cyanosis clubbing or edema. Skin is without rash or lesion. Neurologic examination is brief but nonfocal. - Labs CBC & Chem 7: 05/03/17 04:07 05/03/17 04:07 Labs: Abnormal Lab Results - Last 24 Hours (Table) 05/02/17 05/02/17 05/02/17 Range/Units 10:40 11:00 17:15 WBC 15.7 H 17.6 H (3.8-10.6) k/uL RBC 2.64 L 3.29 L (4.30-5.90) m/uL Hgb 7.7 L D 9.6 L D (13.0-17.5) gm/dL Hct 24.6 L 30.7 L (39.0-53.0) % Plt Count 103 L 142 L (150-450) k/uL Neutrophils # 14.2 H (1.3-7.7) k/uL Lymphocytes # 0.5 L (1.0-4.8) k/uL APTT 41.9 H (22.0-30.0) sec Chloride (98-107) mmol/L Carbon Dioxide (22-30) mmol/L BUN (9-20) mg/dL Glucose (74-99) mg/dL POC Glucose (mg/dL) (75-99) mg/dL Calcium (8.4-10.2) mg/dL 05/02/17 05/03/17 05/03/17 Range/Units 17:51 00:33 04:07 WBC (3.8-10.6) k/uL RBC (4.30-5.90) m/uL Hgb (13.0-17.5) gm/dL Hct (39.0-53.0) % Plt Count (150-450) k/uL Neutrophils # (1.3-7.7) k/uL Lymphocytes # (1.0-4.8) k/uL APTT (22.0-30.0) sec Chloride 116 H (98-107) mmol/L Carbon Dioxide 19 L (22-30) mmol/L BUN 21 H (9-20) mg/dL Glucose 109 H (74-99) mg/dL POC Glucose (mg/dL) 105 H 130 H (75-99) mg/dL Calcium 7.4 L (8.4-10.2) mg/dL 05/03/17 05/03/17 Range/Units 04:07 05:45 WBC 15.8 H (3.8-10.6) k/uL RBC 3.68 L (4.30-5.90) m/uL Hgb 10.8 L (13.0-17.5) gm/dL Hct 33.6 L (39.0-53.0) % Plt Count 128 L (150-450) k/uL Neutrophils # 13.8 H (1.3-7.7) k/uL Lymphocytes # 0.7 L (1.0-4.8) k/uL APTT (22.0-30.0) sec Chloride (98-107) mmol/L Carbon Dioxide (22-30) mmol/L BUN (9-20) mg/dL Glucose (74-99) mg/dL POC Glucose (mg/dL) 125 H (75-99) mg/dL Calcium (8.4-10.2) mg/dL Microbiology - Last 24 Hours (Table) 04/30/17 04:04 Blood Culture - Preliminary Blood No Growth after 72 hours 04/30/17 03:17 Blood Culture - Preliminary Blood No Growth after 72 hours 04/28/17 21:14 Blood Culture - Preliminary Blood No Growth after 96 hours 04/28/17 20:37 Blood Culture - Preliminary Blood No Growth after 96 hours 04/28/17 15:45 Stool Culture - Preliminary Stool Assessment and Plan (1) Prostate cancer Current Visit: Yes Status: Acute Code(s): C61 - MALIGNANT NEOPLASM OF PROSTATE SNOMED Code(s): 173327742 (2) Septic shock Current Visit: Yes Status: Acute Code(s): A41.9 - SEPSIS, UNSPECIFIED ORGANISM; R65.21 - SEVERE SEPSIS WITH SEPTIC SHOCK SNOMED Code(s): 61648952 (3) Hypertension Current Visit: Yes Status: Acute Code(s): I10 - ESSENTIAL (PRIMARY) HYPERTENSION SNOMED Code(s): 09909676 (4) Hyperlipidemia Current Visit: Yes Status: Acute Code(s): E78.5 - HYPERLIPIDEMIA, UNSPECIFIED SNOMED Code(s): 26250440 (5) Chronic kidney disease Current Visit: Yes Status: Acute Code(s): N18.9 - CHRONIC KIDNEY DISEASE, UNSPECIFIED SNOMED Code(s): 822616677 (6) CAD (coronary artery disease) Current Visit: Yes Status: Acute Code(s): I25.10 - ATHSCL HEART DISEASE OF [place] CORONARY ARTERY W/O ANG PCTRS SNOMED Code(s): 28550151 (7) Malnutrition Current Visit: Yes Status: Acute Code(s): E46 - UNSPECIFIED PROTEIN-CALORIE MALNUTRITION SNOMED Code(s): 12729335 (8) Status post prostatectomy Current Visit: Yes Status: Acute Code(s): Z90.79 - ACQUIRED ABSENCE OF OTHER GENITAL ORGAN(S) SNOMED Code(s): 131526989 (9) Gram-negative sepsis with organ dysfunction Current Visit: Yes Status: Acute Code(s): A41.50 - GRAM-NEGATIVE SEPSIS, UNSPECIFIED; R65.20 - SEVERE SEPSIS WITHOUT SEPTIC SHOCK SNOMED Code(s): 932870139 (10) Ileus following gastrointestinal surgery Current Visit: Yes Status: Acute Code(s): K91.30 - POSTPROC INTESTINAL OBST , UNSP TO PARTIAL VERSUS COMPLETE SNOMED Code(s): 645751534 (11) Malignant neoplasm Current Visit: Yes Status: Acute Code(s): C80.1 - MALIGNANT (PRIMARY) NEOPLASM, UNSPECIFIED SNOMED Code(s): 724772760 (12) Malignant neoplasm of bladder wall Current Visit: Yes Status: Acute Code(s): C67.9 - MALIGNANT NEOPLASM OF BLADDER, UNSPECIFIED SNOMED Code(s): 17684765 Plan: Plan dated 05/02/2017 The patient seemed be doing relatively well. From the pulmonary standpoint, the patient could be discharged out of the unit. The receiving supervisor was apparently going to switch him to oral Cardizem and an oral blood thinner. If the patient is stable, later today, he can move out. Labs x-rays a medications are all reviewed. Prognosis is guarded. [place] dated 05/03/2017 The patient's labs x-rays and medications are all reviewed. The patient seemed be doing reasonably well. Certainly still not out of the knapp. The patient is receiving TPN at 83 mL an hour and a saline IV at 125 an hour. Medications labs x-rays microbiology are all reviewed. Changes are made. The patient could be considered for transfer out of the unit today. Additional recommendations and suggestions are forthcoming. He was converted from IV Cardizem to oral Cardizem and placed on a oral blood thinner yesterday. Time with Patient: Greater than 30
[2017-05-03] MEDS: DILTIAZEM ORAL 30 MG TAB PO SCH ×3 (08:22→22:01)
[2017-05-03] MEDS: METOPROLOL SUCCINATE (ER) 100 MG TAB.ER.24H PO SCH ×2 (08:23→20:10)
[2017-05-03] MEDS: PANTOPRAZOLE 40 MG/10 ML VIAL IV SCH (08:23)
[2017-05-03] MEDS: ISOSORBIDE MONONITRATE ER 60 MG TAB.ER.24H PO SCH (08:23)
--- NOTE | 2017-05-03 09:45 | PN ---
PROGRESS NOTE Mr. Roe is a 66-year-old male with a prostate malignancy who had underwent surgery. He was having episode of atrial fibrillation. He is back in sinus mechanism. He is off anticoagulation because of bleeding through his urostomy as well as anemia. He had a septic shock, but that has been treated. He is feeling well at this time. 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 He had paroxysmal atrial fibrillation, but has not been anticoagulated in the past. He is feeling quite well this morning. His breathing has been stable. He denies any dizziness or palpitation. He continues to be at this time on Lipitor 20 mg daily, diltiazem 30 mg 3 times a day, isosorbide mononitrate 60 mg daily, lisinopril 10 mg daily, metoprolol succinate 100 mg twice a day. PHYSICAL EXAMINATION: Blood pressure 160/90 with the heart rate in the 80s. LUNGS: Clear. HEART: Regular rate and rhythm. S1, S2. No S3. No rub. ABDOMEN: Soft, nontender. Urostomy bag in place. EXTREMITIES: No edema. LAB DATA: Lab data revealed a BUN creatinine 21 and 1.2. Potassium 4.2. Hemoglobin of 10.8. IMPRESSION: 1. Paroxysmal atrial fibrillation remains in sinus mechanism at this time. The patient is not anticoagulated because of anemia and bleeding. 2. Status post surgery for prostate cancer. 3. Septic shock, resolved. 4. Hypertension. 5. Hyperlipidemia. 6. History of coronary artery disease, status post percutaneous revascularization. RECOMMENDATION: From the cardiac standpoint, he is stable. We will continue present therapy. Follow his rhythm and depending on that, further recommendation will be made. MMODL / IJN: [id number] / MTDD
[2017-05-03] MEDS ORDERED: SODIUM CHLORIDE 0.9% 500 ML IV ONE (11:51)
[2017-05-03 12:58] LABS: Glucose,Whole Blood 111 mg/dL (75-99)
[2017-05-03] MEDS ORDERED: METOCLOPRAMIDE 5 MG/ML 2 ML VIAL IVP PRN (13:36)
--- NOTE | 2017-05-03 14:13 | P.PN ---
Subjective Progress Note Date: 05/03/17 Principal diagnosis: This is a 66-year-old gentleman known to my practice, with underlying history of CAD, hypertension, COPD, impaired fasting hyperglycemia admitted under service of Dr. 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 Andino and Dr. Liz on 04/15/2017. He was seen in our clinic for Medicare physical in October 2016 and complained of hematospermia, referral was made to Dr. Andino, for repeat cystoscopy and initial CAT scan of the abdomen and pelvis failed to reveal any significant abnormal pathology in the bladder except for calcification in the prostate, PSA in the past was 0.5, in January 2016. He has this problem since 2014 bladder ultrasound shows nonobstructing renal calculi for which she originally saw Dr. Gerard, and was followed by urology since then, cystoscopy was done with the biopsy in February 2017,.The initial biopsy showed the urothelial bladder carcinoma,his involves the left posterior lateral bladder wall and post direct urethra, he also has a left bladder diverticulum containing tumor, date for initial biopsy is February 2017 however they have requested a [place] surgeon to due the primary procedure this was scheduled to be done in April 2017, the surgery was delayed to accommodate this schedule of 4 urological specialist to perform the surgery, hence, patient had left to [place] in January 2017 travel back and forth to [place] for the biopsy thereafter he went back to [place] however with his another attack of hematuria, and hematospermia, they have requested that he come in emergently to have the bladder surgery done, procedure was done on 04/15/2018 for the ileal diversion and robotic-assisted radical cystoprostatectomy and bilateral pelvic lymphadenectomy During the perioperative recovery course, patient had intractable nausea and vomiting for which an NG tube was placed, CAT scan of the abdomen and pelvis was performed showing double-J stents bilaterally, mild bilateral hydronephrosis , spleen liver and gallbladder is unremarkable, scant amount of free air adjacent to the dome of the liver most likely secondary to previous surgery, uncomplicated mild diverticulosis of the sigmoid colon without any evidence off diverticulitis, appendix is not visualized no evidence of blastic metastasis stasis mild prominence of small bowel without a definite transition point, consult was made to Dr. Morocho general surgery Patient was noted to be febrile on April 24 however it is not sustained T-max at that time was 99.8, however fever is now 102.2, patient has diarrhea, abdominal pain, no sinus congestion no cough. Patient was given Rocephin, and would start patient on Zosyn with consults Dr. Gomez, blood cultures, influenza testing, urine cultures have been sent, and stools for C. diff toxin 04/29: Patient is being followed by Dr. Gomez as well. Influenza A testing has not been done. Urine and blood cultures are in progress. C. difficile toxin has been negative. Patient has been afebrile since yesterday evening. He is using his incentive spirometry. 04/30: Patient's condition continued to decline overnight and he developed septic shock and lactic acidosis requiring transfer to the intensive care unit and started on Levophed currently at [address] Maxwell for intensive care management status post right femoral triple-lumen and right brachial arterial line. Patient is also tachycardic and on a cooling blanket. Temperature max was 104.1. Dr. Gomez has changed his antibiotics to meropenem and he has had an NG tube tube placed since yesterday to low intermittent suction. Chest x-ray shows no active intrathoracic disease. Abdominal x-ray shows improving small bowel obstruction. Patient denies abdominal pain. 05/01: Patient is off the Levophed. Patient has been tachycardic and converted to atrial fibrillation. Dr. Maxwell did increase his metoprolol this morning. Cardiology to follow. Patient states he is feeling better today. Patient was sleeping and arousable easily. He has not been sleeping during most of his hospitalization but did have a good night sleep. NG tube is in place which is to be discontinued today. Patient did have bowel movement last evening. Repeat chest x-ray shows no active intrathoracic disease. Urine culture showing E. coli pansensitive. He has had good urine output and urine is clearing. All blood cultures are showing no growth. Temperature max was 101.9 at 8 PM yesterday which seems to be improving. White count is now at 32.6. Creatinine 1.9. 05/02: Patient has been hemodynamically stable and is currently on Cardizem drip and heparin drip. Noted urine is now bloody and Hong. RADHA drain had 500 mL out and creatinine to be checked. Patient has been cleared by Dr. Rodrigez for transfer out of ICU. 05/03: Repeat chest x-ray shows maybe some improvement in aeration. Cardizem and heparin drips have been discontinued. Patient is now on oral Cardizem and metoprolol Patient is in a sinus rhythm and rate is controlled. Patient continues to show improvement daily. Urine is less bloody and morbid dark bloody color now. He states this improved his status heparin drip was discontinued yesterday. Patient is to be transferred out of ICU today. Objective - Vital Signs Vital signs: Vital Signs Temp 98.2 F 05/03/17 08:00 Pulse 87 05/03/17 08:00 Resp 28 H 05/03/17 08:00 BP 161/93 05/03/17 08:00 Pulse Ox 97 05/03/17 08:00 Intake & Output 05/02/17 05/03/17 05/03/17 18:59 06:59 18:59 Intake Total 3510.667 4213.35 208 Output Total 1875 2215 365 Balance 9568.742 1123.35 -157 Weight 91.6 kg 91.49 kg Intake: IV 2184 3014 208 Fat Emulsion 20% 250 ml 21 210 In Empty Bag 1 bag @ 21 mls/hr IV DAILY@1800 [facility] Rx#:[id number] Meropenem 1 gm In Sodium 100 Chloride 0.9% 100 ml @ 100 mls/hr IVPB Q8HR [facility] Rx#:[id number] Mvi, Adult No.4 with Vit 913 1079 83 K 10 ml Trace (Conc-1Ml/ Dose) 1 ml Potassium Acetate 20 meq In Amino Acid 5%-D25w+Lytes*E* 740 ml In Water For Injection, Sterile 450 ml @ 83 mls/hr IV .BY DURATION [facility] Rx#: [id number] Sodium Chloride 0.9% 1, 1250 1625 125 000 ml @ 125 mls/hr IV . Q8H [facility] Rx#:[id number] Intake, IV Titration 7352.885 2983.35 Amount Diltiazem 125 mg In 115.667 Sodium Chloride 0.9% 100 ml @ 10 MG/HR 10 mls/hr IV .[id number] FAM Rx#: [id number] Mvi, Adult No.4 with Vit 1211 1199.35 K 10 ml Trace (Conc-1Ml/ Dose) 1 ml Potassium Acetate 20 meq In Amino Acid 5%-D25w+Lytes*E* 740 ml In Water For Injection, Sterile 450 ml @ 83 mls/hr IV .BY DURATION [facility] Rx#: [id number] Output: Drainage 680 420 90 RADHA Drain 680 420 90 Urine 1195 1795 275 Right Lower Abdomen 30 Other: Voiding Method Ileal Conduit (Right) Ileal Conduit (Right) # Bowel Movements 2 ABP, PAP, CO, CI - Last Documented Arterial Blood Pressure 157/72 - Exam - Constitutional General appearance: cooperative, no acute distress - EENT Eyes: anicteric sclerae, PERRLA, normal appearance ENT: NA/AT, normal oropharynx - Respiratory Respiratory: bilateral: CTA, negative: diminished, dullness, rales - Cardiovascular Rhythm: regular Heart sounds: normal: S1, S2 Abnormal Heart Sounds: no systolic murmur, no diastolic murmur, no rub, no S3 Gallop, no S4 Gallop, no click, no other - Gastrointestinal General gastrointestinal: hyperactive bowel sounds, soft - Integumentary Integumentary: decreased turgor, normal - Neurologic Neurologic: CNII-XII intact - Musculoskeletal Musculoskeletal: gait normal, strength equal bilaterally - Psychiatric Psychiatric: A&O x's 3, appropriate affect, intact judgment & insight - Labs CBC & Chem 7: 05/03/17 04:07 05/03/17 04:07 Labs: Abnormal Lab Results - Last 24 Hours (Table) 05/02/17 05/02/17 05/02/17 Range/Units 10:40 11:00 17:15 WBC 15.7 H 17.6 H (3.8-10.6) k/uL RBC 2.64 L 3.29 L (4.30-5.90) m/uL Hgb 7.7 L D 9.6 L D (13.0-17.5) gm/dL Hct 24.6 L 30.7 L (39.0-53.0) % Plt Count 103 L 142 L (150-450) k/uL Neutrophils # 14.2 H (1.3-7.7) k/uL Lymphocytes # 0.5 L (1.0-4.8) k/uL APTT 41.9 H (22.0-30.0) sec Chloride (98-107) mmol/L Carbon Dioxide (22-30) mmol/L BUN (9-20) mg/dL Glucose (74-99) mg/dL POC Glucose (mg/dL) (75-99) mg/dL Calcium (8.4-10.2) mg/dL 05/02/17 05/03/17 05/03/17 Range/Units 17:51 00:33 04:07 WBC (3.8-10.6) k/uL RBC (4.30-5.90) m/uL Hgb (13.0-17.5) gm/dL Hct (39.0-53.0) % Plt Count (150-450) k/uL Neutrophils # (1.3-7.7) k/uL Lymphocytes # (1.0-4.8) k/uL APTT (22.0-30.0) sec Chloride 116 H (98-107) mmol/L Carbon Dioxide 19 L (22-30) mmol/L BUN 21 H (9-20) mg/dL Glucose 109 H (74-99) mg/dL POC Glucose (mg/dL) 105 H 130 H (75-99) mg/dL Calcium 7.4 L (8.4-10.2) mg/dL 05/03/17 05/03/17 Range/Units 04:07 05:45 WBC 15.8 H (3.8-10.6) k/uL RBC 3.68 L (4.30-5.90) m/uL Hgb 10.8 L (13.0-17.5) gm/dL Hct 33.6 L (39.0-53.0) % Plt Count 128 L (150-450) k/uL Neutrophils # 13.8 H (1.3-7.7) k/uL Lymphocytes # 0.7 L (1.0-4.8) k/uL APTT (22.0-30.0) sec Chloride (98-107) mmol/L Carbon Dioxide (22-30) mmol/L BUN (9-20) mg/dL Glucose (74-99) mg/dL POC Glucose (mg/dL) 125 H (75-99) mg/dL Calcium (8.4-10.2) mg/dL Microbiology - Last 24 Hours (Table) 04/30/17 04:04 Blood Culture - Preliminary Blood No Growth after 72 hours 04/30/17 03:17 Blood Culture - Preliminary Blood No Growth after 72 hours 04/28/17 21:14 Blood Culture - Preliminary Blood No Growth after 96 hours 04/28/17 20:37 Blood Culture - Preliminary Blood No Growth after 96 hours 04/28/17 15:45 Stool Culture - Preliminary Stool Assessment and Plan Plan: 1. Sepsis with septic shock and lactic acidosis after bladder resection surgery with ileal conduit surgery, E. coli urinary tract infection is most likely source blood cultures, urine cultures. Zosyn to meropenem by Dr. Jason Maxwell consult added for intensive care management. 2. Urothelial cell carcinoma of the bladder with extension to the prostate, post radical cystoprostatectomy robotic-assisted with bilateral pelvic lymphadenectomy on 04/15/2017 stage TI G3, requiring ilial conduit urinary diverision 3 CAD follows with [facility] monitoring and evaluation advisor Dr. Munoz, consults were made to our local cardiologists secondary to irregular pulse and elevated heart rate, EKG shows sinus tachycardia with frequent PVCs, in the left bundle branch block which is chronic. Patient is on beta blockers metoprolol aspirin currently is on hold, when necessary nitro, and maintenance Imdur 60 mg daily no changes were made 4. Hyperlipidemia on Lipitor 20 daily 5. Hypertension patient was maintained on enalapril 10 mg daily at bedtime, switch over to Zestril 20 mg daily while in the hospital. Patient is currently hypotensive. 6. CKD stage II avoid hypotension monitor labs 7. GERD on maintenance PPI 8. Tachycardia from sepsis. Cardiology has been following. 9. Ileus versus small bowel obstruction. Patient has NG tube in place and Dr. Morocho is following. 10. Severe protein calorie malnutrition secondary to nothing by mouth status, NG tube, poor oral intake. TPN 11. Acute kidney injury secondary to sepsis and hypotension. 12. New onset of atrial fibrillation with rapid ventricular response. Cardizem drip and heparin drip started by cardiology and switched to oral. 13. GI prophylaxis on Protonix 14. DVT prophylaxis on subcutaneous heparin 5000 units every 24 hours Impression and plan of care have been directed as dictated by the signing physician. Gracy Vuong nurse practitioner acting as scribe for signing physician.
[2017-05-03] MEDS: FAT EMULSION 20% 250 ML in EMPTY BAG 1 BAG IV SCH (18:22)
[2017-05-03 18:27] LABS: Glucose,Whole Blood 109 mg/dL (75-99)
--- NOTE | 2017-05-03 18:49 | P.PN ---
Subjective Progress Note Date: 05/03/17 Principal diagnosis: POD #18, s/p Radical Cystoprostatectomy with Ileal Conduit Urinary Diversion The patient is tolerating diet without difficulty. He ate a grilled cheese sandwich today. He denies nausea and vomiting. His bowels are moving. He reports no significant discomfort. Objective - Vital Signs Vital signs: Vital Signs Temp 98.2 F 05/03/17 08:00 Pulse 92 05/03/17 11:00 Resp 20 05/03/17 11:00 BP 140/80 05/03/17 11:00 Pulse Ox 96 05/03/17 11:00 Intake & Output 05/02/17 05/03/17 05/03/17 18:59 06:59 18:59 Intake Total 3510.667 4213.35 657 Output Total 1875 2215 940 Balance 0882.535 3574.35 -283 Weight 91.6 kg 91.49 kg Intake: IV 2184 3014 657 Fat Emulsion 20% 250 ml 21 210 In Empty Bag 1 bag @ 21 mls/hr IV DAILY@1800 FAM Rx#:[id number] Meropenem 1 gm In Sodium 100 Chloride 0.9% 100 ml @ 100 mls/hr IVPB Q8HR FAM Rx#:[id number] Mvi, Adult No.4 with Vit 913 1079 332 K 10 ml Trace (Conc-1Ml/ Dose) 1 ml Potassium Acetate 20 meq In Amino Acid 5%-D25w+Lytes*E* 740 ml In Water For Injection, Sterile 450 ml @ 83 mls/hr IV .BY DURATION [facility] Rx#: [id number] Sodium Chloride 0.9% 1, 1250 1625 325 000 ml @ 125 mls/hr IV . Q8H FAM Rx#:[id number] Intake, IV Titration 4961.795 6334.35 Amount Diltiazem 125 mg In 115.667 Sodium Chloride 0.9% 100 ml @ 10 MG/HR 10 mls/hr IV .[id number] FAM Rx#: [id number] Mvi, Adult No.4 with Vit 1211 1199.35 K 10 ml Trace (Conc-1Ml/ Dose) 1 ml Potassium Acetate 20 meq In Amino Acid 5%-D25w+Lytes*E* 740 ml In Water For Injection, Sterile 450 ml @ 83 mls/hr IV .BY DURATION [facility] Rx#: [id number] Output: Drainage 680 420 90 RADHA Drain 680 420 90 Urine 1195 1795 850 Right Lower Abdomen 30 Other: Voiding Method Ileal Conduit (Right) Ileal Conduit (Right) Ileal Conduit ( Right) # Bowel Movements 1 ABP, PAP, CO, CI - Last Documented Arterial Blood Pressure 157/72 - Constitutional General appearance: Present: cooperative, no acute distress - Gastrointestinal Gastrointestinal Comment(s): Soft, non-distended, non-tender. Incisions clean and dry. Stoma pink and nicely budded. - Psychiatric Psychiatric: Present: A&O x's 3, appropriate affect - Labs CBC & Chem 7: 05/03/17 04:07 05/03/17 04:07 Labs: Abnormal Lab Results - Last 24 Hours (Table) 05/02/17 05/02/17 05/03/17 Range/Units 17:15 17:51 00:33 WBC 17.6 H (3.8-10.6) k/uL RBC 3.29 L (4.30-5.90) m/uL Hgb 9.6 L D (13.0-17.5) gm/dL Hct 30.7 L (39.0-53.0) % Plt Count 142 L (150-450) k/uL Neutrophils # (1.3-7.7) k/uL Lymphocytes # (1.0-4.8) k/uL Chloride (98-107) mmol/L Carbon Dioxide (22-30) mmol/L BUN (9-20) mg/dL Glucose (74-99) mg/dL POC Glucose (mg/dL) 105 H 130 H (75-99) mg/dL Calcium (8.4-10.2) mg/dL 05/03/17 05/03/17 05/03/17 Range/Units 04:07 04:07 05:45 WBC 15.8 H (3.8-10.6) k/uL RBC 3.68 L (4.30-5.90) m/uL Hgb 10.8 L (13.0-17.5) gm/dL Hct 33.6 L (39.0-53.0) % Plt Count 128 L (150-450) k/uL Neutrophils # 13.8 H (1.3-7.7) k/uL Lymphocytes # 0.7 L (1.0-4.8) k/uL Chloride 116 H (98-107) mmol/L Carbon Dioxide 19 L (22-30) mmol/L BUN 21 H (9-20) mg/dL Glucose 109 H (74-99) mg/dL POC Glucose (mg/dL) 125 H (75-99) mg/dL Calcium 7.4 L (8.4-10.2) mg/dL Microbiology - Last 24 Hours (Table) 04/30/17 04:04 Blood Culture - Preliminary Blood No Growth after 72 hours 04/30/17 03:17 Blood Culture - Preliminary Blood No Growth after 72 hours 04/28/17 21:14 Blood Culture - Preliminary Blood No Growth after 96 hours 04/28/17 20:37 Blood Culture - Preliminary Blood No Growth after 96 hours 04/28/17 15:45 Stool Culture - Preliminary Stool Assessment and Plan (1) Malignant neoplasm of bladder wall Current Visit: Yes Status: Acute Code(s): C67.9 - MALIGNANT NEOPLASM OF BLADDER, UNSPECIFIED SNOMED Code(s): 17717392 Plan: The patient is currently afebrile, and his WBC count today has again decreased. He is being treated for an E. coli UTI. Other cultures have been negative. RADHA fluid has a creatinine level consistent with serum, and I anticipate that the drain will be removed soon. Antibiotics will be continued, and he will be transferred to the floor once a bed is available.
[2017-05-03 19:55] LABS: Glucose,Whole Blood 97 mg/dL (75-99)
[2017-05-03] MEDS: LISINOPRIL 10 MG TAB PO SCH (20:10)
[2017-05-03] MEDS: ATORVASTATIN 20 MG TAB PO SCH (20:10)
--- NOTE | 2017-05-03 21:37 | P.PN ---
Subjective Progress Note Date: 05/03/17 Principal diagnosis: sepsis Patient gives history that he knows with bladder cancer under the care of urology and was to scheduled for surgery at the end of April. Patient normally spends forbes in [place] and returned there after procedures January were done. Unfortunately he started having urinary and rectal bleeding that was profuse and went into the emergency center. A Hong catheter was placed and patient followed up with a urologist. Patient did have the Hong catheter changed but due to significant bleeding patient return to the emergency center. Bladder was flushed 24 hours and then he had cauterization done to stop the bleeding but surgeon in [place] instructed him to have bladder removed as soon as possible. Patient return to [place] and underwent surgery on April 15 of robotic-assisted laparoscopic radical cystoprostatectomy, bilateral pelvic lymphadenectomy with ileal conduit urinary diversion and RADHA drain placement with Dr. Liz and Dr. Andino. 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 Patient 's recovery has been complicated by postop ileus and he had an NG tube in place for 3 days which was subsequently removed, cardiology was consulted on April 27 for tachycardia. He has been started on TPN for severe protein calorie malnutrition. He has developed loose bowel movements for which C. difficile toxin was negative. April 28 abdominal film showed nonspecific abdomen correlate for small bowel obstruction. Severe ileus or enteritis also in the differential. CAT scan of the abdomen and pelvis without contrast was also done yesterday that revealed status post cystectomy, small amount of residual air adjacent to the dome of the liver, bilateral double-J stents and mild hydronephrosis of both kidneys, uncomplicated diverticulosis of the sigmoid colon, small hiatal hernia, mild prominence of small bowel without definite transition point consult was added for medicine at that time and due to fever 102.2 and continued tachycardia, ID consult was requested. A shunt is currently on a clear liquid diet and tolerating but refusing protein supplements. He was having frequent loose bowel movements. Ileal conduit is draining as well as RADHA drain. Yesterday the patient has severe worsening of his status. His fever went to 104. He became hypotensive, tachypneic and tachycardic. When I was contacted I advised transfer to the intensive care unit. Fluid resuscitation was begun. Antibiotic therapy was reevaluated and is now changed to meropenem with concerns to resistant gram-negative pathogens. Patient improved to the day yesterday The patient improved after resuscitation and was weaned off the vasopressor. This tachycardia has resolved. Blood pressure is improving and he feels better. His generalized having abdominal pain has improved. NG tube is been removed he is eating well without acute difficulties. No abdominal pains. Patient however developed atrial fibrillation with a rapid ventricular response and is responding to a Cardizem drip. Fevers resolved feeling much better today. Objective - Vital Signs Vital signs: Vital Signs Temp 98.0 F 05/03/17 20:00 Pulse 92 05/03/17 21:00 Resp 20 05/03/17 21:00 BP 152/96 05/03/17 21:00 Pulse Ox 97 05/03/17 21:00 Intake & Output 05/03/17 05/03/17 05/04/17 06:59 18:59 06:59 Intake Total 5403.35 1633 100 Output Total 2215 2835 465 Balance 3188.35 -1202 -365 Weight 91.49 kg Intake: IV 3014 1213 100 0.9 @ 50 50 Fat Emulsion 20% 250 ml 210 In Empty Bag 1 bag @ 21 mls/hr IV DAILY@1800 [facility] Rx#:[id number] Meropenem 1 gm In Sodium 100 Chloride 0.9% 100 ml @ 100 mls/hr IVPB Q8HR [facility] Rx#:[id number] Mvi, Adult No.4 with Vit 1079 538 K 10 ml Trace (Conc-1Ml/ Dose) 1 ml Potassium Acetate 20 meq In Amino Acid 5%-D25w+Lytes*E* 740 ml In Water For Injection, Sterile 450 ml @ 83 mls/hr IV .BY DURATION [facility] Rx#: [id number] Sodium Chloride 0.9% 1, 1625 675 50 000 ml @ 125 mls/hr IV . Q8H [facility] Rx#:[id number] Intake, IV Titration 2389.35 Amount Amino Acid 5%-D25w+Lytes* 1190 E* 740 ml Water For Injection, Sterile 450 ml @ 83 mls/hr IV .BY DURATION [facility] Rx#: [id number] Mvi, Adult No.4 with Vit 1199.35 K 10 ml Trace (Conc-1Ml/ Dose) 1 ml Potassium Acetate 20 meq In Amino Acid 5%-D25w+Lytes*E* 740 ml In Water For Injection, Sterile 450 ml @ 83 mls/hr IV .BY DURATION [facility] Rx#: [id number] Oral 420 Output: Drainage 420 810 90 RADHA Drain 420 810 90 Urine 1794 Other: Voiding Method Ileal Conduit (Right) Ileal Conduit (Right) Ileal Conduit ( Right) # Bowel Movements 1 ABP, PAP, CO, CI - Last Documented Arterial Blood Pressure 157/72 - Exam Gen: This is a 66-year-old male. He is getting up in bed and appears to be somewhat uncomfortable. HEENT: Head is atraumatic, normocephalic. Pupils equal, round. Sclerae is anicteric. NECK: Supple. No JVD. No lymphadenopathy. No thyromegaly. LUNGS: Clear to auscultation. No wheezes or rhonchi. No intercostal retractions. HEART: Regular rate and rhythm. No murmur. ABDOMEN: Soft. Bowel sounds are present. No masses. The abdominal tenderness remains improved. Ileal conduit to the right lower abdomen has urine drainage that was frankly bloody but improving Stoma red and moist. RADHA drain to the left abdominal wall with serous drainage. EXTREMITIES: No pedal edema. No calf tenderness. NEUROLOGICAL: Patient is awake, alert and oriented x3. - Labs CBC & Chem 7: 05/03/17 04:07 05/03/17 04:07 Labs: Abnormal Lab Results - Last 24 Hours (Table) 05/03/17 05/03/17 05/03/17 Range/Units 00:33 04:07 04:07 WBC 15.8 H (3.8-10.6) k/uL RBC 3.68 L (4.30-5.90) m/uL Hgb 10.8 L (13.0-17.5) gm/dL Hct 33.6 L (39.0-53.0) % Plt Count 128 L (150-450) k/uL Neutrophils # 13.8 H (1.3-7.7) k/uL Lymphocytes # 0.7 L (1.0-4.8) k/uL Chloride 116 H (98-107) mmol/L Carbon Dioxide 19 L (22-30) mmol/L BUN 21 H (9-20) mg/dL Glucose 109 H (74-99) mg/dL POC Glucose (mg/dL) 130 H (75-99) mg/dL Calcium 7.4 L (8.4-10.2) mg/dL 05/03/17 05/03/17 05/03/17 Range/Units 05:45 12:56 18:25 WBC (3.8-10.6) k/uL RBC (4.30-5.90) m/uL Hgb (13.0-17.5) gm/dL Hct (39.0-53.0) % Plt Count (150-450) k/uL Neutrophils # (1.3-7.7) k/uL Lymphocytes # (1.0-4.8) k/uL Chloride (98-107) mmol/L Carbon Dioxide (22-30) mmol/L BUN (9-20) mg/dL Glucose (74-99) mg/dL POC Glucose (mg/dL) 125 H 111 H 109 H (75-99) mg/dL Calcium (8.4-10.2) mg/dL Microbiology - Last 24 Hours (Table) 04/28/17 15:45 Stool Culture - Final Stool 04/30/17 04:04 Blood Culture - Preliminary Blood No Growth after 72 hours 04/30/17 03:17 Blood Culture - Preliminary Blood No Growth after 72 hours 04/28/17 21:14 Blood Culture - Preliminary Blood No Growth after 96 hours 04/28/17 20:37 Blood Culture - Preliminary Blood No Growth after 96 hours Laboratory Results WBC 15.8 k/uL (3.8-10.6) H 05/03/17 04:07 RBC 3.68 m/uL (4.30-5.90) L 05/03/17 04:07 Hgb 10.8 gm/dL (13.0-17.5) L 05/03/17 04:07 Hct 33.6 % (39.0-53.0) L 05/03/17 04:07 MCV 91.4 fL (80.0-100.0) 05/03/17 04:07 MCH 29.4 pg (25.0-35.0) 05/03/17 04:07 MCHC 32.2 g/dL (31.0-37.0) 05/03/17 04:07 RDW 14.6 % (11.5-15.5) 05/03/17 04:07 Plt Count 128 k/uL (150-450) L 05/03/17 04:07 Neutrophils % 87 % 05/03/17 04:07 Neutrophils % (Manual) 60 % 05/01/17 04:20 Band Neutrophils % 34 % 05/01/17 04:20 Lymphocytes % 4 % 05/03/17 04:07 Lymphocytes % (Manual) 4 % 05/01/17 04:20 Monocytes % 4 % 05/03/17 04:07 Monocytes % (Manual) 2 % 05/01/17 04:20 Eosinophils % 2 % 05/03/17 04:07 Eosinophils % (Manual) 1 % 05/01/17 04:20 Basophils % 1 % 05/03/17 04:07 Metamyelocytes % 4 % 04/30/17 03:17 Neutrophils # 13.8 k/uL (1.3-7.7) H 05/03/17 04:07 Neutrophils # (Manual) 30.60 k/uL (1.3-7.7) H 05/01/17 04:20 Lymphocytes # 0.7 k/uL (1.0-4.8) L 05/03/17 04:07 Lymphocytes # (Manual) 1.30 k/uL (1.0-4.8) 05/01/17 04:20 Monocytes # 0.6 k/uL (0-1.0) 05/03/17 04:07 Monocytes # (Manual) 0.65 k/uL (0-1.0) 05/01/17 04:20 Eosinophils # 0.3 k/uL (0-0.7) 05/03/17 04:07 Eosinophils # (Manual) 0.33 k/uL (0-0.7) 05/01/17 04:20 Basophils # 0.1 k/uL (0-0.2) 05/03/17 04:07 Metamyelocytes # (Man) 0.14 k/uL (0) H 04/30/17 03:17 Nucleated RBCs 0 /100 WBC (0-0) 05/01/17 04:20 Manual Slide Review Performed 05/02/17 10:40 Toxic Granulation Present 05/01/17 04:20 Toxic Vacuolation Present 05/01/17 04:20 Large Platelets Present 05/01/17 04:20 Polychromasia Present 05/01/17 04:20 Hypochromasia Moderate 05/03/17 04:07 PT 10.0 sec (9.0-12.0) 05/01/17 12:18 INR 1.0 (<1.2) 05/01/17 12:18 APTT 41.9 sec (22.0-30.0) H 05/02/17 11:00 Sodium 141 mmol/L (137-145) 05/03/17 04:07 Potassium 4.2 mmol/L (3.5-5.1) 05/03/17 04:07 Chloride 116 mmol/L (98-107) H 05/03/17 04:07 Carbon Dioxide 19 mmol/L (22-30) L 05/03/17 04:07 Anion Gap 6 mmol/L 05/03/17 04:07 BUN 21 mg/dL (9-20) H 05/03/17 04:07 Creatinine 1.20 mg/dL (0.66-1.25) 05/03/17 04:07 Est GFR (MDRD) Af Amer >60 (>60 ml/min/1.73 sqM) 05/03/17 04:07 Est GFR (MDRD) Non-Af >60 (>60 ml/min/1.73 sqM) 05/03/17 04:07 Glucose 109 mg/dL (74-99) H 05/03/17 04:07 POC Glucose (mg/dL) 97 mg/dL (75-99) 05/03/17 19:54 POC Glu Inside Meter Tester Madeleine Hancock 05/03/17 19:[address] Glu mg/dL 105 04/27/17 07:28 Hemoglobin A1c 5.3 % (4.0-6.0) 04/27/17 07:28 Lactic Ac Sepsis Rflx Y 04/30/17 03:50 Plasma Lactic Acid Sadiq 2.1 mmol/L (0.7-2.0) H* 04/30/17 07:23 Calcium 7.4 mg/dL (8.4-10.2) L 05/03/17 04:07 Ionized Calcium Gary 4.8 mg/dL (4.5-5.3) 05/01/17 04:20 Phosphorus 2.6 mg/dL (2.5-4.5) 05/03/17 04:07 Magnesium 2.3 mg/dL (1.6-2.3) 05/03/17 04:07 Total Bilirubin 0.6 mg/dL (0.2-1.3) 04/23/17 08:43 AST 27 U/L (17-59) 04/23/17 08:43 ALT 64 U/L (21-72) 04/23/17 08:43 Alkaline Phosphatase 66 U/L (38-126) 04/23/17 08:43 NT-Pro-B Natriuret Pep 86 pg/mL 04/30/17 03:17 Total Protein 5.0 g/dL (6.3-8.2) L 04/23/17 08:43 Albumin 1.8 g/dL (3.5-5.0) L 05/01/17 04:20 Triglycerides 91 mg/dL (<150) 04/26/17 11:37 TSH 1.950 mIU/L (0.465-4.680) 04/27/17 07:28 Urine Color Yellow 04/28/17 12:50 Urine Appearance Cloudy (Clear) 04/28/17 12:50 Urine pH 6.5 (5.0-8.0) 04/28/17 12:50 Ur Specific Clancy 1.008 (1.001-1.035) 04/28/17 12:50 Urine Protein 1+ (Negative) H 04/28/17 12:50 Urine Glucose (UA) Negative (Negative) 04/28/17 12:50 Urine Ketones Negative (Negative) 04/28/17 12:50 Urine Blood Moderate (Negative) H 04/28/17 12:50 Urine Nitrite Positive (Negative) 04/28/17 12:50 Urine Bilirubin Negative (Negative) 04/28/17 12:50 Urine Urobilinogen <2.0 mg/dL (<2.0) 04/28/17 12:50 Ur Leukocyte Esterase Large (Negative) H 04/28/17 12:50 Urine RBC 8 /hpf (0-5) H 04/28/17 12:50 Urine WBC >182 /hpf (0-5) H 04/28/17 12:50 Urine WBC Clumps Many /hpf (None) H 04/28/17 12:50 Urine Bacteria Many /hpf (None) H 04/28/17 12:50 Ur Random Creatinine 2.5 mg/dL 05/02/17 10:15 C. difficile (EIA) Intrp Negative (Negative) 04/28/17 20:50 Miscellaneous Test Creatinine, Body Fld 04/21/17 08:29 Misc Test Result See Comment 04/21/17 08:29 Blood Type A Positive 04/14/17 09:45 Blood Type Confirm A Positive 04/15/17 10:24 Blood Type Recheck CABO Indicated 04/14/17 09:45 Antibody Screen NEGATIVE 04/14/17 09:45 Spec Expiration Date 04/17/2017 - 4515 04/14/17 09:45 Microbiology 04/28/17 15:45 Stool Stool Culture - Final 04/30/17 04:04 Blood Blood Culture - Preliminary No Growth after 72 hours 04/30/17 03:17 Blood Blood Culture - Preliminary No Growth after 72 hours 04/28/17 21:14 Blood Blood Culture - Preliminary No Growth after 96 hours 04/28/17 20:37 Blood Blood Culture - Preliminary No Growth after 96 hours 04/28/17 15:45 Stool Stool for WBCs - Final 04/28/17 12:50 Urine,Suprapubic Urine Culture - Final Escherichia coli Assessment and Plan (1) Malignant neoplasm of bladder wall Current Visit: Yes Status: Acute Code(s): C67.9 - MALIGNANT NEOPLASM OF BLADDER, UNSPECIFIED SNOMED Code(s): 30099623 (2) Gram-negative sepsis with organ dysfunction Narrative/Plan: 66 year old male with bladd er cancer status post resection yesterday did have fever and with a recent surgical interventions antimicrobial therapy with piperacillin tazobactam is being utilized to cover for gram-negative bacilli as well as intra-abdominal anaerobic pathogens staph and strep are also covered. No history of MRSA. Last night the patient had a major change of his status with tachycardia, tachypnea, hypotension and fever to 104. He was moved to the intensive care unit and received fluid resuscitation, and vasopressor support. He was noticed to have a significant change of leukopenia consistent with his overwhelming gram -negative infection. Antimicrobial therapy was changed to meropenem. The significant patient's feeling better. His hypotension is resolving with reducing doses of vasopressor. Tachycardia has resolved. He is no longer tachypnea. Urinary output has improved. White blood cell count remains elevated in response to his significant sepsis and bacteremia. However clinically had a good response to the current antimicrobial therapy of meropenem. This will continue for the moment. We'll be able to have oral antibiotic therapy at discharge High-grade fever has resolved. Atrial fibrillation is coming under better control. His appetite is good and TPN is now been discontinued. Follow blood cultures in process negative so far. Continue supportive care. Current Visit: Yes Status: Acute Code(s): A41.50 - GRAM-NEGATIVE SEPSIS, UNSPECIFIED; R65.20 - SEVERE SEPSIS WITHOUT SEPTIC SHOCK SNOMED Code(s): 725478281 (3) Acute renal failure Current Visit: Yes Status: Acute Code(s): N17.9 - ACUTE KIDNEY FAILURE, UNSPECIFIED SNOMED Code(s): 63825425 (4) Leukopenia Current Visit: Yes Status: Acute Code(s): D72.819 - DECREASED WHITE BLOOD CELL COUNT, UNSPECIFIED SNOMED Code(s): 22156668
[2017-05-03] MEDS: ONDANSETRON 4 MG/2 ML VIAL IVP PRN (22:01)
[2017-05-04] MEDS: HYDROmorphone 2 MG/ML 1 ML SYRINGE IVP PRN (02:20)
[2017-05-04 06:54] LABS: Basophils # (A) 0.1 k/uL (0-0.2); Basophils % (A) 1 %; Eosinophils # (A) 0.3 k/uL (0-0.7); Eosinophils % (A) 2 %; HCT 35.9 % (39.0-53.0); HGB 11.2 gm/dL (13.0-17.5); Hypochromasia Slight; Lymphocytes # (A) 1.2 k/uL (1.0-4.8); Lymphocytes % (A) 7 %; MCH 28.6 pg (25.0-35.0); MCHC 31.2 g/dL (31.0-37.0); MCV 91.8 fL (80.0-100.0); Mean Platelet Volume 9.9; Monocytes # (A) 0.6 k/uL (0-1.0); Monocytes % (A) 4 %; Neutrophils # (A) 14.1 k/uL (1.3-7.7); Neutrophils % (A) 84 %; RDW 14.9 % (11.5-15.5); WBC 16.8 k/uL (3.8-10.6)
[2017-05-04 06:57] LABS: Platelet Count 199 k/uL (150-450)
[2017-05-04 07:07] LABS: Anion Gap 7 mmol/L; Blood Urea Nitrogen 19 mg/dL (9-20); Calcium 7.9 mg/dL (8.4-10.2); Carbon Dioxide 19 mmol/L (22-30); Chloride 116 mmol/L (98-107); Glucose 95 mg/dL (74-99); Magnesium 2.2 mg/dL (1.6-2.3); Phosphorus 2.8 mg/dL (2.5-4.5); Potassium 4.3 mmol/L (3.5-5.1); Sodium 142 mmol/L (137-145)
[2017-05-04 07:30] LABS: Glucose,Whole Blood 88 mg/dL (75-99)
--- NOTE | 2017-05-04 07:49 | PN ---
PROGRESS NOTE Mr. Roe is a 66-year-old male who underwent radical cystoprostatectomy with ileal conduit urinary diversion. He was seen for evaluation of atrial fibrillation. He has had an episode of septic shock from urinary tract infection that has resolved. He has continued to be in sinus mechanism. He is doing well this morning. He is denying any chest pain. No dizziness. No palpitation. He denies any nausea. I reviewed the workup that was done by his human relations manager at [facility] that showed that he had a prior percutaneous revascularization and subsequently repeat cardiac catheterization in 2014 with no evidence of progression of disease. There is no documentation of atrial fibrillation. He continues to be on Lipitor 20 mg daily, diltiazem 30 mg 3 times a day, isosorbide mononitrate 60 mg daily, lisinopril 10 mg daily, metoprolol succinate 100 mg twice a day. PHYSICAL EXAMINATION: Blood pressure running in the 140s with the heart rate in the 80s. LUNGS: Clear. HEART: Regular rate and rhythm. S1, S2. No S3. No rub. ABDOMEN: Soft, nontender. Ileostomy in place. EXTREMITIES: No edema. LAB DATA: Lab data revealed BUN and creatinine 19 and 1.15. Hemoglobin of 11.2. IMPRESSION: 1. Status post cystoprostatectomy with ileal conduit urinary diversion for malignancy of the bladder wall, stable. 2. Paroxysmal atrial fibrillation. 3. History of hyperlipidemia. 4. History of hypertension. RECOMMENDATION: From the cardiac standpoint, will continue present therapy. I will add to his regimen aspirin if it is agreeable with his surgeon. Otherwise, we will continue clinical observation. He should be able to be transferred to surgical floor and we will see him on as needed basis. Please feel free to call us for any questions. MMODL / IJN: [id number] /
[2017-05-04] MEDS: INSULIN ASPART 100 UNIT/ML 1 ML 10 ML VIAL SQ SCH ×2 (07:54→11:51)
[2017-05-04] MEDS ORDERED: ASPIRIN 81 MG PO SCH (09:00)
[2017-05-04] MEDS: MEROPENEM 1 GM in SODIUM CHLORIDE 0.9% 100 ML IVPB SCH ×2 (09:14→15:13)
[2017-05-04] MEDS: DILTIAZEM ORAL 30 MG TAB PO SCH ×2 (09:15→15:11)
[2017-05-04] MEDS: ISOSORBIDE MONONITRATE ER 60 MG TAB.ER.24H PO SCH (09:16)
[2017-05-04] MEDS: METOPROLOL SUCCINATE (ER) 100 MG TAB.ER.24H PO SCH (09:16)
[2017-05-04] MEDS: PANTOPRAZOLE 40 MG/10 ML VIAL IV SCH (09:16)
--- NOTE | 2017-05-04 09:47 | P.PN ---
Subjective Progress Note Date: 05/04/17 Principal diagnosis: Acute septic shock/urinary tract infection Progress note dated 05/02/2017 This is a 66-year-old male with a history of acute septic shock secondary to urinary tract infection. The patient status post robotic laparoscopic radical cystoprostatectomy bilateral pelvic lymphadenectomy and ileal conduit with urinary diversion, status post RADHA drain placement. The patient does have a history of prostate cancer. The patient had abdominal pain which could be consistent with an acute ileus or bowel obstruction significant protein calorie malnutrition CAD with previous stent placement hypertension hyperlipidemia and chronic kidney disease, stage II. The patient seemed be doing relatively well. The patient's chest x-ray does show some atelectasis at the left lung base. I don't believe there is pneumonia there. The patient is currently receiving no supplemental oxygen. The patient is on a saline IV at 1 25 mL an hour. The patient's getting Cardizem drip at 10 mg an hour heparin via weightbase protocol. The patient also getting TPN at 83 mL an hour. Again chest x-ray looks pretty good and shows minimal infiltrate versus atelectasis at the left lung base. The patient was admitted on April 15. He came to the ICU on April 30. Progress note dated 05/03/2017 This is a 66-year-old male with a history of acute septic shock secondary to urinary tract infection/urosepsis. The patient is a status post robotic laparoscopic radical cystoprostatectomy patient he also had bilateral pelvic lymphadenectomy with ileal conduit and urinary diversion. He also had a RADHA drain placed. The patient seemed be resting relatively comfortably. No major complaints. No respiratory issues. No belly pain. The patient does have a history of hypertension hyperlipidemia stage II chronic kidney disease and CAD with previous stent. Other than that the patient seemed be doing relatively well. Yesterday he was on IV Cardizem and IV heparin. Also been discontinued. He is getting no supplemental oxygen. The patient's on an IV of normal saline at 125 an hour and TPN at 83 mL an hour. He can be transferred to the general medical floor later today. On 10/02/2017 patient remains in the intensive care, awaiting a bed on medical surgical floor, patient is an overflow patient. Remains hemodynamically stable , afebrile, not on any drips were pressors. On room air with O2 sat at 97%. Lung sounds are clear, no rhonchi, no rales or wheezes noted. Lab work has been reviewed, WBC is 16.8, hemoglobin is 11.2, sodium is 142, serum potassium is 4.3, chloride is 116, CO2 is 19, BUN is 19, and creatinine is 1.15. Chest x- ray film has been reviewed, no acute pulmonary process noted. She is tolerating regular diet, abdominal incisions are clean dry and intact, RADHA drain on left-sided abdomen is draining moderate amount of clear serous drainage. He is compliant with his incentive spirometer, is able to achieve 1500 on the today. No acute complaints, no acute events overnight. From the pulmonary standpoint patient even be discharged home today pending clearance from surgery and infectious disease. Objective - Vital Signs Vital signs: Vital Signs Temp 98.2 F 05/04/17 04:00 Pulse 80 05/04/17 07:00 Resp 24 05/04/17 07:00 BP 156/88 05/04/17 07:00 Pulse Ox 97 05/04/17 07:00 Intake & Output 05/03/17 05/04/17 05/04/17 18:59 06:59 18:59 Intake Total 1633 915 Output Total 2835 2555 Balance -1202 -1640 Weight 93.2 kg Intake: IV 1213 700 0.9 @ 50 550 Meropenem 1 gm In Sodium 100 Chloride 0.9% 100 ml @ 100 mls/hr IVPB Q8HR FAM Rx#:[id number] Mvi, Adult No.4 with Vit 538 K 10 ml Trace (Conc-1Ml/ Dose) 1 ml Potassium Acetate 20 meq In Amino Acid 5%-D25w+Lytes*E* 740 ml In Water For Injection, Sterile 450 ml @ 83 mls/hr IV .BY DURATION FAM Rx#: [id number] Sodium Chloride 0.9% 1, 675 50 000 ml @ 125 mls/hr IV . Q8H FAM Rx#:[id number] Oral 420 Tube Feeding 215 Output: Drainage 810 610 RADHA Drain 810 610 Urine 2024 1944 Other: Voiding Method Ileal Conduit (Right) Ileal Conduit (Right) # Bowel Movements 1 ABP, PAP, CO, CI - Last Documented Arterial Blood Pressure 157/72 - Exam GENERAL EXAM: Alert, active, comfortable in no apparent distress. HEAD: Normocephalic/atraumatic. EYES: Normal reaction of pupils, equal size. Conjunctiva pink, sclera white. NOSE: Clear with pink turbinates. THROAT: No erythema or exudates. NECK: No masses, no JVD, no thyroid enlargement, no adenopathy. CHEST: No chest wall deformity. Symmetrical expansion. LUNGS: Equal air entry with no crackles, wheeze, rhonchi or dullness. CVS: Regular rate and rhythm, normal S1 and S2, no gallops, no murmurs, no rubs ABDOMEN: Soft, nontender. No hepatosplenomegaly, normal bowel sounds, no guarding or rigidity. Abdominal incisions from laparoscopic surgery are clean dry and intact, closed with Dermabond, left-sided RADHA drain is intact and draining moderate amount of clear serous drainage. EXTREMITIES: No clubbing, no edema, no cyanosis, 2+ pulses and upper and lower extremities. MUSCULOSKELETAL: Muscle strength and tone normal. SPINE: No scoliosis or deformity SKIN: No rashes CENTRAL NERVOUS SYSTEM: Alert and oriented -3. No focal deficits, tone is normal in all 4 extremities. PSYCHIATRIC: Alert and oriented -3. Appropriate affect. Intact judgment and insight. - Labs CBC & Chem 7: 05/04/17 06:40 05/04/17 06:40 Labs: Abnormal Lab Results - Last 24 Hours (Table) 05/03/17 05/03/17 05/04/17 Range/Units 12:56 18:25 06:40 WBC (3.8-10.6) k/uL RBC (4.30-5.90) m/uL Hgb (13.0-17.5) gm/dL Hct (39.0-53.0) % Neutrophils # (1.3-7.7) k/uL Chloride 116 H (98-107) mmol/L Carbon Dioxide 19 L (22-30) mmol/L POC Glucose (mg/dL) 111 H 109 H (75-99) mg/dL Calcium 7.9 L (8.4-10.2) mg/dL 05/04/17 Range/Units 06:40 WBC 16.8 H (3.8-10.6) k/uL RBC 3.90 L (4.30-5.90) m/uL Hgb 11.2 L (13.0-17.5) gm/dL Hct 35.9 L (39.0-53.0) % Neutrophils # 14.1 H (1.3-7.7) k/uL Chloride (98-107) mmol/L Carbon Dioxide (22-30) mmol/L POC Glucose (mg/dL) (75-99) mg/dL Calcium (8.4-10.2) mg/dL Microbiology - Last 24 Hours (Table) 04/28/17 15:45 Stool Culture - Final Stool 04/30/17 04:04 Blood Culture - Preliminary Blood No Growth after 96 hours 04/30/17 03:17 Blood Culture - Preliminary Blood No Growth after 96 hours 04/28/17 21:14 Blood Culture - Preliminary Blood No Growth after 120 hours 04/28/17 20:37 Blood Culture - Preliminary Blood No Growth after 120 hours Assessment and Plan Plan: Assessment: 1 acute septic shock, most likely source is urinary tract infection, however the possibility of abdominal sepsis is not entirely ruled out. Blood cultures remain negative, urine culture was positive for E. coli. Patient has significantly improved. Currently is hemodynamically stable, off all vasopressors. 2 status post robotic laparoscopic radical cystoscopy prostatectomy, bilateral pelvic lymphadenectomy with ilial conduit and urinary diversion, with RADHA drain placement for bladder cancer and prostate cancer. 3 acute ileus or possible small bowel obstruction requiring nasogastric tube placement.clinically improving today 4 protein calorie malnutrition patient was started on TPN 5 urothelial carcinoma and prostate carcinoma, status post surgery as noted above. Initial surgery was done on 04/15/2017 6 history of underlying coronary artery disease and previous stent placement, presently being followed by cardiology. 7 history of hypertension, 8 history of hyperlipidemia 9 history of chronic kidney disease, stage II.however the patient seems to have an acute kidney injury from his septic shock presentation and sepsis, most likely secondary to acute tubular necrosis. Recommendation: Continue pulmonary toileting, increase activity, increase ambulation. Patient is on room air, vital signs are stable, no acute complaints, tolerating regular diet. No acute events overnight. Awaiting a bed on medical surgical floor. From pulmonary/critical care standpoint patient could be considered for discharge today pending clearance from infectious disease service and surgery. Continue antibiotics per ID service recommendation I performed a history & physical examination of the patient and discussed their management with my nurse practitioner, Alessandra Avila. I reviewed the nurse practitioner's note and agree with the documented findings and plan of care. Lung sounds are clear. The findings and the impression was discussed with the patient. I attest to the documentation by the nurse practitioner. Time with Patient: Less than 30
[2017-05-04 10:56] VITALS: TEMP 97.7
--- NOTE | 2017-05-04 11:22 | XR ---
EXAMINATION TYPE: XR chest 1V DATE OF EXAM: 05/04/2017 COMPARISON: Prior chest x-ray 05/03/2017 HISTORY: Shortness of breath TECHNIQUE: Single frontal view of the chest is obtained. FINDINGS: There is no focal air space opacity, pleural effusion, or pneumothorax seen. The cardiac silhouette size is within normal limits. The osseous structures are intact. IMPRESSION: No acute process.
[2017-05-04 11:46] LABS: Glucose,Whole Blood 95 mg/dL (75-99)
[2017-05-04] MEDS: SODIUM CHLORIDE 0.9% 1,000 ML IV SCH (11:50)
--- NOTE | 2017-05-04 13:11 | P.PN ---
Subjective Progress Note Date: 05/04/17 Principal diagnosis: This is a 66-year-old gentleman known to my practice, with underlying history of CAD, hypertension, COPD, impaired fasting hyperglycemia admitted under service of Dr. 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 Andino and Dr. Liz on 04/15/2017. He was seen in our clinic for Medicare physical in October 2016 and complained of hematospermia, referral was made to Dr. Andino, for repeat cystoscopy and initial CAT scan of the abdomen and pelvis failed to reveal any significant abnormal pathology in the bladder except for calcification in the prostate, PSA in the past was 0.5, in January 2016. He has this problem since 2014 bladder ultrasound shows nonobstructing renal calculi for which she originally saw Dr. Gerard, and was followed by urology since then, cystoscopy was done with the biopsy in February 2017,.The initial biopsy showed the urothelial bladder carcinoma,his involves the left posterior lateral bladder wall and post direct urethra, he also has a left bladder diverticulum containing tumor, date for initial biopsy is February 2017 however they have requested a [place] surgeon to due the primary procedure this was scheduled to be done in April 2017, the surgery was delayed to accommodate this schedule of 4 urological specialist to perform the surgery, hence, patient had left to [place] in January 2017 travel back and forth to [place] for the biopsy thereafter he went back to [place] however with his another attack of hematuria, and hematospermia, they have requested that he come in emergently to have the bladder surgery done, procedure was done on 04/15/2018 for the ileal diversion and robotic-assisted radical cystoprostatectomy and bilateral pelvic lymphadenectomy During the perioperative recovery course, patient had intractable nausea and vomiting for which an NG tube was placed, CAT scan of the abdomen and pelvis was performed showing double-J stents bilaterally, mild bilateral hydronephrosis , spleen liver and gallbladder is unremarkable, scant amount of free air adjacent to the dome of the liver most likely secondary to previous surgery, uncomplicated mild diverticulosis of the sigmoid colon without any evidence off diverticulitis, appendix is not visualized no evidence of blastic metastasis stasis mild prominence of small bowel without a definite transition point, consult was made to Dr. Morocho general surgery Patient was noted to be febrile on April 24 however it is not sustained T-max at that time was 99.8, however fever is now 102.2, patient has diarrhea, abdominal pain, no sinus congestion no cough. Patient was given Rocephin, and would start patient on Zosyn with consults Dr. Gomez, blood cultures, influenza testing, urine cultures have been sent, and stools for C. diff toxin 04/29: Patient is being followed by Dr. Gomez as well. Influenza A testing has not been done. Urine and blood cultures are in progress. C. difficile toxin has been negative. Patient has been afebrile since yesterday evening. He is using his incentive spirometry. 04/30: Patient's condition continued to decline overnight and he developed septic shock and lactic acidosis requiring transfer to the intensive care unit and started on Levophed currently at [address] Maxwell for intensive care management status post right femoral triple-lumen and right brachial arterial line. Patient is also tachycardic and on a cooling blanket. Temperature max was 104.1. Dr. Gomez has changed his antibiotics to meropenem and he has had an NG tube tube placed since yesterday to low intermittent suction. Chest x-ray shows no active intrathoracic disease. Abdominal x-ray shows improving small bowel obstruction. Patient denies abdominal pain. 05/01: Patient is off the Levophed. Patient has been tachycardic and converted to atrial fibrillation. Dr. Maxwell did increase his metoprolol this morning. Cardiology to follow. Patient states he is feeling better today. Patient was sleeping and arousable easily. He has not been sleeping during most of his hospitalization but did have a good night sleep. NG tube is in place which is to be discontinued today. Patient did have bowel movement last evening. Repeat chest x-ray shows no active intrathoracic disease. Urine culture showing E. coli pansensitive. He has had good urine output and urine is clearing. All blood cultures are showing no growth. Temperature max was 101.9 at 8 PM yesterday which seems to be improving. White count is now at 32.6. Creatinine 1.9. 05/02: Patient has been hemodynamically stable and is currently on Cardizem drip and heparin drip. Noted urine is now bloody in [place]. RADHA drain had 500 mL out and creatinine to be checked. Patient has been cleared by Dr. Rodrigez for transfer out of ICU. 05/03: Repeat chest x-ray shows maybe some improvement in aeration. Cardizem and heparin drips have been discontinued. Patient is now on oral Cardizem and metoprolol Patient is in a sinus rhythm and rate is controlled. Patient continues to show improvement daily. Urine is less bloody and morbid dark bloody color now. He states this improved his status heparin drip was discontinued yesterday. Patient is to be transferred out of ICU today. 05/04: Patient has been cleared for discharge home by Dr. Rodrigez. Dr. Gomez as recommended Cipro for 21 day course. Medication reconciliation will be completed. Cardizem is also a new medication and due to interaction with simvastatin, this was decreased from 40 mg to 20 mg. Objective - Vital Signs Vital signs: Vital Signs Temp 98.2 F 05/04/17 04:00 Pulse 80 05/04/17 07:00 Resp 24 05/04/17 07:00 BP 156/88 05/04/17 07:00 Pulse Ox 97 05/04/17 07:00 Intake & Output 05/03/17 05/04/17 05/04/17 18:59 06:59 18:59 Intake Total 1633 915 Output Total 2835 2555 Balance -1202 -1640 Weight 93.2 kg Intake: IV 1213 700 0.9 @ 50 550 Meropenem 1 gm In Sodium 100 Chloride 0.9% 100 ml @ 100 mls/hr IVPB Q8HR FAM Rx#:[id number] Mvi, Adult No.4 with Vit 538 K 10 ml Trace (Conc-1Ml/ Dose) 1 ml Potassium Acetate 20 meq In Amino Acid 5%-D25w+Lytes*E* 740 ml In Water For Injection, Sterile 450 ml @ 83 mls/hr IV .BY DURATION FAM Rx#: [id number] Sodium Chloride 0.9% 1, 675 50 000 ml @ 125 mls/hr IV . Q8H FAM Rx#:[id number] Oral 420 Tube Feeding 215 Output: Drainage 810 610 RADHA Drain 810 610 Urine 2024 1944 Other: Voiding Method Ileal Conduit (Right) Ileal Conduit (Right) # Bowel Movements 1 ABP, PAP, CO, CI - Last Documented Arterial Blood Pressure 157/72 - Exam - Constitutional General appearance: cooperative, no acute distress - EENT Eyes: anicteric sclerae, PERRLA, normal appearance ENT: NA/AT, normal oropharynx - Respiratory Respiratory: bilateral: CTA, negative: diminished, dullness, rales - Cardiovascular Rhythm: regular Heart sounds: normal: S1, S2 Abnormal Heart Sounds: no systolic murmur, no diastolic murmur, no rub, no S3 Gallop, no S4 Gallop, no click, no other - Gastrointestinal General gastrointestinal: hyperactive bowel sounds, soft - Integumentary Integumentary: decreased turgor, normal - Neurologic Neurologic: CNII-XII intact - Musculoskeletal Musculoskeletal: gait normal, strength equal bilaterally - Psychiatric Psychiatric: A&O x's 3, appropriate affect, intact judgment & insight - Labs CBC & Chem 7: 05/04/17 06:40 05/04/17 06:40 Labs: Abnormal Lab Results - Last 24 Hours (Table) 05/03/17 05/03/17 05/04/17 Range/Units 12:56 18:25 06:40 WBC (3.8-10.6) k/uL RBC (4.30-5.90) m/uL Hgb (13.0-17.5) gm/dL Hct (39.0-53.0) % Neutrophils # (1.3-7.7) k/uL Chloride 116 H (98-107) mmol/L Carbon Dioxide 19 L (22-30) mmol/L POC Glucose (mg/dL) 111 H 109 H (75-99) mg/dL Calcium 7.9 L (8.4-10.2) mg/dL 05/04/17 Range/Units 06:40 WBC 16.8 H (3.8-10.6) k/uL RBC 3.90 L (4.30-5.90) m/uL Hgb 11.2 L (13.0-17.5) gm/dL Hct 35.9 L (39.0-53.0) % Neutrophils # 14.1 H (1.3-7.7) k/uL Chloride (98-107) mmol/L Carbon Dioxide (22-30) mmol/L POC Glucose (mg/dL) (75-99) mg/dL Calcium (8.4-10.2) mg/dL Microbiology - Last 24 Hours (Table) 04/28/17 15:45 Stool Culture - Final Stool 04/30/17 04:04 Blood Culture - Preliminary Blood No Growth after 96 hours 04/30/17 03:17 Blood Culture - Preliminary Blood No Growth after 96 hours 04/28/17 21:14 Blood Culture - Preliminary Blood No Growth after 120 hours 04/28/17 20:37 Blood Culture - Preliminary Blood No Growth after 120 hours Assessment and Plan Plan: 1. Sepsis with septic shock and lactic acidosis after bladder resection surgery with ileal conduit surgery, E. coli urinary tract infection is most likely source blood cultures, urine cultures. Zosyn to meropenem by Dr. Jason Maxwell consult added for intensive care management. Cipro for home. 2. 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 Munoz, consults were made to our local cardiologists secondary to irregular pulse and elevated heart rate, EKG shows sinus tachycardia with frequent PVCs, in the left bundle branch block which is chronic. Patient is on beta blockers metoprolol aspirin currently is on hold, when necessary nitro, and maintenance Imdur 60 mg daily no changes were made 4. Hyperlipidemia on Lipitor 20 daily 5. Hypertension patient was maintained on enalapril 10 mg daily at bedtime, switch over to Zestril 20 mg daily while in the hospital. Patient is currently hypotensive. 6. CKD stage II avoid hypotension monitor labs 7. GERD on maintenance PPI 8. Tachycardia from sepsis. Cardiology has been following. 9. Ileus versus small bowel obstruction. Patient has NG tube in place and Dr. Morocho is following. 10. Severe protein calorie malnutrition secondary to nothing by mouth status, NG tube, poor oral intake. TPN 11. Acute kidney injury secondary to sepsis and hypotension. 12. New onset of atrial fibrillation with rapid ventricular response. Cardizem drip and heparin drip started by cardiology and switched to oral. 13. GI prophylaxis on Protonix 14. DVT prophylaxis on subcutaneous heparin 5000 units every 24 hours Impression and plan of care have been directed as dictated by the signing physician. Gracy Vuong nurse practitioner acting as scribe for signing physician.
[2017-05-04 13:24] VITALS: BMI 31.2
[2017-05-04 15:14] VITALS: BP 134/82; PULSE 93; RESP 23
--- NOTE | 2017-05-08 11:45 | P.DS ---
Providers Date of admission: 04/15/17 09:53 Expected date of discharge: 05/04/17 Attending physician: Kizzy Liz Consults: 04/27/17 08:05 Consult Physician Routine Consulting Provider: Henrietta Stephenson Consult Reason/Comments: Tachycardia Do you want consulting provider notified?: Yes 04/28/17 13:00 Consult Physician Routine Consulting Provider: Vanessa Lemos Consult Reason/Comments: medical management Do you want consulting provider notified?: Yes 04/28/17 15:27 Consult Physician Routine Consulting Provider: Cameron Morocho Consult Reason/Comments: bowel obstruction Do you want consulting provider notified?: Yes 04/28/17 20:04 Consult Physician Stat Consulting Provider: Darren Gomez Consult Reason/Comments: sepsis Do you want consulting provider notified?: Yes 04/30/17 03:04 Consult Physician Stat Consulting Provider: Nash Maxwell Consult Reason/Comments: icu managment Do you want consulting provider notified?: Yes 05/01/17 09:43 Consult Physician Stat Consulting Provider: Henrietta Stephenson Consult Reason/Comments: a-fib Do you want consulting provider notified?: Already Contacted Primary care physician: Stated None - Discharge Diagnosis(es) (1) Malignant neoplasm of bladder wall Status: Acute Hospital Course: On the day of admission, the patient underwent a robotic-assisted laparoscopic cystoprostatectomy with ileal conduit urinary diversion. The early postoperative course was unremarkable. However, he was noted to have a prolonged paralytic ileus which made it difficult to advance his diet. He was noted to be tachycardic, and was seen by cardiology. On April 28, a computed tomography scan was performed which showed no evidence of a bowel obstruction. He went several bowel movements around that time and was feeling better. However, in April 30 he became hypotensive and febrile, consistent with sepsis. He was transferred to the ICU and treated with fluid resuscitation and vasopressors, along with antibiotics. A chest x-ray showed no evidence of pneumonia. A urine culture showed E. coli, and he was treated with IV antibiotics. His condition gradually improved such that he was tolerating diet well at the time of discharge. He was afebrile and quite comfortable. His incisions were healing well. The stoma looked good throughout the hospitalization. RADHA drainage was higher than expected throughout the hospital stay, such that the RADHA drainage was sent for creatinine level on several occasions to exclude a urine leak. On each occasion, the creatinine level was consistent with the fluid being peritoneal fluid rather than urine. Procedures: Robotic-assisted laparoscopic cystoprostatectomy with ileal conduit urinary diversion on April 15, 2017. Patient Condition at Discharge: Fair Plan - Discharge Summary Discharge Rx Participant: No New Discharge Prescriptions: New Ciprofloxacin HCl [Cipro] 500 mg PO Q12HR #42 tablet Diltiazem Oral [Cardizem*] 30 mg PO TID #90 tab HYDROcodone/APAP 5-325MG [[place] 5-325] 1 each PO Q4HR PRN #60 tab PRN Reason: Mild To Moderate Pain Continue Metoprolol Succinate (ER) [Toprol XL] 100 mg PO DAILY Aspirin 81 mg PO DAILY Nitroglycerin Sl Tabs [Nitrostat] 0.4 mg SUBLINGUAL Q5M PRN PRN Reason: Chest Pain Omeprazole [PriLOSEC] 20 mg PO AC-BRKFST Enalapril [Vasotec] 10 mg PO HS Isosorbide Mononitrate ER [Imdur] 60 mg PO DAILY Alfuzosin HCl [Alfuzosin HCl ER] 10 mg PO DAILY #0 Changed Simvastatin [Zocor] 20 mg PO HS #0 Discontinued Oxybutynin Chloride 5 mg PO HS Discharge Medication List Aspirin 81 mg PO DAILY 08/12/14 [History] Metoprolol Succinate (ER) [Toprol XL] 100 mg PO DAILY 08/12/14 [History] Nitroglycerin Sl Tabs [Nitrostat] 0.4 mg SUBLINGUAL Q5M PRN 08/12/14 [History] Omeprazole [PriLOSEC] 20 mg PO AC-BRKFST 08/12/14 [History] Enalapril [Vasotec] 10 mg PO HS 04/13/17 [History] Isosorbide Mononitrate ER [Imdur] 60 mg PO DAILY 04/13/17 [History] Alfuzosin HCl [Alfuzosin HCl ER] 10 mg PO DAILY #0 05/04/17 [Rx] Ciprofloxacin HCl [Cipro] 500 mg PO Q12HR #42 tablet 05/04/17 [Rx] Diltiazem Oral [Cardizem*] 30 mg PO TID #90 tab 05/04/17 [Rx] HYDROcodone/APAP 5-325MG [[place] 5-325] 1 each PO Q4HR PRN #60 tab 05/04/17 [Rx] Simvastatin [Zocor] 20 mg PO HS #0 05/04/17 [Rx] Follow up Appointment(s)/Referral(s): Vanessa Lemos MD [STAFF PHYSICIAN] - 05/11/17 10:00 am Alvaro Andino MD [STAFF PHYSICIAN] - 05/12/17 9:00 am Moreno Cordova MD [REFERRING] - 05/12/17 3:00 pm Patient Instructions/Handouts: Cystectomy with Ileal Conduit (DC), Urostomy Care (DC), Urostomy Care (GEN), Ehsan-Irvin Drain Care (DC) Activity/Diet/Wound Care/Special Instructions: Urostomy/Ileal Conduit Instructions for discharge: Empty your bag when it is 1/2 to 1/3 full Last date of pouching system change: 04.27.2017 Current supplies utilized while in hospital: [employer] Formula Eter one piece cut to fit #[id number] (Currently in use) Use this first Playdate Appate moldable flange ##[id number] (convex): Three for home This device did not work well for Mr Roe in the hospital Convatec pouch #[id number] Three for home use Convatec one piece cut to fit #[id number] (Extra two for home with Mr Zhou) Ostomy Powder Skin Prep pads (12) for home use Night Drainage Bag Leg bag At night Mr Roe was instructed on how to connect the night drainage bag system and also how to connect the leg bag system when out and about and how to empty. Please reenforce one home. Mr Roe will be receiving samples from [employer] to his home in [place] in 3- 5 days post discharge. Home Health please assure Mr Zhou is set up for his ostomy supplies prior to discharging form care with a Durable Medical Equipment Supply agent that can ship to his home in [place] and [place]. [facility] - Diet: Low-fiber diet Activity: As tolerated Driving: No driving while taking [place] Discharge Disposition: HOME SELF-CARE
== END 2017-05-04 15:31 | disposition home or self-care (01) | DRG 653 ==
LOC: 2ORMAIN 09:53 → 5ONC 16:58 → 6ICU 04-30 03:48
PROVIDERS: ADMIT Urology; ATTEND Urology
PROC: 0TTB4ZZ Resection of Bladder, Percutaneous Endoscopic Approach (ICD-10-PCS; principal; 2017-04-15 13:30)
PROC: 0VT04ZZ Resection of Prostate, Percutaneous Endoscopic Approach (ICD-10-PCS; principal; 2017-04-15 13:30)
PROC: 8E0W4CZ Robotic Assisted Procedure of Trunk Region, Percutaneous Endoscopic Approach (ICD-10-PCS; principal; 2017-04-15 13:30)
PROC: 07BC4ZZ Excision of Pelvis Lymphatic, Percutaneous Endoscopic Approach (ICD-10-PCS; principal; 2017-04-15 13:30)
PROC: 0T180ZC Bypass Bilateral Ureters to Ileocutaneous, Open Approach (ICD-10-PCS; principal; 2017-04-15 13:30)
PROC: 0DNN4ZZ Release Sigmoid Colon, Percutaneous Endoscopic Approach (ICD-10-PCS; principal; 2017-04-15 13:30)
PROC: 06HM33Z Insertion of Infusion Device into Right Femoral Vein, Percutaneous Approach (ICD-10-PCS; 2017-04-30)
PROC: 03HY32Z Insertion of Monitoring Device into Upper Artery, Percutaneous Approach (ICD-10-PCS; 2017-04-30)
DX: C67.2 Malignant neoplasm of lateral wall of bladder (principal); A41.50 Gram-negative sepsis, unspecified; E43 Unspecified severe protein-calorie malnutrition; R65.21 Severe sepsis with septic shock; E87.2 Acidosis; N17.9 Acute kidney failure, unspecified; C61 Malignant neoplasm of prostate; I48.0 Paroxysmal atrial fibrillation; C68.0 Malignant neoplasm of urethra; J98.11 Atelectasis; N39.0 Urinary tract infection, site not specified; K56.7 Ileus, unspecified; K91.89 Other postprocedural complications and disorders of digestive system; J44.9 Chronic obstructive pulmonary disease, unspecified; E78.5 Hyperlipidemia, unspecified; I25.10 Atherosclerotic heart disease of native coronary artery without angina pectoris; Z79.82 Long term (current) use of aspirin; Z79.899 Other long term (current) drug therapy; I10 Essential (primary) hypertension; K21.9 Gastro-esophageal reflux disease without esophagitis; Z95.5 Presence of coronary angioplasty implant and graft; Z82.49 Family history of ischemic heart disease and other diseases of the circulatory system; Z87.891 Personal history of nicotine dependence; N40.1 Benign prostatic hyperplasia with lower urinary tract symptoms; R35.0 Frequency of micturition; R39.15 Urgency of urination; D09.19 Carcinoma in situ of other urinary organs; D64.9 Anemia, unspecified; I12.9 Hypertensive chronic kidney disease with stage 1 through stage 4 chronic kidney disease, or unspecified chronic kidney disease; I25.2 Old myocardial infarction; I44.7 Left bundle-branch block, unspecified; K66.0 Peritoneal adhesions (postprocedural) (postinfection); N18.2 Chronic kidney disease, stage 2 (mild); Z79.01 Long term (current) use of anticoagulants; Z82.0 Family history of epilepsy and other diseases of the nervous system; K57.30 Diverticulosis of large intestine without perforation or abscess without bleeding
CPT/HCPCS: 36415; 71020; 71045; 71046; 74018; 74019; 74176; 80048; 80053; 81001; 82040; 82330; 82570; 83036; 83605; 83735; 83880; 84100; 84132; 84443; 84478; 85025; 85027; 85610; 85730; 86850; 86900; 86901; 87040; 87045; 87046; 87077; 87086; 87186; 87324; 88305; 88307; 88309; 88341; 88342; 89055; 93005; 93306; 99213

== ENCOUNTER → 2017-05-30 | Outpatient (CLI) | payer MEDICARE ==
--- NOTE | 2017-05-30 16:06 | US ---
EXAMINATION TYPE: US kidneys/renal and bladder DATE OF EXAM: 05/30/2017 COMPARISON: Correlation CT 04/28/2017 CLINICAL HISTORY: 66-year-old male D49.4 F/U Staging CA Bladder. F/U staging CA Bladder TECHNIQUE: Multiple sonographic images of the kidneys and bladder are obtained. FINDINGS: Right Kidney: 10.9 x 5.2 x 5.3 cm without hydronephrosis or appreciable mass. Left Kidney: 10.8 x 5.9 x 5.6 cm without hydronephrosis or appreciable mass. The bladder is surgically absent. IMPRESSION: No hydronephrosis. The bladder is surgically absent.
== END | disposition home or self-care (01) ==
LOC: RADUSWWP 12:00
PROVIDERS: ATTEND Urology
DX: Z08 Encounter for follow-up examination after completed treatment for malignant neoplasm (principal); Z90.6 Acquired absence of other parts of urinary tract; Z85.51 Personal history of malignant neoplasm of bladder
CPT/HCPCS: 76770

== ENCOUNTER 2017-05-31 10:48 | Day surgery (SDC) | payer MEDICARE ==
[2017-05-30 09:06] VITALS: BMI 27.3
[~2017-05-31 10:48] MED LIST changes: -HEPARIN SODIUM,PORCINE 5,000 UNIT/ML 1 ML VIAL SQ ONE; +LACTATED RINGERS 1,000 ML IV SCH; -ONDANSETRON 4 MG/2 ML VIAL IVP PRN; -ceFAZolin IN SWFI 2 GM/20 ML SYRINGE IVP ONE
[2017-05-31 11:51] VITALS: RESP 16; TEMP 97.5
[2017-05-31] MEDS ORDERED: LIDOCAINE 1% 20 ML VIAL (10MG/ML) FOR IV START INTRADERMA ONE (12:11)
[2017-05-31] MEDS ORDERED: PROPOFOL 10 MG/ML 20 ML VIAL IV ONE (12:12)
--- NOTE | 2017-05-31 12:54 | P.PCN ---
Date of Procedure: 05/31/17 Procedure(s) Performed: Procedure: Total colonoscopy. Preoperative diagnosis: Blood in the stools. Postoperative diagnosis: Sigmoid diverticulosis with no evidence of acute diverticulitis, strictures, polyps or cancer. Preparation: HalfLytely prep. Sedation: Was provided by anesthesia. Brief clinical history: The patient is a 66-year-old male who is scheduled for this evaluation because of history of bleeding and finding of blood in his stools. The patient has history of prostate and bladder cancer and had prior robotic-assisted surgery with urostomy. Procedure: With the patient on his left lateral decubitus position and after informed consent and adequate sedation, the perianal area was inspected and it did not show any fissures or fistulas. He were no masses felt on digital rectal examination. Initially, the Olympus CFQ 160L videocolonoscope was used, however, I was not able to advance it safely in the sigmoid so I exchanged it for the pediatric PCF H190 videocolonoscope which I was able to advance safely all the way to the cecum. There were multiple diverticular orifices seen scattered in the sigmoid with no evidence of acute diverticulitis or strictures. The mucosa appeared healthy. No polyps or tumors were seen or any obvious pathology or potential sources of blood in the stools. I retroflexed the endoscope in the rectum before the endoscope was withdrawn. Low-grade internal hemorrhoids were noted but there was no evidence of bleeding. The patient tolerated the procedure well. Plan: The patient was reassured. Discussed dietary measures and local care for hemorrhoids. He will follow up with you as planned and I recommended repeat exam in 10 years.
[2017-05-31 13:58] VITALS: BP 109/66; PULSE 89
== END 2017-05-31 14:11 | disposition home or self-care (01) ==
LOC: ORWHC2ENDO 10:48
DX: K57.30 Diverticulosis of large intestine without perforation or abscess without bleeding (principal); K64.8 Other hemorrhoids; Z87.19 Personal history of other diseases of the digestive system; I25.10 Atherosclerotic heart disease of native coronary artery without angina pectoris; K21.9 Gastro-esophageal reflux disease without esophagitis; I10 Essential (primary) hypertension; E78.5 Hyperlipidemia, unspecified; M19.90 Unspecified osteoarthritis, unspecified site; Z90.79 Acquired absence of other genital organ(s); Z90.6 Acquired absence of other parts of urinary tract; Z85.46 Personal history of malignant neoplasm of prostate; Z85.51 Personal history of malignant neoplasm of bladder; Z95.5 Presence of coronary angioplasty implant and graft; Z79.82 Long term (current) use of aspirin; Z79.899 Other long term (current) drug therapy
CPT/HCPCS: 45378; J2704

== ENCOUNTER → 2017-09-27 | Outpatient (CLI) | payer MEDICARE ==
--- NOTE | 2017-09-27 16:09 | XR ---
EXAMINATION TYPE: XR chest 2V DATE OF EXAM: 09/27/2017 COMPARISON: Prior chest x-ray 05/04/2017 HISTORY: Prostate carcinoma TECHNIQUE: Frontal and lateral views of the chest are obtained. FINDINGS: Abnormal increased density is present at the right hemithorax apex as compared to prior ex am. No evident pneumothorax or pleural effusion. Cardiac mediastinal silhouette, pulmonary vascularit y and trever within normal limits. Prominent lung volumes suggest COPD. IMPRESSION: Findings could be due to apical pleural density or possibly dense rib, consider bone sca n and/or chest CT. A Yellow level critical message alert has been initiated for Alvaro Andino MD via the [employer] Critical Results System on 09/27/2017 4:07 PM. This message alert has been sent to Kerline Steve via the preferences provided by the clinician for the receipt of Radiology Critical Findings. Armando Brazzlebox ID [id number].
== END | disposition home or self-care (01) ==
LOC: RADXRMAIN 11:23
PROVIDERS: ATTEND Urology
DX: C61 Malignant neoplasm of prostate (principal); C67.2 Malignant neoplasm of lateral wall of bladder
CPT/HCPCS: 71046

== ENCOUNTER → 2017-10-06 | Outpatient (CLI) | payer MEDICARE ==
--- NOTE | 2017-10-06 13:55 | CT ---
EXAMINATION TYPE: CT chest w con DATE OF EXAM: 10/06/2017 COMPARISON: 09/22/2010 HISTORY: Prostate and bladder cancer CT DLP: 394.2 mGycm, Automated exposure control for dose reduction was used. CONTRAST: Performed injected with 100 mL of Isovue 300. TECHNIQUE: Axial images were obtained at 5 mm thick sections. Reconstructed images are reviewed on [employer] computer in the coronal plane. FINDINGS: Portion of the thyroid visualized is normal. No suspicious lung nodules or focal infiltrates are present. No enlarged mediastinal or hilar adenopathy is evident. The ascending aorta diameter at the level o f the main pulmonary artery is 4.0 cm. The main pulmonary artery diameter at the bifurcation is 3.3 cm. Mild coronary artery calcifications present. Limited CT sections are obtained through the upper abdomen. Abdomen is essentially unremarkable. IMPRESSIONS: 1. Aneurysmal dilatation of the ascending thoracic aorta with an AP diameter of 4.0 cm.
--- NOTE | 2017-10-06 13:57 | US ---
EXAMINATION TYPE: US kidneys/renal and bladder DATE OF EXAM: 10/06/2017 COMPARISON: 05/30/2017 CLINICAL HISTORY: C61 Prostate CA C67.2 Bladder Ca,. EXAM MEASUREMENTS: Right Kidney: 10.3 x 5.4 x 5.8 cm Left Kidney: 9.7 x 5.4 x 4.8 cm Right Kidney: No hydronephrosis or masses seen Left Kidney: No hydronephrosis or masses seen Bladder: surgically absent No hydronephrosis or nephrolithiasis. The bladder is surgically absent. IMPRESSION: Stable ultrasound with postsurgical changes compatible with cystectomy. No hydronephrosis.
== END ==
LOC: RADCTMAIN 12:21
PROVIDERS: ATTEND Urology
DX: I77.810 Thoracic aortic ectasia (principal); C67.2 Malignant neoplasm of lateral wall of bladder; C61 Malignant neoplasm of prostate; Z98.890 Other specified postprocedural states
CPT/HCPCS: 82565; 84520; 76770; 71260; 36415; Q9967

== ENCOUNTER 2017-12-05 22:13 | Inpatient (IN) | payer MEDICARE ==
[2017-12-05] MEDS ORDERED: FAMOTIDINE 20 MG/2 ML VIAL IV STA (22:33)
[2017-12-05] MEDS ORDERED: SODIUM CHLORIDE 0.9% 1,000 ML IV STA (22:33)
[2017-12-05] MEDS ORDERED: HYDROmorphone 1 MG/ML 1 ML SYRINGE IVP STA (22:33)
[2017-12-05] MEDS ORDERED: ONDANSETRON 4 MG/2 ML VIAL IVP STA (22:33)
--- NOTE | 2017-12-05 22:37 | ED ---
General Adult HPI - General Chief complaint: Abdominal Pain Stated complaint: Abdominal pain Time Seen by Provider: 12/05/17 22:20 Source: patient, family, RN notes reviewed Mode of arrival: wheelchair Limitations: physical limitation - History of Present Illness Initial comments: Patient is a pleasant 67-year-old male presenting to the emergency Department with complaints of abdominal discomfort. Onset of symptoms was around 5 hours ago. Discomfort has started to improve some. Patient has nausea without vomiting. No constipation or diarrhea. Patient did have somewhat similar symptoms in the beginning of the year associated with bowel obstruction. This was following surgical removal of the bladder and prostate and placement of urostomy. Patient did have CABG done just over 1 week ago at [facility]. Patient only has minimal discomfort in his chest that he attributes to the recent surgery. This is not new chest discomfort. No dyspnea. - Related Data Home Medications Medication Instructions Recorded Confirmed Aspirin 81 mg PO DAILY 08/12/14 12/05/17 Nitroglycerin Sl Tabs [Nitrostat] 0.4 mg SUBLINGUAL Q5M PRN 08/12/14 12/05/17 Omeprazole [PriLOSEC] 20 mg PO AC-BRKFST 08/12/14 12/05/17 Atorvastatin [Lipitor] 40 mg PO HS 05/30/17 12/05/17 Amiodarone [Cordarone] 200 mg PO DAILY 12/05/17 12/05/17 Furosemide [Lasix] 20 mg PO DAILY 12/05/17 12/05/17 HYDROcodone/APAP 7.5-325MG [[place] 1 tab PO Q3H PRN 12/05/17 12/05/17 7.5-325] Magnesium Oxide [Mag-Ox] 200 mg PO DAILY 12/05/17 12/05/17 Metoprolol Tartrate [Lopressor] 75 mg PO Q8H 12/05/17 12/05/17 Potassium Chloride [K-Tab ER] 10 meq PO DAILY 12/05/17 12/05/17 Warfarin [Coumadin] 5 mg PO DAILY 12/05/17 12/05/17 Allergies Allergy/AdvReac Type Severity Reaction Status Date / Time No Known Allergies Allergy Verified 12/05/17 22:40 Review of Systems ROS Statement: Those systems with pertinent positive or pertinent negative responses have been documented in the HPI. ROS Other: All systems not noted in ROS Statement are negative. Constitutional: Denies: fever Eyes: Denies: eye pain ENT: Denies: ear pain Respiratory: Denies: cough Cardiovascular: Denies: palpitations Endocrine: Denies: fatigue Gastrointestinal: Reports: abdominal pain, nausea. Denies: vomiting Genitourinary: Denies: dysuria Musculoskeletal: Denies: back pain Skin: Denies: rash Neurological: Denies: weakness Past Medical History Past Medical History: Coronary Artery Disease (CAD), Cancer, GERD/Reflux, Hyperlipidemia, Hypertension, Myocardial Infarction (IL), Osteoarthritis (OA) Additional Past Medical History / Comment(s): hiatal hernia, diverticulosis, hx anemia, hx prostate and bladder cancer, hx polio as child Last Myocardial Infarction Date:: 2011 History of Any Multi-Drug Resistant Organisms: None Reported Past Surgical History: Ear Surgery, Heart Catheterization With Stent, Orthopedic Surgery, Tonsillectomy Additional Past Surgical History / Comment(s): PLASTIC SURGERY OSCAR. EARS(STUCK OUT), LT SHOULDER SURGERY, oscar knee arthroscopy, left knee open surgery, two cardiac stents, TURP bladder and prostate, Cauterization in bladder, robotic- assisted laparoscopic radical removal of prostate and bladder-with urostomy, quadruple bypass 11/28/17 Past Anesthesia/Blood Transfusion Reactions: Motion Sickness Date of Last Stent Placement:: 2013 Past Psychological History: Depression Smoking Status: Former smoker Past Alcohol Use History: Daily Past Drug Use History: None Reported - Past Family History Brother(s) Family Medical History: No Reported History, Unable to Obtain (no brothers) Sister(s) History Unknown: Yes Family Medical History: Unable to Obtain (no sisters) Daughter(s) Family Medical History: No Reported History (2 daughters healthy) Son(s) Family Medical History: No Reported History (one son healthy) Mother Family Medical History: Cancer, Deep Vein Thrombosis (DVT) Additional Family Medical History / Comment(s): SKIN CA Father Additional Family Medical History / Comment(s): HX MULTIPLE SCLEROSIS General Exam Limitations: physical limitation General appearance: alert, in no apparent distress Head exam: Present: atraumatic Eye exam: Present: normal appearance, PERRL ENT exam: Present: normal oropharynx Neck exam: Present: normal inspection Respiratory exam: Present: normal lung sounds bilaterally, other (Sternotomy incision is clean and dry and intact.) Cardiovascular Exam: Present: regular rate, normal rhythm Expanded Peripheral pulses: 2+: Radial (R), Radial (L), Dorsalis Pedis (R), Dorsalis Pedis (L) GI/Abdominal exam: Present: soft, tenderness (Moderate tenderness of the upper abdomen), normal bowel sounds, other (Urostomy is present.). Absent: distended , guarding, rebound, rigid, pulsatile mass Extremities exam: Present: normal inspection. Absent: pedal edema, calf tenderness Neurological exam: Present: alert Psychiatric exam: Present: normal affect, normal mood Skin exam: Present: normal color Course Vital Signs 12/05/17 22:22 Temperature 98.0 F Pulse Rate 75 Respiratory 20 Rate Blood Pressure 161/79 O2 Sat by Pulse 97 Oximetry - Reevaluation(s) Reevaluation #1: 12/06/17 00:01 Patient does not meet sepsis criteria at this time. EKG Findings - EKG Comments: EKG Findings:: Sinus rhythm at 77. CA 156. QRS 148. QT 440. QTc 497. Left axis. Left bundle branch block. No acute ST change. Previous EKGs reviewed. Medical Decision Making - Medical Decision Making Patient reevaluated. Patient is still having discomfort and requests her pain medication. Patient and family updated on results and plan. Case was discussed in detail with Dr. Cantrell, covering for Dr. Long, who will admit for Dr. Steen. Consults will be placed with surgery and cardiology. - Lab Data Result diagrams: 12/05/17 22:21 12/05/17 22:21 Lab Results 12/05/17 12/05/17 12/05/17 Range/Units 22:21 22:21 22:21 WBC 12.6 H (3.8-10.6) k/uL RBC 3.52 L (4.30-5.90) m/uL Hgb 9.8 L (13.0-17.5) gm/dL Hct 31.4 L (39.0-53.0) % MCV 89.2 (80.0-100.0) fL MCH 27.9 (25.0-35.0) pg MCHC 31.3 (31.0-37.0) g/dL RDW 15.3 (11.5-15.5) % Plt Count 422 (150-450) k/uL Neutrophils % 82 % Lymphocytes % 7 % Monocytes % 6 % Eosinophils % 2 % Basophils % 0 % Neutrophils # 10.3 H (1.3-7.7) k/uL Lymphocytes # 0.9 L (1.0-4.8) k/uL Monocytes # 0.7 (0-1.0) k/uL Eosinophils # 0.3 (0-0.7) k/uL Basophils # 0.0 (0-0.2) k/uL Hypochromasia Slight PT 23.2 H (9.0-12.0) sec INR 2.6 H (<1.2) APTT 32.8 H (22.0-30.0) sec Sodium 137 (137-145) mmol/L Potassium 4.1 (3.5-5.1) mmol/L Chloride 103 (98-107) mmol/L Carbon Dioxide 26 (22-30) mmol/L Anion Gap 8 mmol/L BUN 23 H (9-20) mg/dL Creatinine 1.07 (0.66-1.25) mg/dL Est GFR (CKD-EPI)AfAm 83 (>60 ml/min/1.73 sqM) Est GFR (CKD-EPI)NonAf 72 (>60 ml/min/1.73 sqM) Glucose 118 H (74-99) mg/dL Calcium 8.7 (8.4-10.2) mg/dL Total Bilirubin 0.6 (0.2-1.3) mg/dL AST 46 (17-59) U/L ALT 58 (21-72) U/L Alkaline Phosphatase 130 H (38-126) U/L Total Protein 6.3 (6.3-8.2) g/dL Albumin 3.4 L (3.5-5.0) g/dL Amylase 95 (30-110) U/L Lipase 562 H (23-300) U/L - Radiology Data Radiology results: report reviewed (Computed tomography scan of the abdomen and pelvis shows dilated gallbladder consistent with cholecystitis.) Disposition Clinical Impression: Acute cholecystitis Disposition: ADMITTED IP TO THIS [facility] Is patient prescribed a controlled substance at d/c from ED?: No Referrals: Abdoulaye Steen DO [Primary Care Provider] - 1-2 days Decision Time: 00:01
[2017-12-05 22:59] LABS: Basophils % (A) 0 %; Eosinophils # (A) 0.3 k/uL (0-0.7); Eosinophils % (A) 2 %; HCT 31.4 % (39.0-53.0); HGB 9.8 gm/dL (13.0-17.5); Hypochromasia Slight; Lymphocytes # (A) 0.9 k/uL (1.0-4.8); Lymphocytes % (A) 7 %; MCH 27.9 pg (25.0-35.0); MCHC 31.3 g/dL (31.0-37.0); MCV 89.2 fL (80.0-100.0); Mean Platelet Volume 7.5; Monocytes # (A) 0.7 k/uL (0-1.0); Monocytes % (A) 6 %; Neutrophils # (A) 10.3 k/uL (1.3-7.7); Neutrophils % (A) 82 %; Platelet Count 422 k/uL (150-450); RBC 3.52 m/uL (4.30-5.90); RDW 15.3 % (11.5-15.5); WBC 12.6 k/uL (3.8-10.6)
[2017-12-05 23:07] LABS: INR 2.6 (<1.2); Partial Thromboplastin Time 32.8 sec (22.0-30.0); Prothrombin Time 23.2 sec (9.0-12.0)
[2017-12-05 23:09] LABS: Albumin 3.4 g/dL (3.5-5.0); Calcium 8.7 mg/dL (8.4-10.2); Potassium 4.1 mmol/L (3.5-5.1); Total Bilirubin 0.6 mg/dL (0.2-1.3); Total Protein 6.3 g/dL (6.3-8.2)
--- NOTE | 2017-12-05 23:51 | CT ---
EXAMINATION TYPE: CT abdomen pelvis w con DATE OF EXAM: 12/05/2017 COMPARISON: 04/28/2017 HISTORY: Prior on synapse. Chest pain with nausea and diaphoresis this evening, pt is s/p quad bypass 1 week, CT DLP: 1660.40 mGycm Automated exposure control for dose reduction was used. TECHNIQUE: Helical acquisition of images was performed from the lung bases through the pelvis. CONTRAST: Performed without Oral Contrast and with IV Contrast, patient injected with 100 mL of Isovue 300. FINDINGS: There are bilateral pleural effusions. There is some atelectasis at both lung bases. There is small p ericardial effusion. Heart is slightly enlarged. Gallbladder is dilated and measures 5.1 cm. Liver shows no focal defect. Spleen appears normal. There is no pancreatic mass. There is possible tiny calcified gallstones. There is no adrenal mass. Kidneys show satisfactory contrast opacification. There is no hydronephrosi s. Ureters are not dilated. There is no retroperitoneal adenopathy. There is no ascites. There are numerous diverticula in the si gmoid colon. There is no diverticulitis. There is ileal conduit. Bladder is absent. There is 10% comp ression deformity of L1 vertebral body. This is probably old. IMPRESSION: DILATED GALLBLADDER CONSISTENT WITH CHOLECYSTITIS. GALLBLADDER IS INCREASED COMPARED TO OLD EXAM. THE RE IS CLEARING OF THE HYDRONEPHROSIS IN BOTH KIDNEYS COMPARED TO OLD EXAM. THERE IS CLEARING OF THE D ILATED SMALL BOWEL COMPARED TO OLD EXAM. POSSIBLE SMALL CALCIFIED GALLSTONES. THERE ARE NEW BILATERAL PLEURAL EFFUSIONS WITH BASILAR PULMONARY ATELECTASIS COMPARED TO OLD EXAM. CO NGESTIVE HEART FAILURE IS POSSIBLE.
[2017-12-06] MEDS ORDERED: HYDROmorphone 1 MG/ML 1 ML SYRINGE IVP STA
[2017-12-06] MEDS ORDERED: ONDANSETRON 4 MG/2 ML VIAL IVP PRN (00:02)
[2017-12-06] MEDS ORDERED: HYDROmorphone 1 MG/ML 1 ML SYRINGE IVP PRN (00:02)
[2017-12-06] MEDS ORDERED: NALOXONE 0.4 MG/ML 1 ML VIAL IV PRN (00:02)
[2017-12-06] MEDS: HYDROmorphone 1 MG/ML 1 ML SYRINGE IVP PRN ×2 (07:04→14:01)
[2017-12-06 07:19] LABS: Basophils % (A) 0 %; Eosinophils # (A) 0.3 k/uL (0-0.7); Eosinophils % (A) 2 %; HCT 29.8 % (39.0-53.0); HGB 9.5 gm/dL (13.0-17.5); Hypochromasia Slight; Lymphocytes # (A) 0.8 k/uL (1.0-4.8); Lymphocytes % (A) 6 %; MCH 28.4 pg (25.0-35.0); MCHC 31.8 g/dL (31.0-37.0); MCV 89.6 fL (80.0-100.0); Mean Platelet Volume 7.2; Monocytes # (A) 0.8 k/uL (0-1.0); Monocytes % (A) 6 %; Neutrophils # (A) 11.1 k/uL (1.3-7.7); Neutrophils % (A) 84 %; Platelet Count 412 k/uL (150-450); RBC 3.33 m/uL (4.30-5.90); RDW 15.2 % (11.5-15.5); WBC 13.2 k/uL (3.8-10.6)
[2017-12-06 07:37] LABS: ALT 50 U/L (21-72); AST 36 U/L (17-59); Albumin 3.1 g/dL (3.5-5.0); Alkaline Phosphatase 114 U/L (38-126); Amylase 68 U/L (30-110); Anion Gap 7 mmol/L; Blood Urea Nitrogen 21 mg/dL (9-20); Calcium 8.5 mg/dL (8.4-10.2); Carbon Dioxide 23 mmol/L (22-30); Chloride 108 mmol/L (98-107); Glucose 107 mg/dL (74-99); Lipase 272 U/L (23-300); Potassium 4.6 mmol/L (3.5-5.1); Sodium 138 mmol/L (137-145); Total Bilirubin 0.6 mg/dL (0.2-1.3); Total Protein 5.9 g/dL (6.3-8.2)
[2017-12-06] MEDS: SODIUM CHLORIDE 0.9% 1,000 ML IV SCH ×2 (07:52→10:37)
[2017-12-06 08:01] VITALS: RESP 18
[2017-12-06 08:16] LABS: Appearance,Urine Cloudy (Clear); Bacteria,Urine Occasional /hpf; Bilirubin,Urine Negative (Negative); Blood,Urine Negative (Negative); Color,Urine Yellow; Glucose,Urine (UA) Negative (Negative); Ketones,Urine Negative (Negative); Leukocyte Esterase,Urine Negative (Negative); Nitrite,Urine Positive (Negative); Protein,Urine Trace (Negative); RBC,Urine 7 /hpf (0-5); Urobilinogen,Urine <2.0 mg/dL (<2.0); WBC,Urine 15 /hpf (0-5)
[2017-12-06] MEDS ORDERED: PANTOPRAZOLE 40 MG/10 ML VIAL IV SCH (09:00)
[2017-12-06] MEDS ORDERED: PHYTONADIONE 5 MG in SODIUM CHLORIDE 0.9% 50 ML IVPB STA (10:37)
[2017-12-06] MEDS ORDERED: PIPERACILLIN-TAZOBACTAM 3.375 GM in DEXTROSE/WATER 1 50ML.BAG IVPB SCH (10:45)
--- NOTE | 2017-12-06 11:55 | P.HPIM ---
History of Present Illness Patient is a pleasant 67-year-old gentleman came in with complaints of right upper quadrant abdominal pain associated with some nausea. Patient was having low-grade fevers sweating. Patient's symptoms are moderate right upper quadrant sharp pain. Patient had a CABG about a week ago and was discharged yesterday from [facility]. Patient is found to have cholelithiasis with the possibility of cholecystitis. I discussed her case with the nurse practitioner from cardiothoracic surgery at [facility]. Patient is medically stable to be transferred. Patient will be given a dose of antibiotic and her vitamin K since his INR is around 2.8. Patient is on Coumadin for atrial fibrillation, patient doesn't need to be bridged. Discussed with the patient and family members as well. Patient doesn't have any leukocytosis does have severe right upper quadrant abdominal pain, tenderness and positive Barraza sign Review of Systems REVIEW OF SYSTEMS: CONSTITUTIONAL: No fever, no malaise, no fatigue. HEENT: No recent visual problems or hearing problems. Denied any sore throat. CARDIOVASCULAR: No chest pain, orthopnea, PND, no palpitations, no syncope. PULMONARY: No shortness of breath, no cough, no hemoptysis. GASTROINTESTINAL: As mentioned in HPI NEUROLOGICAL: No headaches, no weakness, no numbness. HEMATOLOGICAL: Denies any bleeding or petechiae. GENITOURINARY: Denies any burning micturition, frequency, or urgency. MUSCULOSKELETAL/RHEUMATOLOGICAL: Denies any joint pain, swelling, or any muscle pain. ENDOCRINE: Denies any polyuria or polydipsia. The rest of the 14-point review of systems is negative. Past Medical History Past Medical History: Coronary Artery Disease (CAD), Cancer, GERD/Reflux, Hyperlipidemia, Hypertension, Myocardial Infarction (TN), Osteoarthritis (OA) Additional Past Medical History / Comment(s): hiatal hernia, diverticulosis, hx anemia, hx prostate and bladder cancer, hx polio as child Last Myocardial Infarction Date:: 2011 History of Any Multi-Drug Resistant Organisms: None Reported Past Surgical History: Ear Surgery, Heart Catheterization With Stent, Orthopedic Surgery, Tonsillectomy Additional Past Surgical History / Comment(s): PLASTIC SURGERY OSCAR. EARS(STUCK OUT), LT SHOULDER SURGERY, oscar knee arthroscopy, left knee open surgery, two cardiac stents, TURP bladder and prostate, Cauterization in bladder, robotic- assisted laparoscopic radical removal of prostate and bladder-with urostomy, quadruple bypass 11/28/17 Past Anesthesia/Blood Transfusion Reactions: Motion Sickness Date of Last Stent Placement:: 2013 Past Psychological History: Depression Smoking Status: Former smoker Past Alcohol Use History: Daily Past Drug Use History: None Reported - Past Family History Brother(s) Family Medical History: No Reported History, Unable to Obtain (no brothers) Sister(s) History Unknown: Yes Family Medical History: Unable to Obtain (no sisters) Daughter(s) Family Medical History: No Reported History (2 daughters healthy) Son(s) Family Medical History: No Reported History (one son healthy) Mother Family Medical History: Cancer, Deep Vein Thrombosis (DVT) Additional Family Medical History / Comment(s): SKIN CA Father Additional Family Medical History / Comment(s): HX MULTIPLE SCLEROSIS Medications and Allergies Home Medications Medication Instructions Recorded Confirmed Type Aspirin 81 mg PO DAILY 08/12/14 12/05/17 History Nitroglycerin Sl Tabs [Nitrostat] 0.4 mg SUBLINGUAL Q5M PRN 08/12/14 12/05/17 History Omeprazole [PriLOSEC] 20 mg PO AC-BRKFST 08/12/14 12/05/17 History Atorvastatin [Lipitor] 40 mg PO HS 05/30/17 12/05/17 History Amiodarone [Cordarone] 200 mg PO DAILY 12/05/17 12/05/17 History Furosemide [Lasix] 20 mg PO DAILY 12/05/17 12/05/17 History HYDROcodone/APAP 7.5-325MG [[place] 1 tab PO Q3H PRN 12/05/17 12/05/17 History 7.5-325] Magnesium Oxide [Mag-Ox] 200 mg PO DAILY 12/05/17 12/05/17 History Metoprolol Tartrate [Lopressor] 75 mg PO Q8H 12/05/17 12/05/17 History Potassium Chloride [K-Tab ER] 10 meq PO DAILY 12/05/17 12/05/17 History Warfarin [Coumadin] 5 mg PO DAILY 12/05/17 12/05/17 History Allergies Allergy/AdvReac Type Severity Reaction Status Date / Time No Known Allergies Allergy Verified 12/05/17 22:40 Physical Exam Vitals: Vital Signs Temp Pulse Resp BP Pulse Ox 12/06/17 11:00 97.4 F L 92 18 158/80 97 12/06/17 10:51 93 18 168/76 97 12/06/17 07:59 83 18 141/84 96 12/06/17 05:51 63 20 168/79 96 12/06/17 03:15 80 18 167/84 98 12/06/17 00:18 99 20 176/81 95 12/06/17 00:14 96 18 177/87 96 12/05/17 22:22 98.0 F 75 20 161/79 97 Intake and Output 12/05/17 12/06/17 12/06/17 22:59 06:59 14:59 Other: Weight 92.986 kg PHYSICAL EXAMINATION: GENERAL: The patient is alert and oriented x3, not in any acute distress. Well developed, well nourished. Excessive sweating HEENT: Pupils are round and equally reacting to light. EOMI. No scleral icterus. No conjunctival pallor. Normocephalic, atraumatic. No pharyngeal erythema. No thyromegaly. CARDIOVASCULAR: S1 and S2 present. No murmurs, rubs, or gallops. PULMONARY: Chest is clear to auscultation, no wheezing or crackles. ABDOMEN: Right upper quadrant abdominal tenderness. Abdomen no rebound or rigidity positive Barraza's sign MUSCULOSKELETAL: No joint swelling or deformity. EXTREMITIES: No cyanosis, clubbing, or pedal edema. NEUROLOGICAL: Gross neurological examination did not reveal any focal deficits. SKIN: No rashes. Results CBC & Chem 7: 12/06/17 07:08 12/06/17 07:08 Labs: Abnormal Lab Results - Last 24 Hours (Table) 12/05/17 12/05/17 12/05/17 Range/Units 22:21 22:21 22:21 WBC 12.6 H (3.8-10.6) k/uL RBC 3.52 L (4.30-5.90) m/uL Hgb 9.8 L (13.0-17.5) gm/dL Hct 31.4 L (39.0-53.0) % Neutrophils # 10.3 H (1.3-7.7) k/uL Lymphocytes # 0.9 L (1.0-4.8) k/uL PT 23.2 H (9.0-12.0) sec INR 2.6 H (<1.2) APTT 32.8 H (22.0-30.0) sec Chloride (98-107) mmol/L BUN 23 H (9-20) mg/dL Glucose 118 H (74-99) mg/dL Plasma Lactic Acid Sadiq (0.7-2.0) mmol/L Alkaline Phosphatase 130 H (38-126) U/L Total Protein (6.3-8.2) g/dL Albumin 3.4 L (3.5-5.0) g/dL Lipase 562 H (23-300) U/L Urine Protein (Negative) Urine RBC (0-5) /hpf Urine WBC (0-5) /hpf Urine Bacteria (None) /hpf 12/06/17 12/06/17 12/06/17 Range/Units 00:49 07:08 07:08 WBC 13.2 H (3.8-10.6) k/uL RBC 3.33 L (4.30-5.90) m/uL Hgb 9.5 L (13.0-17.5) gm/dL Hct 29.8 L (39.0-53.0) % Neutrophils # 11.1 H (1.3-7.7) k/uL Lymphocytes # 0.8 L (1.0-4.8) k/uL PT (9.0-12.0) sec INR (<1.2) APTT (22.0-30.0) sec Chloride 108 H (98-107) mmol/L BUN 21 H (9-20) mg/dL Glucose 107 H (74-99) mg/dL Plasma Lactic Acid Sadiq 0.6 L (0.7-2.0) mmol/L Alkaline Phosphatase (38-126) U/L Total Protein 5.9 L (6.3-8.2) g/dL Albumin 3.1 L (3.5-5.0) g/dL Lipase (23-300) U/L Urine Protein (Negative) Urine RBC (0-5) /hpf Urine WBC (0-5) /hpf Urine Bacteria (None) /hpf 12/06/17 Range/Units 07:58 WBC (3.8-10.6) k/uL RBC (4.30-5.90) m/uL Hgb (13.0-17.5) gm/dL Hct (39.0-53.0) % Neutrophils # (1.3-7.7) k/uL Lymphocytes # (1.0-4.8) k/uL PT (9.0-12.0) sec INR (<1.2) APTT (22.0-30.0) sec Chloride (98-107) mmol/L BUN (9-20) mg/dL Glucose (74-99) mg/dL Plasma Lactic Acid Sadiq (0.7-2.0) mmol/L Alkaline Phosphatase (38-126) U/L Total Protein (6.3-8.2) g/dL Albumin (3.5-5.0) g/dL Lipase (23-300) U/L Urine Protein Trace H (Negative) Urine RBC 7 H (0-5) /hpf Urine WBC 15 H (0-5) /hpf Urine Bacteria Occasional H (None) /hpf Assessment and Plan Plan: -Acute cholecystitis with cholelithiasis: Patient was started on antibiotic patient will be given vitamin K patient will remain nothing by mouth and will be transferred to [facility]. Patient's present INR is around 2.8. -Coronary artery disease recent CABG. -Hyperlipidemia -Hypertension -Atrial fibrillation patient is on amiodarone, will reorder these medications to avoid reflex tachycardia or atrial fibrillation with rapid ventricular rate. Anti-coagulation will be held for possible cholecystectomy. Patient is presently sinus rhythm. -Gastroesophageal reflux disease continue proton pump inhibitor.
--- NOTE | 2017-12-06 11:56 | P.DS ---
Providers Date of admission: 12/06/17 00:02 Attending physician: Neha Cantrell Consults: 12/06/17 00:02 Consult Physician Urgent Consulting Provider: Peyton Torres Consult Reason/Comments: Cardiac care Do you want consulting provider notified?: Yes 12/06/17 00:03 Consult Physician Urgent Consulting Provider: Annette Ramirez Consult Reason/Comments: Cholecystitis Do you want consulting provider notified?: Yes Primary care physician: Abdoulaye Steen [facility] Course: Please refer to my HPI and the patient is being transferred to [facility] with he had coronary artery bypass grafting. Discussed with the nurse practitioner for cardiac thoracic surgery at [facility] Plan - Discharge Summary New Discharge Prescriptions: No Action Aspirin 81 mg PO DAILY Nitroglycerin Sl Tabs [Nitrostat] 0.4 mg SUBLINGUAL Q5M PRN PRN Reason: Chest Pain Omeprazole [PriLOSEC] 20 mg PO AC-BRKFST Atorvastatin [Lipitor] 40 mg PO HS Warfarin [Coumadin] 5 mg PO DAILY Potassium Chloride [K-Tab ER] 10 meq PO DAILY Magnesium Oxide [Mag-Ox] 200 mg PO DAILY HYDROcodone/APAP 7.5-325MG [[place] 7.5-325] 1 tab PO Q3H PRN PRN Reason: Pain Metoprolol Tartrate [Lopressor] 75 mg PO Q8H Furosemide [Lasix] 20 mg PO DAILY Amiodarone [Cordarone] 200 mg PO DAILY Discharge Medication List Aspirin 81 mg PO DAILY 08/12/14 [History] Nitroglycerin Sl Tabs [Nitrostat] 0.4 mg SUBLINGUAL Q5M PRN 08/12/14 [History] Omeprazole [PriLOSEC] 20 mg PO AC-BRKFST 08/12/14 [History] Atorvastatin [Lipitor] 40 mg PO HS 05/30/17 [History] Amiodarone [Cordarone] 200 mg PO DAILY 12/05/17 [History] Furosemide [Lasix] 20 mg PO DAILY 12/05/17 [History] HYDROcodone/APAP 7.5-325MG [[place] 7.5-325] 1 tab PO Q3H PRN 12/05/17 [History] Magnesium Oxide [Mag-Ox] 200 mg PO DAILY 12/05/17 [History] Metoprolol Tartrate [Lopressor] 75 mg PO Q8H 12/05/17 [History] Potassium Chloride [K-Tab ER] 10 meq PO DAILY 12/05/17 [History] Warfarin [Coumadin] 5 mg PO DAILY 12/05/17 [History] Follow up Appointment(s)/Referral(s): Abdoulaye Steen DO [Primary Care Provider] - 1-2 days Discharge Disposition: OTHER INSTITUTION NOT DEFINED
[2017-12-06 14:08] VITALS: BP 164/81; PULSE 94; TEMP 98.1
== END 2017-12-06 14:06 | disposition short-term general hospital (02) | DRG 446 ==
LOC: EC 22:13 → 6SEL 12-06 00:02
PROVIDERS: ADMIT Hospitalist; ATTEND Hospitalist
DX: K80.00 Calculus of gallbladder with acute cholecystitis without obstruction (principal); F32.9 Major depressive disorder, single episode, unspecified; I10 Essential (primary) hypertension; I25.10 Atherosclerotic heart disease of native coronary artery without angina pectoris; I25.2 Old myocardial infarction; I48.91 Unspecified atrial fibrillation; K21.9 Gastro-esophageal reflux disease without esophagitis; Z79.01 Long term (current) use of anticoagulants; E78.5 Hyperlipidemia, unspecified; Z79.82 Long term (current) use of aspirin; Z79.899 Other long term (current) drug therapy; Z82.0 Family history of epilepsy and other diseases of the nervous system; Z85.51 Personal history of malignant neoplasm of bladder; Z86.12 Personal history of poliomyelitis; Z87.891 Personal history of nicotine dependence; Z95.1 Presence of aortocoronary bypass graft; Z95.5 Presence of coronary angioplasty implant and graft; Z85.46 Personal history of malignant neoplasm of prostate; Z90.6 Acquired absence of other parts of urinary tract; Z90.79 Acquired absence of other genital organ(s); K44.9 Diaphragmatic hernia without obstruction or gangrene; Z80.9 Family history of malignant neoplasm, unspecified; Z83.2 Family history of diseases of the blood and blood-forming organs and certain disorders involving the immune mechanism; M19.90 Unspecified osteoarthritis, unspecified site; Z93.6 Other artificial openings of urinary tract status
CPT/HCPCS: 36415; 74177; 80053; 81001; 82150; 83605; 83690; 85025; 85610; 85730; 87040; 93005; 96361; 96365; 96366; 96367; 96375; 96376; 99285

== ENCOUNTER → 2018-09-22 | Outpatient (CLI) | payer MEDICARE ==
--- NOTE | 2018-09-22 12:30 | MM ---
Reason for exam: clinical finding. Baseline mammogram. History: Patient history of other cancer. Physical Findings: Nurse Summary: 1cm nodule in the left breast at 12 o'clock (nurse kp). MG Diagnostic Mammo w CAD OSCAR Bilateral CC and MLO view(s) were taken. Flame shaped retroareolar density greater in the left breast is mammographically compatible with gynecomastia. Ultrasound will be done for palpables. These results were verbally communicated with the patient and result sheet given to the patient on 09/22/18. ASSESSMENT: Incomplete: need additional imaging evaluation, BI-RAD 0 RECOMMENDATION: Ultrasound of both breasts. (right lower inner quadrant palpable, left retroareolar)
--- NOTE | 2018-09-22 12:33 | USB ---
Reason for exam: additional evaluation requested from abnormal screening. History: Patient history of other cancer. US Breast BILAT Right complete breast ultrasound includes all four quadrants, the retroareolar region and axilla. Finding demonstrates no cystic or solid lesion seen. Left complete breast ultrasound includes all four quadrants, the retroareolar region and axilla. Finding demonstrates a 1.4 x 2.2 x 1.1cm irregular, hypoechoic lesion at the posterior nipple, appears sonographically as gynecomastia. These results were verbally communicated with the patient and result sheet given to the patient on 09/22/18. ASSESSMENT: Benign, BI-RAD 2 RECOMMENDATION: Clinical management of both breasts. Manage patient on a clinical basis.
== END | disposition home or self-care (01) ==
LOC: RADMAMWWP 07:03
PROVIDERS: ATTEND Family Medicine
DX: N63.20 Unspecified lump in the left breast, unspecified quadrant (principal)
CPT/HCPCS: 77066

== ENCOUNTER → 2018-12-08 | Outpatient (CLI) | payer MEDICARE ==
--- NOTE | 2018-12-09 10:57 | US ---
EXAMINATION TYPE: US kidneys/renal and bladder DATE OF EXAM: 12/08/2018 COMPARISON: NONE CLINICAL HISTORY: C61 PROSTATE CA,HX BLADDER CA. Bladder and prostate removed. EXAM MEASUREMENTS: Right Kidney: 11.1 x 5.1 x 5.1 cm Left Kidney: 10.3 x 5.8 x 5.2 cm Right Kidney: No hydronephrosis or masses seen Left Kidney: Mild hydronephrosis seen. Bladder: Surgically absent. No nephrolithiasis is seen. No masses at the urinary bladder or prostate level within the field-of -view are identified. IMPRESSION: No suspicious postsurgical ultrasound changes.
== END | disposition home or self-care (01) ==
LOC: RADUSWWP 15:08
PROVIDERS: ATTEND Urology
DX: C61 Malignant neoplasm of prostate (principal); Z85.51 Personal history of malignant neoplasm of bladder
CPT/HCPCS: 76770; 84153

== ENCOUNTER → 2019-10-19 | Outpatient (CLI) | payer MEDICARE ==
--- NOTE | 2019-10-19 09:24 | XR ---
EXAMINATION TYPE: XR chest 2V DATE OF EXAM: 10/19/2019 COMPARISON: 09/27/2017 TECHNIQUE: PA and lateral views submitted. HISTORY: Neoplasm bladder FINDINGS: The lungs are clear and there is no pneumothorax, pleural effusion, or focal pneumonia. Postoperati ve change noted there is a cardiac device. Biapical pleural thickening. Arthropathy of the shoulders. No overt failure. Hypertrophic and degenerative change of the spine. IMPRESSION: 1. No acute process.
--- NOTE | 2019-10-19 09:46 | US ---
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 EXAM MEASUREMENTS: Right Kidney: 11.2 x 4.6 x 4.5 cm Left Kidney: 10.7 x 6.0 x 5.3 cm Patient had radical cystectomy. Large body habitus. Right Kidney: mild hydro Left Kidney: Similar appearing exophytic focus some low-level internal echoes measures 1.2 x 1.0 x 1. 0cm, mild hydro Bladder: radical cystectomy Cortical medullary differentiation is maintained. No nephrolithiasis is seen. The urinary bladder is anechoic. Bilateral ureteral jets are seen. IMPRESSION: Mild bilateral hydronephrosis. The focus at the upper pole the right kidney measuring 12 mm does not make criteria for simple cyst. Follow-up is suggested.
== END | disposition home or self-care (01) ==
LOC: RADUSWWP 08:20
PROVIDERS: ATTEND Urology
DX: N13.30 Unspecified hydronephrosis (principal); C61 Malignant neoplasm of prostate
CPT/HCPCS: 71046; 76770

== ENCOUNTER → 2019-11-13 | Outpatient (CLI) | payer MEDICARE ==
--- NOTE | 2019-11-13 08:57 | US ---
EXAMINATION TYPE: US duplex aorta DATE OF EXAM: 11/13/2019 COMPARISON: CT 2018 CLINICAL HISTORY: Z13.6 SCREENING FOR CARDIOVASCULAR DISEASE. AAA EXAM MEASUREMENTS: Abdominal Aorta: Proximal: 2.2 x 2.3cm Mid: 1.9 x 1.8cm Distal: 1.4 x 1.6cm Right Iliac: 1.0 x 1.2cm Left Iliac: 1.1 x 1.3cm No AAA seen IMPRESSION: No evidence for abdominal aortic aneurysm.
== END | disposition home or self-care (01) ==
LOC: RADUSWWP 08:18
PROVIDERS: ATTEND Family Medicine
DX: Z13.6 Encounter for screening for cardiovascular disorders (principal)
CPT/HCPCS: 93979

== ENCOUNTER → 2019-12-28 | Outpatient (CLI) | payer MEDICARE ==
--- NOTE | 2019-12-28 12:13 | CT ---
EXAMINATION TYPE: CT abdomen wo/w con DATE OF EXAM: 12/28/2019 COMPARISON: 12/05/2017, ultrasound 10/19/2019, CT scan of 04/28/2017, CT scan 720 1:[address] scan 6 HISTORY: Rt renal mass CT DLP: 1793.7 mGycm Automated exposure control for dose reduction was used. TECHNIQUE: Helical acquisition of images was performed from the lung bases through the top of iliac crest to include entire abdomen. CONTRAST: Performed with Oral Contrast and without and with IV Contrast, patient injected with 100 mL of Isovue 300. FINDINGS: LUNG BASES: Cardiac lead is seen. Lung bases are clear. LIVER/GB: Gallbladder is not seen with certainty correlate for previous cholecystectomy. PANCREAS: No significant abnormality is seen. SPLEEN: No significant abnormality is seen. ADRENALS: No significant abnormality is seen. KIDNEYS: Left kidney: There is a posterior mid to upper pole exophytic area of lobulation of the left kidney m easuring 64 Hounsfield units postcontrast and only 24 Hounsfield units. Suspicious for small solid ma ss. Mild left hydronephrosis similar to the recent. Right kidney: No evidence of renal mass. Mild pelvic caliectasis with no nephrolithiasis. Mild renal lobulation noted. BOWEL: No significant abnormality is seen. LYMPH NODES: No significant abnormality is seen. OSSEOUS STRUCTURES: No significant abnormality is seen. FREE AIR: No free air is visualized. OTHER: Small fat-containing periumbilical hernia. Hypertrophic and degenerative change of the spine. Atherosclerotic change aorta without evidence of aneurysm chronic appearing anterior rib deformity on the left likely in the basis of remote trauma. IMPRESSION: 1. There is a 1 cm isodense mass relative to the renal cortex involving the posterior mid to upper po le cortex left kidney best noted on delayed axial image 38. This is retrospectively similar appearanc e to the exam of 2018 but appears to be increased in size relative to the exam of 2016. There is no p athologic adenopathy. Lesion measures 64 Hounsfield units compatible with a solid lesion. There is so me cortical lobulation in the area and for this reason a dedicated MRI of the kidneys is recommended for further assessment. Note is made that the ultrasound was reviewed and the lesion in question was left kidney and not right kidney as reported in impression of the ultrasound report. 2. Small fat-containing periumbilical hernia.
== END | disposition home or self-care (01) ==
LOC: RADCTMAIN 10:32
PROVIDERS: ATTEND Urology
DX: K42.9 Umbilical hernia without obstruction or gangrene (principal); R93.421 Abnormal radiologic findings on diagnostic imaging of right kidney
CPT/HCPCS: 82565; 84520; 74170; 36415; Q9967

== ENCOUNTER → 2020-08-28 | Outpatient (CLI) | payer MEDICARE ==
--- NOTE | 2020-08-28 13:38 | XR ---
EXAMINATION TYPE: XR chest 2V DATE OF EXAM: 08/28/2020 COMPARISON: 10/19/2019 TECHNIQUE: PA and lateral views submitted. HISTORY: Chest pain FINDINGS: The lungs are clear and there is no pneumothorax, pleural effusion, or focal pneumonia. Chest pain postoperative change. Heart size normal. No overt failure. Biapical pleural thickening. IMPRESSION: 1. No acute process.
== END | disposition home or self-care (01) ==
LOC: RADXRMAIN 12:52
PROVIDERS: ATTEND Family Medicine
DX: R07.9 Chest pain, unspecified (principal)
CPT/HCPCS: 71046

== ENCOUNTER → 2020-09-03 | Outpatient (CLI) | payer MEDICARE ==
[2020-09-04 00:02] LABS: ALT 28 U/L (10-49); AST 22 U/L (14-35); African American GFR (CKD) 63.6 (60.0-200.0); Albumin/Globulin Ratio 1.76 (1.60-3.17); Alkaline Phosphatase 84 U/L (41-126); BUN/Creat Ratio 20.77 Ratio (12.00-20.00); Calcium 9.6 mg/dL (8.7-10.3); Carbon Dioxide 22.7 mmol/L (21.6-31.8); Chloride 110 mmol/L (96-109); Globulin 2.5 g/dL (1.6-3.3); Glucose 128 mg/dL (70-110); Non-African American GFR(CKD) 54.9 (60.0-200.0); Potassium 4.9 mmol/L (3.5-5.5); Sodium 142 mmol/L (135-145); Total Bilirubin 0.8 mg/dL (0.3-1.2); Total Protein 6.9 g/dL (6.2-8.2)
[2020-09-04 00:22] LABS: Prostate Specific Antigen <0.1 ng/mL (0.0-6.5)
== END | disposition home or self-care (01) ==
LOC: LABWHC1 10:59
PROVIDERS: ATTEND Urology
DX: C61 Malignant neoplasm of prostate (principal); C67.2 Malignant neoplasm of lateral wall of bladder
CPT/HCPCS: 36415; 80053; 84153

== ENCOUNTER → 2020-09-12 | Outpatient (CLI) | payer MEDICARE ==
--- NOTE | 2020-09-12 14:40 | CT ---
EXAMINATION TYPE: CT abdomen wo/w con DATE OF EXAM: 09/12/2020 COMPARISON: 12/28/2019 HISTORY: Renal mass. CT DLP: 1594 mGycm CONTRAST: CT scan of the abdomen is performed with Oral Contrast and without and with IV Contrast, patient inje cted with 80 mL of Isovue M300. FINDINGS: LUNG BASES-: No visible nodule. No infiltrate. LIVER/GB: No calcified gallstones. No space occupying hepatic lesion. Biliary tree is of normal ca liber. PANCREAS: No inflammation. No distinct mass. SPLEEN: No splenic enlargement. No lesion seen. ADRENALS: No nodule. No thickening. KIDNEYS/BLADDER: No hydronephrosis. No nephrolithiasis. Solid enhancing mass mid pole posterior cor vivienne left kidney measures 1.2 cm versus 1.0 no new masses are seen. Cm previously. Urinary bladder noah ssly unremarkable. BOWEL: Normal appendix. Normal bowel caliber. No inflammation. LYMPH NODES: No greater than 1cm abdominal or pelvic lymph nodes are appreciated. AORTA: No significant abnormality. OSSEOUS STRUCTURES: No significant abnormality is seen. OTHER: Small fat-containing umbilical hernia. IMPRESSION: 1. Solid enhancing lesion left kidney is slightly larger in size at 1.2 cm versus 1.0 cm previously. Malignancy is not excluded.
== END | disposition home or self-care (01) ==
LOC: RADCTMAIN 12:51
PROVIDERS: ATTEND Urology
DX: N28.9 Disorder of kidney and ureter, unspecified (principal)
CPT/HCPCS: 74170; Q9967 ×2

== ENCOUNTER → 2021-01-09 | Outpatient (CLI) | payer MEDICARE ==
--- NOTE | 2021-01-09 14:27 | US ---
EXAMINATION TYPE: US venous doppler duplex LE DATE OF EXAM: 01/09/2021 2:04 PM COMPARISON: NONE CLINICAL HISTORY: R60.0 localized edema. Edema. No hx of DVT. Patient takes blood thinners. SIDE PERFORMED: Bilateral TECHNIQUE: The lower extremity deep venous system is examined utilizing real time linear array sonog krupa with graded compression, doppler sonography and color-flow sonography. VESSELS IMAGED: Common Femoral Vein Deep Femoral Vein Greater Saphenous Vein * Femoral Vein Popliteal Vein Small Saphenous Vein * Proximal Calf Veins (* superficial vessels) Right Leg: No evidence of DVT in veins imaged at this time. Left Leg: No evidence of DVT in veins imaged at this time. IMPRESSION: No evidence for DVT at this time.
== END | disposition home or self-care (01) ==
LOC: RADUSWWP 13:32
PROVIDERS: ATTEND Family Medicine
DX: R60.0 Localized edema (principal)
CPT/HCPCS: 93970

== ENCOUNTER 2021-09-22 06:53 | Day surgery (SDC) | payer MEDICARE ==
[2021-09-18 18:35] VITALS: BMI 33.3
[~2021-09-22 06:53] MED LIST changes: +LIDOCAINE 1% (10MG/ML) FOR IV START INTRADERMA PRN
[2021-09-22 07:36] VITALS: RESP 16; TEMP 97.7
[2021-09-22] MEDS ORDERED: PROPOFOL 10 MG/ML 20 ML VIAL IV ONE (07:40)
[2021-09-22] MEDS ORDERED: LIDOCAINE 2% INJ 20 MG/ML (2 ML VIAL) ONE (07:40)
--- NOTE | 2021-09-22 07:52 | P.PCN ---
Date of Procedure: 09/22/21 Procedure(s) Performed: BRIEF HISTORY: Patient is a 71-year-old, pleasant, white male scheduled for an upper endoscopy as a part of evaluation of intermittent dysphagia to solids for the last 6 months duration.. PROCEDURE PERFORMED: Esophagogastroduodenoscopy biopsy and dilation. PREOPERATIVE DIAGNOSIS: Intermittent dysphagia to solids. IV sedation per anesthesia. PROCEDURE: After informed consent was obtained, the patient was brought into the endoscopy unit. IV sedation was administered by Anesthesia under continuous monitoring. Initially the Olympus GIF-140 video endoscope was inserted into the mouth. Esophagus intubated without any difficulty. It was gradually advanced into the stomach and duodenum and carefully examined. The bulb and the second part of the duodenum appeared normal. The scope at this time was withdrawn to the stomach, adequately insufflated with air, and upon careful examination, mucosa of the antrum, had mild gastritis and biopsies were done from this area. The body, cardia and the fundus appeared normal. The scope was then withdrawn into the esophagus. The GE junction was located at 39 cm from the incisors. There was a widely patent distal esophageal Schatzki's ring identified. This was dilated using 15-18 mm TTS balloon in a sequential fashion for 60 seconds. Small hiatal hernia noted. The rest of the esophagus appeared normal. There were no erosions or ulcerations seen and the patient tolerated the procedure well. IMPRESSION: 1. Distal esophagus Schatzki's ring status post balloon dilation using 15-18 mm TTS balloon as described above. 2. Mild antral gastritis . 3. Small hiatal hernia RECOMMENDATIONS: The findings of this examination were discussed with the patient as well as his family. He was advised to follow with the biopsy results. He was admitted on clear liquids for lunch today. Advised to follow up in office if he has recurrent dysphagia..
[2021-09-22 08:10] VITALS: BP 157/83; PULSE 57
== END 2021-09-22 08:27 | disposition home or self-care (01) ==
LOC: ORWHC2ENDO 06:53
PROVIDERS: ATTEND Internal Medicine Gastroenterology
DX: K22.2 Esophageal obstruction (principal); K29.50 Unspecified chronic gastritis without bleeding; K44.9 Diaphragmatic hernia without obstruction or gangrene; K20.90 Esophagitis, unspecified without bleeding
CPT/HCPCS: 43249; 43239; 88305; J2704; J2001; C1726

== ENCOUNTER → 2021-10-23 | Outpatient (CLI) | payer MEDICARE ==
[~2021-10-23] MED LIST changes: -LACTATED RINGERS 1,000 ML IV SCH; -LIDOCAINE 1% (10MG/ML) FOR IV START INTRADERMA PRN; +SODIUM CHLORIDE 0.9% 500 ML 500 ML in EMPTY BAG 1 BAG IV PRN; +ZOLEDRONIC ACID 5 MG in SODIUM CHLORIDE 0.9% 100 ML IV NR
[2021-10-23 09:04] VITALS: BP 148/80; PULSE 69; RESP 16; TEMP 97.6
== END ==
LOC: PROCWHC3 08:55
PROVIDERS: ATTEND Family Medicine
DX: M81.0 Age-related osteoporosis without current pathological fracture (principal); Z87.891 Personal history of nicotine dependence
CPT/HCPCS: 96365; J3489

== ENCOUNTER → 2022-01-22 | Outpatient (CLI) | payer MEDICARE | END | disposition home or self-care (01) | LOC: RADCTMAIN 13:19 | PROVIDERS: ATTEND Urology | DX: C67.2 Malignant neoplasm of lateral wall of bladder (principal) | CPT/HCPCS: 84153 ==

== ENCOUNTER → 2022-01-22 | Outpatient (CLI) | payer MEDICARE ==
--- NOTE | 2022-01-22 13:54 | XR ---
EXAMINATION TYPE: XR chest 2V DATE OF EXAM: 01/22/2022 COMPARISON: 08/28/2020 TECHNIQUE: PA and lateral views submitted. HISTORY: Pain FINDINGS: The lungs are clear and there is no pneumothorax, pleural effusion, or focal pneumonia. Postoperati ve change cardiac device noted. Hyperinflation suggests COPD. Hypertrophic arthropathy of the AC join ts. No overt failure. IMPRESSION: 1. No acute process.
--- NOTE | 2022-01-22 15:22 | CT ---
CT urogram with and without contrast. HISTORY: Status post cystectomy for bladder cancer. Status post urostomy COMPARISON: CT abdomen dated 09/04/2020. TECHNIQUE: Multiple axial images are obtained through the abdomen and pelvis before and after the une ventful administration of nonionic IV contrast. FINDINGS: Visualized lung bases are clear. There are surgical absence of the gallbladder. There is no biliary ductal dilatation. There is no focal mass or organomegaly involving the liver, pancreas, spleen or adrenal glands. There are no renal calcifications. There are surgical absence of the urinary bladder. In the right si de of the abdomen there is a ileal loop urostomy.. Following contrast administration the kidneys excrete contrast promptly and symmetrically. The collec ting systems and ureters are mildly prominent consistent with mild chronic hydronephrosis. There is n o acute obstruction. The ileal loop is intact. The bowel loops are normal in caliber and there is no evidence of obstruction. There is moderate dive rticulosis of the descending and sigmoid colon without CT evidence of diverticulitis. There is no free intraperitoneal air or fluid. No inflammatory changes are identified in the mesenter y .The osseous structures are intact. The caliber of the abdominal aorta is normal is no retroperitonea l adenopathy or hemorrhage IMPRESSION: 1. Ileal loop urostomy. There is no solid renal masses or urinary obstruction. No filling defects are seen within the opacified renal collecting systems or ureters which appear mildly prominent 2. Moderate diverticulosis of the diverticulitis. 3. No evidence of metastatic disease. 4. Status post cystectomy and cholecystectomy. . : .
== END | disposition home or self-care (01) ==
LOC: RADXRMAIN 13:23
PROVIDERS: ATTEND Urology
DX: C67.2 Malignant neoplasm of lateral wall of bladder (principal)
CPT/HCPCS: 82565; 84520; 71046; 74178; 36415; 74400; Q9967

== ENCOUNTER → 2023-02-17 | Outpatient (CLI) | payer MEDICARE ==
[2023-02-17 13:21] LABS: African American GFR (CKD) 69 (>60 ml/min/1.73 sqM); Blood Urea Nitrogen 26 mg/dL (9-20); Non-African American GFR(CKD) 59 (>60 ml/min/1.73 sqM)
--- NOTE | 2023-02-17 14:10 | CT ---
EXAMINATION TYPE: CT brain wo/w con DATE OF EXAM: 02/17/2023 COMPARISON: None INDICATION: Dizziness falls DLP: 2248.70 mGycm, Automated exposure control for dose reduction was used. CONTRAST: 100 mL Isovue-300 CT of the brain is performed utilizing 3 mm thick sections through the posterior fossa and 3 mm thick sections through the remaining calvarium. Study is performed within 24 hours of arrival to the hosp [facility]. No abnormal hyperdensity is present to suggest an acute intracranial hemorrhage. No mass lesion is evident. No acute infarcts are evident. Periventricular white matter hypodensity is present, likely on the bas is of chronic white matter ischemic changes. Ventricles and sulci are appropriate for the patient age. No suspicious enhancement is evident. Cerebellar pontine angles appear normal. No expansion of the in ternal auditory canals is evident. Paranasal sinuses and mastoid air cells within the [id number] are clear. IMPRESSION: 1. No acute intracranial process Pre- or Postcontrast CT brain
== END | disposition home or self-care (01) ==
LOC: RADCTMAIN 12:12
PROVIDERS: ATTEND Otolaryngology
DX: R42 Dizziness and giddiness (principal)
CPT/HCPCS: 82565; 84520; 70470; 36415; Q9967

== ENCOUNTER → 2023-03-18 | Outpatient (CLI) | payer MEDICARE ==
[2023-03-18 13:41] LABS: African American GFR (CKD) 58 (>60 ml/min/1.73 sqM); Blood Urea Nitrogen 24 mg/dL (9-20); Non-African American GFR(CKD) 50 (>60 ml/min/1.73 sqM)
--- NOTE | 2023-03-20 14:23 | CT ---
EXAMINATION TYPE: CT angio head neck CT DLP: 565.4 mGycm, Automated exposure control for dose reduction was used. DATE OF EXAM: 03/18/2023 2:51 PM COMPARISON: 02/17/2023.. CLINICAL INDICATION:Male, 72 years old with history of R42 DIZZINESS AND GIDDINESS; PHH, Dizziness TECHNIQUE: Axially acquired helical CT angiogram of the head and neck was obtained with contrast. Axi al images are supplemented with 3D reconstructions and MIP images which were post-processed at an in dependent workstation. NASCET criteria used. Contrast used:65 ml mL of Isovue 370 with IV Contrast, Oral contrast used: None. FINDINGS: CTA HEAD: Bilaterally aphakia. No evidence of acute intracranial hemorrhage, mass effect, or midline shift. The ventricles, sulci, and cisterns are unremarkable. The visualized portions of the internal carotid arteries, middle cerebral arteries, anterior cerebral arteries, and posterior cerebral arteries are patent. Atherosclerosis of the carotid siphons. The basilar and vertebral arteries are patent. CTA NECK: Medialized course to the common carotid arteries bilaterally which is posterior to the hypopharynx/or opharynx. Right Carotid System: The common carotid and external carotid arteries are patent. There is less than 25% stenosis at the c arotid bifurcation secondary to calcified/noncalcified plaque. The rest of the internal carotid arter y is patent. Left Carotid System: The common carotid and external carotid arteries are patent. There is less than 25% stenosis at the c arotid bifurcation secondary to calcified/noncalcified plaque. The rest of the internal carotid arter y is patent. Vertebral arteries are patent without evidence hemodynamically significant stenosis. Dominant right a nd atrophic left vertebral arteries. There is a 4-vessel aortic arch. The origins of the great vessels are patent. No evidence of hemodyna mically significant stenosis. Upper thorax: IMPRESSION: 1. No evidence of dissection of the cervical internal carotid arteries or vertebral arteries or any e vidence of significant stenosis at the carotid bifurcations. 2. No evidence of intracranial high-grade stenosis or intracranial aneurysm. 3. Medialized course of the common carotid arteries bilaterally.
== END | disposition home or self-care (01) ==
LOC: RADCTMAIN 12:42
PROVIDERS: ATTEND Otolaryngology
DX: I65.23 Occlusion and stenosis of bilateral carotid arteries (principal); R42 Dizziness and giddiness
CPT/HCPCS: 82565; 84520; 70496; 70498; 36415; Q9967

== ENCOUNTER → 2024-02-03 | Outpatient (CLI) | payer MEDICARE ==
--- NOTE | 2024-02-03 15:59 | US ---
EXAMINATION TYPE: US kidneys/renal and bladder DATE OF EXAM: 02/03/2024 COMPARISON: CT abdomen and pelvis 01/11/2023, CT urogram 01/22/2022, renal ultrasound 10/19/2019, CT abdo men 09/12/2020 CLINICAL INDICATION: Male, 73 years old with history of C67.9 MALIGNANT NEOPLASM OF BLADDER; h/o blad sunshine ca, bladder surgically absent TECHNIQUE: Grayscale and color Doppler imaging of the bilateral kidneys and urinary bladder: FINDINGS: EXAM MEASUREMENTS: Right Kidney: 10.5 x 5.2 x 5.3 cm Left Kidney: 10.8 x 4.3 x 6.0 cm Right Kidney: No hydronephrosis or masses seen Left Kidney: 2.3 x 1.8 x 1.9cm known hypoechoic mass, seen on CT Bladder: surgically absent There is no evidence for hydronephrosis at this point in time. No nephrolithiasis is seen. No defini tive renal mass. Left renal 2.3 cm hypoechoic lesion identified corresponding to CT. Previously measu red 1.2 cm in 2020. The urinary bladder is surgically absent. IMPRESSION: 1. No hydronephrosis. 2. Slow-growing left renal hypoechoic lesion from prior CT 2020. Stable from most recent CT. Previou sly demonstrated enhancement. Raises concern for renal cell carcinoma versus other renal neoplasms. 3. Postsurgical changes from cystectomy. [facility], , 02/03/2024 3:57 PM
--- NOTE | 2024-02-03 17:21 | XR ---
EXAMINATION TYPE: XR chest 2V DATE OF EXAM: 02/03/2024 COMPARISON: 01/11/2023 INDICATION: Follow-up bladder cancer TECHNIQUE: Frontal and lateral views of the chest are obtained. FINDINGS: The heart size is normal. Sternotomy wires are in the midline. Pacemaker overlies left chest. The pulmonary vasculature is normal. The lungs are clear. No suspicious lung nodules are evident. No osseous abnormality apparent. IMPRESSION: 1. No acute pulmonary process. [facility], Workstation: [facility], 02/03/2024 5:19 PM
== END ==
LOC: RADUSWWP 15:23
PROVIDERS: ATTEND Urology
CPT/HCPCS: 71046; 76770

== ENCOUNTER → 2024-07-26 | Outpatient (CLI) | payer MEDICARE ==
[2024-07-27 02:42] LABS: Basophils # (A) 0.04 X 10*3/uL (0.00-0.10); Basophils % (A) 0.5 %; Eosinophils # (A) 0.17 X 10*3/uL (0.04-0.35); Eosinophils % (A) 1.9 %; HCT 43.8 % (39.6-50.0); HGB 13.4 g/dL (13.0-17.0); Lymphocytes # (A) 2.02 X 10*3/uL (0.90-5.00); Lymphocytes % (A) 23.1 %; MCH 27.9 pg (27.0-32.0); MCHC 30.6 g/dL (32.0-37.0); MCV 91.1 FL (80.0-97.0); Mean Platelet Volume 10.6 FL (9.5-12.2); Monocytes # (A) 0.63 X 10*3/uL (0.20-1.00); Monocytes % (A) 7.2 %; NRBC Per 100 WBC 0 X 10*3/uL (0.00-0.01); Neutrophils # (A) 5.84 X 10*3/uL (1.80-7.70); Neutrophils % (A) 66.7 %; Platelet Count 237 X 10*3/uL (140-440); RBC 4.81 X 10*6/uL (4.40-5.60); RDW 14.8 % (11.5-14.5); WBC 8.75 X 10*3/uL (4.50-10.00)
[2024-07-27 03:15] LABS: ALT 29 U/L (10-49); AST 20 U/L (14-35); Albumin 4.2 g/dL (3.8-4.9); Alkaline Phosphatase 97 U/L (41-126); BUN/Creat Ratio 14.85 Ratio (12.00-20.00); Blood Urea Nitrogen 19.3 mg/dL (9.0-27.0); Carbon Dioxide 24.8 mmol/L (21.6-31.8); Chloride 107 mmol/L (96-109); Glucose 118 mg/dL (70-110); Potassium 4.4 mmol/L (3.5-5.5); Sodium 142 mmol/L (135-145); Total Bilirubin 0.3 mg/dL (0.3-1.2); Total Protein 7.2 g/dL (6.2-8.2)
== END | disposition home or self-care (01) ==
LOC: LABWHC1 16:13
PROVIDERS: ATTEND Family Medicine
DX: I10 Essential (primary) hypertension (principal)
CPT/HCPCS: 36415; 80053; 85025

== ENCOUNTER → 2024-08-28 | Outpatient (CLI) | payer MEDICARE ==
[~2024-08-28] MED LIST changes: +SODIUM CHLORIDE 0.9% 250 ML in EMPTY BAG 1 BAG IV PRN; -SODIUM CHLORIDE 0.9% 500 ML 500 ML in EMPTY BAG 1 BAG IV PRN; -ZOLEDRONIC ACID 5 MG in SODIUM CHLORIDE 0.9% 100 ML IV NR
[2024-08-28 12:12] VITALS: BP 111/58; PULSE 100; RESP 16; TEMP 98.2
[2024-08-28] MEDS: SODIUM CHLORIDE 0.9% 500 ML 500 ML in EMPTY BAG 1 BAG IV PRN (12:17)
[2024-08-28] MEDS: ZOLEDRONIC ACID 5 MG in SODIUM CHLORIDE 0.9% 100 ML IV NR (12:29)
== END ==
LOC: PROCWHC3 11:55
PROVIDERS: ATTEND Family Medicine
DX: M81.0 Age-related osteoporosis without current pathological fracture (principal)
CPT/HCPCS: 96365; J3489